=== PATIENT | male | born 1970 | race African-American/Black ===

== ENCOUNTER 2016-09-24 21:12 | Emergency (ER) | payer OTHER ==
[2016-09-24] MEDS ORDERED: IPRATROPIUM-ALBUTEROL 3 ML NEB INHALATION STA (21:29)
--- NOTE | 2016-09-24 21:33 | ED ---
General Adult HPI - General Chief complaint: Chest Pain Stated complaint: Chest Pain/JULIETTE Time Seen by Provider: 09/24/16 21:15 Source: patient, RN notes reviewed Mode of arrival: wheelchair - History of Present Illness Initial comments: This is a 45-year-old male with a past medical history significant for COPD. Patient comes in stating he had difficulty breathing since this morning at 9 AM. Patient states he also is complaining of chest pain anytime he takes a deep breath chart at 9 AM. Patient states that sharp in nature. Patient denies any recent fever chills or cough. Patient states he has no chest pain at rest or with shallow breathing. Patient denies any palpitations. Patient denies abdominal pain patient denies nausea vomiting or diarrhea. Patient denies any headache patient denies any lightheadedness dizziness or near syncopal episode. Patient denies any numbness or weakness. Patient states prior to arrival he did have one beer - Related Data Home Medications Medication Instructions Recorded Confirmed Albuterol Sulfate [Ventolin HFA] 2 puff INHALATION RT-Q6H PRN 08/25/15 09/12/16 oxyCODONE-APAP 5-325MG [Percocet 2 tab PO Q6H PRN 07/21/16 09/12/16 5-325 mg] Gabapentin [Neurontin] 300 mg PO Q6H 08/11/16 09/12/16 ALPRAZolam [Xanax] 2 mg PO BID 08/30/16 09/12/16 Aspirin 81 mg PO DAILY 08/30/16 09/12/16 Colchicine 0.6 mg PO BID 08/30/16 09/12/16 Morphine Sulfate ER [Ms Contin] 60 mg PO BID 08/30/16 09/12/16 Promethazine 6.25MG/5Ml [Phenergan 12.5 mg PO QID PRN 08/30/16 09/12/16 Syrup] Previous Rx's Medication Instructions Recorded Ibuprofen [Motrin] 600 mg PO Q6HR PRN #20 tab 08/30/16 Famotidine [Pepcid] 20 mg PO BID #30 tablet 09/12/16 Allergies Allergy/AdvReac Type Severity Reaction Status Date / Time dicyclomine HCl [From Bentyl] Allergy Severe Anaphylaxis Verified 09/24/16 21:16 Iodinated Contrast Media - Allergy Severe Rash/Hives Verified 09/24/16 21:16 Oral and prednisone Allergy Severe Anaphylaxis Verified 09/24/16 21:16 shellfish derived [Shellfish] Allergy Severe Rash/Hives Verified 09/24/16 21:16 oxycodone Allergy Mild Itching Verified 09/24/16 21:16 Penicillins Allergy Unknown Unknown Verified 09/24/16 21:16 Childhood steroids Allergy Severe Anaphylaxis Uncoded 09/24/16 21:16 Review of Systems ROS Statement: Those systems with pertinent positive or pertinent negative responses have been documented in the HPI. ROS Other: All systems not noted in ROS Statement are negative. 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 Past Anesthesia/Blood Transfusion Reactions: No Reported Reaction Date of Last Stent Placement:: 2002 Past Psychological History: Anxiety, Bipolar, Depression, Schizophrenia Additional Psychological History / Comment(s): PT states he HAS COMPREHENSION PROBLEMS DOES'NT READ WELL STATED CAN'T COMPREHNED IT,ABLE TO WRITE HIS NAME Pt lives alone in an apartment. CURRENTLY SINCE RECENT SX/HOSPITALIZATIONS HAS HAD HOME CARE SERVICES. He has home O2 3L/NC which he wears continuously. Smoking Status: Light tobacco smoker Past Alcohol Use History: Occasional Additional Past Alcohol Use History / Comment(s): Pt states he occasionally smokes. SMOKING CESSATION BOOKLET GIVEN TO PT, OCC ALCOHOL USE Past Drug Use History: None Reported Additional Drug Use History / Comment(s): Last marijuana use 2014 - Past Family History Mother Family Medical History: Asthma Father Family Medical History: Liver Disease Additional Family Medical History / Comment(s): RENAL DISEASE General Exam - General Exam Comments Initial Comments: GENERAL: Patient is well-developed and well-nourished. Patient is nontoxic and well- hydrated and is in no acute distress when I walked into the room he was watching TV and not making any sounds as soon as he saw me he started forcibly ENT: Neck is soft and supple. No significant lymphadenopathy is noted. Oropharynx is clear. Moist mucous membranes. Neck has full range of motion without eliciting any pain. EYES: The sclera were anicteric and conjunctiva were pink and moist. Extraocular movements were intact and pupils were equal round and reactive to light. Eyelids were unremarkable. PULMONARY: It is difficult to hear any breath sounds with his forced wheezing because it is so loud CARDIOVASCULAR: There is a regular rate and rhythm without any murmurs gallops or rubs. ABDOMEN: Soft and nontender with normal bowel sounds. No palpable organomegaly was noted. There is no palpable pulsatile mass. SKIN: Skin is clear with no lesions or rashes and otherwise unremarkable. NEUROLOGIC: Patient is alert and oriented x3. Cranial nerves II through XII are grossly intact. Motor and sensory are also intact. Normal speech, volume and content. Symmetrical smile. MUSCULOSKELETAL: Normal extremities with adequate strength and full range of motion. No lower extremity swelling or edema. No calf tenderness. LYMPHATICS: No significant lymphadenopathy is noted PSYCHIATRIC: Normal psychiatric evaluation. Course Vital Signs 09/24/16 09/24/16 09/24/16 21:13 22:23 22:26 Temperature 96.8 F L Pulse Rate 107 H 107 H 97 Respiratory 18 20 Rate Blood Pressure 136/81 123/80 O2 Sat by Pulse 99 97 Oximetry 09/24/16 22:38 Temperature Pulse Rate 97 Respiratory Rate Blood Pressure O2 Sat by Pulse Oximetry Medical Decision Making - Medical Decision Making EKG shows sinus tachycardia at 105 bpm NH interval 152 QRS is 72 QTC is 320 QTC is 422. Patient's EKG shows no ST segment elevation or depression though there are quite a few precordial leads that are less than ideal because of the noise. Patient's ABG shows a pH of 7.37 pCO2 of 37.9 pO2 of 114 bicarb 21 and an O2 sat of 98.3%. I stood outside the patient's room he was making no wheezing whatsoever I did this on multiple occasions. As soon as I walked into the room he started to audibly wheeze and force himself to wheeze. - Lab Data Result diagrams: 09/24/16 21:50 09/24/16 21:50 Lab Results 09/24/16 09/24/16 09/24/16 Range/Units 21:30 21:50 21:50 WBC 8.5 (3.8-10.6) k/uL RBC 4.95 (4.30-5.90) m/uL Hgb 12.9 L (13.0-17.5) gm/dL Hct 40.6 (39.0-53.0) % MCV 81.9 (80.0-100.0) fL MCH 26.1 (25.0-35.0) pg MCHC 31.9 (31.0-37.0) g/dL RDW 15.3 (11.5-15.5) % Plt Count 226 (150-450) k/uL Neutrophils % 65 % Lymphocytes % 28 % Monocytes % 4 % Eosinophils % 1 % Basophils % 1 % Neutrophils # 5.5 (1.3-7.7) k/uL Lymphocytes # 2.4 (1.0-4.8) k/uL Monocytes # 0.3 (0-1.0) k/uL Eosinophils # 0.1 (0-0.7) k/uL Basophils # 0.1 (0-0.2) k/uL PT (9.0-12.0) sec INR (<1.1) APTT (22.0-30.0) sec Sample Site ABG pH (7.35-7.45) ABG pCO2 (35-45) mmHg ABG pO2 (83-108) mmHg ABG HCO3 (21-25) mmol/L ABG Total CO2 (19-24) mmol/L ABG O2 Saturation (94-97) % ABG Base Excess mmol/L FiO2 % Sodium 141 (137-145) mmol/L Potassium 3.8 (3.5-5.1) mmol/L Chloride 103 (98-107) mmol/L Carbon Dioxide 25 (22-30) mmol/L Anion Gap 13 mmol/L BUN 22 H (9-20) mg/dL Creatinine 1.03 (0.66-1.25) mg/dL Est GFR (MDRD) Af Amer >60 (>60 ml/min/1.73 sqM) Est GFR (MDRD) Non-Af >60 (>60 ml/min/1.73 sqM) Glucose 89 (74-99) mg/dL Calcium 8.8 (8.4-10.2) mg/dL Total Bilirubin 0.3 (0.2-1.3) mg/dL AST 15 L (17-59) U/L ALT 29 (21-72) U/L Alkaline Phosphatase 91 (38-126) U/L Total Creatine Kinase (55-170) U/L CK-MB (CK-2) (0.0-2.4) ng/mL CK-MB (CK-2) Rel Index Troponin I (0.000-0.034) ng/mL NT-Pro-B Natriuret Pep 17 pg/mL Total Protein 6.7 (6.3-8.2) g/dL Albumin 4.1 (3.5-5.0) g/dL Serum Alcohol 82 mg/dL 09/24/16 09/24/16 09/24/16 Range/Units 21:50 21:50 22:19 WBC (3.8-10.6) k/uL RBC (4.30-5.90) m/uL Hgb (13.0-17.5) gm/dL Hct (39.0-53.0) % MCV (80.0-100.0) fL MCH (25.0-35.0) pg MCHC (31.0-37.0) g/dL RDW (11.5-15.5) % Plt Count (150-450) k/uL Neutrophils % % Lymphocytes % % Monocytes % % Eosinophils % % Basophils % % Neutrophils # (1.3-7.7) k/uL Lymphocytes # (1.0-4.8) k/uL Monocytes # (0-1.0) k/uL Eosinophils # (0-0.7) k/uL Basophils # (0-0.2) k/uL PT 10.5 (9.0-12.0) sec INR 1.0 (<1.1) APTT 25.1 (22.0-30.0) sec Sample Site R RAD ABG pH 7.37 (7.35-7.45) ABG pCO2 38 (35-45) mmHg ABG pO2 114 H (83-108) mmHg ABG HCO3 21 (21-25) mmol/L ABG Total CO2 22 (19-24) mmol/L ABG O2 Saturation 98.0 H (94-97) % ABG Base Excess -3.3 mmol/L FiO2 28 % Sodium (137-145) mmol/L Potassium (3.5-5.1) mmol/L Chloride (98-107) mmol/L Carbon Dioxide (22-30) mmol/L Anion Gap mmol/L BUN (9-20) mg/dL Creatinine (0.66-1.25) mg/dL Est GFR (MDRD) Af Amer (>60 ml/min/1.73 sqM) Est GFR (MDRD) Non-Af (>60 ml/min/1.73 sqM) Glucose (74-99) mg/dL Calcium (8.4-10.2) mg/dL Total Bilirubin (0.2-1.3) mg/dL AST (17-59) U/L ALT (21-72) U/L Alkaline Phosphatase (38-126) U/L Total Creatine Kinase 127 (55-170) U/L CK-MB (CK-2) 0.5 (0.0-2.4) ng/mL CK-MB (CK-2) Rel Index 0.4 Troponin I <0.012 (0.000-0.034) ng/mL NT-Pro-B Natriuret Pep pg/mL Total Protein (6.3-8.2) g/dL Albumin (3.5-5.0) g/dL Serum Alcohol mg/dL Disposition Clinical Impression: Alcohol intoxication, History of COPD Disposition: HOME SELF-CARE Condition: Good Instructions: Abuse of Alcohol (ED), COPD (Chronic Obstructive Pulmonary Disease) (ED) Time of Disposition: 23:23
[2016-09-24 22:06] LABS: Basophils # (A) 0.1 k/uL (0-0.2); Basophils % (A) 1 %; CH 27.4; CHCM 33.6; Eosinophils # (A) 0.1 k/uL (0-0.7); Eosinophils % (A) 1 %; HCT 40.6 % (39.0-53.0); HDW 2.34; HGB 12.9 gm/dL (13.0-17.5); Luc # (Auto) 0.14; Luc % (Auto) 2; Lymphocytes # (A) 2.4 k/uL (1.0-4.8); Lymphocytes % (A) 28 %; MCH 26.1 pg (25.0-35.0); MCHC 31.9 g/dL (31.0-37.0); MCV 81.9 fL (80.0-100.0); Mean Platelet Volume 7.7; Monocytes # (A) 0.3 k/uL (0-1.0); Monocytes % (A) 4 %; Neutrophils # (A) 5.5 k/uL (1.3-7.7); Neutrophils % (A) 65 %; RBC 4.95 m/uL (4.30-5.90); RDW 15.3 % (11.5-15.5); WBC 8.5 k/uL (3.8-10.6); WBC (Perox) 8.77
[2016-09-24 22:13] LABS: Partial Thromboplastin Time 25.1 sec (22.0-30.0); Prothrombin Time 10.5 sec (9.0-12.0)
[2016-09-24 22:14] LABS: ALT 29 U/L (21-72); AST 15 U/L (17-59); Alkaline Phosphatase 91 U/L (38-126); Anion Gap 13 mmol/L; Blood Urea Nitrogen 22 mg/dL (9-20); Calcium 8.8 mg/dL (8.4-10.2); Carbon Dioxide 25 mmol/L (22-30); Chloride 103 mmol/L (98-107); Glucose 89 mg/dL (74-99); Non-African American GFR(MDRD) >60 (>60 ml/min/1.73 sqM); Potassium 3.8 mmol/L (3.5-5.1); Sodium 141 mmol/L (137-145); Total Bilirubin 0.3 mg/dL (0.2-1.3); Total Protein 6.7 g/dL (6.3-8.2)
--- NOTE | 2016-09-24 22:17 | XR ---
EXAMINATION TYPE: XR chest 2V DATE OF EXAM: 09/24/2016 10:09 PM COMPARISON: September 12, 2016 6:50 AM hours HISTORY: Shortness of breath history of asthma and cardiac stents. TECHNIQUE: Frontal and lateral views of the chest are obtained. FINDINGS: Right-sided Mediport catheter is noted in place with its tip in the area of atriocaval junction. There is persistent mild pulmonary vascular congestion with improvement since previous study. No foca l pneumonia is noted. There is no pneumothorax. No significant pleural effusions are suggested. The cardiac silhouette size is within normal limits. The osseous structures are intact. IMPRESSION: 1. There is improvement noted in the CHF changes with persistent mild pulmonary vascular congestion. 2. No focal pneumonia.
[2016-09-24 22:21] LABS: Alcohol 82 mg/dL
[2016-09-24 22:29] LABS: Creatine Kinase 127 U/L (55-170)
[2016-09-24 22:37] LABS: ABG Base Excess -3.3 mmol/L; ABG HCO3 21 mmol/L (21-25); ABG PCO2 38 mmHg (35-45); ABG PH 7.37 (7.35-7.45); ABG PO2 114 mmHg (83-108); ABG TCO2 22 mmol/L (19-24)
[2016-09-24 22:39] VITALS: PULSE 97
[2016-09-24 22:42] LABS: Creatine Kinase MB 0.5 ng/mL (0.0-2.4); Troponin I <0.012 ng/mL (0.000-0.034)
[2016-09-24 23:48] VITALS: BP 122/73; RESP 18; TEMP 97.6
== END 2016-09-24 23:47 | disposition home or self-care (01) ==
LOC: EC 21:12
DX: J44.9 Chronic obstructive pulmonary disease, unspecified (principal); F10.129 Alcohol abuse with intoxication, unspecified; R07.9 Chest pain, unspecified; I25.10 Atherosclerotic heart disease of native coronary artery without angina pectoris; F41.9 Anxiety disorder, unspecified; I25.2 Old myocardial infarction; F17.200 Nicotine dependence, unspecified, uncomplicated; Y90.4 Blood alcohol level of 80-99 mg/100 ml; Z88.0 Allergy status to penicillin; Z88.1 Allergy status to other antibiotic agents; Z88.8 Allergy status to other drugs, medicaments and biological substances; Z95.5 Presence of coronary angioplasty implant and graft; Z91.041 Radiographic dye allergy status; Z91.013 Allergy to seafood; Z79.82 Long term (current) use of aspirin; Z86.718 Personal history of other venous thrombosis and embolism; Z79.899 Other long term (current) drug therapy
CPT/HCPCS: 36415; 36600; 71020; 80053; 80320; 82550; 82553; 82805; 83880; 84484; 85025; 85610; 85730; 93005; 94640; 99285

== ENCOUNTER 2016-11-03 13:07 | Inpatient (IN) | payer MEDICAID, OTHER ==
--- NOTE | 2016-11-03 14:21 | ED ---
General Adult HPI - General Chief complaint: Psychiatric Symptoms Stated complaint: Sucidial Time Seen by Provider: 11/03/16 13:25 Source: patient, RN notes reviewed, old records reviewed Mode of arrival: ambulatory Limitations: no limitations - History of Present Illness Initial comments: This is a 45-year-old male here for evaluation of psychiatric disease. Patient coming in feeling suicidal. Patient states he is suicidal, denies drugs or alcohol abuse, patient not taking medications since July - Related Data Home Medications Medication Instructions Recorded Confirmed Albuterol Sulfate [Ventolin HFA] 2 puff INHALATION RT-Q6H PRN 08/25/15 11/03/16 oxyCODONE-APAP 5-325MG [Percocet 2 tab PO Q6H PRN 07/21/16 11/03/16 5-325 mg] ALPRAZolam [Xanax] 2 mg PO BID PRN 08/30/16 11/03/16 Morphine Sulfate ER [Ms Contin] 60 mg PO BID PRN 08/30/16 11/03/16 Promethazine 6.25MG/5Ml [Phenergan 12.5 mg PO QID PRN 08/30/16 11/03/16 Syrup] Allergies Allergy/AdvReac Type Severity Reaction Status Date / Time dicyclomine HCl [From Bentyl] Allergy Severe Anaphylaxis Verified 11/03/16 13:50 Iodinated Contrast Media - Allergy Severe Rash/Hives Verified 11/03/16 13:50 Oral and prednisone Allergy Severe Anaphylaxis Verified 11/03/16 13:50 shellfish derived [Shellfish] Allergy Severe Rash/Hives Verified 11/03/16 13:50 oxycodone Allergy Mild Itching Verified 11/03/16 13:50 Penicillins Allergy Unknown Unknown Verified 11/03/16 13:50 Childhood steroids Allergy Severe Anaphylaxis Uncoded 11/03/16 13:19 Review of Systems ROS Statement: Those systems with pertinent positive or pertinent negative responses have been documented in the HPI. ROS Other: All systems not noted in ROS Statement are negative. 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 Past Anesthesia/Blood Transfusion Reactions: No Reported Reaction Date of Last Stent Placement:: 2002 Past Psychological History: Anxiety, Bipolar, Depression, Schizophrenia Additional Psychological History / Comment(s): PT states he HAS COMPREHENSION PROBLEMS DOES'NT READ WELL STATED CAN'T COMPREHNED IT,ABLE TO WRITE HIS NAME Pt lives alone in an apartment. CURRENTLY SINCE RECENT SX/HOSPITALIZATIONS HAS HAD HOME CARE SERVICES. He has home O2 3L/NC which he wears continuously. Smoking Status: Current every day smoker Past Alcohol Use History: Occasional Additional Past Alcohol Use History / Comment(s): Pt states he occasionally smokes. SMOKING CESSATION BOOKLET GIVEN TO PT, OCC ALCOHOL USE Past Drug Use History: None Reported Additional Drug Use History / Comment(s): Last marijuana use 2014 - Past Family History Mother Family Medical History: Asthma Father Family Medical History: Liver Disease Additional Family Medical History / Comment(s): RENAL DISEASE General Exam Limitations: no limitations General appearance: alert, in no apparent distress Head exam: Present: atraumatic, normocephalic, normal inspection Eye exam: Present: normal appearance, PERRL, EOMI. Absent: scleral icterus, conjunctival injection, periorbital swelling ENT exam: Present: normal exam, mucous membranes moist Neck exam: Present: normal inspection. Absent: tenderness, meningismus, lymphadenopathy Respiratory exam: Present: normal lung sounds bilaterally. Absent: respiratory distress, wheezes, rales, rhonchi, stridor Cardiovascular Exam: Present: regular rate, normal rhythm, normal heart sounds. Absent: systolic murmur, diastolic murmur, rubs, gallop, clicks GI/Abdominal exam: Present: soft, normal bowel sounds. Absent: distended, tenderness, guarding, rebound, rigid Extremities exam: Present: normal inspection, full ROM, normal capillary refill. Absent: tenderness, pedal edema, joint swelling, calf tenderness Back exam: Present: normal inspection Neurological exam: Present: alert, oriented X3, CN II-XII intact Psychiatric exam: Present: normal affect, normal mood Skin exam: Present: warm, dry, intact, normal color. Absent: rash Course Vital Signs 11/03/16 13:15 Temperature 97.0 F L Pulse Rate 95 Respiratory 18 Rate Blood Pressure 128/74 O2 Sat by Pulse 97 Oximetry - Reevaluation(s) Reevaluation #1: 11/03/16 14:20 Patient's medically clear for psychiatric evaluation Medical Decision Making - Medical Decision Making 45 male ER for evaluation of psychiatric these, suicidal thoughts, patient will be admitted for psychiatric evaluation and treatment Disposition Clinical Impression: Suicidal ideation, Depression Disposition: ADMITTED IP TO THIS HOSP Condition: Fair Referrals: Barbie Puentes MD [Primary Care Provider] - 1-2 days
[2016-11-03 16:38] LABS: ALT 38 U/L (21-72); AST 18 U/L (17-59); Alkaline Phosphatase 93 U/L (38-126); Anion Gap 9 mmol/L; Blood Urea Nitrogen 18 mg/dL (9-20); Calcium 9.1 mg/dL (8.4-10.2); Carbon Dioxide 27 mmol/L (22-30); Chloride 105 mmol/L (98-107); Glucose 102 mg/dL (74-99); Non-African American GFR(MDRD) >60 (>60 ml/min/1.73 sqM); Potassium 4.1 mmol/L (3.5-5.1); Sodium 141 mmol/L (137-145); Total Bilirubin 0.6 mg/dL (0.2-1.3); Total Protein 7.1 g/dL (6.3-8.2)
[2016-11-03 16:39] LABS: Basophils # (A) 0.1 k/uL (0-0.2); Basophils % (A) 1 %; CH 27.2; CHCM 33.4; Eosinophils # (A) 0.1 k/uL (0-0.7); Eosinophils % (A) 2 %; HCT 39.6 % (39.0-53.0); HDW 2.38; HGB 13.1 gm/dL (13.0-17.5); Luc # (Auto) 0.19; Luc % (Auto) 3; Lymphocytes # (A) 2.3 k/uL (1.0-4.8); Lymphocytes % (A) 38 %; MCHC 33.1 g/dL (31.0-37.0); MCV 81.6 fL (80.0-100.0); Mean Platelet Volume 7.1; Monocytes # (A) 0.3 k/uL (0-1.0); Monocytes % (A) 6 %; Neutrophils # (A) 3.1 k/uL (1.3-7.7); Neutrophils % (A) 51 %; RBC 4.86 m/uL (4.30-5.90); RDW 15.1 % (11.5-15.5); WBC 6.1 k/uL (3.8-10.6); WBC (Perox) 6.31
[2016-11-03] MEDS ORDERED: MAG HYDROX/AL HYDROX/SIMETH 30 ML CUP PO PRN (17:34)
[2016-11-03] MEDS ORDERED: MAGNESIUM HYDROXIDE 2,400 MG/10 ML CUP PO PRN (17:34)
[2016-11-03] MEDS ORDERED: ZIPRASIDONE 20 MG VIAL IM PRN (17:34)
[2016-11-03] MEDS ORDERED: LORazepam 2 MG/ML SYRINGE IM PRN (17:37)
[2016-11-03] MEDS: NICOTINE 14MG/24HR PATCH TRANSDERM SCH (18:07)
[2016-11-03] MEDS: ALBUTEROL INHALER 60 PUFF/8 GM INHALER INHALATION PRN (19:14)
[2016-11-03] MEDS: LORazepam 1 MG TAB PO PRN (23:56)
[2016-11-03] MEDS: ACETAMINOPHEN TAB 325 MG TAB PO PRN (23:56)
[2016-11-04] MEDS: ACETAMINOPHEN TAB 325 MG TAB PO PRN ×2 (08:07→21:03)
[2016-11-04 10:03] VITALS: BMI 30.4
[2016-11-04] MEDS: NICOTINE 14MG/24HR PATCH TRANSDERM SCH (11:16)
[2016-11-04] MEDS: ARIPiprazole 15 MG TAB PO SCH (11:16)
[2016-11-04] MEDS: oxyCODONE-APAP 5-325MG 1 EACH TAB PO PRN ×2 (11:18→18:16)
[2016-11-04] MEDS: ALBUTEROL INHALER 60 PUFF/8 GM INHALER INHALATION PRN (11:25)
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
--- NOTE | 2016-11-04 12:38 | P.CONS ---
History of Present Illness - Reason for Consult Consult date: 11/04/16 - Chief Complaint Suicidal ideation - History of Present Illness Mr. Lopez is a 45-year-old gentleman who is admitted to the hospital after contemplating suicide of jumping off a bridge. Patient apparently has some history of cancer in his bone underwent surgical interventions at [facility]. Patient was seen in the past by Dr. novak thought there was some element of malingering for pain medications. He states have some visual and auditory hallucinations. Currently denies to have thoughts of hurting himself. Patient immediately asked for pain medications during my examination. However stated that he has not had any medications prescribed for or 4 months. States that he feels that his cancer is back in his left arm. Patient's initial urine drug screen was negative for pain medications. Patient also has a history of COPD and continues to smoke at this time. Patient is having any chest pain, difficulty breathing, nausea, vomiting or diarrhea. States that his main issue is pain in his left arm. Past medical history includes COPD CAD status post PCI History of DVT GERD Chronic insomnia Remote history of some cancer that is not documented on previous notes. 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 Past Anesthesia/Blood Transfusion Reactions: No Reported Reaction Date of Last Stent Placement:: 2002 Past Psychological History: Anxiety, Bipolar, Depression, Schizophrenia Additional Psychological History / Comment(s): PT states he HAS COMPREHENSION PROBLEMS DOES'NT READ WELL STATED CAN'T COMPREHNED IT,ABLE TO WRITE HIS NAME. Smoking Status: Current every day smoker Past Alcohol Use History: Abuse, Daily Additional Past Alcohol Use History / Comment(s): Pt. states that he drinks alcohol to help manage his pain. He drinks until he passes out. Past Drug Use History: Marijuana, Opiates, Prescription Drug Abuse Additional Drug Use History / Comment(s): Last marijuana use 2014 - Past Family History Mother Family Medical History: Asthma Father Family Medical History: Liver Disease Additional Family Medical History / Comment(s): RENAL DISEASE Medications and Allergies Home Medications Medication Instructions Recorded Confirmed Type Albuterol Sulfate [Ventolin HFA] 2 puff INHALATION RT-Q6H PRN 08/25/15 11/03/16 History oxyCODONE-APAP 5-325MG [Percocet 2 tab PO Q6H PRN 07/21/16 11/03/16 History 5-325 mg] ALPRAZolam [Xanax] 2 mg PO BID PRN 08/30/16 11/03/16 History Morphine Sulfate ER [Ms Contin] 60 mg PO BID PRN 08/30/16 11/03/16 History Promethazine 6.25MG/5Ml [Phenergan 12.5 mg PO QID PRN 08/30/16 11/03/16 History Syrup] Allergies Allergy/AdvReac Type Severity Reaction Status Date / Time dicyclomine HCl [From Bentyl] Allergy Severe Anaphylaxis Verified 11/03/16 13:50 Iodinated Contrast Media - Allergy Severe Rash/Hives Verified 11/03/16 13:50 Oral and prednisone Allergy Severe Anaphylaxis Verified 11/03/16 13:50 shellfish derived [Shellfish] Allergy Severe Rash/Hives Verified 11/03/16 13:50 Penicillins Allergy Unknown Unknown Verified 11/03/16 13:50 Childhood steroids Allergy Severe Anaphylaxis Uncoded 11/03/16 13:19 Physical Exam Vitals: Vital Signs Temp Pulse Pulse Resp BP BP Pulse Ox 11/04/16 09:50 98.5 F 78 18 114/66 11/04/16 00:25 97.3 F L 86 18 105/64 11/03/16 18:06 98.5 F 78 18 114/66 11/03/16 17:27 98.2 F 80 18 119/66 96 Intake and Output 11/03/16 11/04/16 11/04/16 22:59 06:59 14:59 Other: Weight 80.297 kg 80.297 kg Patient Weight 11/05/16 06:59 Weight 80.297 kg Gen. appears alert oriented 3 does not appear to be in distress Neck is supple no JVD Head is atraumatic normocephalic pupils equal round reactive light neck on admission Left upper extremity surgical scar noted posteriorly there is some tenderness to palpation of the right upper arm. Distal vendette strength appears to be within normal limits. Chest good air movement no rhonchi or wheezing appreciated. Patient appears to wheeze from the hypopharynx on purpose this is more related to anxiety and this was also documented on previous documentation there was concern for malingering at this time Heart S1-S2 heard regular rate and rhythm no murmurs appreciated Lower extremities no edema noted. Neuro cranial nerves 2 till 12 grossly intact muscle strength is 5 out of 5 in the right upper extremity bilateral lower extremities left upper extremity could not be properly assessed due to the pain however distal strength appears to be appropriate. Results CBC & Chem 7: 11/03/16 16:20 11/03/16 16:20 Assessment and Plan Plan: #1 major depression with suicidal ideation Hallucinations #3 CAD #4 Chronic Pain Ctr. #5 DVT #6 GERD #7 COPD or graft #8 ongoing tobacco dependence. #9 remote history of musculoskeletal cancer. Plan Multiple documentations of concern for pain seeking behavior including malingering in the past. Recommend judicious use of narcotics. In regards to his musculoskeletal cancer would recommend referring the patient to an oncologist for outpatient review of previous care and imaging studies. I see no documentation in her system at this time. Thank you for the consultation no further testing is recommend.
[2016-11-04] MEDS: LORazepam 1 MG TAB PO PRN (18:17)
[2016-11-04] MEDS: QUEtiapine 200 MG TAB PO SCH (21:02)
[2016-11-04] MEDS: SYMBICORT 160-4.5 MCG INHALER INHALATION SCH (21:31)
--- NOTE | 2016-11-05 08:25 | P.PN ---
Progress Note - Text Interval history: The patient is found in the hallway he follows me to an interview room. He endorses ongoing auditory hallucinations that are commanding in nature. He reports his mood is "so-so". He is only partially cooperative with the interview and is not motivated to engage in conversation. He states his appetite is "so-so". It's reported that he slept 6 hours last evening he agrees that there is improvement with the Seroquel. He asked no questions today regarding his medications. He was seen by the brick cleaner for a routine medical consultation. Mental status exam: The patient is an -[place] male appearing his stated age. He seated calmly eye contact is intermittent he has little spontaneous speech. He endorses a mood that is "so-so" affect is bland. He endorses ongoing auditory command hallucinations no visual hallucinations. He states he always has a feeling of being followed watched or in danger. Insight and judgment impaired. There is no verbal or physical aggressiveness today at times he seems mildly agitated. He is oriented to person place month and year. He is reporting no thoughts of harming others. He presented with suicidal ideation. Plan: The patient will continue on the Abilify and Seroquel as written. We will consider titrating the Abilify further. We will continue to monitor him for safety and encourage his participation in the milieu. Vital signs reviewed.
[2016-11-05] MEDS: ARIPiprazole 15 MG TAB PO SCH (08:48)
[2016-11-05] MEDS: NICOTINE 14MG/24HR PATCH TRANSDERM SCH (08:48)
[2016-11-05] MEDS: oxyCODONE-APAP 5-325MG 1 EACH TAB PO PRN (08:49)
[2016-11-05] MEDS: SYMBICORT 160-4.5 MCG INHALER INHALATION SCH ×2 (10:25→20:42)
[2016-11-05] MEDS: IBUPROFEN 800 MG TAB PO PRN (16:44)
[2016-11-05] MEDS: ALBUTEROL INHALER 60 PUFF/8 GM INHALER INHALATION PRN (20:42)
[2016-11-05] MEDS: QUEtiapine 200 MG TAB PO SCH (20:43)
[2016-11-06] MEDS: ARIPiprazole 15 MG TAB PO SCH (09:12)
[2016-11-06] MEDS: NICOTINE 14MG/24HR PATCH TRANSDERM SCH (09:13)
[2016-11-06] MEDS: SYMBICORT 160-4.5 MCG INHALER INHALATION SCH (10:56)
--- NOTE | 2016-11-06 15:01 | P.PN ---
Progress Note - Text Interval history: Patient seen in cross coverage for Dr. Patel today. He reports that he didn't sleep that well last night. He does state that he is eating some. He does not seem to voice any adverse psychotropic medication side effects. He does state that he is feeling better today. Mental status exam: He is found in his room lying in bed. He is alert and cooperative. His answers are somewhat brief. He does describe his mood is better. He does not describe any current auditory hallucinations and does not appear to responding to any internal stimuli. He denies any thoughts of harm to self or others. His affect overall is restricted. He does not show any agitation. Plan: Patient will be maintained on current psychotropic medications. We'll monitor for any psychosis symptoms. We'll continue to cover this patient for Dr. Patel through the weekend.
[2016-11-06] MEDS: IBUPROFEN 800 MG TAB PO PRN (15:21)
[2016-11-06] MEDS: LORazepam 1 MG TAB PO PRN (15:22)
[2016-11-06 18:48] LABS: Basophils % (A) 1 %; CH 28.1; CHCM 34.4; Eosinophils # (A) 0.2 k/uL (0-0.7); Eosinophils % (A) 3 %; HCT 43.5 % (39.0-53.0); HDW 2.49; HGB 14.5 gm/dL (13.0-17.5); Luc # (Auto) 0.08; Luc % (Auto) 1; Lymphocytes # (A) 1.9 k/uL (1.0-4.8); Lymphocytes % (A) 30 %; MCH 27.3 pg (25.0-35.0); MCHC 33.3 g/dL (31.0-37.0); Mean Platelet Volume 8.3; Monocytes # (A) 0.3 k/uL (0-1.0); Monocytes % (A) 5 %; Neutrophils # (A) 3.9 k/uL (1.3-7.7); Neutrophils % (A) 61 %; RBC 5.31 m/uL (4.30-5.90); RDW 14.9 % (11.5-15.5); WBC 6.4 k/uL (3.8-10.6); WBC (Perox) 6.11
[2016-11-06] MEDS: ALBUTEROL INHALER 60 PUFF/8 GM INHALER INHALATION PRN (18:53)
[2016-11-06 18:58] LABS: ALT 32 U/L (21-72); AST 29 U/L (17-59); Alkaline Phosphatase 96 U/L (38-126); Anion Gap 12 mmol/L; Blood Urea Nitrogen 19 mg/dL (9-20); Calcium 9.6 mg/dL (8.4-10.2); Carbon Dioxide 24 mmol/L (22-30); Chloride 105 mmol/L (98-107); Glucose 130 mg/dL (74-99); Non-African American GFR(MDRD) >60 (>60 ml/min/1.73 sqM); Potassium 4.7 mmol/L (3.5-5.1); Sodium 141 mmol/L (137-145); Total Bilirubin 0.6 mg/dL (0.2-1.3); Total Protein 7.4 g/dL (6.3-8.2)
[2016-11-06] MEDS: PANTOPRAZOLE 40 MG TABLET PO SCH (19:04)
[2016-11-06] MEDS: DOCUSATE 100 MG CAP PO SCH (20:46)
[2016-11-06] MEDS: QUEtiapine 200 MG TAB PO SCH (20:46)
[2016-11-06] MEDS: ACETAMINOPHEN TAB 325 MG TAB PO PRN (20:48)
[2016-11-07] MEDS: SYMBICORT 160-4.5 MCG INHALER INHALATION SCH ×2 (03:10→09:58)
[2016-11-07 06:52] VITALS: TEMP 98
[2016-11-07] MEDS: PANTOPRAZOLE 40 MG TABLET PO SCH (07:52)
[2016-11-07] MEDS: DOCUSATE 100 MG CAP PO SCH (07:52)
[2016-11-07] MEDS: NICOTINE 14MG/24HR PATCH TRANSDERM SCH (07:52)
[2016-11-07] MEDS: LORazepam 1 MG TAB PO PRN (07:52)
[2016-11-07] MEDS: ACETAMINOPHEN TAB 325 MG TAB PO PRN (07:53)
[2016-11-07] MEDS: ARIPiprazole 15 MG TAB PO SCH (07:53)
[2016-11-07 09:44] VITALS: BP 116/67
[2016-11-07] MEDS ORDERED: IPRATROPIUM-ALBUTEROL 3 ML NEB INHALATION STA (09:55)
[2016-11-07 10:08] VITALS: PULSE 95; RESP 26
--- NOTE | 2016-11-07 10:30 | P.PN ---
Progress Note - Text Interval history: Patient is seen in cross coverage for Dr. Patel today. Patient relays that he started having difficulty breathing this morning and does describe some chest pain as well. The a team was called prior to me seeing the patient and he is in the process of being transferred to the medical floor. He currently describes his difficulty with breathing and is also describing some pain in the chest area. Mental status exam: He is seen in his room, he is lying in bed. He is in the process of being transferred to the medical floor. He denies any thoughts of harm to self or others. He is currently denying any hallucinations. His affect overall is restricted. He is not showing any agitation. Plan: We'll maintain current psychotropic medications. Patient is being transferred to the medical floor for medical stabilization. He can continue to be followed by psychiatry on the medical floor.
--- NOTE | 2016-11-07 10:44 | XR ---
EXAMINATION TYPE: XR chest 1V portable DATE OF EXAM: 11/07/2016 10:22 AM COMPARISON: Prior chest x-ray 24 September 2016 HISTORY: Chest pain and shortness of breath TECHNIQUE: Single frontal view of the chest is obtained. FINDINGS: There is no focal air space opacity, pleural effusion, or pneumothorax seen. The cardiac silhouette size is stable accounting for rotation and differences in technique. Right jugular Port-A -Cath is present and stable. Arthropathy again noted within the shoulders. Surgical clips in the left axilla. The osseous structures are intact. IMPRESSION: No acute process.
--- NOTE | 2016-11-10 10:26 | P.DS ---
Providers Date of admission: 11/03/16 17:08 Expected date of discharge: 11/07/16 Attending physician: Mathew Patel Consults: 11/03/16 17:34 Consult Physician Routine Consulting Provider: Norberto Durand Consult Reason/Comments: follow up H & P Do you want consulting provider notified?: Yes Primary care physician: Barbie Puentes - Discharge Diagnosis(es) (1) Schizophrenia Status: Acute Priority: High (2) Alcohol use disorder Status: Acute Priority: High Hospital Course: Brief summary of admission note: This patient is a 45-year-old Afro- Indian male who was admitted to the mental health unit through the emergency room with a complaint of suicidal ideation. The patient reported he had thoughts of killing himself by jumping off a bridge. He endorses a depressed mood with recent tearfulness decreased appetite and poor sleep and energy. He described having command auditory hallucinations directing self-harm. He had also been using alcohol he has a history of alcohol use disorder. For full details please refer to my psychiatric evaluation dated 11/04/2016. Summary of hospital course: The patient was admitted to the mental health unit he did sign in voluntarily. We reviewed his symptoms and medication options. We decided to initiate Abilify 15 mg daily and Seroquel 200 mg at bedtime. I performed a psychiatric evaluation the patient was subsequently seen by Dr. Bell in coverage over the weekend. The patient developed some respiratory distress. A medical team assessed the patient and it was determined he needed to be stabilized on select care. The patient was seen by Dr. Bell Tuesday and Tuesday prior to his transfer from this unit. Please refer to those progress notes for further detail. The patient tolerated the Abilify and Seroquel without report of side effect. Mental status exam: Please refer to Dr. Bell's progress note from this past Tuesday regarding the patient's mental status exam. Impressions 1. Schizophrenia, alcohol use disorder, history of opiate use disorder 2. Antisocial personality disorder traits, intellectual disability 3. History of bone malignancy, coronary artery disease with stent placement, COPD, chronic pain 4. Psychosocial dysfunction secondary to psychiatric symptoms including alcohol use and medical comorbidities Plan: The patient was transferred to the medical floor from the mental health unit for further stabilization of his respiratory distress. He was continued on Abilify 15 mg daily Seroquel 200 mg at bedtime. Our psychiatric service will follow the patient on the medical floor. Patient Condition at Discharge: Stable Plan - Discharge Summary Discharge Medication List Albuterol Sulfate [Ventolin HFA] 2 puff INHALATION RT-Q6H PRN 08/25/15 [History] Promethazine 6.25MG/5Ml [Phenergan Syrup] 12.5 mg PO QID PRN 08/30/16 [History] ARIPiprazole [Abilify] 15 mg PO DAILY #30 tab 11/09/16 [Rx] Ibuprofen [Motrin] 600 mg PO TID PRN #20 tab 11/09/16 [Rx] LORazepam [Ativan] 1 mg PO TID PRN #15 tab 11/09/16 [Rx] QUEtiapine [SEROquel] 200 mg PO HS #30 tab 11/09/16 [Rx] oxyCODONE-APAP 5-325MG [Percocet 5-325 mg] 1 tab PO Q6H PRN #12 tab 11/09/16 [Rx ] Follow up Appointment(s)/Referral(s): Barbie Puentes MD [Primary Care Provider] - 1-2 days Discharge Disposition: ADMITTED IP TO THIS HOSP
== END 2016-11-07 10:28 | disposition short-term general hospital (02) | DRG 885 ==
LOC: EC 13:07 → 3MHU 17:08
PROVIDERS: ADMIT Psychiatry & Neurology Psychiatry; ATTEND Psychiatry & Neurology Psychiatry
DX: F20.9 Schizophrenia, unspecified (principal); Z99.81 Dependence on supplemental oxygen; R45.851 Suicidal ideations; F79 Unspecified intellectual disabilities; J44.9 Chronic obstructive pulmonary disease, unspecified; F60.2 Antisocial personality disorder; F17.200 Nicotine dependence, unspecified, uncomplicated; F12.10 Cannabis abuse, uncomplicated; F51.04 Psychophysiologic insomnia; G89.4 Chronic pain syndrome; I25.10 Atherosclerotic heart disease of native coronary artery without angina pectoris; I25.2 Old myocardial infarction; J45.909 Unspecified asthma, uncomplicated; K21.9 Gastro-esophageal reflux disease without esophagitis; Z76.5 Malingerer [conscious simulation]; Z85.830 Personal history of malignant neoplasm of bone; Z86.718 Personal history of other venous thrombosis and embolism; Z87.11 Personal history of peptic ulcer disease; Z95.5 Presence of coronary angioplasty implant and graft; F59 Unspecified behavioral syndromes associated with physiological disturbances and physical factors; R07.9 Chest pain, unspecified; R06.00 Dyspnea, unspecified; Z91.041 Radiographic dye allergy status; Z88.5 Allergy status to narcotic agent; Z88.0 Allergy status to penicillin; Z91.013 Allergy to seafood
CPT/HCPCS: 36415; 71010; 80053; 80306; 82075; 84443; 85025; 93005; 94640; 99285

== ENCOUNTER 2016-11-07 10:44 | Observation (INO) | payer OTHER ==
[2016-11-07 11:11] VITALS: BMI 30.7
[2016-11-07] MEDS ORDERED: ALPRAZolam 0.25 MG TAB PO PRN (11:18)
[2016-11-07] MEDS ORDERED: LEVOFLOXACIN 500MG-D5W PMX 500 MG in DEXTROSE/WATER 1 100ML.BAG IVPB SCH (12:00)
[2016-11-07] MEDS ORDERED: diphenhydrAMINE 25 MG CAP PO PRN (12:03)
[2016-11-07] MEDS ORDERED: IBUPROFEN 600 MG TAB PO PRN (12:08)
[2016-11-07] MEDS ORDERED: LORazepam 1 MG TAB PO PRN (12:11)
[2016-11-07 12:17] LABS: Basophils # (A) 0.1 k/uL (0-0.2); Basophils % (A) 1 %; CH 27.6; CHCM 33.5; Eosinophils # (A) 0.1 k/uL (0-0.7); Eosinophils % (A) 2 %; HCT 43.5 % (39.0-53.0); HDW 2.33; HGB 14.4 gm/dL (13.0-17.5); Luc # (Auto) 0.16; Luc % (Auto) 3; Lymphocytes # (A) 1.6 k/uL (1.0-4.8); Lymphocytes % (A) 32 %; MCH 27.3 pg (25.0-35.0); MCHC 33.1 g/dL (31.0-37.0); MCV 82.6 fL (80.0-100.0); Mean Platelet Volume 7.9; Monocytes # (A) 0.4 k/uL (0-1.0); Monocytes % (A) 7 %; Neutrophils # (A) 2.9 k/uL (1.3-7.7); Neutrophils % (A) 55 %; RBC 5.26 m/uL (4.30-5.90); RDW 14.7 % (11.5-15.5); WBC 5.2 k/uL (3.8-10.6); WBC (Perox) 5.23
[2016-11-07 12:25] LABS: ALT 39 U/L (21-72); AST 20 U/L (17-59); Alkaline Phosphatase 89 U/L (38-126); Anion Gap 9 mmol/L; Blood Urea Nitrogen 21 mg/dL (9-20); Calcium 9.3 mg/dL (8.4-10.2); Carbon Dioxide 28 mmol/L (22-30); Chloride 103 mmol/L (98-107); Glucose 122 mg/dL (74-99); Non-African American GFR(MDRD) >60 (>60 ml/min/1.73 sqM); Potassium 4.8 mmol/L (3.5-5.1); Sodium 140 mmol/L (137-145); Total Bilirubin 0.8 mg/dL (0.2-1.3); Total Protein 6.9 g/dL (6.3-8.2)
[2016-11-07 12:37] LABS: Creatine Kinase 82 U/L (55-170)
[2016-11-07] MEDS: ARIPiprazole 15 MG TAB PO SCH (12:39)
[2016-11-07] MEDS: IPRATROPIUM-ALBUTEROL 3 ML NEB INHALATION SCH ×4 (12:40→20:40)
[2016-11-07] MEDS: HYDROcodone/APAP 5-325MG 1 EACH TAB PO PRN ×3 (12:41→21:56)
[2016-11-07] MEDS: predniSONE 50 MG TAB PO SCH (12:41)
[2016-11-07 12:50] LABS: Creatine Kinase MB <0.2 ng/mL (0.0-2.4); Troponin I <0.012 ng/mL (0.000-0.034)
--- NOTE | 2016-11-07 13:08 | HP ---
DATE OF ADMISSION: Chief complaint is difficulty breathing. HISTORY OF ILLNESS: Mr. Lopez is a 45-year-old male with a known history of asthma/COPD with multiple admissions to the hospital, major depression, currently undergoing treatment at inpatient psychiatric unit at [facility] and history of sarcoma of the left shoulder, status post left scapula resection and coronary artery disease with stent placement, and anxiety and multiple other medical problems, was sent to the selective care unit discharged as the patient was having acute short of breath this morning the patient. The patient had multiple admissions with similar complaints. Patient says that he is allergic to PREDNISONE and was actually taking with PREDNISONE with Benadryl. Patient was tried with PREDNISONE previous admissions without any issues. The patient says that he is allergic to PENICILLIN. He gets reactions including tongue swelling. Otherwise he is also complaining of chest pain and is requesting IV pain medications. Apparently, patient has not been prescribed [place] pain medication recently. Will try the IV pain medication at this time and also patient says that he has recurrence of a left shoulder sarcoma and he has followed with [facility], currently not receiving any active chemotherapy. Patient is also noncompliance with medications at home. Patient had a chest x-ray done this morning showed no acute process. Laboratory data is pending at this time. Patient also did complain of some dark stools yesterday. Hemoglobin has been stabilized, actually went up from 13.2 to 14.5. No complaints of dizziness now. No orthopnea. No PND. No complaints of cough or sputum production. Patient does have cough but no sputum production. Patient is very anxious. REVIEW OF SYSTEMS: CONSTITUTIONAL: No fever. No chills. No weakness, malaise. RESPIRATORY: Patient does have a cough without sputum production and short of breath. CARDIOVASCULAR: No chest pain. No worsening shortness of breath and no leg swelling. ABDOMEN: No nausea, vomiting, or abdominal pain. GENITOURINARY: Negative. ENDOCRINE: Negative. PSYCHIATRY: Negative. SKIN: Negative. All other 14-point review of systems negative except is negative. No recent illnesses or sick contacts. Patient was admitted to the hospital last time in August 2016, and he came back to the ER on 09/24/2016 as well. Past medical history includes asthma/COPD, history of coronary artery disease with stent placement, chest pain, angina, left arm sarcoma, status post surgical resection, stomach ulcer, which is microcytic anemia, chronic pain syndrome, history of DVT several years ago, not on anticoagulation currently, GERD, History of [place], history of IVC filter placement and is noncompliant with medications. PAST SURGICAL HISTORY: Cholecystectomy, cardiac catheterization with stent placement, orthopedic surgery left ( ) removed, right testicle removed and Allison filter placement patient. History of intubation x8, anxiety, depression, bipolar schizophrenia. SOCIAL HISTORY: Currently an everyday smoker, daily. He drinks alcohol to help manage his pain. He drinks until he passes out. Patient does use marijuana, opiates, prescription drug use with the last use of marijuana in August 2015. UDS is negative. Previous admission to psychiatric unit. PAST FAMILY HISTORY: Mother had asthma, father had liver disease and renal disease. Home medication include: 1. Ventolin. 2. Oxycodone. 3. Xanax. 4. Morphine sulfate. 5. Phenergan even though he was not prescribed any narcotic pain medications recently. Allergies include DICYCLOMINE, IODINATED CONTRAST MEDIA, ORAL AND IV PREDNISONE, SHELLFISH, PENICILLINS and STEROIDS. PHYSICAL EXAMINATION: A 45-year-old male lying in the bed. Awake, alert, oriented x3, appears to be in mild distress due to short of breath. VITALS: Blood pressure is 113/70, pulse was 83, respirations 18 to 26, pulse ox is 97% on 3 L nasal cannula. LABORATORY DATA: WBC 5.2, hemoglobin 14.4, platelets 238, sodium 141, potassium 4.4, chloride 105, bicarb is 24. BUN 19, creatinine 1.1. TSA 0.407. UDS negative on 11/03/2016. Chest x-ray showed no acute process. IMPRESSION: 1. Shortness of breath secondary to acute chronic obstructive pulmonary disease/asthma exacerbation, was take a d-dimer with history of deep venous thrombosis due to some nausea, chest pain. 2. Major depression suicidal ideation. Patient currently has been on inpatient psychiatric unit until this morning. 3. History of coronary artery disease, status post coronary artery bypass with stent placement. 4. Chronic pain syndrome. 5. Left arm sarcoma, status post left shoulder resection, currently in remission. Patient advised to follow with [facility] for further management. 6. Gastroesophageal reflux disease. 7. History of deep venous thrombosis on IV fluid placement. 8. Multiple admissions with similar complaints. 9. Noncompliant with medications. 10. Ongoing tobacco abuse. 11. Alcohol abuse. 12. History of myocardial infarction. 13. Anxiety, depression, bipolar and schizophrenia. PLAN: Patient will be continued on breathing treatments and will add Symbicort as well and will start prednisone along with Benadryl and closely monitor the patient for any drug reactions. Patient has been tried with prednisone before without any issues. Will continue with the Ability and Seroquel at this time. Will consult Psychiatry as well. Will continue with the sitter and will continue with the current management and further recommendations based on the clinical course. Will start on GI and DVT prophylaxis, heparin subQ and Protonix.
[2016-11-07] MEDS: HEPARIN SODIUM,PORCINE 5,000 UNIT/ML 1 ML VIAL SQ SCH (15:54)
[2016-11-07] MEDS: PANTOPRAZOLE 40 MG TABLET PO SCH (15:59)
[2016-11-07] MEDS ORDERED: IPRATROPIUM-ALBUTEROL 3 ML NEB INHALATION PRN (20:14)
[2016-11-07] MEDS: SYMBICORT 160-4.5 MCG INHALER INHALATION SCH (20:41)
[2016-11-07] MEDS: QUEtiapine 200 MG TAB PO SCH (21:56)
[2016-11-08] MEDS: HEPARIN SODIUM,PORCINE 5,000 UNIT/ML 1 ML VIAL SQ SCH ×4 (06:23→23:40)
[2016-11-08] MEDS: PANTOPRAZOLE 40 MG TABLET PO SCH (07:11)
[2016-11-08] MEDS: SYMBICORT 160-4.5 MCG INHALER INHALATION SCH ×2 (07:27→19:57)
[2016-11-08] MEDS: IPRATROPIUM-ALBUTEROL 3 ML NEB INHALATION SCH ×4 (07:27→19:30)
[2016-11-08] MEDS: predniSONE 50 MG TAB PO SCH (09:05)
[2016-11-08] MEDS: ARIPiprazole 15 MG TAB PO SCH (09:06)
[2016-11-08] MEDS: HYDROcodone/APAP 5-325MG 1 EACH TAB PO PRN ×3 (09:10→20:53)
--- NOTE | 2016-11-08 11:55 | CDI ---
In responding to this query, please exercise your independent professional judgment. The [facility] Coding Staff and Clinical Documentation Specialists appreciate your assistance in clarifying documentation, maintaining compliance with coding guidelines, accurately documenting patients condition and capturing severity of illness. The fact that a question is asked does not imply that any particular answer is desired or expected. Communication forms are a method of clarifying documentation and are not made part of the Legal Health Record. Thank you in advance for your clarification. Last Revision, November 2015 Jonathan Cuello [address] [facility] [place] [address] Documentation Clarification Form Date: 11/08/2016 11:46:00 AM From: Tristan Palomares, RN, BSN, CDI Admit Date: 11/07/2016 10:44:00 AM Patient Name: Pérez Lopez Visit Number: [id number] Dr. Ronnie Mullins: "Asthma Exacerbation is documented in the H&P. Patient history/risk factors: 45 yo male with a history of COPD, asthma, bipolar , schizophrenia, medical noncompliance and current smoker presents from inpatient psychiatric facility with acute SOB. Clinical Indicators: Vital Signs: 132/77, 83, 18, 97.5, 97% 3L NC CXR: Per H&P: "done this morning- showed no acute process" Other Clinical Indicators: Treatment: Oxygen @2-3L Medication: Duonebs, Symbicort, Prednisone (pt refusing) In your professional opinion, can you please further specify the following, if known? With Severity Mild intermittent Mild persistent Moderate persistent Severe persistent Other, please specify ____ Unable to determine Form or Type Cough variant Childhood Exercise induced bronchospasm Extrinsic allergic Idiosyncratic Intrinsic nonallergic Late-onset Mixed Other, please specify Unable to determine Please document in your progress notes and discharge summary in order to capture severity of illness and risk of mortality. Include clinical findings that support your diagnosis. FYI: Press F11 to launch patient chart. Place X here if this finding has no clinical significance, is not applicable or if you are not able to provide any additional documentation. MTDD
[2016-11-08 18:59] VITALS: RESP 18
[2016-11-08] MEDS: QUEtiapine 200 MG TAB PO SCH (20:50)
[2016-11-09] MEDS: PANTOPRAZOLE 40 MG TABLET PO SCH (06:30)
[2016-11-09] MEDS: SYMBICORT 160-4.5 MCG INHALER INHALATION SCH (08:13)
[2016-11-09] MEDS: IPRATROPIUM-ALBUTEROL 3 ML NEB INHALATION SCH ×3 (08:14→16:05)
[2016-11-09] MEDS: HEPARIN SODIUM,PORCINE 5,000 UNIT/ML 1 ML VIAL SQ SCH ×2 (08:20→18:01)
[2016-11-09] MEDS: HYDROcodone/APAP 5-325MG 1 EACH TAB PO PRN ×3 (08:26→18:04)
[2016-11-09] MEDS: predniSONE 50 MG TAB PO SCH (09:08)
[2016-11-09] MEDS: ARIPiprazole 15 MG TAB PO SCH (09:08)
--- NOTE | 2016-11-09 11:26 | PN ---
DATE OF SERVICE: 11/08/2016 INTERVAL HISTORY: Mr. Lopez is a 45-year-old male with a known history of asthma, COPD, with multiple admission in the past, transferred from psychiatric unit due to worsening short of breath. Apparently, patient is taking prednisone and otherwise patient's ( ) is much improved today. Breathing is improved as well. Continued on breathing treatments and otherwise Psychiatry has been consulted for further evaluation and possible transfer to inpatient psychiatric again. Otherwise, review of systems; CONSTITUTIONAL: No fever. No chills with no weakness. RESPIRATORY: Patient does have cough, nonproductive, and short of breath. CARDIOVASCULAR: No chest pain. Patient does have short of breath, no leg swelling. ABDOMEN: No nausea, vomiting or abdominal pain. GENITOURINARY: Negative. ENDOCRINE: Negative. PSYCHIATRY: Negative. MUSCULOSKELETAL: Evaluation of left shoulder pain. All other 14-point review of systems negative except as above. CURRENT MEDICATIONS: Reviewed. PHYSICAL EXAMINATION: A 45-year-old male, lying in bed comfortably, awake, alert, oriented x3. Appears to be in no apparent distress. VITALS: Blood pressure is 111/60, pulse 75, respirations 18, temperature afebrile, pulse ox 94% on room air. HEENT: Atraumatic, normocephalic. Neck is supple. No JVD. CVS EXAM: S1, S2 heard. No murmurs, no gallop. LUNGS: Bilateral air entry is present. No crackles. Patient does have wheezing in the upper airway. Nonlabored breathing Abdomen is soft, bowel sounds are present. ACADEMIC ASSISTANT: Awake, alert, oriented, x3. No focal deficit. EXTREMITIES: No edema. Pulses palpable bilaterally. No clubbing, no cyanosis. PSYCHIATRIC: Cooperative, anxious. SKIN: No rash or skin lesions actively. MUSCULOSKELETAL: The patient does have left shoulder pain and range of motion is intact, no swelling. LABORATORY DATA: Reviewed. IMPRESSION: 1. Acute chronic obstructive pulmonary disease exacerbation, improving now. 2. Moderate persistent asthma. 3. Slightly elevated d-dimer which is actually lower than last admission. No signs of pulmonary embolism at this time. Patient is saturating well on room air, no tachycardia. No headache or dizziness noted. 4. Major depression and suicidal ideation, Psychiatry has been reconsulted and possible transfer to inpatient psychiatric unit. 5. Coronary artery disease with history of stent placement. 6. Chronic pain syndrome. 7. Left arm/shoulder sarcoma, status post left scapular resection. Currently on this admission, patient is advised to follow with [facility] for further management. 8. Gastroesophageal reflux disease. 9. History of deep venous thrombosis and IVC filter placement. 10. Multiple admissions with similar complaints. 11. Noncompliant with medications. 12. Ongoing tobacco abuse. 13. Alcohol abuse. 14. History of myocardial infarction. 15. Anxiety, depression, bipolar and schizophrenia. DISCUSSION AND PLAN: Patient will be continued on breathing treatments. DuoNeb and patient is refusing prednisone. Will continue the pain management with [place] and Motrin, Will avoid narcotic pain medications and IV pain medications. Psychiatry has been consulted. Otherwise, patient is medically stable to be transferred to inpatient psychiatric unit. Continue with the DVT prophylaxis and GI prophylaxis.
--- NOTE | 2016-11-09 11:59 | P.PN ---
Progress Note - Text Interval history: The patient is found in his room he is lying awake in bed there is a product safety associate at bedside. The patient was transferred from our mental health unit to select care for respiratory distress. The patient states that he is breathing better he feels more stable. On the mental health unit we had initiated Abilify 15 mg daily Seroquel 200 mg at bedtime. He feels both of these medications are helping significantly. He is endorsing no auditory hallucinations. He had previously been experiencing command auditory hallucinations. He is endorsing no paranoid or persecutory thoughts. He states his thinking is clear. He is reporting no suicidal or homicidal ideation intent or plan. Nursing staff on this floor states the patient has been cooperative. I discussed the patient's status with the one-to-one sitter and also with the patient's current nurse. Mental status exam: The patient is an alert Afro-[place]ian male he is lying in bed. Eye contact is good. He recognizes me on approach. He reports mood is "much better". He is reporting no suicidal or homicidal ideation intent or plan. He is reporting no thoughts of harming others. He is endorsing no auditory or visual hallucinations he is endorsing no specific delusions. Insight and judgment improved. Cognitively he is oriented to person place and date. He is much more alert and interactive compared to 2 days ago. He is demonstrating no verbal or physical aggressiveness. He demonstrates range of affect which is appropriate. He demonstrates future oriented thinking. Plan: Schizophrenia: Continue Abilify 15 mg daily, Seroquel 200 mg at bedtime. The patient does not require transfer back to the mental health unit and can be discharged from the hospital once medically cleared. The patient no longer requires a product safety associate. Instructions were left with nursing to have social work will arrange outpatient mental health follow-up with [facility] within 7 days from discharge from the hospital. There is no imminent safety risk the patient is appropriate for transition back to outpatient psychiatric care. He is instructed to abstain from any use of alcohol or illicit drugs including marijuana. He is verbalizing no ownership or immediate access to firearms at his home. He states that he has family members that are able to provide some assistance.
[2016-11-09 16:35] VITALS: BP 110/70; PULSE 78; TEMP 97.8
--- NOTE | 2017-01-03 06:19 | DS ---
DATE OF ADMISSION: 11/07/2016 DATE OF DISCHARGE: 11/09/2016 DISCHARGE DIAGNOSES: 1. Acute chronic obstructive pulmonary disease exacerbation, improved now. 2. Moderate persistent asthma. 3. Slightly elevated D-dimer, which is actually lower than the last admission. No signs of pulmonary embolism at this time. Saturating well on room air. No tachycardia. No headache or dizziness or lightheadedness. 4. Major depression with suicide ideation. Psychiatry has been reconsulted and no inpatient psychiatry unit transfer at this time recommended. 5. History of coronary artery disease with history of stent placement. 6. Chronic pain syndrome. 7. Left arm/shoulder sarcoma, status post left scapular resection currently on remission. Advised to follow with C for further management. 8. Gastroesophageal reflux disease. 9. History of deep venous thrombosis and IVC filter placement. 10. Multiple admissions with similar complaints. 11. Noncompliant with medications. 12. Ongoing tobacco abuse. 13. Alcohol abuse. 14. History of myocardial infarction. 15. Anxiety, depression, bipolar and schizophrenia. HOSPITAL COURSE: Mr. Lopez is a 45-year-old male with a known history of multiple admissions with similar complaints of difficulty breathing. Patient does have history of asthma and COPD and history of smoking in the past. Patient was initially admitted to hospital to the mental health unit and was transferred to medical floor with worsening short of breath. Patient currently being treated for acute COPD exacerbation. The patient is refusing prednisone at this time, which he has tolerated previously. Patient is still complaining that patient is allergic to PREDNISONE. Patient's breathing is much improved now. No active complaints of short of breath. Patient otherwise was seen by Psychiatry and recommended to continue with medical management which was started on the psychiatric unit. Otherwise, no inpatient psychiatric transfer has been recommended at this time. Patient will be discharged to home with his medications re-prescribed at this time. DISCHARGE PHYSICAL EXAMINATION: A 45-year-old male lying in bed. Awake, alert, oriented x3. Appears to be in no apparent distress. VITALS: Blood pressure is 110/70, pulse is 78, respirations 18, temperature afebrile, pulse ox 96% on 3 L of nasal cannula. Discharge physical examination done. LABORATORY DATA: Reviewed. Discharge medications include: 1. Albuterol HFA 2 puffs q.6 hourly p.r.n. for short of breath. 2. Phenergan syrup 12.5 mg p.o. q.i.d. p.r.n. for nausea and vomiting. 3. Xanax 2 mg p.o. b.i.d. 4. Abilify 400 mg IM q.28 days. 5. Famotidine 20 mg p.o. daily. 6. [place] 5 one tablet p.o. b.i.d. p.r.n. for pain. 7. Omeprazole 20 mg p.o. b.i.d. 8. Benadryl 50 mg p.o. at bedtime. The patient will be discharged home in stable condition. Home with self-care. Activity as tolerated. Heart healthy diet. Recommended follow with primary care physician and mental health clinic. Time taken more than 35 minutes including 18 minutes counseling the patient and coordinating care.
== END 2016-11-09 18:15 | disposition home or self-care (01) ==
LOC: INTOOBSV 10:44 → 6SEL 10:44
PROVIDERS: ADMIT Internal Medicine; ATTEND Internal Medicine
DX: J44.1 Chronic obstructive pulmonary disease with (acute) exacerbation (principal); J45.41 Moderate persistent asthma with (acute) exacerbation; F20.9 Schizophrenia, unspecified; F10.10 Alcohol abuse, uncomplicated; F31.9 Bipolar disorder, unspecified; F17.200 Nicotine dependence, unspecified, uncomplicated; F41.9 Anxiety disorder, unspecified; G89.4 Chronic pain syndrome; I25.10 Atherosclerotic heart disease of native coronary artery without angina pectoris; I25.2 Old myocardial infarction; K21.9 Gastro-esophageal reflux disease without esophagitis; R45.851 Suicidal ideations; Z86.718 Personal history of other venous thrombosis and embolism; Z88.0 Allergy status to penicillin; Z91.14 Patient's other noncompliance with medication regimen; Z95.1 Presence of aortocoronary bypass graft; Z95.5 Presence of coronary angioplasty implant and graft; Z88.8 Allergy status to other drugs, medicaments and biological substances; Z91.041 Radiographic dye allergy status; C76.42 Malignant neoplasm of left upper limb
CPT/HCPCS: 94640 ×5; 85379; 83880; 80053; 82550; 82553; 84484; 85025; G0379; G0378 ×4

== ENCOUNTER 2016-12-31 15:04 | Emergency (ER) | payer OTHER ==
[2016-12-31 15:12] VITALS: RESP 18; TEMP 99.4
[2016-12-31] MEDS ORDERED: HYDROmorphone 2 MG/ML 1 ML SYRINGE IM STA ×2 (15:28→16:15)
[2016-12-31] MEDS ORDERED: IPRATROPIUM-ALBUTEROL 3 ML NEB INHALATION STA (15:28)
--- NOTE | 2016-12-31 15:42 | ED ---
General Adult HPI - General Chief complaint: Chest Pain Stated complaint: chest pain Time Seen by Provider: 12/31/16 15:12 Source: patient, EMS, RN notes reviewed, old records reviewed Mode of arrival: EMS Limitations: no limitations - History of Present Illness Initial comments: This is a 46-year-old male ER for reevaluation or shortness of breath and chest pain, chest pain with cough, symptoms similar to prior pleurisy. Patient is longer. Medical history was well-known to this emergency room. Patient denies any diaphoresis no recent fevers does have increased cough and congestion, does suffer from COPD, states taking all medications as prescribed to an urgent travel history, recent hospitalization was about 2 months ago. - Related Data Home Medications Medication Instructions Recorded Confirmed Albuterol Sulfate [Ventolin HFA] 2 puff INHALATION RT-Q6H PRN 08/25/15 12/31/16 Promethazine 6.25MG/5Ml [Phenergan 12.5 mg PO QID PRN 08/30/16 12/31/16 Syrup] ALPRAZolam [Xanax] 2 mg PO BID PRN 12/31/16 12/31/16 ARIPiprazole IM [Abilify Maint[place]] 400 mg IM Q28D 12/31/16 12/31/16 Famotidine [Pepcid] 20 mg PO DAILY 12/31/16 12/31/16 HYDROcodone/APAP 5-325MG [[place] 1 tab PO BID PRN 12/31/16 12/31/16 5-325] Omeprazole [PriLOSEC] 20 mg PO BID 12/31/16 12/31/16 diphenhydrAMINE [Benadryl] 50 mg PO HS 12/31/16 12/31/16 Allergies Allergy/AdvReac Type Severity Reaction Status Date / Time dicyclomine HCl [From Bentyl] Allergy Severe Anaphylaxis Verified 12/31/16 15:41 Iodinated Contrast Media - Allergy Severe Rash/Hives Verified 12/31/16 15:41 Oral and prednisone Allergy Severe Anaphylaxis Verified 12/31/16 15:41 shellfish derived [Shellfish] Allergy Severe Rash/Hives Verified 12/31/16 15:41 Penicillins Allergy Unknown Unknown Verified 12/31/16 15:41 Childhood steroids Allergy Severe Anaphylaxis Uncoded 12/31/16 15:12 Review of Systems ROS Statement: Those systems with pertinent positive or pertinent negative responses have been documented in the HPI. ROS Other: All systems not noted in ROS Statement are negative. Past Medical History Past Medical History: Asthma, Coronary Artery Disease (CAD), Cancer, Chest Pain / Angina, COPD, Deep Vein Thrombosis (DVT), GERD/Reflux, Myocardial Infarction ( [place]), Pneumonia, Respiratory Disorder Additional Past Medical History / Comment(s): Other HX: Chronic bronchial asthma with frequent hospitalizations, bone cancer/osteosarcoma, 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 Past Anesthesia/Blood Transfusion Reactions: No Reported Reaction Date of Last Stent Placement:: 2002 Past Psychological History: Anxiety, Bipolar, Depression, Schizophrenia Additional Psychological History / Comment(s): PT states he HAS COMPREHENSION PROBLEMS DOES'NT READ WELL STATED CAN'T COMPREHNED IT,ABLE TO WRITE HIS NAME. Smoking Status: Current some day smoker Past Alcohol Use History: None Reported Additional Past Alcohol Use History / Comment(s): Pt. states that he drinks alcohol to help manage his pain. He drinks until he passes out. Past Drug Use History: Marijuana, Opiates, Prescription Drug Abuse Additional Drug Use History / Comment(s): Last marijuana use 2014 - Past Family History Mother Family Medical History: Asthma Father Family Medical History: Liver Disease, Renal Disease Additional Family Medical History / Comment(s): RENAL DISEASE General Exam Limitations: no limitations General appearance: alert, in no apparent distress Head exam: Present: atraumatic, normocephalic, normal inspection Eye exam: Present: normal appearance, PERRL, EOMI. Absent: scleral icterus, conjunctival injection, periorbital swelling ENT exam: Present: normal exam, mucous membranes moist Neck exam: Present: normal inspection. Absent: tenderness, meningismus, lymphadenopathy Respiratory exam: Present: normal lung sounds bilaterally. Absent: respiratory distress, wheezes, rales, rhonchi, stridor Cardiovascular Exam: Present: regular rate, normal rhythm, normal heart sounds. Absent: systolic murmur, diastolic murmur, rubs, gallop, clicks GI/Abdominal exam: Present: soft, normal bowel sounds. Absent: distended, tenderness, guarding, rebound, rigid Extremities exam: Present: normal inspection, full ROM, normal capillary refill. Absent: tenderness, pedal edema, joint swelling, calf tenderness Back exam: Present: normal inspection Neurological exam: Present: alert, oriented X3, CN II-XII intact Psychiatric exam: Present: normal affect, normal mood Skin exam: Present: warm, dry, intact, normal color. Absent: rash Course Vital Signs 12/31/16 12/31/16 12/31/16 15:05 15:17 15:44 Temperature 99.4 F Pulse Rate 101 H 98 Respiratory 18 18 Rate Blood Pressure 107/67 O2 Sat by Pulse 98 Oximetry 12/31/16 12/31/16 15:58 16:20 Temperature Pulse Rate 88 92 Respiratory 18 Rate Blood Pressure 119/68 O2 Sat by Pulse 96 Oximetry - Reevaluation(s) Reevaluation #1: 12/31/16 16:26 Patient is a difficult pain patient with difficult pain control, patient given 4 mg of Dilaudid here in the emergency room EKG Findings - EKG Comments: EKG Findings:: EKG shows normal sinus rhythm rate of 97, WA 134, QRS 70, QTC 411 Medical Decision Making - Medical Decision Making 46 now to ER for evaluation of pleuritic chest pain. Patient's x-ray and EKG are normal. Patient's pain is improved prior to discharge and can be discharged home - Radiology Data Radiology results: report reviewed (Chest x-ray is negative for acute disease), image reviewed Disposition Clinical Impression: Chest wall syndrome, Chest pain Disposition: HOME SELF-CARE Condition: Good Referrals: Dave Richards MD [Primary Care Provider] - 1-2 days
--- NOTE | 2016-12-31 16:12 | XR ---
EXAMINATION TYPE: XR chest 2V DATE OF EXAM: 12/31/2016 4:02 PM COMPARISON: 11/07/2016 HISTORY: Chest pain TECHNIQUE: Frontal and lateral views of the chest are obtained. FINDINGS: MediPort catheter is unchanged in position. There is no focal air space opacity. No evidence for pnuemothorax.No pleural effusion. The cardiac silhouette size is within normal limits. The osseous structures are grossly intact. IMPRESSION: 1. No acute cardiopulmonary process.
[2016-12-31] MEDS ORDERED: diphenhydrAMINE 50 MG CAP PO STA (16:15)
[2016-12-31 16:21] VITALS: BP 119/68; PULSE 92
== END 2016-12-31 16:48 | disposition home or self-care (01) ==
LOC: EC 15:04
DX: R07.1 Chest pain on breathing (principal); R07.9 Chest pain, unspecified; R05 Cough; R06.02 Shortness of breath; K21.9 Gastro-esophageal reflux disease without esophagitis; F20.9 Schizophrenia, unspecified; F17.200 Nicotine dependence, unspecified, uncomplicated; F19.19 Other psychoactive substance abuse with unspecified psychoactive substance-induced disorder; Z79.899 Other long term (current) drug therapy; Z88.0 Allergy status to penicillin; Z88.8 Allergy status to other drugs, medicaments and biological substances; Z91.013 Allergy to seafood; Z91.041 Radiographic dye allergy status; Z85.830 Personal history of malignant neoplasm of bone; Z87.19 Personal history of other diseases of the digestive system; Z98.890 Other specified postprocedural states
CPT/HCPCS: 94640; 71020; 99285; 96372 ×2; J1170; 93005

== ENCOUNTER 2017-01-20 12:09 | Observation (INO) | payer OTHER ==
[2017-01-20] MEDS ORDERED: SODIUM CHLORIDE 0.9% 1,000 ML IV STA (12:41)
[2017-01-20] MEDS ORDERED: RX INFO: IV CONTRAST WAS GIVEN 1 EACH MISC MISCELLANE PRN (12:42)
[2017-01-20] MEDS ORDERED: diphenhydrAMINE 50 MG/ML 1 ML VIAL IVP STA (12:44)
[2017-01-20] MEDS ORDERED: FAMOTIDINE 20 MG/2 ML VIAL IV STA (12:44)
[2017-01-20] MEDS ORDERED: IPRATROPIUM-ALBUTEROL 3 ML NEB INHALATION STA (12:48)
--- NOTE | 2017-01-20 12:48 | ED ---
General Adult HPI - General Chief complaint: Chest Pain Stated complaint: Fall-back and neck pain Time Seen by Provider: 01/20/17 12:37 Source: patient, RN notes reviewed Mode of arrival: wheelchair Limitations: no limitations - History of Present Illness Initial comments: Patient is a pleasant 46-year-old male presenting to the emergency Department with complaints of chest pain. Onset of symptoms was around 45 minutes ago. Symptoms improved and worsened. Patient then had a syncopal episode. Patient states he lost consciousness. Patient still has some chest discomfort. Discomfort feels like heaviness in the left chest. There may be some mild dyspnea. No nausea or diaphoresis. Patient has had similar chest discomfort previously associated with heart problems and has had stent placement. Patient does have some neck discomfort posteriorly only with movement. Patient states neck discomfort did not start until after he passed out. Patient questions if he hurt his neck when he passed out. Patient is unclear whether or not he said. Patient denies any headache. No confusion or weakness. - Related Data Home Medications Medication Instructions Recorded Confirmed ALPRAZolam [Xanax] 2 mg PO BID PRN 12/31/16 01/20/17 ARIPiprazole IM [Abilify Maintena] 400 mg IM Q28D 12/31/16 01/20/17 Famotidine [Pepcid] 20 mg PO DAILY 12/31/16 01/20/17 HYDROcodone/APAP 5-325MG [[place] 1 tab PO BID PRN 12/31/16 01/20/17 5-325] Omeprazole [PriLOSEC] 20 mg PO BID 12/31/16 01/20/17 diphenhydrAMINE [Benadryl] 50 mg PO HS 12/31/16 01/20/17 Albuterol Nebulized [Ventolin 2.5 mg INHALATION RT-Q4H PRN 01/20/17 01/20/17 Nebulized] Allergies Allergy/AdvReac Type Severity Reaction Status Date / Time dicyclomine HCl [From Bentyl] Allergy Severe Anaphylaxis Verified 01/20/17 12:58 Iodinated Contrast Media - Allergy Severe Rash/Hives Verified 01/20/17 12:58 Oral and prednisone Allergy Severe Anaphylaxis Verified 01/20/17 12:58 shellfish derived [Shellfish] Allergy Severe Rash/Hives Verified 01/20/17 12:58 Penicillins Allergy Unknown Unknown Verified 01/20/17 12:58 Childhood steroids Allergy Severe Anaphylaxis Uncoded 01/20/17 12:27 Review of Systems ROS Statement: Those systems with pertinent positive or pertinent negative responses have been documented in the HPI. ROS Other: All systems not noted in ROS Statement are negative. Constitutional: Denies: fever Eyes: Denies: eye pain ENT: Denies: ear pain Respiratory: Reports: dyspnea. Denies: cough Cardiovascular: Reports: chest pain Endocrine: Denies: fatigue Gastrointestinal: Denies: abdominal pain Genitourinary: Denies: dysuria Musculoskeletal: Denies: back pain Skin: Denies: rash Neurological: Denies: weakness Past Medical History Past Medical History: Asthma, Coronary Artery Disease (CAD), Cancer, Chest Pain / Angina, COPD, Deep Vein Thrombosis (DVT), GERD/Reflux, Myocardial Infarction ( [place]), Pneumonia, Respiratory Disorder Additional Past Medical History / Comment(s): Other HX: Chronic bronchial asthma with frequent hospitalizations, bone cancer/osteosarcoma, 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 Past Anesthesia/Blood Transfusion Reactions: No Reported Reaction Date of Last Stent Placement:: 2002 Past Psychological History: Anxiety, Bipolar, Depression, Schizophrenia Additional Psychological History / Comment(s): PT states he HAS COMPREHENSION PROBLEMS DOES'NT READ WELL STATED CAN'T COMPREHNED IT,ABLE TO WRITE HIS NAME. Smoking Status: Current some day smoker Past Alcohol Use History: None Reported Additional Past Alcohol Use History / Comment(s): Pt. states that he drinks alcohol to help manage his pain. He drinks until he passes out. Past Drug Use History: Marijuana, Opiates, Prescription Drug Abuse Additional Drug Use History / Comment(s): Last marijuana use 2014 - Past Family History Mother Family Medical History: Asthma Father Family Medical History: Liver Disease, Renal Disease Additional Family Medical History / Comment(s): RENAL DISEASE General Exam Limitations: no limitations General appearance: alert, in no apparent distress Head exam: Present: atraumatic, normocephalic Eye exam: Present: normal appearance, PERRL ENT exam: Present: normal oropharynx Neck exam: Present: tenderness (Upper cervical spine) Respiratory exam: Present: wheezes, other (Right upper chest port) Cardiovascular Exam: Present: regular rate, normal rhythm Expanded Peripheral pulses: 2+: Posterior Tibialis (R), Posterior Tibialis (L) GI/Abdominal exam: Present: soft. Absent: tenderness Extremities exam: Present: normal inspection. Absent: pedal edema, calf tenderness Back exam: Present: normal inspection. Absent: tenderness Neurological exam: Present: alert, CN II-XII intact. Absent: motor sensory deficit Expanded Speech: Present: fluid speech Cranial nerves: EOM's Intact: Normal, Facial Sensation: Normal Sensory exam: Upper Extremity Light Touch: Normal, Lower Extremity Light Touch: Normal Motor strength exam: RUE: 5, LUE: 5, RLE: 5, LLE: 5 Eye Response: (4) open spontaneously Motor Response: (6) obeys commands Verbal Response: (5) oriented Psychiatric exam: Present: normal affect, normal mood Skin exam: Present: normal color Course Vital Signs 01/20/17 01/20/17 01/20/17 12:27 13:28 13:32 Temperature 98.7 F 98.7 F Pulse Rate 109 H 92 92 Respiratory 20 13 Rate Blood Pressure 139/95 122/72 O2 Sat by Pulse 97 98 Oximetry 01/20/17 01/20/17 01/20/17 13:36 14:12 15:21 Temperature 98.9 F 99.0 F Pulse Rate 96 97 95 Respiratory 18 18 Rate Blood Pressure 129/78 120/62 O2 Sat by Pulse 99 99 Oximetry EKG Findings - EKG Comments: EKG Findings:: Normal sinus rhythm and 93. [place] 142. QRS 68. QT 326. QTc 405. Normal axis. Normal QRS. Normal ST-T. Medical Decision Making - Medical Decision Making Patient reevaluated and resting comfortably at bedside. Patient does have some chest discomfort still. Case discussed with Dr. Richards, who will admit his patient. - Lab Data Result diagrams: 01/20/17 14:10 01/20/17 14:10 Lab Results 01/20/17 01/20/17 01/20/17 Range/Units 14:10 14:10 14:10 WBC 12.2 H (3.8-10.6) k/uL RBC 5.14 (4.30-5.90) m/uL Hgb 14.3 (13.0-17.5) gm/dL Hct 42.7 (39.0-53.0) % MCV 83.0 (80.0-100.0) fL MCH 27.9 (25.0-35.0) pg MCHC 33.6 (31.0-37.0) g/dL RDW 14.8 (11.5-15.5) % Plt Count 248 (150-450) k/uL Neutrophils % 76 % Lymphocytes % 17 % Monocytes % 4 % Eosinophils % 1 % Basophils % 0 % Neutrophils # 9.3 H (1.3-7.7) k/uL Lymphocytes # 2.1 (1.0-4.8) k/uL Monocytes # 0.5 (0-1.0) k/uL Eosinophils # 0.1 (0-0.7) k/uL Basophils # 0.1 (0-0.2) k/uL PT (9.0-12.0) sec INR (<1.1) APTT (22.0-30.0) sec Sodium 140 (137-145) mmol/L Potassium 4.4 (3.5-5.1) mmol/L Chloride 103 (98-107) mmol/L Carbon Dioxide 27 (22-30) mmol/L Anion Gap 10 mmol/L BUN 15 (9-20) mg/dL Creatinine 0.91 (0.66-1.25) mg/dL Est GFR (MDRD) Af Amer >60 (>60 ml/min/1.73 sqM) Est GFR (MDRD) Non-Af >60 (>60 ml/min/1.73 sqM) Glucose 109 H (74-99) mg/dL Calcium 9.1 (8.4-10.2) mg/dL Magnesium 2.3 (1.6-2.3) mg/dL Total Bilirubin 1.1 (0.2-1.3) mg/dL AST 25 (17-59) U/L ALT 62 (21-72) U/L Alkaline Phosphatase 109 (38-126) U/L Total Creatine Kinase 276 H (55-170) U/L CK-MB (CK-2) 0.9 (0.0-2.4) ng/mL CK-MB (CK-2) Rel Index 0.3 Troponin I <0.012 (0.000-0.034) ng/mL Total Protein 6.9 (6.3-8.2) g/dL Albumin 3.9 (3.5-5.0) g/dL Serum Alcohol <10 mg/dL 01/20/17 Range/Units 14:10 WBC (3.8-10.6) k/uL RBC (4.30-5.90) m/uL Hgb (13.0-17.5) gm/dL Hct (39.0-53.0) % MCV (80.0-100.0) fL MCH (25.0-35.0) pg MCHC (31.0-37.0) g/dL RDW (11.5-15.5) % Plt Count (150-450) k/uL Neutrophils % % Lymphocytes % % Monocytes % % Eosinophils % % Basophils % % Neutrophils # (1.3-7.7) k/uL Lymphocytes # (1.0-4.8) k/uL Monocytes # (0-1.0) k/uL Eosinophils # (0-0.7) k/uL Basophils # (0-0.2) k/uL PT 10.2 (9.0-12.0) sec INR 1.0 (<1.1) APTT 19.0 L (22.0-30.0) sec Sodium (137-145) mmol/L Potassium (3.5-5.1) mmol/L Chloride (98-107) mmol/L Carbon Dioxide (22-30) mmol/L Anion Gap mmol/L BUN (9-20) mg/dL Creatinine (0.66-1.25) mg/dL Est GFR (MDRD) Af Amer (>60 ml/min/1.73 sqM) Est GFR (MDRD) Non-Af (>60 ml/min/1.73 sqM) Glucose (74-99) mg/dL Calcium (8.4-10.2) mg/dL Magnesium (1.6-2.3) mg/dL Total Bilirubin (0.2-1.3) mg/dL AST (17-59) U/L ALT (21-72) U/L Alkaline Phosphatase (38-126) U/L Total Creatine Kinase (55-170) U/L CK-MB (CK-2) (0.0-2.4) ng/mL CK-MB (CK-2) Rel Index Troponin I (0.000-0.034) ng/mL Total Protein (6.3-8.2) g/dL Albumin (3.5-5.0) g/dL Serum Alcohol mg/dL - Radiology Data Radiology results: report reviewed (Computed tomography scan of the chest, brain , and cervical spine show no acute process.) Disposition Clinical Impression: Chest pain Disposition: ADMITTED IP TO THIS HOSP
[2017-01-20] MEDS ORDERED: ALBUTEROL NEBULIZED 2.5 MG/3 ML INHALATION STA (12:49)
[2017-01-20 14:25] LABS: Basophils # (A) 0.1 k/uL (0-0.2); Basophils % (A) 0 %; CH 28.1; Eosinophils # (A) 0.1 k/uL (0-0.7); Eosinophils % (A) 1 %; HCT 42.7 % (39.0-53.0); HDW 2.18; HGB 14.3 gm/dL (13.0-17.5); Luc # (Auto) 0.15; Luc % (Auto) 1; Lymphocytes # (A) 2.1 k/uL (1.0-4.8); Lymphocytes % (A) 17 %; MCH 27.9 pg (25.0-35.0); MCHC 33.6 g/dL (31.0-37.0); Mean Platelet Volume 6.7; Monocytes # (A) 0.5 k/uL (0-1.0); Monocytes % (A) 4 %; Neutrophils # (A) 9.3 k/uL (1.3-7.7); Neutrophils % (A) 76 %; RBC 5.14 m/uL (4.30-5.90); RDW 14.8 % (11.5-15.5); WBC 12.2 k/uL (3.8-10.6); WBC (Perox) 12.37
[2017-01-20 14:31] LABS: ALT 62 U/L (21-72); AST 25 U/L (17-59); Alcohol <10 mg/dL; Alkaline Phosphatase 109 U/L (38-126); Anion Gap 10 mmol/L; Blood Urea Nitrogen 15 mg/dL (9-20); Calcium 9.1 mg/dL (8.4-10.2); Carbon Dioxide 27 mmol/L (22-30); Chloride 103 mmol/L (98-107); Glucose 109 mg/dL (74-99); Magnesium 2.3 mg/dL (1.6-2.3); Non-African American GFR(MDRD) >60 (>60 ml/min/1.73 sqM); Potassium 4.4 mmol/L (3.5-5.1); Sodium 140 mmol/L (137-145); Total Bilirubin 1.1 mg/dL (0.2-1.3); Total Protein 6.9 g/dL (6.3-8.2)
[2017-01-20 14:35] LABS: Prothrombin Time 10.2 sec (9.0-12.0)
[2017-01-20 14:47] LABS: Creatine Kinase 276 U/L (55-170)
[2017-01-20 15:01] LABS: Creatine Kinase MB 0.9 ng/mL (0.0-2.4); Troponin I <0.012 ng/mL (0.000-0.034)
--- NOTE | 2017-01-20 15:42 | CT ---
EXAMINATION TYPE: CT brain cspine wo con DATE OF EXAM: 01/20/2017 3:36 PM COMPARISON: Previous exam 25 June 2016 HISTORY: Fell back and neck pain CT DLP: 1327.2 mGycm Automated exposure control for dose reduction was used. TECHNIQUE: CT scan of the head and cervical spine are performed without contrast. FINDINGS: There is no acute intracranial hemorrhage, mass effect, or midline shift identified. The ventricles and sulci are within normal limits in size. The globes are intact and the visualized sin uses are clear. Cervical spine is visualized in its entirety from C1 through upper thoracic levels and demonstrates s atisfactory alignment without evidence of acute fracture or dislocation. Prevertebral soft tissue ap pears within normal limits. The C1-C2 articulation is unremarkable. There is a right jugular central venous catheter present. IMPRESSION: 1. There is no acute fracture or dislocation evident in the cervical spine. 2. No acute intracranial hemorrhage, mass effect, or midline shift is seen.
--- NOTE | 2017-01-20 15:46 | CT ---
EXAMINATION TYPE: CT angio chest DATE OF EXAM: 01/20/2017 3:36 PM COMPARISON: NONE HISTORY: Syncopal episode CT DLP: 310.8 mGycm Automated exposure control for dose reduction was used. CONTRAST: CTA scan of the thorax is performed with IV Contrast, patient injected with 100, wasted 51 ml mL of O mnipaque 350, pulmonary embolism protocol. MIP images are created and reviewed. 3D reconstructed im ages are created on an independent workstation and reviewed. FINDINGS: LUNGS: The lungs are grossly clear, there is no concerning parenchymal mass or nodule identified. T here is no pleural effusion or pneumothorax seen. Minimal nodularity at the level of the minor fissur e on the right is stable. The tracheobronchial tree is patent. AORTA: No additional significant abnormality is seen. MEDIASTINUM: There is satisfactory enhancement of the pulmonary artery and its branches, there is no CT evidence for pulmonary embolism. There are no greater than 1 cm hilar or mediastinal lymph nodes. No pericardial effusion is seen. OTHER: Inferior vena cava filter is present. Patient is post cholecystectomy.. Postop change present to the left shoulder. Right-sided chest port is present. Left scapula is not se en. IMPRESSION: NO EVIDENT PULMONARY EMBOLISM. POSTOP CHANGES AND ADDITIONAL FINDINGS ABOVE.
[2017-01-20] MEDS ORDERED: NITROGLYCERIN SL TABS 0.4 MG TAB SUBLINGUAL PRN (16:34)
[2017-01-20] MEDS ORDERED: FAMOTIDINE 20 MG TAB PO SCH (19:00)
[2017-01-20] MEDS ORDERED: ALBUTEROL NEBULIZED 2.5 MG/3 ML INHALATION PRN (19:00)
[2017-01-20] MEDS: HYDROcodone/APAP 5-325MG 1 EACH TAB PO PRN (20:43)
[2017-01-20] MEDS: NITROGLYCERIN OINT 1 INCH/GM PACKET TOPICAL SCH (20:45)
[2017-01-20] MEDS ORDERED: diphenhydrAMINE 50 MG CAP PO SCH (21:00)
[2017-01-20] MEDS ORDERED: PANTOPRAZOLE 40 MG TABLET PO SCH (21:00)
[2017-01-20 21:12] LABS: Creatine Kinase 251 U/L (55-170)
[2017-01-20 21:26] LABS: Creatine Kinase MB 0.7 ng/mL (0.0-2.4); Troponin I <0.012 ng/mL (0.000-0.034)
[2017-01-20] MEDS ORDERED: ALPRAZolam 0.25 MG TAB PO SCH (22:00)
[2017-01-21 03:49] VITALS: RESP 18; TEMP 98.8
[2017-01-21 04:00] LABS: Cholesterol 118 mg/dL (<200); HDL Cholesterol 53 mg/dL (40-60); Triglycerides 131 mg/dL (<150)
[2017-01-21 04:16] LABS: Creatine Kinase 233 U/L (55-170)
[2017-01-21 04:28] LABS: Creatine Kinase MB 0.6 ng/mL (0.0-2.4); Troponin I <0.012 ng/mL (0.000-0.034)
[2017-01-21] MEDS: NITROGLYCERIN OINT 1 INCH/GM PACKET TOPICAL SCH ×2 (04:34→07:56)
[2017-01-21] MEDS: HYDROcodone/APAP 5-325MG 1 EACH TAB PO PRN (04:36)
--- NOTE | 2017-01-21 08:19 | HP ---
DATE OF ADMISSION: CHIEF COMPLAINT: Chest pain. HISTORY OF PRESENT ILLNESS: This is another admission for this 46-year-old male who just got out of the hospital several days ago. He is in and out of the ERs in the hospitals all the time largely looking for analgesics. He came into the hospital this time with chest pain and convinced the emergency room physician that he should be admitted. REVIEW OF SYSTEMS: He has had no diaphoresis, palpitations, syncope, nausea, radiation of the pain, etc. Past medical history, family history and personal and social histories are all otherwise unremarkable and unchanged. He professes to have ( ).
--- NOTE | 2017-01-21 08:37 | P.CRDCN ---
History of Present Illness Consult date: 01/21/17 Chief complaint: Chest pain History of present illness: This is a pleasant 46-year-old -[place] gentleman with a past medical history significant for CAD and according to him prior stent placement was performed at [facility], as well as significant history of smoking, presented to the emergency room complaining of chest discomfort. The patient still have mild ongoing chest discomfort across the chest as a pressure kind of discomfort without any radiation. He was brought to the hospital according to him by his sister after he had a syncopal episode. The EKG showed sinus rhythm without any significant ST or T-wave abnormalities. The cardiac enzymes were checked and came in to be unremarkable. I am going to proceed with a stress test and echocardiogram. The details about the stent is unknown at this point. Past Medical History Past Medical History: Asthma, Coronary Artery Disease (CAD), Cancer, Chest Pain / Angina, COPD, Deep Vein Thrombosis (DVT), GERD/Reflux, Myocardial Infarction ( [place]), Pneumonia, Respiratory Disorder Additional Past Medical History / Comment(s): Other HX: Chronic bronchial asthma with frequent hospitalizations, bone cancer/osteosarcoma, 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 Past Anesthesia/Blood Transfusion Reactions: No Reported Reaction Date of Last Stent Placement:: 2002 Past Psychological History: Anxiety, Bipolar, Depression, Schizophrenia Additional Psychological History / Comment(s): PT states he HAS COMPREHENSION PROBLEMS DOES'NT READ WELL STATED CAN'T COMPREHNED IT,ABLE TO WRITE HIS NAME. Smoking Status: Current every day smoker Past Alcohol Use History: None Reported Additional Past Alcohol Use History / Comment(s): Pt. states that he drinks alcohol to help manage his pain. He drinks until he passes out. Past Drug Use History: Marijuana, Opiates, Prescription Drug Abuse Additional Drug Use History / Comment(s): Last marijuana use 2014 - Past Family History Mother Family Medical History: Asthma Father Family Medical History: Liver Disease, Renal Disease Additional Family Medical History / Comment(s): RENAL DISEASE Medications and Allergies Home Medications Medication Instructions Recorded Confirmed Type ALPRAZolam [Xanax] 2 mg PO BID PRN 12/31/16 01/20/17 History ARIPiprazole IM [Abilify Maintena] 400 mg IM Q28D 12/31/16 01/20/17 History Famotidine [Pepcid] 20 mg PO DAILY 12/31/16 01/20/17 History HYDROcodone/APAP 5-325MG [[place] 1 tab PO BID PRN 12/31/16 01/20/17 History 5-325] Omeprazole [PriLOSEC] 20 mg PO BID 12/31/16 01/20/17 History diphenhydrAMINE [Benadryl] 50 mg PO HS 12/31/16 01/20/17 History Albuterol Nebulized [Ventolin 2.5 mg INHALATION RT-Q4H PRN 01/20/17 01/20/17 History Nebulized] Allergies Allergy/AdvReac Type Severity Reaction Status Date / Time dicyclomine HCl [From Bentyl] Allergy Severe Anaphylaxis Verified 01/20/17 12:58 Iodinated Contrast Media - Allergy Severe Rash/Hives Verified 01/20/17 12:58 Oral and prednisone Allergy Severe Anaphylaxis Verified 01/20/17 12:58 shellfish derived [Shellfish] Allergy Severe Rash/Hives Verified 01/20/17 12:58 Penicillins Allergy Unknown Unknown Verified 01/20/17 12:58 Childhood steroids Allergy Severe Anaphylaxis Uncoded 01/20/17 12:27 Physical Exam Vitals: Vital Signs Temp Pulse Pulse Resp BP BP Pulse Ox 01/21/17 03:47 98.8 F 70 18 114/66 99 01/20/17 23:57 99.1 F 72 19 123/61 01/20/17 20:26 99.2 F 92 19 134/69 99 01/20/17 18:48 108 H 01/20/17 18:25 99.2 F 90 18 135/70 98 01/20/17 16:52 98.4 F 96 18 140/61 99 Intake and Output 01/20/17 01/21/17 01/21/17 22:59 06:59 14:59 Intake Total 240 Balance 240 Intake: Oral 240 Other: Voiding Method Toilet Urinal Weight 82.6 kg - Constitutional General appearance: no acute distress - Respiratory Respiratory: bilateral: CTA - Cardiovascular Rhythm: regular Results 01/20/17 14:10 01/20/17 14:10 Cardiac Enzymes 01/20/17 01/21/17 Range/Units 20:20 03:00 CK-MB (CK-2) 0.7 0.6 (0.0-2.4) ng/mL Troponin I <0.012 <0.012 (0.000-0.034) ng/mL Lipids 01/21/17 Range/Units 03:00 Triglycerides 131 (<150) mg/dL Cholesterol 118 (<200) mg/dL HDL Cholesterol 53 (40-60) mg/dL Current Medications Generic Name Dose Route Start Last Admin Trade Name Freq PRN Reason Stop Dose Admin Hydrocodone Bitart/Acetaminophen 1 each 01/20/17 19:00 01/21/17 04:36 [place] 5-325 PO 1 each Q8HR PRN Administration Pain Albuterol Sulfate 2.5 mg 01/20/17 19:00 Ventolin Nebulized INHALATION RT-Q4H PRN Shortness Of Breath Alprazolam 0.25 mg 01/20/17 22:00 01/20/17 20:43 Xanax PO 0.25 mg TID PAULINO Administration Aspirin 325 mg 01/21/17 09:00 Aspirin PO DAILY PAULINO Diphenhydramine HCl 50 mg 01/20/17 21:00 01/20/17 20:43 Benadryl PO 50 mg HS PAULINO Administration Famotidine 20 mg 01/20/17 19:00 01/20/17 20:21 Pepcid PO Not Given DAILY PAULINO Miscellaneous Information 1 each 01/20/17 12:42 01/20/17 14:37 Rx Info: Iv Contrast Was Given MISCELLANE 01/22/17 12:43 1 each DAILY PRN Administration Per Protocol Nitroglycerin 1 inch 01/20/17 18:00 01/21/17 07:56 Nitro-Bid Oint TOPICAL Not Given Q6HR PAULINO Nitroglycerin 0.4 mg 01/20/17 16:34 Nitrostat SUBLINGUAL Q5M PRN Chest Pain Pantoprazole Sodium 40 mg 01/20/17 21:00 01/20/17 20:43 Protonix PO 40 mg AC-BID PAULINO Administration Intake and Output 01/20/17 01/21/17 01/21/17 22:59 06:59 14:59 Intake Total 240 Balance 240 Intake: Oral 240 Other: Voiding Method Toilet Urinal Weight 82.6 kg Assessment and Plan Plan: Assessment #1 mild ongoing chest discomfort #2 known CAD with prior stenting Plan #1 proceed with a stress test #2 obtain an echocardiogram was Doppler #3 follow-up with the patient
[2017-01-21 08:43] VITALS: BP 115/67; PULSE 71
[2017-01-21] MEDS ORDERED: ASPIRIN 325 MG TAB PO SCH (09:00)
--- NOTE | 2017-01-21 09:16 | P.HPIM ---
History of Present Illness H&P Date: 01/21/17 Patient is a pleasant 46-year-old male presenting to the emergency Department with complaints of chest pain. Onset of symptoms was around 45 minutes ago. Symptoms improved and worsened. Patient then had a syncopal episode. Patient states he lost consciousness. Patient still has some chest discomfort. Discomfort feels like heaviness in the left chest. There may be some mild dyspnea. No nausea or diaphoresis. Patient has had similar chest discomfort previously associated with heart problems and has had stent placement. Patient does have some neck discomfort posteriorly only with movement. Patient states neck discomfort did not start until after he passed out. Patient questions if he hurt his neck when he passed out. Patient is unclear whether or not he said. Patient denies any headache. No confusion or weakness. Cardiac enzymes 3 sets were negative. The 12-lead EKG showed no acute changes. Patient stated his chest discomfort did not radiate. Patient gives a past medical history of having coronary artery disease. According to him he did have a stent placed in 2002 and [facility]. He states he has not been back to a heart doctor since the event. 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 Past Anesthesia/Blood Transfusion Reactions: No Reported Reaction Date of Last Stent Placement:: 2002 Past Psychological History: Anxiety, Bipolar, Depression, Schizophrenia Additional Psychological History / Comment(s): PT states he HAS COMPREHENSION PROBLEMS DOES'NT READ WELL STATED CAN'T COMPREHNED IT,ABLE TO WRITE HIS NAME. Smoking Status: Current every day smoker Past Alcohol Use History: None Reported Additional Past Alcohol Use History / Comment(s): Pt. states that he drinks alcohol to help manage his pain. He drinks until he passes out. Past Drug Use History: Marijuana, Opiates, Prescription Drug Abuse Additional Drug Use History / Comment(s): Last marijuana use 2014 - Past Family History Mother Family Medical History: Asthma Father Family Medical History: Liver Disease, Renal Disease Additional Family Medical History / Comment(s): RENAL DISEASE Medications and Allergies Home Medications Medication Instructions Recorded Confirmed Type ALPRAZolam [Xanax] 2 mg PO BID PRN 12/31/16 01/20/17 History ARIPiprazole IM [Abilify Maintena] 400 mg IM Q28D 12/31/16 01/20/17 History Famotidine [Pepcid] 20 mg PO DAILY 12/31/16 01/20/17 History HYDROcodone/APAP 5-325MG [[place] 1 tab PO BID PRN 12/31/16 01/20/17 History 5-325] Omeprazole [PriLOSEC] 20 mg PO BID 12/31/16 01/20/17 History diphenhydrAMINE [Benadryl] 50 mg PO HS 12/31/16 01/20/17 History Albuterol Nebulized [Ventolin 2.5 mg INHALATION RT-Q4H PRN 01/20/17 01/20/17 History Nebulized] Allergies Allergy/AdvReac Type Severity Reaction Status Date / Time dicyclomine HCl [From Bentyl] Allergy Severe Anaphylaxis Verified 01/20/17 12:58 Iodinated Contrast Media - Allergy Severe Rash/Hives Verified 01/20/17 12:58 Oral and prednisone Allergy Severe Anaphylaxis Verified 01/20/17 12:58 shellfish derived [Shellfish] Allergy Severe Rash/Hives Verified 01/20/17 12:58 Penicillins Allergy Unknown Unknown Verified 01/20/17 12:58 Childhood steroids Allergy Severe Anaphylaxis Uncoded 01/20/17 12:27 Physical Exam Vitals: Vital Signs Temp Pulse Pulse Resp BP BP Pulse Ox 01/21/17 08:00 98.8 F 71 18 115/67 98 01/21/17 03:47 98.8 F 70 18 114/66 99 01/20/17 23:57 99.1 F 72 19 123/61 01/20/17 20:26 99.2 F 92 19 134/69 99 01/20/17 18:48 108 H 01/20/17 18:25 99.2 F 90 18 135/70 98 01/20/17 16:52 98.4 F 96 18 140/61 99 Intake and Output 01/20/17 01/21/17 01/21/17 22:59 06:59 14:59 Intake Total 240 Balance 240 Intake: Oral 240 Other: Voiding Method Toilet Urinal Urinal Weight 82.6 kg GENERAL APPEARANCE: The patient is alert, oriented, in no acute distress. VITAL SIGNS: Reviewed HEENT: Head is normocephalic and atraumatic. Pupils are equal and reactive. The nares are patent. Oropharynx is clear without lesions. NECK: Supple without lymphadenopathy. Traches midline. HEART: S1, S2. Regular rate and rhythm. Denying chest pain LUNGS: No crackles or wheezes are heard. Clear no shortness of breath no cough ABDOMEN: Soft, nontender, nondistended with good bowel sounds. No peritoneal signs. No palpable organomegaly or masses. EXTREMITIES: Normal skin color and turgor. No cyanosis, rash, ulceration, clubbing or edema. Radial pedal pulses are 2/4 bilaterally. NEUROLOGICAL: No focal deficits. Strength and sensation are grossly intact. Results CBC & Chem 7: 01/20/17 14:10 01/20/17 14:10 Labs: Abnormal Lab Results - Last 24 Hours (Table) 01/20/17 01/21/17 Range/Units 20:20 03:00 Total Creatine Kinase 251 H 233 H (55-170) U/L Thrombosis Risk Factor Assmnt - Choose All That Apply Any of the Below Risk Factors Present?: Yes Each Factor Represents 1 point: Age 41-60 years Other Risk Factors: No Thrombosis Risk Factor Assessment Total Risk Factor Score: 1 Thrombosis Risk Factor Assessment Level: Low Risk Assessment and Plan Plan: Impression Present on admission chest pain atypical negative cardiac enzymes Present on admission cervical neck pain with a CAT scan of the cervical spine showing no acute fracture or dislocation noted in the cervical spine Asthma mild no acute exacerbation Anxiety disorder nonspecified Chronic pain narcotic dependent History prior to admission of a fall with a CAT scan of the brain no evidence of acute intracranial hemorrhage Per patient report a history of coronary artery disease with prior coronary stenting [facility] in 2002 History of prescription drug opiate abuse A mood disorder bipolar depression Current every day smoker 1 pack daily greater than a 40 year history Obesity BMI 31 Plan Resume home meds as appropriate Prepped for discharge home Follow up outpatient setting Patient's been advised to stop smoking cigarettes The above dictated assessment and findings were discussed with dr sanchez . Impression and the plan of care have been dictated as directed. Cami Noble nurse practitioner acting as a scribe for dr mejia
--- NOTE | 2017-01-21 09:20 | P.DS ---
Providers Date of admission: 01/20/17 16:34 Expected date of discharge: 01/21/17 Attending physician: Dave Richards Consults: 01/21/17 07:44 Consult Physician Urgent Consulting Provider: Rick Arrieta Consult Reason/Comments: chest pain Do you want consulting provider notified?: Yes Primary care physician: Dave Richards [facility] Course: Patient is a pleasant 46-year-old male presenting to the emergency Department with complaints of chest pain. Onset of symptoms was around 45 minutes ago. Symptoms improved and worsened. Patient then had a syncopal episode. Patient states he lost consciousness. Patient still has some chest discomfort. Discomfort feels like heaviness in the left chest. There may be some mild dyspnea. No nausea or diaphoresis. Patient has had similar chest discomfort previously associated with heart problems and has had stent placement. Patient does have some neck discomfort posteriorly only with movement. Patient states neck discomfort did not start until after he passed out. Patient questions if he hurt his neck when he passed out. Patient is unclear whether or not he said. Patient denies any headache. No confusion or weakness. Cardiac enzymes 3 sets were negative. The 12-lead EKG showed no acute changes. Patient stated his chest discomfort did not radiate. Patient gives a past medical history of having coronary artery disease. According to him he did have a stent placed in 2002 [facility]. He states he has not been back to a heart doctor since the event. Impression discharge diagnosis Present on admission chest pain atypical negative cardiac enzymes Present on admission cervical neck pain with a CAT scan of the cervical spine showing no acute fracture or dislocation noted in the cervical spine Asthma mild no acute exacerbation Anxiety disorder nonspecified Chronic pain narcotic dependent History prior to admission of a fall with a CAT scan of the brain no evidence of acute intracranial hemorrhage Per patient report a history of coronary artery disease with prior coronary stenting [facility] in 2002 History of prescription drug opiate abuse A mood disorder bipolar depression Current every day smoker 1 pack daily greater than a 40 year history Obesity BMI 31 The above dictated assessment and findings were discussed with dr richards . Impression and the plan of care have been dictated as directed. Cami Noble nurse practitioner acting as a scribe for dr mejia Plan - Discharge Summary Discharge Medication List ALPRAZolam [Xanax] 2 mg PO BID PRN 12/31/16 [History] ARIPiprazole IM [Abilify Maintena] 400 mg IM Q28D 12/31/16 [History] Famotidine [Pepcid] 20 mg PO DAILY 12/31/16 [History] HYDROcodone/APAP 5-325MG [[place] 5-325] 1 tab PO BID PRN 12/31/16 [History] Omeprazole [PriLOSEC] 20 mg PO BID 12/31/16 [History] diphenhydrAMINE [Benadryl] 50 mg PO HS 12/31/16 [History] Albuterol Nebulized [Ventolin Nebulized] 2.5 mg INHALATION RT-Q4H PRN 01/20/17 [ History] Follow up Appointment(s)/Referral(s): Dave Richards MD [Primary Care Provider] - 1-2 days Discharge Disposition: HOME SELF-CARE
--- NOTE | 2017-01-21 14:30 | PN ---
CHIEF COMPLAINT: Chest pain, asthma and syncope. HISTORY OF PRESENT ILLNESS: This gentleman is doing well and he has no new problems. He probably will be able go home today. PHYSICAL EXAM: Chest is clear. Cardiac exam is normal. ABDOMEN: Soft, nontender. IMPRESSION: 1. Chest pain, noncardiac. 2. Reactive airway disease. 3. History of cancer of the left scapula. PLAN: Home today and this will be arranged by the nurse practitioner.
== END 2017-01-21 09:33 | disposition home or self-care (01) ==
LOC: EC 12:09 → 3OBS 16:34
PROVIDERS: ADMIT Family Medicine; ATTEND Family Medicine
DX: R07.89 Other chest pain (principal); R55 Syncope and collapse; M54.2 Cervicalgia; J45.909 Unspecified asthma, uncomplicated; F41.9 Anxiety disorder, unspecified; G89.4 Chronic pain syndrome; F11.20 Opioid dependence, uncomplicated; I25.10 Atherosclerotic heart disease of native coronary artery without angina pectoris; F17.210 Nicotine dependence, cigarettes, uncomplicated; Z95.5 Presence of coronary angioplasty implant and graft; F31.9 Bipolar disorder, unspecified; F20.9 Schizophrenia, unspecified; Z79.899 Other long term (current) drug therapy; E66.9 Obesity, unspecified; K21.9 Gastro-esophageal reflux disease without esophagitis; J44.9 Chronic obstructive pulmonary disease, unspecified; Z68.31 Body mass index [BMI] 31.0-31.9, adult; Z88.8 Allergy status to other drugs, medicaments and biological substances; Z91.041 Radiographic dye allergy status; Z88.0 Allergy status to penicillin; Z91.013 Allergy to seafood; Z86.718 Personal history of other venous thrombosis and embolism; I25.2 Old myocardial infarction; Z85.830 Personal history of malignant neoplasm of bone; Z87.11 Personal history of peptic ulcer disease; Z87.01 Personal history of pneumonia (recurrent)
CPT/HCPCS: 96361 ×3; 96374; 96375; 99285; 36415; 94640; 93005; 80061; 80053; 82550 ×2; 82553 ×2; 83735; 84484 ×2; 85025; 85610; 85730; 80320; 72125; 70450; 71275; G0378 ×2; J1200; Q9967

== ENCOUNTER 2017-01-25 16:40 | Inpatient (IN) | payer MEDICAID, OTHER ==
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
[2017-01-25 20:36] VITALS: BMI 30.9
[2017-01-25] MEDS ORDERED: MAGNESIUM HYDROXIDE 2,400 MG/10 ML CUP PO PRN (20:36)
[2017-01-25] MEDS ORDERED: MAG HYDROX/AL HYDROX/SIMETH 30 ML CUP PO PRN (20:36)
[2017-01-25] MEDS ORDERED: ZIPRASIDONE 20 MG VIAL IM PRN (20:36)
[2017-01-25] MEDS ORDERED: LORazepam 1 MG TAB PO PRN (20:36)
[2017-01-25] MEDS ORDERED: ALBUTEROL NEBULIZED 2.5 MG/3 ML INHALATION PRN (20:39)
[2017-01-25] MEDS: ALBUTEROL INHALER 60 PUFF/8 GM INHALER INHALATION PRN (21:31)
[2017-01-25] MEDS: PANTOPRAZOLE 40 MG TABLET PO SCH (21:35)
[2017-01-25] MEDS: diphenhydrAMINE 50 MG CAP PO SCH (21:35)
[2017-01-26] MEDS: PANTOPRAZOLE 40 MG TABLET PO SCH ×2 (08:59→20:45)
[2017-01-26] MEDS: NICOTINE 7MG/24HR PATCH TRANSDERM SCH (08:59)
[2017-01-26] MEDS: ALBUTEROL INHALER 60 PUFF/8 GM INHALER INHALATION PRN ×4 (09:07→20:55)
[2017-01-26 09:58] LABS: ALT 31 U/L (21-72); AST 23 U/L (17-59); Alkaline Phosphatase 92 U/L (38-126); Anion Gap 11 mmol/L; Blood Urea Nitrogen 13 mg/dL (9-20); Calcium 9.6 mg/dL (8.4-10.2); Carbon Dioxide 23 mmol/L (22-30); Chloride 108 mmol/L (98-107); Glucose 142 mg/dL (74-99); Non-African American GFR(MDRD) >60 (>60 ml/min/1.73 sqM); Potassium 4.6 mmol/L (3.5-5.1); Sodium 142 mmol/L (137-145); Total Bilirubin 1.1 mg/dL (0.2-1.3); Total Protein 7.2 g/dL (6.3-8.2)
[2017-01-26 10:11] LABS: Basophils % (A) 0 %; CH 28.7; CHCM 34.2; Eosinophils # (A) 0.1 k/uL (0-0.7); Eosinophils % (A) 1 %; HCT 43.8 % (39.0-53.0); HDW 2.24; HGB 14.7 gm/dL (13.0-17.5); Luc # (Auto) 0.12; Luc % (Auto) 2; Lymphocytes # (A) 1.7 k/uL (1.0-4.8); Lymphocytes % (A) 24 %; MCH 28.4 pg (25.0-35.0); MCHC 33.6 g/dL (31.0-37.0); MCV 84.4 fL (80.0-100.0); Mean Platelet Volume 7.9; Monocytes # (A) 0.3 k/uL (0-1.0); Monocytes % (A) 4 %; Neutrophils # (A) 4.9 k/uL (1.3-7.7); Neutrophils % (A) 69 %; RBC 5.19 m/uL (4.30-5.90); RDW 14.5 % (11.5-15.5); WBC 7.1 k/uL (3.8-10.6); WBC (Perox) 6.89
--- NOTE | 2017-01-26 10:45 | P.HP ---
Psychiatric H&P - . H&P Date: 01/26/17 History & Physical: IDENTIFYING DATA: Mr. Lopez is a 46-year-old -[place] male who has a history of a schizophrenia and alcohol use disorder. HISTORY OF PRESENT ILLNESS: He presented to unit voluntarily with complaints of command auditory hallucinations instructing him to kill himself. He talked about the "voices" instructing him to jump off a bridge. He alleged that the "voices" and the suicidal thoughts were present for several days prior to admission but worsened the day of admission. He spoke with "someone" from [facility] who advised him to go to the hospital. In addition to the auditory hallucinations he admitted to thought insertion and thought broadcasting. He denied feeling paranoid and suspicious and did not express paranoid delusional thoughts or beliefs. He feels depressed and admitted to depressive symptoms including poor sleep, lost of interest in usual activities, feelings of worthlessness, lack of energy and fatigue, poor concentration, decreased appetite, periods of restlessness and thoughts of suicide. He alleged that he always feels depressed but the depression has inexplicably worsened over the last few days. He denied recent stress or trauma other than mentioning that his left last year. He also moved from his apartment 2 months ago and is currently "staying with a friend". He denied that he has experienced conflict with his friend or is dissatisfied with his current living situation. He complained of feeling tense and anxious but denied that the anxiety is excessive and present throughout the day. He denied symptoms suggestive of panic attack. He denied obsessions or compulsions. He drinks alcohol every day. On the day of admission he had a "glass" of liquor in addition to a "few beers". He was vague about the amount of alcohol that he consumes every day. He admitted to drinking a sixpack of beer once over the 7 days prior to admission. He denied the use of drugs with the exception of "occasional" marijuana. His BAT on presentation to the ER was 0.082 and his UDS was negative for drugs of abuse. PAST PSYCHIATRIC HISTORY: This is his second admission to our unit; the last was in October 2016. His discharge diagnoses include schizophrenia, alcohol use disorder, history of opiate use disorder, intellectual disability and antisocial personality traits. His discharge medications included Abilify 15 mg daily and Seroquel 20 mg at bedtime. We referred him to community mental health for continued mental health treatment. He complained that his current psychiatric medications are effective. PAST MEDICAL HISTORY: He is a history of COPD, coronary artery disease, cancer, angina, DVT, GERD, myocardial infarction and pneumonia. ALLERGIES: Dicyclomine, iodinated contrast media, prednisone, penicillins SUBSTANCE USE HISTORY: As mentioned above he has a history of an alcohol use disorder. He denied that he has been in a substance abuse rehabilitation program. He has not attended AA or NA. FAMILY PSYCHIATRIC/SUBSTANCE USE HISTORY: He is unaware of family history of mental illness. LEGAL HISTORY: He denied current legal problems but according to the record he has been arrested several times and was incarcerated for 6 years related to heroin possession charges and assault of a police crime scene technician. SOCIAL HISTORY: He was born in [facility]. He told me that he was raised in intact family but on the prior admission he told the admitting psychiatrist that he was a "crack baby" and raised by his aunt. He is an only child. He was in special education due to intellectual disability. He left school in 11th grade. He is never worked. He receives his ability benefits. Has no history of service. MENTAL STATUS EXAM: He presented as a short casually groomed 46-year-old -[place] male who was pleasant on approach. He made eye contact and appeared to attend to interview. He had no distinguishing features or prominent physical abnormalities. He had a flat facial expression. He was alert and oriented to person, place and time. He showed psychomotor retardation but no abnormal involuntary opiates. Her speech was not spontaneous and had decreased rate, rhythm and volume. His affect was flat and unreactive. He describes suicidal ideation and command auditory hallucinations regarding suicide. He expressed feelings of hopelessness, helplessness and worthlessness. He ruminated on the suicidal thoughts and hallucinations. He did not express ideas of reference. He was guarded, paranoid and suspicious but did not express paranoid ideation or delusional thoughts or beliefs. His thinking was concrete but his associations were coherent. He did not express clang associations, perseverations, neologisms or blocking. He described auditory hallucinations, thought insertion and thought broadcasting. Global impression of intellect is below average. He is aware of his illness and need for treatment. STRENGTHS: Stable housing, stable income, engagement with mental health services. WEAKNESSES: Alcohol use, questionable compliance with mental health treatment. IMPRESSION: This 46-year-old -[place] male who has a history of an intellectual disability, alcohol use and schizophrenia. He presented to unit with complaints of increased depression, suicidal ideation and command auditory hallucinations regarding suicide. He is guarded and suspicious. He provided little information beyond that of his presenting complaint. He should be treated as inpatient basis with a combination of psychopharmacology and multimodal therapy.. PRINCIPLE DIAGNOSIS: Unspecified depressive disorder, alcohol use disorder, schizophrenia, and intellectual disability RECOMMENDATION: Continue inpatient psychiatric hospitalization. Suicide precautions with 15 minute checks. Obtain information regarding recent treatment for [facility]. Consult medicine for initial physical exam and medical history. 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 After review of information from [facility] and appropriate antidepressant and antipsychotic medication. Continue lorazepam 1 mg by mouth 3 times a day when necessary for agitation or anxiety and Geodon 20 mg IM 3 times a day when necessary for agitation or Psychosis. Continue Ventolin inhaler 2.5 mg every 4 hours when necessary for shortness of breath and Benadryl 50 mg at bedtime for sleep. Encourage participation in therapeutic groups and activities. Evaluate clinical status response to treatment on a daily basis. Allergies Allergy/AdvReac Type Severity Reaction Status Date / Time dicyclomine HCl [From Bentyl] Allergy Severe Anaphylaxis Verified 01/25/17 21:46 Iodinated Contrast Media - Allergy Severe Rash/Hives Verified 01/25/17 21:46 Oral and prednisone Allergy Severe Anaphylaxis Verified 01/25/17 21:46 shellfish derived [Shellfish] Allergy Severe Rash/Hives Verified 01/25/17 21:46 Penicillins Allergy Unknown Unknown Verified 01/25/17 21:46 Childhood steroids Allergy Severe Anaphylaxis Uncoded 01/25/17 21:46 Vital Signs Temp 97.6 F 01/26/17 06:55 Pulse 104 H 01/26/17 06:55 Resp 16 01/26/17 06:55 BP 115/79 01/26/17 06:55 Pulse Ox 95 01/25/17 19:36 Intake & Output 01/25/17 01/26/17 01/26/17 18:59 06:59 18:59 Weight 81.647 kg Laboratory Last Values WBC 7.1 k/uL (3.8-10.6) 01/26/17 09:01 RBC 5.19 m/uL (4.30-5.90) 01/26/17 09: Hgb 14.7 gm/dL (13.0-17.5) 01/26/17 09: Hct 43.8 % (39.0-53.0) 01/26/17 09: MCV 84.4 fL (80.0-100.0) 01/26/17 09: MCH 28.4 pg (25.0-35.0) 01/26/17: MCHC 33.6 g/dL (31.0-37.0) 01/26/17 09: RDW 14.5 % (11.5-15.5) 01/26/17: Plt Count 264 k/uL (150-450) 01/26/17 09: Neutrophils % 69 % 01/26/17 09: Lymphocytes % 24 % 01/26/17 09: Monocytes % 4 % 01/26/17: Eosinophils % 1 % 01/26/17: Basophils % 0 % 01/26/17 09: Neutrophils # 4.9 k/uL (1.3-7.7) 01/26/17 09: Lymphocytes # 1.7 k/uL (1.0-4.8) 01/26/17 09: Monocytes # 0.3 k/uL (0-1.0) 01/26/17 09: Eosinophils # 0.1 k/uL (0-0.7) 01/26/17 09: Basophils # 0.0 k/uL (0-0.2) 01/26/17 09: Sodium 142 mmol/L (137-145) 01/26/17 09: Potassium 4.6 mmol/L (3.5-5.1) 01/26/17 09: Chloride 108 mmol/L (98-107) H 01/26/17 09: Carbon Dioxide 23 mmol/L (22-30) 01/26/17 09: Anion Gap 11 mmol/L 01/26/17: BUN 13 mg/dL (9-20) 01/26/17 09: Creatinine 1.07 mg/dL (0.66-1.25) 01/26/17 09: Est GFR (MDRD) Af Amer >60 (>60 ml/min/1.73 sqM) 01/26/17 09:01 Est GFR (MDRD) Non-Af >60 (>60 ml/min/1.73 sqM) 01/26/17 09:01 Glucose 142 mg/dL (74-99) H 01/26/17 09:01 Calcium 9.6 mg/dL (8.4-10.2) 01/26/17 09:01 Total Bilirubin 1.1 mg/dL (0.2-1.3) 01/26/17 09:01 AST 23 U/L (17-59) 01/26/17 09:01 ALT 31 U/L (21-72) 01/26/17 09:01 Alkaline Phosphatase 92 U/L (38-126) 01/26/17 09:01 Total Protein 7.2 g/dL (6.3-8.2) 01/26/17 09:01 Albumin 4.1 g/dL (3.5-5.0) 01/26/17 09:01 Urine Opiates Screen Not Detected (NotDetected) 01/25/17 17:11 Ur Oxycodone Screen Not Detected (NotDetected) 01/25/17 17:11 Urine Methadone Screen Not Detected (NotDetected) 01/25/17 17:11 Ur Propoxyphene Screen Not Detected (NotDetected) 01/25/17 17:11 Ur Barbiturates Screen Not Detected (NotDetected) 01/25/17 17:11 U Tricyclic Antidepress Not Detected (NotDetected) 01/25/17 17:11 Ur Phencyclidine Scrn Not Detected (NotDetected) 01/25/17 17:11 Ur Amphetamines Screen Not Detected (NotDetected) 01/25/17 17:11 U Methamphetamines Scrn Not Detected (NotDetected) 01/25/17 17:11 U Benzodiazepines Scrn Not Detected (NotDetected) 01/25/17 17:11 Urine Cocaine Screen Not Detected (NotDetected) 01/25/17 17:11 U Marijuana (THC) Screen Not Detected (NotDetected) 01/25/17 17:11 01/26/17 10:16
[2017-01-26] MEDS: diphenhydrAMINE 50 MG CAP PO SCH (20:45)
[2017-01-26] MEDS: ACETAMINOPHEN TAB 325 MG TAB PO PRN (21:59)
[2017-01-27] MEDS: NICOTINE 7MG/24HR PATCH TRANSDERM SCH (08:37)
[2017-01-27] MEDS: PANTOPRAZOLE 40 MG TABLET PO SCH ×2 (08:38→20:25)
[2017-01-27] MEDS: ACETAMINOPHEN TAB 325 MG TAB PO PRN ×2 (08:38→15:32)
[2017-01-27] MEDS: ALBUTEROL INHALER 60 PUFF/8 GM INHALER INHALATION PRN ×3 (09:09→20:36)
[2017-01-27] MEDS ORDERED: NAPROXEN 250 MG TAB PO STA (09:20)
[2017-01-27] MEDS ORDERED: HALOPERIDOL LACTATE 5 MG/ML 1 ML VIAL IM PRN (09:20)
[2017-01-27] MEDS: HALOPERIDOL 2 MG TAB PO SCH ×2 (09:49→20:25)
[2017-01-27] MEDS: FLUoxetine HCL 20 MG CAP PO SCH (09:49)
--- NOTE | 2017-01-27 12:39 | P.PN ---
Progress Note - Text CLINICAL PROBLEMS: He is a 46-year-old -Chinese male who presented to the unit voluntarily with complaints of command auditory hallucinations, suicidal ideation and depression. He was intoxicated with a BAT 0.082. He has a history of an alcohol use disorder but minimizes his the frequency and severity of his alcohol use. 24 HOUR EVENTS: He posed no management problem and displayed no episodes of behavioral dyscontrol or self-harm. He attended but did not participate in therapeutic groups and activities. He had no signs or symptoms of alcohol withdrawal. I reviewed the December 2016 clinical note from [facility]. He told the clinician that he stopped a prescription for Abilify after discharge from the psychiatric unit in October 2016. His clinician noted that he has history of noncompliance and recommended treatment with Abilify maintaining a 400 mg IM every 4 weeks. His first injection was on 12/22/16 and the second was on 2016. He complained of moderate pain in his left toe that began this morning. He complained of insomnia and requested a prescription for Seroquel. He also alleged that the Abilify was ineffective and would not consent to continue the medication. We discussed alternative antipsychotics and he agreed to haloperidol. We also discussed treatment with antidepressant and agreed to a trial of fluoxetine. EXAMINATION: He presented as a casually groomed 46-year-old -Chinese male who was pleasant on approach. He made eye contact and appeared to attend to the interview. He had no distinguishing features or prominent physical abnormalities. He showed psychomotor retardation. He walks slowly with a gait protecting his left foot. Her speech was spontaneous but had a decrease rhythm and volume. His affect was blunted but stable and appropriate. He complained of intermittent thoughts of suicide but denied intent or plan. He described depressive cognitions such as hopelessness and helplessness. He did not demonstrate obsessions, ruminations, phobias, ideas reference or paranoid thinking. His thinking was concrete but his associations were coherent. He described "intermittent" auditory hallucinations. He denied command auditory hallucinations. He did not appear to be responding to internal stimuli. PERTINENT DATA: His left great toe was tender to palpation. He slept 7 hours a night. ASSESSMENT: He complains of continued auditory hallucinations and thoughts of suicide. He has prominent negative symptoms and he cognitive impairments may be due to his intellectual disability or his schizophrenia. Left toe pain with a reported history of gout. PLAN: Continue inpatient hospitalization. Begin haloperidol 2 mg by mouth twice a day with a plan to transition to Haldol Decanoate. Begin Prozac 20 mg daily for the treatment of depression. Seroquel 100 mg at bedtime when necessary for sleep. Naprosyn 750 mg once and 2050 mg by mouth 3 times a day per pain. Social work to coordinate disposition with community mental health. Encourage participation in therapeutic groups and activities. Evaluate clinical status response to treatment on a daily basis.
--- NOTE | 2017-01-27 15:49 | CONS ---
DATE OF CONSULTATION: CHIEF COMPLAINT: Major depression. HISTORY OF PRESENT ILLNESS: This is another admission for this 46-year-old -[place] male. He has problems with reactive airway disease, COPD, chronic pain issues. He has had malignancy of the left scapula, which was thought to be resolved surgically. He treats for this in [place]. He is in and out of hospital for respiratory issues and usually requesting large quantity is of analgesics. He has had multiple in and an outpatient providers. REVIEW OF SYSTEMS: He has had no headaches, neurologic problems, change in vision or hearing, cough, hemoptysis, purulent sputum production, heart disease, angina, heart failure, abdominal pain, nausea, vomiting, hematemesis, melena, hematochezia, colitis, diverticulosis, diverticulitis, hemorrhoids, jaundice, hepatitis, cirrhosis, hematuria, frequency, urgency, arthralgias, polys, diabetes, etc. Past medical history, family history and personal and social histories can be found in his prior admitting and discharge summaries. He is ALLERGIC TO PENICILLIN AND CANNOT TAKE STEROIDS. He is on gabapentin 300 mg 3 times a day, Xanax 2 mg twice a day p.r.n., updrafts with Atrovent and albuterol q.i.d. and p.r.n., Ventolin HFA MDI, Hawkins 10/325 once a day p.r.n., Abilify 400 mg IM every month, Pepcid 20 mg once a day, omeprazole 20 mg twice a day and doxycycline 100 mg twice a day. Hospitalizations reveal he has had a cholecystectomy and procedure of the left shoulder x3. He continues to smoke. PHYSICAL EXAMINATION: VITAL SIGNS: Blood pressure 126/70, pulse of 88, respirations 38 and he is afebrile. GENERAL: Appeared to be slightly overweight and in some mild respiratory distress. Skin color is normal. Skin is warm and dry. Lymph nodes are not enlarged. Head, ears, eyes, nose, mouth, and throat were grossly normal. Neck veins not distended. Thyroid is not enlarged. Chest demonstrates decreased breath sounds with wheezing, rhonchi and rales bilaterally. There is slightly prolonged expiratory phase. There is support in the right anterior chest. Cardiac exam demonstrates sinus rhythm with no murmurs or extra sounds. Abdomen is soft, nontender. Extremities are normal except for a surgical findings of the left shoulder. IMPRESSION: 1. Major depression. 2. Reactive airway disease. 3. Chronic obstructive pulmonary disease. 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 5. Narcotic abuse. RECOMMENDATION: None.
[2017-01-27] MEDS: QUEtiapine 100 MG TAB PO PRN (20:26)
[2017-01-28] MEDS: HALOPERIDOL 2 MG TAB PO SCH ×2 (09:00→20:58)
[2017-01-28] MEDS: NICOTINE 7MG/24HR PATCH TRANSDERM SCH (09:00)
[2017-01-28] MEDS: FLUoxetine HCL 20 MG CAP PO SCH (09:00)
[2017-01-28] MEDS: PANTOPRAZOLE 40 MG TABLET PO SCH ×2 (09:00→20:58)
[2017-01-28] MEDS: ALBUTEROL INHALER 60 PUFF/8 GM INHALER INHALATION PRN ×4 (09:21→21:33)
--- NOTE | 2017-01-28 13:18 | P.PN ---
Progress Note - Text SUBJECTIVE: I reviewed the medical record, interviewed Mr. Lopez and discuss his treatment and treatment plan during team meeting. He complained of continued pain in his left toe but denied the pain was as severe as yesterday. He denied other problems or concerns. He denied side effects to the initial dose of Haldol and Prozac. He slept well after taking the 100 mg dose of Seroquel. He consented to administration of Haldol decanoate prior to discharge OBJECTIVE: He presented as a casually groomed short 46-year-old dark skinned -Scottish male. He was pleasant on approach and appeared to attend to the interview. He made eye contact. He had no distinguishing features or prominent physical abnormalities. He had a blunted facial expression. He has slight psychomotor retardation and a slight hand tremor but no other abnormal involuntary movements. His speech was not spontaneous and had decreased rate, rhythm and volume. He had no articulation difficulties. His affect was blunted but stable and appropriate. He denied current suicidal ideation or wishes. He denied homicidal ideation. He denied feeling hopeless or helpless. He did not express ideas reference or paranoid ideation. His thinking was concrete but his associations were coherent and logical. He described "occasional" auditory hallucinations but did not appear to be responding to internal stimuli. ASSESSMENT: He appears less distressed than on admission. Overall he appears moderately mental health and moderately improved from admission. PLAN: Continue inpatient psychiatric hospitalization. Increase haloperidol 5 mg daily. Continue Seroquel 100 mg at bedtime. Continues Prozac 20 mg daily. Discontinue Geodon 20 mg IM twice a day when necessary for agitation or psychosis. Continue Haldol 5 mg IM every 6 hours when necessary for agitation acute psychosis and/or lorazepam 1 mg by mouth 3 times a day when necessary for agitation or anxiety. Encourage participation in therapeutic groups and activities. Evaluate clinical status response to treatment daily basis.
[2017-01-28] MEDS: NAPROXEN 250 MG TAB PO PRN ×2 (13:22→21:43)
[2017-01-28] MEDS: QUEtiapine 100 MG TAB PO PRN (21:00)
--- NOTE | 2017-01-29 08:49 | P.PN ---
Progress Note - Text Interval history: The patient is found in the dining room he follows me to an interview room. He reports that his mood is improving. He initially presented with suicidal ideation and he states he was experiencing hallucinations. He states that suicidal thoughts are almost gone and he is expressing no hallucinations. Appetite stable he reports he sleeping at night he feels a little tired this morning. He is currently receiving Prozac Haldol and Seroquel scheduled. It appears the plan is for him to leave with a Haldol decanoate injection. He has no questions or concerns regarding his medication. Mental status exam: The patient is a shorter statured -[place] male. He has a disheveled appearance hygiene is adequate. He is dressed in his own clothing or in jeans and a T-shirt. He seated calmly in his chair. Speech is fluent nonpressured. He has no spontaneous speech but does provide brief answers to questions. Affect is mostly constricted with brief smiling wants. He is reporting no acute suicidal or homicidal ideation intent or plan he is reporting no current auditory or visual hallucinations or any specific delusions. He reports feeling safe. There is no overt evidence of psychosis currently. He is demonstrating no hypomanic or manic symptoms. Insight and judgment appear to be improving. He demonstrates no verbal or physical aggressiveness. No tremor was noted today. Plan: The patient will continue on his current psychotropic medications he indicates that he is stabilizing. Vital signs reviewed they're within normal limits. We will continue to monitor him for safety and encourage his participation in the milieu. He anticipates being discharged Tuesday.
[2017-01-29] MEDS: HALOPERIDOL 5 MG TAB PO SCH (08:56)
[2017-01-29] MEDS: FLUoxetine HCL 20 MG CAP PO SCH (08:56)
[2017-01-29] MEDS: NICOTINE 7MG/24HR PATCH TRANSDERM SCH (08:56)
[2017-01-29] MEDS: PANTOPRAZOLE 40 MG TABLET PO SCH ×2 (08:56→20:48)
[2017-01-29] MEDS: ALBUTEROL INHALER 60 PUFF/8 GM INHALER INHALATION PRN (16:56)
[2017-01-29 17:08] LABS: Appearance,Urine Clear (Clear); Bilirubin,Urine Negative (Negative); Glucose,Urine (UA) Negative (Negative); Ketones,Urine Negative (Negative); Leukocyte Esterase,Urine Negative (Negative); Nitrite,Urine Negative (Negative); PH, Urine 6.5 (5.0-8.0); Protein,Urine Negative (Negative); UA Billing (MACRO vs. MICRO) CHEM; Urobilinogen,Urine <2.0 mg/dL (<2.0)
[2017-01-29] MEDS: NAPROXEN 250 MG TAB PO PRN (17:50)
[2017-01-29] MEDS ORDERED: ALBUTEROL NEBULIZED 2.5 MG/3 ML INHALATION ONE (20:35)
[2017-01-29] MEDS: QUEtiapine 100 MG TAB PO PRN (20:48)
[2017-01-30 06:56] VITALS: TEMP 98.3
[2017-01-30] MEDS: ALBUTEROL INHALER 60 PUFF/8 GM INHALER INHALATION PRN ×2 (08:59→12:42)
[2017-01-30] MEDS: FLUoxetine HCL 20 MG CAP PO SCH (09:18)
[2017-01-30] MEDS: PANTOPRAZOLE 40 MG TABLET PO SCH (09:19)
[2017-01-30] MEDS: HALOPERIDOL 5 MG TAB PO SCH (09:19)
[2017-01-30] MEDS: NICOTINE 7MG/24HR PATCH TRANSDERM SCH (09:19)
--- NOTE | 2017-01-30 09:55 | P.PN ---
Progress Note - Text Interval history: The patient is found in his room he is lying awake in bed. He has been compliant with his medication. He continues to feel that the Haldol is causing some sedation that persists into the day. He has not attended any groups this morning but he did attend breakfast. No reports of agitated behavior. Mental status exam: The patient is an -[place] male he is lying in bed he is awake eye contact is appropriate. Speech is fluent minimally spontaneous but does provide answers to questions asked. He reports his mood is okay but he feels tired. He is reporting no auditory or visual hallucinations he is reporting no specific delusions. He does not appear hypomanic or manic. He is alert he does not appear sedated. Insight and judgment limited. He is oriented to person place and date. He demonstrates no verbal or physical aggressiveness. He is lying in bed calmly with no repetitive movements or any other involuntary movements observed. Plan: The patient will continue on his current medications consider changing timing of Haldol dose or reducing. Vital signs reviewed they have been consistently low he reports no dizziness area he reports no difficulty with ambulation. We will continue to monitor him for safety, he is encouraged to participate in groups.
[2017-01-30 14:05] VITALS: RESP 16
[2017-01-30 15:09] VITALS: BP 123/66
[2017-01-30 15:23] VITALS: PULSE 96
== END 2017-01-30 15:54 | disposition short-term general hospital (02) | DRG 885 ==
LOC: EC 16:40 → 3MHU 19:32
PROVIDERS: ADMIT Psychiatry & Neurology Psychiatry; ATTEND Psychiatry & Neurology Psychiatry
DX: F20.9 Schizophrenia, unspecified (principal); F79 Unspecified intellectual disabilities; R45.851 Suicidal ideations; F32.9 Major depressive disorder, single episode, unspecified; F11.10 Opioid abuse, uncomplicated; F12.90 Cannabis use, unspecified, uncomplicated; F17.200 Nicotine dependence, unspecified, uncomplicated; F60.2 Antisocial personality disorder; G47.00 Insomnia, unspecified; G89.4 Chronic pain syndrome; I25.10 Atherosclerotic heart disease of native coronary artery without angina pectoris; I25.2 Old myocardial infarction; J44.9 Chronic obstructive pulmonary disease, unspecified; J45.909 Unspecified asthma, uncomplicated; K21.9 Gastro-esophageal reflux disease without esophagitis; M10.9 Gout, unspecified; Z79.899 Other long term (current) drug therapy; Z85.830 Personal history of malignant neoplasm of bone; Z86.718 Personal history of other venous thrombosis and embolism; Z87.11 Personal history of peptic ulcer disease; Z88.0 Allergy status to penicillin
CPT/HCPCS: 80053; 80306; 81003; 82075; 84443; 85025; 93005; 94640; 99285

== ENCOUNTER 2017-01-30 15:47 | Observation (INO) | payer OTHER ==
[2017-01-30] MEDS ORDERED: methylPREDNISolone SOD SUCCI 125 MG/2 ML VIAL IV STA (16:02)
[2017-01-30] MEDS ORDERED: IPRATROPIUM-ALBUTEROL 3 ML NEB INHALATION STA ×2 (16:02→16:56)
--- NOTE | 2017-01-30 16:06 | ED ---
SOB HPI - General Chief Complaint: Shortness of Breath Stated Complaint: JULIETTE Time Seen by Provider: 01/30/17 15:52 Source: patient, RN notes reviewed, old records reviewed Mode of arrival: wheelchair Limitations: no limitations - History of Present Illness Initial Comments: This is a 46-year-old male history of multiple medical problems including COPD who is still a smoker who was being treated inpatient on the [facility] who started developing shortness of breath about 2 hours ago. He is very dyspneic he did have a breathing treatment on the unit and did not seem to help. He denies any chest pain fevers chills or sweats. MD Complaint: shortness of breath - Related Data Home Medications Medication Instructions Recorded Confirmed ALPRAZolam [Xanax] 2 mg PO BID PRN 12/31/16 01/30/17 ARIPiprazole IM [Abilify Maintena] 400 mg IM Q28D 12/31/16 01/30/17 Famotidine [Pepcid] 20 mg PO DAILY 12/31/16 01/30/17 HYDROcodone/APAP 5-325MG [Cory 1 tab PO BID PRN 12/31/16 01/30/17 5-325] Omeprazole [PriLOSEC] 20 mg PO BID 12/31/16 01/30/17 diphenhydrAMINE [Benadryl] 50 mg PO HS 12/31/16 01/30/17 Albuterol Nebulized [Ventolin 2.5 mg INHALATION RT-Q4H PRN 01/20/17 01/30/17 Nebulized] Allergies Allergy/AdvReac Type Severity Reaction Status Date / Time dicyclomine HCl [From Bentyl] Allergy Severe Anaphylaxis Verified 01/30/17 16:43 Iodinated Contrast Media - Allergy Severe Rash/Hives Verified 01/30/17 16:43 Oral and prednisone Allergy Severe Anaphylaxis Verified 01/30/17 16:43 shellfish derived [Shellfish] Allergy Severe Rash/Hives Verified 01/30/17 16:43 Penicillins Allergy Unknown Unknown Verified 01/30/17 16:43 Childhood steroids Allergy Severe Anaphylaxis Uncoded 01/25/17 21:46 Review of Systems ROS Statement: Those systems with pertinent positive or pertinent negative responses have been documented in the HPI. ROS Other: All systems not noted in ROS Statement are negative. 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 Past Anesthesia/Blood Transfusion Reactions: No Reported Reaction Date of Last Stent Placement:: 2002 Past Psychological History: Anxiety, Bipolar, Depression, Schizophrenia Additional Psychological History / Comment(s): PT states he HAS COMPREHENSION PROBLEMS DOES'NT READ WELL STATED CAN'T COMPREHNED IT,ABLE TO WRITE HIS NAME. Smoking Status: Current every day smoker Past Alcohol Use History: None Reported Additional Past Alcohol Use History / Comment(s): Pt. states that he drinks alcohol to help manage his pain. He drinks until he passes out. Past Drug Use History: Marijuana, Opiates, Prescription Drug Abuse Additional Drug Use History / Comment(s): Last marijuana use 2014 - Past Family History Mother Family Medical History: Asthma Father Family Medical History: Liver Disease, Renal Disease Additional Family Medical History / Comment(s): RENAL DISEASE General Exam - General Exam Comments Initial Comments: Is a well-developed well-nourished awake alert anxious appearing male he has dyspneic and actively wheezing and demonstrating difficulty with breathing. Limitations: no limitations General appearance: alert, anxious, in distress Head exam: Present: atraumatic, normocephalic, normal inspection Eye exam: Present: normal appearance, PERRL, EOMI. Absent: scleral icterus, conjunctival injection, periorbital swelling ENT exam: Present: normal exam, mucous membranes moist Neck exam: Present: normal inspection. Absent: tenderness, meningismus, lymphadenopathy Respiratory exam: Present: wheezes, decreased breath sounds. Absent: respiratory distress, rales, rhonchi, stridor Cardiovascular Exam: Present: normal rhythm, tachycardia, normal heart sounds. Absent: systolic murmur, diastolic murmur, rubs, gallop, clicks GI/Abdominal exam: Present: soft, normal bowel sounds. Absent: distended, tenderness, guarding, rebound, rigid Extremities exam: Present: normal inspection, full ROM, normal capillary refill. Absent: tenderness, pedal edema, joint swelling, calf tenderness Back exam: Present: normal inspection Neurological exam: Present: alert, oriented X3, CN II-XII intact Psychiatric exam: Present: normal affect, normal mood Skin exam: Present: warm, dry, intact, normal color. Absent: rash Course Vital Signs 01/30/17 01/30/17 01/30/17 15:52 16:21 16:33 Temperature 99.0 F Pulse Rate 108 H 100 108 H Respiratory 32 H Rate Blood Pressure 136/79 O2 Sat by Pulse 100 Oximetry 01/30/17 01/30/17 01/30/17 16:41 16:45 17:45 Temperature Pulse Rate 89 88 Respiratory 20 20 26 H Rate Blood Pressure 136/79 122/57 O2 Sat by Pulse 99 96 Oximetry 01/30/17 01/30/17 01/30/17 18:06 18:15 18:17 Temperature Pulse Rate 84 91 94 Respiratory 22 Rate Blood Pressure 125/57 O2 Sat by Pulse 97 Oximetry 01/30/17 18:43 Temperature Pulse Rate 91 Respiratory 24 Rate Blood Pressure 114/75 O2 Sat by Pulse 97 Oximetry - Reevaluation(s) Reevaluation #1: 01/30/17 16:57 Reevaluation the patient reveals minimal improvement he still has diffuse wheezing and tachypnea though his saturation is about 100%. Continue treatment as ordered Reevaluation #2: 01/30/17 18:29 The patient is still very dyspnic and wheezinf Medical Decision Making - Medical Decision Making The patient remains dyspnic the patient will be admitted - Lab Data Result diagrams: 01/30/17 16:30 01/30/17 16:30 Lab Results 01/30/17 01/30/17 01/30/17 Range/Units 16:30 16:30 16:30 WBC 6.2 (3.8-10.6) k/uL RBC 4.96 (4.30-5.90) m/uL Hgb 14.0 (13.0-17.5) gm/dL Hct 40.3 (39.0-53.0) % MCV 81.3 (80.0-100.0) fL MCH 28.1 (25.0-35.0) pg MCHC 34.6 (31.0-37.0) g/dL RDW 14.1 (11.5-15.5) % Plt Count 277 (150-450) k/uL Neutrophils % 56 % Lymphocytes % 34 % Monocytes % 5 % Eosinophils % 1 % Basophils % 1 % Neutrophils # 3.5 (1.3-7.7) k/uL Lymphocytes # 2.1 (1.0-4.8) k/uL Monocytes # 0.3 (0-1.0) k/uL Eosinophils # 0.1 (0-0.7) k/uL Basophils # 0.1 (0-0.2) k/uL PT (9.0-12.0) sec INR (<1.1) APTT (22.0-30.0) sec D-Dimer (<0.60) mg/L FEU Sodium 139 (137-145) mmol/L Potassium 4.2 (3.5-5.1) mmol/L Chloride 103 (98-107) mmol/L Carbon Dioxide 23 (22-30) mmol/L Anion Gap 13 mmol/L BUN 20 (9-20) mg/dL Creatinine 1.50 H (0.66-1.25) mg/dL Est GFR (MDRD) Af Amer >60 (>60 ml/min/1.73 sqM) Est GFR (MDRD) Non-Af 50 (>60 ml/min/1.73 sqM) Glucose 95 (74-99) mg/dL Calcium 9.7 (8.4-10.2) mg/dL Magnesium 2.2 (1.6-2.3) mg/dL Total Bilirubin 0.6 (0.2-1.3) mg/dL AST 23 (17-59) U/L ALT 34 (21-72) U/L Alkaline Phosphatase 95 (38-126) U/L Total Creatine Kinase 70 (55-170) U/L CK-MB (CK-2) 0.4 (0.0-2.4) ng/mL CK-MB (CK-2) Rel Index 0.6 Troponin I <0.012 (0.000-0.034) ng/mL NT-Pro-B Natriuret Pep pg/mL Total Protein 6.8 (6.3-8.2) g/dL Albumin 4.0 (3.5-5.0) g/dL 01/30/17 01/30/17 Range/Units 16:30 16:30 WBC (3.8-10.6) k/uL RBC (4.30-5.90) m/uL Hgb (13.0-17.5) gm/dL Hct (39.0-53.0) % MCV (80.0-100.0) fL MCH (25.0-35.0) pg MCHC (31.0-37.0) g/dL RDW (11.5-15.5) % Plt Count (150-450) k/uL Neutrophils % % Lymphocytes % % Monocytes % % Eosinophils % % Basophils % % Neutrophils # (1.3-7.7) k/uL Lymphocytes # (1.0-4.8) k/uL Monocytes # (0-1.0) k/uL Eosinophils # (0-0.7) k/uL Basophils # (0-0.2) k/uL PT 10.7 (9.0-12.0) sec INR 1.1 (<1.1) APTT 22.1 (22.0-30.0) sec D-Dimer 0.55 (<0.60) mg/L FEU Sodium (137-145) mmol/L Potassium (3.5-5.1) mmol/L Chloride (98-107) mmol/L Carbon Dioxide (22-30) mmol/L Anion Gap mmol/L BUN (9-20) mg/dL Creatinine (0.66-1.25) mg/dL Est GFR (MDRD) Af Amer (>60 ml/min/1.73 sqM) Est GFR (MDRD) Non-Af (>60 ml/min/1.73 sqM) Glucose (74-99) mg/dL Calcium (8.4-10.2) mg/dL Magnesium (1.6-2.3) mg/dL Total Bilirubin (0.2-1.3) mg/dL AST (17-59) U/L ALT (21-72) U/L Alkaline Phosphatase (38-126) U/L Total Creatine Kinase (55-170) U/L CK-MB (CK-2) (0.0-2.4) ng/mL CK-MB (CK-2) Rel Index Troponin I (0.000-0.034) ng/mL NT-Pro-B Natriuret Pep <11 pg/mL Total Protein (6.3-8.2) g/dL Albumin (3.5-5.0) g/dL - EKG Data -: EKG Interpreted by [facility] EKG shows normal: sinus rhythm, axis, intervals, QRS complexes, ST-T waves (EKG shows normal sinus rhythm of 93 appear of 01 42 QRS duration 64 daily since QTC of 316/392 this is a normal-appearing EKG there is some artifact present.) Rate: normal - Radiology Data Radiology results: report reviewed (No acute changes), image reviewed Critical Care Time Critical Care Time: Yes Critical Care Time: 31 minutes of critical care time includes initial history physical lab and x- rays reevaluation the patient response to therapy. Review of old charting discussed with the family physician admission orders and documentation the above. Disposition Clinical Impression: Acute exacerbation of chronic obstructive airways disease, Acute respiratory distress Disposition: [facility] Condition: Stable
[2017-01-30] MEDS ORDERED: diphenhydrAMINE 50 MG/ML 1 ML VIAL IVP STA (16:14)
[2017-01-30 16:40] LABS: Basophils # (A) 0.1 k/uL (0-0.2); Basophils % (A) 1 %; CH 28.6; CHCM 35.2; Eosinophils # (A) 0.1 k/uL (0-0.7); Eosinophils % (A) 1 %; HCT 40.3 % (39.0-53.0); HDW 2.33; Luc # (Auto) 0.18; Luc % (Auto) 3; Lymphocytes # (A) 2.1 k/uL (1.0-4.8); Lymphocytes % (A) 34 %; MCH 28.1 pg (25.0-35.0); MCHC 34.6 g/dL (31.0-37.0); MCV 81.3 fL (80.0-100.0); Mean Platelet Volume 6.8; Monocytes # (A) 0.3 k/uL (0-1.0); Monocytes % (A) 5 %; Neutrophils # (A) 3.5 k/uL (1.3-7.7); Neutrophils % (A) 56 %; RBC 4.96 m/uL (4.30-5.90); RDW 14.1 % (11.5-15.5); WBC 6.2 k/uL (3.8-10.6); WBC (Perox) 5.58
[2017-01-30 16:49] LABS: ALT 34 U/L (21-72); AST 23 U/L (17-59); Alkaline Phosphatase 95 U/L (38-126); Anion Gap 13 mmol/L; Blood Urea Nitrogen 20 mg/dL (9-20); Calcium 9.7 mg/dL (8.4-10.2); Carbon Dioxide 23 mmol/L (22-30); Chloride 103 mmol/L (98-107); Glucose 95 mg/dL (74-99); Magnesium 2.2 mg/dL (1.6-2.3); Non-African American GFR(MDRD) 50 (>60 ml/min/1.73 sqM); Potassium 4.2 mmol/L (3.5-5.1); Sodium 139 mmol/L (137-145); Total Bilirubin 0.6 mg/dL (0.2-1.3); Total Protein 6.8 g/dL (6.3-8.2)
[2017-01-30 16:52] LABS: INR 1.1 (<1.1)
[2017-01-30 16:53] LABS: Partial Thromboplastin Time 22.1 sec (22.0-30.0); Prothrombin Time 10.7 sec (9.0-12.0)
[2017-01-30] MEDS ORDERED: MAGNESIUM SULFATE-D5W PMX 1 GM in DEXTROSE/WATER 1 100ML.BAG IVPB ONE (16:56)
[2017-01-30 16:58] LABS: Creatine Kinase 70 U/L (55-170)
[2017-01-30 17:12] LABS: Creatine Kinase MB 0.4 ng/mL (0.0-2.4); Troponin I <0.012 ng/mL (0.000-0.034)
--- NOTE | 2017-01-30 17:30 | XR ---
EXAMINATION TYPE: XR chest 2V DATE OF EXAM: 01/30/2017 5:20 PM COMPARISON: 12/31/2016 HISTORY: Difficulty breathing TECHNIQUE: Frontal and lateral views of the chest are obtained. FINDINGS: There is no heart failure nor pneumonic infiltrate. There is right central venous catheter with tip in the right atrium. There are chest leads. Costophrenic angles are clear. IMPRESSION: No active cardiopulmonary disease. No change.
[2017-01-30] MEDS ORDERED: ALPRAZolam 0.5 MG TAB PO PRN (18:51)
[2017-01-30] MEDS: SODIUM CHLORIDE 0.9% 1,000 ML IV SCH (19:02)
[2017-01-30] MEDS: IPRATROPIUM-ALBUTEROL 3 ML NEB INHALATION SCH ×2 (20:34→23:04)
[2017-01-30] MEDS ORDERED: IPRATROPIUM-ALBUTEROL 3 ML NEB INHALATION PRN (20:34)
[2017-01-30 20:42] VITALS: BMI 30.9
[2017-01-30] MEDS: diphenhydrAMINE 50 MG CAP PO SCH (23:23)
[2017-01-30] MEDS: HYDROcodone/APAP 5-325MG 1 EACH TAB PO PRN (23:23)
[2017-01-30] MEDS: PANTOPRAZOLE 40 MG TABLET PO SCH (23:24)
[2017-01-31] MEDS ORDERED: methylPREDNISolone SOD SUCCI 125 MG/2 ML VIAL IV SCH
[2017-01-31] MEDS ORDERED: clonazePAM 0.5 MG TAB PO PRN (00:46)
[2017-01-31] MEDS: IPRATROPIUM-ALBUTEROL 3 ML NEB INHALATION SCH ×6 (03:10→23:49)
[2017-01-31] MEDS: PANTOPRAZOLE 40 MG TABLET PO SCH ×2 (08:41→18:59)
[2017-01-31] MEDS: FAMOTIDINE 20 MG TAB PO SCH (08:41)
[2017-01-31] MEDS ORDERED: QUEtiapine 100 MG TAB PO PRN (09:25)
[2017-01-31] MEDS: FLUoxetine HCL 20 MG CAP PO SCH (10:25)
--- NOTE | 2017-01-31 12:46 | P.PN ---
Subjective A 46 year old male being seen on the medicine floor for shortness of breath. Patient was being treated in the inpatient [facility] when on the patient developed shortness of breath. Patient became very dyspneic. Had a breathing treatment on the mental health unit it did not help. Patient denying chest pain there was no fever chills. Patient became overly anxious. Patient was discharged from the mental health unit and admitted to the emergency room to be seen for the above-mentioned symptoms in the emergency room the patient was admitted after being evaluated to the services of the attending Nursing reports that they did call A team while on the medical unit for increase audible wheezing with shortness of breath. Patient was stabilized. Patients being seen this morning is noted to be forced audibly wheezing. Patient is not coughing up any secretions. The patient reports that his chest feels sore from coughing all night. Patient states he's ALLERGIC to steroids. Reviewing the vitals in the emergency room patient's temp is 99 heart rate was in the 100 respiratory rate up to 30. Patient was given a respiratory treatment and admitted to the F floor patients being seen this morning is anxious stating that he needs steroids but is ALLERGIC to them. On physical exam patient has forced auditory wheezing noted the patient is less anxious. Patient states he's been told he has COPD and uses [id number] 2 L of oxygen at home Objective - Vital Signs Vital signs: Vital Signs Temp 98.5 F 01/30/17 19:44 Pulse 96 01/31/17 07:32 Resp 20 01/30/17 22:16 BP 130/71 01/30/17 19:44 Pulse Ox 98 01/30/17 19:44 Intake & Output 01/30/17 01/31/17 01/31/17 18:59 06:59 18:59 Intake Total 1200 Output Total 900 250 Balance 300 -250 Weight 81.647 kg Intake: Intake, IV Titration 1200 Amount Sodium Chloride 0.9% 1, 1200 000 ml @ 100 mls/hr IV . Q10H PAULINO Rx#:[id number] Output: Urine 900 250 Other: # Voids 1 - Exam Physical exam 46-year-old male sitting up in bed talkative slightly anxious Lungs adequate air movement bilaterally with forced wheezing noted no cough noted Heart S1-S2 audible regular Abdomen soft nontender no reports of nausea vomiting Extremities no edema noted - Labs CBC & Chem 7: 0514/17 16:30 01/30/17 16:30 Assessment and Plan Plan: Impression Schizophrenia disorder Depressive disorder nonspecified Chronic Alcohol use disorder History of opiate use disorder This admission voluntary admission to the mental health unit for auditory hallucinations instructions to hurt himself Present on admission Shortness of breath suspect due to mild acute COPD exacerbation Chronic ongoing tobacco abuse Chronic hypoxic respiratory failure with supplemental home O2 2 L known history of medical noncompliance A prior history of a DVT with IVC filter in place History of mild to moderate persistent asthma Patient reports an ALLERGY IV steroids and prednisone although he is currently tolerating them Plan Await pulmonology's eval Continue the current aerosol bronchodilators Resume home meds as appropriate Resume psych meds as appropriate DVT and GI prophylaxis If no further recommendations by pulmonology patient will be discharged and transferred back to the mental health unit Bronchodilators in the form of DuoNeb Continue Solu-Medrol 60 IV Q 6 The above dictated assessment and findings were discussed with dr laura Smith and the plan of care have been dictated as directed. Cami Noble nurse practitioner acting as a scribe for dr sanchez
--- NOTE | 2017-01-31 13:29 | XR ---
EXAMINATION TYPE: XR chest 2V DATE OF EXAM: 01/31/2017 1:10 PM COMPARISON: 01/30/2017 TECHNIQUE: PA and lateral views submitted. HISTORY: COPD FINDINGS: Cardiomegaly with the postsurgical change overlying the left axilla and Mediport catheter noted. Left scapula is not seen. Linear changes at the lung bases are more typical atelectasis. No pneumothorax. Surgical clips in the abdomen. Arthropathy of the AC joints. IMPRESSION: 1. Cardiomegaly with left basilar atelectasis favored over pneumonia. 2. Absence of the left scapula likely postsurgical.
[2017-01-31 13:49] LABS: Basophils % (A) 0 %; CH 28.1; CHCM 33.1; Eosinophils # (A) 0.1 k/uL (0-0.7); Eosinophils % (A) 1 %; HCT 37.1 % (39.0-53.0); HDW 2.16; HGB 12.1 gm/dL (13.0-17.5); Luc # (Auto) 0.19; Luc % (Auto) 2; Lymphocytes # (A) 1.5 k/uL (1.0-4.8); Lymphocytes % (A) 14 %; MCH 27.7 pg (25.0-35.0); MCHC 32.5 g/dL (31.0-37.0); MCV 85.3 fL (80.0-100.0); Monocytes # (A) 0.5 k/uL (0-1.0); Monocytes % (A) 4 %; Neutrophils # (A) 8.5 k/uL (1.3-7.7); Neutrophils % (A) 80 %; RBC 4.35 m/uL (4.30-5.90); RDW 14.1 % (11.5-15.5); WBC 10.7 k/uL (3.8-10.6); WBC (Perox) 10.82
--- NOTE | 2017-01-31 13:54 | P.CN ---
Psychiatric Consult - . Consult date: 01/31/17 Consult:: IDENTIFYING DATA: Mr. Lopez is a 46-year-old -[place] male with a history of schizophrenia, intellectual disability and alcohol use disorder. HISTORY OF PRESENT ILLNESS: He presented to the psychiatric unit on 01/26/2017 with complaints of command auditory hallucinations instructing him to kill himself. He talked about "voices" that instructed him to jump off a bridge. The "voices" and suicidal thoughts are present for several days prior to the admission but worsened on the day of admission. He described depression and admitted to several depressive symptoms. The depression and suspected complete worsened over a few days prior to the psychiatric admission. His PT on presentation to the ER was 0.082 and his UDS was negative for drugs of abuse. We suspect that the decompensation was related to noncompliance with prescribed psychotropic medications and relapse to alcohol. He refused to resume [facility] We discussed alternatives and he agreed to haloperidol with a plan to transition to Haldol Decanoate. We begin Haldol 2 mg twice a day and at the time of his transfer to medicine he was taking 5 mg daily. Haldol was discontinued on transfer to medical service and the outpatient order for Ranj[facility] Paz was continued. Xanax 0.2 mg twice a day when necessary and clonazepam 0.5 mg 3 times a day when necessary were resumed. He is doing well on the morning of 01/30/2017. In the late afternoon he complained of difficulty breathing and chest pain. Client left upper chest pain with radiation along his left arm. He breathing. Treatment was ineffective and the Ate was called to the floor. He was transferred to the ICU. He alleged he is continuing to have difficulty breathing with some shortness of breath. He denied chest pain. He denied feeling depressed or having thoughts of or suicide. He denied auditory hallucinations and command auditory hallucinations. MENTAL STATUS EXAM: He presented as a middle-aged -[place] male who is laying comfortably in bed. He made eye contact and attended to interview. He had no distinguishing features or prominent physical abnormalities. He had a blunted facial expression. He was alert and oriented to person, place and time. He showed no abnormal involuntary movements. His speech was spontaneous with decreased rate, rhythm and volume. His affect was blunted but stable and appropriate. He denied suicidal ideation or wishes. He denied homicidal ideation. He denied feeling hopeless, helpless or worthless. He did not express ideas reference, paranoid ideation or delusional thinking. His thinking was concrete but his associations were coherent and logical. He denied hallucinations and did not appear to be responding to internal stimuli. IMPRESSIONS: Schizophrenia, chronic paranoid type, intellectual disability, unspecified depressive disorder COPD PLAN: Continue Prozac 20 mg daily and Seroquel 100 mg at bedtime when necessary for sleep. Discontinue Abilify maintaining a 400 mg every 28 days. Restart Haldol 5 mg daily and administer haloperidol decanoate 50 mg IM prior to discharge. Discontinue Xanax and clonazepam (there is no need to prescribe to benzodiazepines); on the psychiatric unit we prescribed lorazepam 1 mg by mouth 3 times a day when necessary for anxiety. Discharge home when medically stable with follow-up at [facility]. 01/31/17 13:34
[2017-01-31] MEDS: HYDROcodone/APAP 5-325MG 1 EACH TAB PO PRN (14:01)
[2017-01-31 14:05] LABS: ALT 24 U/L (21-72); AST 15 U/L (17-59); Alkaline Phosphatase 78 U/L (38-126); Anion Gap 10 mmol/L; Blood Urea Nitrogen 14 mg/dL (9-20); Carbon Dioxide 24 mmol/L (22-30); Chloride 106 mmol/L (98-107); Glucose 116 mg/dL (74-99); Non-African American GFR(MDRD) >60 (>60 ml/min/1.73 sqM); Potassium 4.1 mmol/L (3.5-5.1); Sodium 140 mmol/L (137-145); Total Bilirubin 0.5 mg/dL (0.2-1.3); Total Protein 6.4 g/dL (6.3-8.2)
[2017-01-31] MEDS: LORazepam 1 MG TAB PO PRN ×2 (15:34→22:27)
[2017-01-31] MEDS: diphenhydrAMINE 50 MG CAP PO SCH (22:27)
--- NOTE | 2017-01-31 22:41 | PN ---
DATE OF SERVICE: 01/30/2017 CHIEF COMPLAINT: Shortness of breath. HISTORY OF PRESENT ILLNESS: This gentleman is transferred from the psych service where he was treated for "respiratory failure". This is a behavior that he goes through intentionally from time to time. He professes to have difficulty breathing due to his asthma/chronic obstructive pulmonary disease. However, when he is auscultated, he only wheezes on expiration. He was moved off the psych floor to medical floor. REVIEW OF SYSTEMS: He denies any other neurologic problems, cough, hemoptysis, chest pain, abdominal pain, vomiting, diarrhea, urinary complaints, etc. Past medical history, family history, personal and social history otherwise noncontributory. PHYSICAL EXAMINATION: VITAL SIGNS: Blood pressure is 140/90 with a pulse of 82, respirations 35 and he is afebrile. GENERAL: Appeared to be short of breath and wheezing. SKIN: Dry. Lymph nodes are not enlarged. Head, ears, eyes, nose, mouth, and throat were normal. NECK: Neck veins not distended. Thyroid is not enlarged. Chest demonstrated wheezing on forced expiration but none on inspiration. There are no rhonchi. CARDIAC: Normal sinus rhythm with no murmurs or extra sounds. ABDOMEN: Soft, nontender. EXTREMITIES: Normal. Eschar in the left shoulder from his prior history of sarcoma. Neurologically, she is intact. IMPRESSION: 1. Shortness of breath. 2. Asthma. 3. Status post ( ) of the left shoulder. 4. Narcotic dependency. PLAN: Intravenous fluids, updrafts. HE CANNOT TAKE STEROIDS WHICH HE IS ALLERGIC.
[2017-02-01 01:35] VITALS: RESP 17
[2017-02-01] MEDS: SODIUM CHLORIDE 0.9% 1,000 ML IV SCH (01:43)
[2017-02-01] MEDS ORDERED: IPRATROPIUM-ALBUTEROL 3 ML NEB ONE (04:00)
[2017-02-01] MEDS: IPRATROPIUM-ALBUTEROL 3 ML NEB INHALATION SCH ×3 (06:17→12:17)
[2017-02-01 07:41] VITALS: BP 104/63; TEMP 98.6
--- NOTE | 2017-02-01 08:22 | PN ---
DATE OF SERVICE: 01/31/2017 CHIEF COMPLAINT: Shortness of breath. HISTORY OF PRESENT ILLNESS: The gentleman continues to complain of shortness of breath, although his vital signs are normal and pulse ox is excellent. He also continues to complain of some right-sided chest and abdominal pain and is asking for more analgesics. PHYSICAL EXAM: Vital signs are normal. Chest demonstrates forced wheezing on expiration. There is no wheezing on inspiration. There are no rales or rhonchi. Abdomen is soft and nontender without any visceromegaly or masses. IMPRESSION: 1. Chronic obstructive pulmonary disease. 2. Right-sided abdominal pain, but no obvious source. PLAN: The patient can probably be discharged any time. He continues to present behaviors that are inappropriate and professes to have respiratory problems which are voluntary.
[2017-02-01] MEDS: FAMOTIDINE 20 MG TAB PO SCH (08:29)
[2017-02-01] MEDS: PANTOPRAZOLE 40 MG TABLET PO SCH (08:32)
[2017-02-01] MEDS: FLUoxetine HCL 20 MG CAP PO SCH (08:32)
[2017-02-01] MEDS: HALOPERIDOL 5 MG TAB PO SCH ×3 (08:33→12:31)
[2017-02-01] MEDS: HALOPERIDOL DECANOATE 50 MG/ML 1 ML VIAL IM SCH ×2 (09:44→10:06)
[2017-02-01 10:55] VITALS: PULSE 82
--- NOTE | 2017-02-01 11:27 | P.DS ---
Providers Date of admission: 01/30/17 18:48 Expected date of discharge: 02/01/17 Attending physician: Dave Richards Consults: 01/31/17 11:42 Consult Physician Urgent Consulting Provider: Kevin Brady Reason/Comments: Note for discharge Do you want consulting provider notified?: Already Contacted Primary care physician: Dave Richards [facility] Course: A 46 year old male being seen on the medicine floor for shortness of breath. Patient was being treated in the inpatient psychiatric [place] when on the patient developed shortness of breath. Patient became very dyspneic. Had a breathing treatment on the mental health unit it did not help. Patient denying chest pain there was no fever chills. Patient became overly anxious. Patient was discharged from the mental health unit and admitted to the emergency room to be seen for the above-mentioned symptoms patient was treated for shortness of breath suspect due to a panic anxiety attack. Respiratory treatments bronchodilators were initiated and the symptoms significantly improved Patient initially presented to the psychiatric unit on January 26 with complaints of command auditory hallucinations instructing him to kill himself. He talked about voices that instructed him to jump off a bridge. Reviewing psychiatrics note indicate that the patient reported the voices and the suicide thoughts were present for several days prior to omission became worse on the day of admission. Patient described depression. And was admitted with severe depressive symptoms. Patient's urine drug screen was negative for drugs of abuse. Patient was seen by the mental health service. Patient was stabilized. The mental health service recommended continuing Prozac 20 mg daily, Seroquel 100 mg at bedtime when necessary for sleep. Stop Abilify restart Haldol 5 mg daily and give Haloperid decanoate 50 IM prior to discharge. Stop the Xanax and clonazepam there is no need to prescribe benzodiazepines. Patient was stable from mental health to be discharged and to follow-up in the community mental health as directed Impression discharge diagnosis Schizophrenia, chronic paranoid type, intellectual disability , unspecified depressive disorder Chronic Alcohol use disorder History of opiate use disorder This admission voluntary admission to the mental health unit for auditory hallucinations instructions to hurt himself on January 26 Present on admission Shortness of breath suspect due to mild acute COPD exacerbation Chronic ongoing tobacco abuse Chronic hypoxic respiratory failure with supplemental home O2 2 L known history of medical noncompliance A prior history of a DVT with IVC filter in place History of mild to moderate persistent asthma Patient reports an ALLERGY IV steroids and prednisone although he is currently tolerating them Chronic respiratory failure hypoxic 2 L [id number] at home The above dictated assessment and findings were discussed with dr laura Smith and the plan of care have been dictated as directed. Cami Noble nurse practitioner acting as a scribe for dr richards Patient Condition at Discharge: Stable Plan - Discharge Summary Discharge Medication List ALPRAZolam [Xanax] 2 mg PO BID PRN 12/31/16 [History] ARIPiprazole IM [Abilify Maintena] 400 mg IM Q28D 12/31/16 [History] Famotidine [Pepcid] 20 mg PO DAILY 12/31/16 [History] HYDROcodone/APAP 5-325MG [[place] 5-325] 1 tab PO BID PRN 12/31/16 [History] Omeprazole [PriLOSEC] 20 mg PO BID 12/31/16 [History] diphenhydrAMINE [Benadryl] 50 mg PO HS 12/31/16 [History] Albuterol Nebulized [Ventolin Nebulized] 2.5 mg INHALATION RT-Q4H PRN 01/20/17 [ History] Follow up Appointment(s)/Referral(s): [facility]Outside] - As Needed (02.02.17 at 4:00pm with Shu Sena 02.16.17 at 10:40am with Dr. Campa. ) Dave Richards MD [Primary Care Provider] - 1-2 days (pt states he wishes to make follow up appt. after discharge) Discharge Disposition: HOME SELF-CARE
[2017-02-01] MEDS ORDERED: HALOPERIDOL DECANOATE 100 MG/ML 1 ML VIAL IM SCH (12:30)
--- NOTE | 2017-02-02 05:20 | PN ---
CHIEF COMPLAINT: Difficulty breathing and reactive airway disease. HISTORY OF PRESENT ILLNESS: This gentleman is doing well. When he is asleep there is no wheezing. As soon as he wakes up, he forces expiratory wheezing. While he was asleep his chest is completely clear. Cardiac exam is normal. The abdomen is soft, nontender. IMPRESSION: 1. Reactive airway disease. 2. Chronic obstructive pulmonary disease. 3. Personality disorder. 4. Substance abuse. 5. History of sarcoma of the left shoulder. PLAN: Probably home today and this will be arranged by the nurse practitioner.
--- NOTE | 2017-02-02 05:41 | PN ---
DATE OF SERVICE: 01/31/2017 Patient doing very well and chest is quite clear and he will probably go home today and this will be arranged by nurse practitioner.
[2017-02-13] MEDS ORDERED: ARIPiprazole 400 MG VIAL IM SCH (09:00)
== END 2017-02-01 12:29 | disposition home or self-care (01) ==
LOC: EC 15:47 → 3SUR 18:48
PROVIDERS: ADMIT Family Medicine; ATTEND Family Medicine
DX: R06.02 Shortness of breath (principal); J44.1 Chronic obstructive pulmonary disease with (acute) exacerbation; F17.200 Nicotine dependence, unspecified, uncomplicated; Z79.899 Other long term (current) drug therapy; Z88.8 Allergy status to other drugs, medicaments and biological substances; Z91.041 Radiographic dye allergy status; Z91.013 Allergy to seafood; I25.10 Atherosclerotic heart disease of native coronary artery without angina pectoris; Z86.718 Personal history of other venous thrombosis and embolism; I25.2 Old myocardial infarction; K21.9 Gastro-esophageal reflux disease without esophagitis; Z95.5 Presence of coronary angioplasty implant and graft; F41.9 Anxiety disorder, unspecified; F31.9 Bipolar disorder, unspecified; Z99.81 Dependence on supplemental oxygen; J45.40 Moderate persistent asthma, uncomplicated; Z91.19 Patient's noncompliance with other medical treatment and regimen; J96.11 Chronic respiratory failure with hypoxia; F11.20 Opioid dependence, uncomplicated; R10.9 Unspecified abdominal pain; F20.0 Paranoid schizophrenia; F79 Unspecified intellectual disabilities; F60.9 Personality disorder, unspecified; F19.10 Other psychoactive substance abuse, uncomplicated; Z85.831 Personal history of malignant neoplasm of soft tissue; G89.4 Chronic pain syndrome
CPT/HCPCS: 96365; 96375 ×2; 99291; 36415; 94640 ×5; 94760; 93005; 85379 ×2; 83880; 80053 ×2; 82550; 82553; 83735; 84484; 85025 ×2; 85610; 85730; 71020 ×2; G0378 ×3; J1631; J1200; J2930; J3475

== ENCOUNTER 2017-02-08 19:19 | Emergency (ER) | payer OTHER ==
[2017-02-08 19:26] VITALS: RESP 18
--- NOTE | 2017-02-08 19:46 | ED ---
General Adult HPI - General Chief complaint: Abdominal Pain Stated complaint: constipation Time Seen by Provider: 02/08/17 19:33 Source: patient, RN notes reviewed, old records reviewed Mode of arrival: ambulatory Limitations: no limitations - History of Present Illness Initial comments: Chief complaint and history of present illness this is a 46-year-old male well- known emergency room for chronic pain issues. He reports bowel movement for 6 days and knows some blood on the toilet paper when he wipes. - Related Data Home Medications Medication Instructions Recorded Confirmed ALPRAZolam [Xanax] 2 mg PO BID PRN 12/31/16 02/08/17 ARIPiprazole IM [Abilify Maintena] 400 mg IM Q28D 12/31/16 02/08/17 Famotidine [Pepcid] 20 mg PO DAILY 12/31/16 02/08/17 Omeprazole [PriLOSEC] 20 mg PO BID 12/31/16 02/08/17 diphenhydrAMINE [Benadryl] 50 mg PO HS 12/31/16 02/08/17 Albuterol Inhaler [Ventolin Hfa 2 puff INHALATION RT-Q6H PRN 02/08/17 02/08/17 Inhaler] HYDROcodone/APAP 10-325MG [[place] 1 tab PO DAILY PRN 02/08/17 02/08/17 10-325] Ipratropium-Albuterol Nebulize 3 ml INHALATION RT-QID PRN 02/08/17 02/08/17 [Duoneb 0.5 mg-3 mg/3 ml Soln] Allergies Allergy/AdvReac Type Severity Reaction Status Date / Time dicyclomine HCl [From Bentyl] Allergy Severe Anaphylaxis Verified 02/08/17 19:26 Iodinated Contrast Media - Allergy Severe Rash/Hives Verified 02/08/17 19:26 Oral and prednisone Allergy Severe Anaphylaxis Verified 02/08/17 19:26 shellfish derived [Shellfish] Allergy Severe Rash/Hives Verified 02/08/17 19:26 Penicillins Allergy Unknown Unknown Verified 02/08/17 19:26 Childhood steroids Allergy Severe Anaphylaxis Uncoded 02/08/17 19:26 Review of Systems ROS Statement: Those systems with pertinent positive or pertinent negative responses have been documented in the HPI. review of systems no headache or visual acuity changes at this time no chest pain or shortness of breath. He reports he has on-again off-again cramping but no abdominal pain. No bowel movement for 6 days. States he had some blood when he wiped. Not complaining of any extremity pain. All systems were otherwise reviewed.Past medical problems significant for COPD, coronary disease with DC 12 years ago. GERD, DVT, COPD, pneumonia, respiratory disorder. Schizophrenia. The patient's surgeries include 1 heart stent, cholecystectomy, left scapular removed. Family history mother father and grandfather grandmother all had cancers of unknown type to him. He does smoke he does drink. Encouraged to stop both ROS Other: All systems not noted in ROS Statement are negative. 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 Past Anesthesia/Blood Transfusion Reactions: No Reported Reaction Date of Last Stent Placement:: 2002 Past Psychological History: Anxiety, Bipolar, Depression, Schizophrenia Additional Psychological History / Comment(s): PT states he HAS COMPREHENSION PROBLEMS DOES'NT READ WELL STATED CAN'T COMPREHNED IT,ABLE TO WRITE HIS NAME. Smoking Status: Current every day smoker Past Alcohol Use History: None Reported Additional Past Alcohol Use History / Comment(s): Pt. states that he drinks alcohol to help manage his pain. He drinks until he passes out. Past Drug Use History: Marijuana, Opiates, Prescription Drug Abuse Additional Drug Use History / Comment(s): Last marijuana use 2014 - Past Family History Mother Family Medical History: Asthma Father Family Medical History: Liver Disease, Renal Disease Additional Family Medical History / Comment(s): RENAL DISEASE General Exam - General Exam Comments Initial Comments: General: The patient is awake and alert, in no distress, and does not appear acutely ill. complains of abdominal discomfort and 6 days of no bowel movement. Vital signs show temperature 98.3 pulse 70 respiratory rate 18 pulse ox 98% room air blood pressure 117/56 Eye: Pupils are equal, round and reactive to light, extra-ocular movements are intact ; there is normal conjunctiva bilaterally. No signs of icterus. Ears, nose, mouth and throat: There are moist mucous membranes and no oral lesions. Neck: The neck is supple, there is no tenderness Cardiovascular: There is a regular rate and rhythm. No murmur, rub or gallop is appreciated. Respiratory: Lungs are clear to auscultation, respirations are non-labored, breath sounds are equal. No wheezes, stridor, rales, or rhonchi. Gastrointestinal: Soft, non-distended, non-tender abdomen without masses or organomegaly noted. There is no rebound or guarding present. No CVA tenderness. Bowel sounds are unremarkable.rectal exam no evidence of blood. Rectal examination no hemorrhoids or blood noted on examining fingers. Back: chronic back pain and nothing acute this time. Musculoskeletal: Normal ROM, no tenderness, There is no pedal edema. There is no calf tenderness or swelling. Sensation intact. Pulses equal bilaterally 2+. Neurological: no neuro deficits no balance problems. Skin: Skin is warm and dry and no rashes or lesions are noted. Psychiatric: no complaints of depression or suicide. History of schizophrenia. Limitations: no limitations Course Vital Signs 02/08/17 19:25 Temperature 98.3 F Pulse Rate 78 Respiratory 18 Rate Blood Pressure 117/56 O2 Sat by Pulse 98 Oximetry Medical Decision Making - Medical Decision Making patient was given a bottle of mag citrate to use at home one half bottle in the morning tomorrow if not effective the second half the bottle afternoon tomorrow. Advised to increase his fluid intake and follow-up with family physician. Disposition Clinical Impression: Constipation Disposition: HOME SELF-CARE Condition: Fair Instructions: Constipation (ED), High Fiber Diet (ED), Fleet Enema (ED) Additional Instructions: Use one half of the bottle of magnesium citrate in the morning if not effective take the other half at noon. Follow-up with her family physician Referrals: Dave Richards MD [Primary Care Provider] - 1-2 days Time of Disposition: 20:41
--- NOTE | 2017-02-08 19:57 | XR ---
EXAMINATION TYPE: XR abdomen 2V DATE OF EXAM: 02/08/2017 7:50 PM COMPARISON: 06/02/2016 HISTORY: Abdominal pain TECHNIQUE: 3 views FINDINGS: There is no sign of intestinal obstruction or pneumoperitoneum. Fecal pattern is normal. Th ere are clips from cholecystectomy. Lung bases are clear. There is no sign of a mass. IMPRESSION: Nonacute abdomen. No change.
[2017-02-08] MEDS ORDERED: MAGNESIUM CITRATE 296 ML BOTTLE PO ONE (20:40)
[2017-02-08 20:52] VITALS: BP 136/63; PULSE 72; TEMP 97.9
== END 2017-02-08 20:52 | disposition home or self-care (01) ==
LOC: EC 19:19
DX: K59.00 Constipation, unspecified (principal); R10.9 Unspecified abdominal pain; G89.29 Other chronic pain; M54.9 Dorsalgia, unspecified; K21.9 Gastro-esophageal reflux disease without esophagitis; F20.9 Schizophrenia, unspecified; F32.9 Major depressive disorder, single episode, unspecified; F41.9 Anxiety disorder, unspecified; F17.200 Nicotine dependence, unspecified, uncomplicated; Z79.899 Other long term (current) drug therapy; Z88.0 Allergy status to penicillin; Z91.041 Radiographic dye allergy status; Z91.013 Allergy to seafood; Z88.8 Allergy status to other drugs, medicaments and biological substances; Z87.19 Personal history of other diseases of the digestive system; Z90.49 Acquired absence of other specified parts of digestive tract
CPT/HCPCS: 74020; 99284

== ENCOUNTER 2017-02-10 17:23 | Emergency (ER) | payer OTHER ==
[2017-02-10 17:27] VITALS: RESP 20
[2017-02-10] MEDS ORDERED: SODIUM CHLORIDE 0.9% 1,000 ML IV STA (18:04)
[2017-02-10] MEDS ORDERED: methylPREDNISolone SOD SUCCI 125 MG/2 ML VIAL IV STA (18:04)
[2017-02-10] MEDS ORDERED: IPRATROPIUM-ALBUTEROL 3 ML NEB INHALATION STA (18:04)
[2017-02-10 18:48] LABS: Basophils % (A) 0 %; CH 28.2; CHCM 34.2; Eosinophils # (A) 0.1 k/uL (0-0.7); Eosinophils % (A) 1 %; HCT 39.9 % (39.0-53.0); HDW 2.44; HGB 13.7 gm/dL (13.0-17.5); Luc # (Auto) 0.19; Luc % (Auto) 2; Lymphocytes # (A) 2.3 k/uL (1.0-4.8); Lymphocytes % (A) 27 %; MCH 28.4 pg (25.0-35.0); MCHC 34.3 g/dL (31.0-37.0); MCV 82.8 fL (80.0-100.0); Mean Platelet Volume 6.7; Monocytes # (A) 0.4 k/uL (0-1.0); Monocytes % (A) 5 %; Neutrophils # (A) 5.5 k/uL (1.3-7.7); Neutrophils % (A) 65 %; RBC 4.82 m/uL (4.30-5.90); WBC 8.5 k/uL (3.8-10.6); WBC (Perox) 9.11
--- NOTE | 2017-02-10 18:53 | XR ---
EXAMINATION TYPE: XR chest 2V DATE OF EXAM: 02/10/2017 6:41 PM COMPARISON: 01/31/2017 HISTORY: Chest pain TECHNIQUE: Frontal and lateral views of the chest are obtained. FINDINGS: Heart and mediastinum are normal. Lungs are clear. Diaphragm is normal. There is no pleura l effusion. There are chest leads. There is right central venous catheter with the tip in the right a trium. IMPRESSION: No active cardiopulmonary disease. No change.
[2017-02-10 18:57] LABS: ALT 31 U/L (21-72); AST 16 U/L (17-59); Alkaline Phosphatase 111 U/L (38-126); Anion Gap 11 mmol/L; Blood Urea Nitrogen 15 mg/dL (9-20); Calcium 9.4 mg/dL (8.4-10.2); Carbon Dioxide 23 mmol/L (22-30); Chloride 107 mmol/L (98-107); Glucose 79 mg/dL (74-99); Magnesium 2.2 mg/dL (1.6-2.3); Non-African American GFR(MDRD) >60 (>60 ml/min/1.73 sqM); Partial Thromboplastin Time 23.3 sec (22.0-30.0); Potassium 4.1 mmol/L (3.5-5.1); Prothrombin Time 10.3 sec (9.0-12.0); Sodium 141 mmol/L (137-145); Total Bilirubin 0.4 mg/dL (0.2-1.3); Total Protein 6.7 g/dL (6.3-8.2)
[2017-02-10 19:13] LABS: Creatine Kinase 118 U/L (55-170)
--- NOTE | 2017-02-10 19:19 | ED ---
Chest Pain HPI - General Source: patient, RN notes reviewed Mode of arrival: wheelchair Limitations: no limitations - History of Present Illness MD Complaint: chest pain, other <Joe Manning - Last Filed: 02/10/17 19:26> <Canelo Hassan - Last Filed: 02/10/17 19:45> - General Chief Complaint: Chest Pain Stated Complaint: chest pain Time Seen by Provider: 02/10/17 17:35 - History of Present Illness Initial Comments: This is a 46-year-old male with a history of heart disease and COPD who still smokes cigarettes who presents with complaints of chest pain feels similar to her before he has steady also complains of shortness of breath. He has been wheezing he denies any fevers chills nausea vomiting or other symptoms. (Joe Manning) - Related Data Home Medications Medication Instructions Recorded Confirmed ALPRAZolam [Xanax] 2 mg PO BID PRN 12/31/16 02/10/17 ARIPiprazole IM [Abilify Maintena] 400 mg IM Q28D 12/31/16 02/10/17 Famotidine [Pepcid] 20 mg PO DAILY 12/31/16 02/10/17 Omeprazole [PriLOSEC] 20 mg PO BID 12/31/16 02/10/17 diphenhydrAMINE [Benadryl] 50 mg PO HS 12/31/16 02/10/17 Albuterol Inhaler [Ventolin Hfa 2 puff INHALATION RT-Q6H PRN 02/08/17 02/10/17 Inhaler] HYDROcodone/APAP 10-325MG [[place] 1 tab PO DAILY PRN 02/08/17 02/10/17 10-325] Ipratropium-Albuterol Nebulize 3 ml INHALATION RT-QID PRN 02/08/17 02/10/17 [Duoneb 0.5 mg-3 mg/3 ml Soln] Allergies Allergy/AdvReac Type Severity Reaction Status Date / Time dicyclomine HCl [From Bentyl] Allergy Severe Anaphylaxis Verified 02/10/17 17:53 Iodinated Contrast Media - Allergy Severe Rash/Hives Verified 02/10/17 17:53 Oral and prednisone Allergy Severe Anaphylaxis Verified 02/10/17 17:53 shellfish derived [Shellfish] Allergy Severe Rash/Hives Verified 02/10/17 17:53 Penicillins Allergy Unknown Unknown Verified 02/10/17 17:53 Childhood steroids Allergy Severe Anaphylaxis Uncoded 02/10/17 17:26 Review of Systems ROS Other: All systems not noted in ROS Statement are negative. <Joe Manning - Last Filed: 02/10/17 19:26> ROS Other: All systems not noted in ROS Statement are negative. <Canelo Hassan - Last Filed: 02/10/17 19:45> ROS Statement: Those systems with pertinent positive or pertinent negative responses have been documented in the HPI. EKG Findings - EKG Results: EKG: interpreted by CUBA PADILLA, sinus rhythm, normal axis, normal QRS, normal ST/ T, no acute changes (Normal sinus rhythm a rate 91 appear of 01 40 QRS duration 70 daily QT/QTC of 344/423 this is a normal-appearing EKG.) <NigelJoe - Last Filed: 02/10/17 19:26> Past Medical History Past Medical History: Asthma, Coronary Artery Disease (CAD), Cancer, Chest Pain / Angina, COPD, Deep Vein Thrombosis (DVT), GERD/Reflux, Myocardial Infarction ( [place]), Pneumonia, Respiratory Disorder Additional Past Medical History / Comment(s): Other HX: Chronic bronchial asthma with frequent hospitalizations, bone cancer/osteosarcoma, 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 Past Anesthesia/Blood Transfusion Reactions: No Reported Reaction Date of Last Stent Placement:: 2002 Past Psychological History: Anxiety, Bipolar, Depression, Schizophrenia Additional Psychological History / Comment(s): PT states he HAS COMPREHENSION PROBLEMS DOES'NT READ WELL STATED CAN'T COMPREHNED IT,ABLE TO WRITE HIS NAME. Smoking Status: Current every day smoker Past Alcohol Use History: None Reported Additional Past Alcohol Use History / Comment(s): Pt. states that he drinks alcohol to help manage his pain. He drinks until he passes out. Past Drug Use History: Marijuana, Opiates, Prescription Drug Abuse Additional Drug Use History / Comment(s): Last marijuana use 2014 - Past Family History Mother Family Medical History: Asthma Father Family Medical History: Liver Disease, Renal Disease Additional Family Medical History / Comment(s): RENAL DISEASE <Joe Manning - Last Filed: 02/10/17 19:26> General Exam Limitations: no limitations General appearance: alert, in no apparent distress Head exam: Present: atraumatic, normocephalic, normal inspection Eye exam: Present: normal appearance, PERRL, EOMI. Absent: scleral icterus, conjunctival injection, periorbital swelling ENT exam: Present: normal exam, mucous membranes moist Neck exam: Present: normal inspection. Absent: tenderness, meningismus, lymphadenopathy Respiratory exam: Present: wheezes, decreased breath sounds. Absent: respiratory distress, rales, rhonchi, stridor Cardiovascular Exam: Present: regular rate, normal rhythm, normal heart sounds. Absent: systolic murmur, diastolic murmur, rubs, gallop, clicks GI/Abdominal exam: Present: soft, normal bowel sounds. Absent: distended, tenderness, guarding, rebound, rigid Extremities exam: Present: normal inspection, full ROM, normal capillary refill. Absent: tenderness, pedal edema, joint swelling, calf tenderness Back exam: Present: normal inspection Neurological exam: Present: alert, oriented X3, CN II-XII intact Psychiatric exam: Present: normal affect, normal mood Skin exam: Present: warm, dry, intact, normal color. Absent: rash <NigelJoe - Last Filed: 02/10/17 19:26> <Canelo Hassan - Last Filed: 02/10/17 19:45> - General Exam Comments Initial Comments: This is a well-developed well-nourished awake alert oriented x 3 male (NigelJoe) Course <Joe Manning - Last Filed: 02/10/17 19:26> <Canelo Hassan - Last Filed: 02/10/17 19:45> Vital Signs 02/10/17 02/10/17 02/10/17 17:24 18:11 18:22 Temperature 98.4 F Pulse Rate 98 87 89 Respiratory 20 Rate Blood Pressure 123/94 O2 Sat by Pulse 99 Oximetry - Reevaluation(s) Reevaluation #1: 02/10/17 19:26 The patient I did discuss smoking cessation for 3.1 minutes total. Patient was advised he should quit it as a risk factor first strokes heart attacks bad lung disease. Patient will be endorsed to Dr. Hassan who will make the final disposition (Joe Manning) Chest Pain MDM <Joe Manning - Last Filed: 02/10/17 19:26> <Canelo Hassan - Last Filed: 02/10/17 19:45> - MDM I did review the x-ray report no acute findings (Joe Manning) Disposition <Joe Manning - Last Filed: 02/10/17 19:26> <Canelo Hassan - Last Filed: 02/10/17 19:45> Clinical Impression: COPD (chronic obstructive pulmonary disease) Disposition: HOME SELF-CARE Condition: Good Instructions: COPD (Chronic Obstructive Pulmonary Disease) (ED) Referrals: Dave Richards MD [Primary Care Provider] - 1-2 days
[2017-02-10 19:26] LABS: Creatine Kinase MB 0.4 ng/mL (0.0-2.4); Troponin I <0.012 ng/mL (0.000-0.034)
[2017-02-10] MEDS ORDERED: diphenhydrAMINE 50 MG/ML 1 ML VIAL IVP STA (19:51)
[2017-02-10 20:05] VITALS: BP 116/78; PULSE 85; TEMP 98.6
== END 2017-02-10 20:10 | disposition home or self-care (01) ==
LOC: EC 17:23
DX: J44.9 Chronic obstructive pulmonary disease, unspecified (principal); R07.9 Chest pain, unspecified; K21.9 Gastro-esophageal reflux disease without esophagitis; F20.9 Schizophrenia, unspecified; F17.210 Nicotine dependence, cigarettes, uncomplicated; Z79.899 Other long term (current) drug therapy; Z88.0 Allergy status to penicillin; Z88.8 Allergy status to other drugs, medicaments and biological substances; Z91.013 Allergy to seafood; Z91.041 Radiographic dye allergy status; Z85.830 Personal history of malignant neoplasm of bone; Z98.890 Other specified postprocedural states; Z95.818 Presence of other cardiac implants and grafts
CPT/HCPCS: 36415; 94640; 93005; 85379; 83880; 80053; 82550; 82553; 83735; 84484; 85025; 85610; 85730; 71020; 99285; 96374; 96375; 96361; J1200; J2930

== ENCOUNTER 2017-02-15 18:19 | Emergency (ER) | payer OTHER ==
[2017-02-15 18:55] VITALS: TEMP 98.8
[2017-02-15] MEDS ORDERED: SODIUM CHLORIDE 0.9% 500 ML IV STA (19:29)
[2017-02-15] MEDS ORDERED: NITROGLYCERIN SL TABS 0.4 MG TAB SUBLINGUAL STA (19:29)
--- NOTE | 2017-02-15 19:58 | XR ---
EXAMINATION TYPE: XR chest 2V DATE OF EXAM: 02/15/2017 COMPARISON: 02/10/2017 INDICATION: Chest pain TECHNIQUE: Frontal and lateral views of the chest are obtained. FINDINGS: The heart size is normal. The pulmonary vasculature is normal. The lungs are clear. Port is present on the right with the tip in the right atrium. Surgical clips i n the left axillary region. IMPRESSION: 1. No acute pulmonary process.
--- NOTE | 2017-02-15 20:00 | ED ---
Chest Pain HPI - General Chief Complaint: Chest Pain Stated Complaint: Chest pain/dizzy Time Seen by Provider: 02/15/17 19:17 Source: patient, RN notes reviewed Mode of arrival: ambulatory Limitations: no limitations - History of Present Illness Initial Comments: 46-year-old male presents to the emergency department with a chief complaint of chest pain. Patient states he's had chest pain and shortness of breath for the past few days. Patient states she's had it on and off for a while as well. Patient states he has a history of an NC with a stent placed. Patient states he is concerned because the pain just seems to be worse he thought that he should be seen. Patient denies any nausea vomiting or diaphoresis. Patient denies any radiation down the arm or into the jaw. Patient states he is concerned due to his continued discomfort so he thought that he should be evaluated. Patient denies any recent fever, chills, shortness of breath, back pain, abdominal pain, nausea vomiting, numbness or tingling, dysuria or hematuria, constipation or diarrhea, headaches or visual changes, or any other current symptoms. - Related Data Home Medications Medication Instructions Recorded Confirmed Albuterol Inhaler [Ventolin Hfa 2 puff INHALATION RT-Q6H PRN 02/08/17 02/15/17 Inhaler] Ipratropium-Albuterol Nebulize 3 ml INHALATION RT-QID PRN 02/08/17 02/15/17 [Duoneb 0.5 mg-3 mg/3 ml Soln] Fluticasone Nasal [place] [Flonase 2 spr EA NOSTRIL DAILY PRN 02/15/17 02/15/17 Nasal [place]] Allergies Allergy/AdvReac Type Severity Reaction Status Date / Time dicyclomine HCl [From Bentyl] Allergy Severe Anaphylaxis Verified 02/15/17 19:19 Iodinated Contrast Media - Allergy Severe Rash/Hives Verified 02/15/17 19:19 Oral and prednisone Allergy Severe Anaphylaxis Verified 02/15/17 19:19 shellfish derived [Shellfish] Allergy Severe Rash/Hives Verified 02/15/17 19:19 Penicillins Allergy Unknown Unknown Verified 02/15/17 19:19 Childhood steroids Allergy Severe Anaphylaxis Uncoded 02/15/17 18:54 Review of Systems ROS Statement: Those systems with pertinent positive or pertinent negative responses have been documented in the HPI. ROS Other: All systems not noted in ROS Statement are negative. 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 Past Anesthesia/Blood Transfusion Reactions: No Reported Reaction Date of Last Stent Placement:: 2002 Past Psychological History: Anxiety, Bipolar, Depression, Schizophrenia Additional Psychological History / Comment(s): PT states he HAS COMPREHENSION PROBLEMS DOES'NT READ WELL STATED CAN'T COMPREHNED IT,ABLE TO WRITE HIS NAME. Smoking Status: Current every day smoker Past Alcohol Use History: Occasional Additional Past Alcohol Use History / Comment(s): Pt. states that he drinks alcohol to help manage his pain. He drinks until he passes out. Past Drug Use History: Marijuana, Opiates, Prescription Drug Abuse Additional Drug Use History / Comment(s): Last marijuana use 2014 - Past Family History Mother Family Medical History: Asthma Father Family Medical History: Liver Disease, Renal Disease Additional Family Medical History / Comment(s): RENAL DISEASE General Exam - General Exam Comments Initial Comments: General: The patient is awake and alert, in no distress, and does not appear acutely ill. Eye: Pupils are equal, round and reactive to light, extra-ocular movements are intact; there is normal conjunctiva bilaterally. No signs of icterus. Ears, nose, mouth and throat: There are moist mucous membranes and no oral lesions. Neck: The neck is supple, there is no tenderness. Cardiovascular: There is a regular rate and rhythm. No murmur, rub or gallop is appreciated. Respiratory: Lungs are clear to auscultation, respirations are non-labored, breath sounds are equal. No wheezes, stridor, rales, or rhonchi. Gastrointestinal: Soft, non-distended, non-tender abdomen without masses or organomegaly noted. There is no rebound or guarding present. No CVA tenderness. Bowel sounds are unremarkable. Back: There is no tenderness to palpation in the midline. There is no obvious deformity. No rashes noted. Musculoskeletal: Normal ROM, no tenderness, There is no pedal edema. There is no calf tenderness or swelling. Sensation intact. Pulses equal bilaterally 2+. Neurological: CN II-XII intact, There are no obvious motor or sensory deficits. Coordination appears grossly intact. Speech is normal. Skin: Skin is warm and dry and no rashes or lesions are noted. Psychiatric: Cooperative, appropriate mood & affect, normal judgment. Limitations: no limitations Course Vital Signs 02/15/17 02/15/17 02/15/17 18:53 19:54 20:00 Temperature 98.8 F Pulse Rate 104 H 88 88 Respiratory 20 18 16 Rate Blood Pressure 130/66 123/64 123/64 O2 Sat by Pulse 99 100 96 Oximetry 02/15/17 21:00 Temperature Pulse Rate 81 Respiratory 18 Rate Blood Pressure 117/61 O2 Sat by Pulse 99 Oximetry Chest Pain MDM - MDM 46-year-old male presents emergency Department chief complaint of chest pain. At this time patient's initial blood work was negative. Patient has been here multiple times for chest pain. We did order a second troponin to further evaluate the cause of the patient's pain however the patient decided that he had to leave. He states that he has to go home to be with his cousin. He states that he is feeling better and he would like to me and we discussed he'll have to leave AGAINST MEDICAL ADVICE since his evaluation is not complete. We discussed the risks of this and this could lead to . The patient stated he understood but he will be leaving. Disposition Clinical Impression: Chest pain Disposition: Left Against Medical Advice Referrals: Dave Richards MD [Primary Care Provider] - 1-2 days
[2017-02-15 20:38] LABS: Basophils # (A) 0.1 k/uL (0-0.2); Basophils % (A) 1 %; CH 28.2; CHCM 33.7; Eosinophils # (A) 0.1 k/uL (0-0.7); Eosinophils % (A) 1 %; HCT 43.5 % (39.0-53.0); HDW 2.34; HGB 14.7 gm/dL (13.0-17.5); Luc # (Auto) 0.12; Luc % (Auto) 1; Lymphocytes # (A) 2.4 k/uL (1.0-4.8); Lymphocytes % (A) 28 %; MCH 28.5 pg (25.0-35.0); MCHC 33.9 g/dL (31.0-37.0); MCV 84.1 fL (80.0-100.0); Mean Platelet Volume 6.8; Monocytes # (A) 0.3 k/uL (0-1.0); Monocytes % (A) 4 %; Neutrophils # (A) 5.5 k/uL (1.3-7.7); Neutrophils % (A) 65 %; RBC 5.18 m/uL (4.30-5.90); RDW 13.7 % (11.5-15.5); WBC 8.5 k/uL (3.8-10.6); WBC (Perox) 8.07
[2017-02-15 20:51] LABS: Partial Thromboplastin Time 22.9 sec (22.0-30.0); Prothrombin Time 10.3 sec (9.0-12.0)
[2017-02-15 20:58] LABS: Creatine Kinase 67 U/L (55-170)
[2017-02-15 21:11] LABS: Creatine Kinase MB 0.4 ng/mL (0.0-2.4); Troponin I <0.012 ng/mL (0.000-0.034)
[2017-02-15 21:37] VITALS: RESP 18
[2017-02-15 22:22] LABS: ALT 27 U/L (21-72); AST 16 U/L (17-59); Alkaline Phosphatase 104 U/L (38-126); Anion Gap 9 mmol/L; Blood Urea Nitrogen 21 mg/dL (9-20); Calcium 9.5 mg/dL (8.4-10.2); Carbon Dioxide 26 mmol/L (22-30); Chloride 104 mmol/L (98-107); Glucose 82 mg/dL (74-99); Non-African American GFR(MDRD) >60 (>60 ml/min/1.73 sqM); Potassium 4.3 mmol/L (3.5-5.1); Sodium 139 mmol/L (137-145); Total Bilirubin 0.4 mg/dL (0.2-1.3); Total Protein 6.7 g/dL (6.3-8.2)
[2017-02-15 23:01] VITALS: BP 133/71; PULSE 78
== END 2017-02-15 23:01 | disposition left against medical advice (07) ==
LOC: EC 18:19
DX: R07.9 Chest pain, unspecified (principal); R06.02 Shortness of breath; F17.200 Nicotine dependence, unspecified, uncomplicated; Z91.041 Radiographic dye allergy status; Z88.0 Allergy status to penicillin; Z91.013 Allergy to seafood; Z88.8 Allergy status to other drugs, medicaments and biological substances
CPT/HCPCS: 36415; 71020; 80053; 82550; 82553; 83735; 84484; 85025; 85379; 85610; 85730; 93005; 96360; 96361; 99285

== ENCOUNTER 2017-02-21 14:09 | Observation (INO) | payer OTHER ==
[2017-02-21] MEDS ORDERED: ASPIRIN 81 MG CHEW PO STA (14:45)
[2017-02-21] MEDS ORDERED: NITROGLYCERIN OINT 1 INCH/GM PACKET TOPICAL STA (14:45)
--- NOTE | 2017-02-21 14:47 | ED ---
General Adult HPI - General Chief complaint: Shortness of Breath Stated complaint: SOB Time Seen by Provider: 02/21/17 14:35 Source: patient, RN notes reviewed Mode of arrival: wheelchair Limitations: no limitations - History of Present Illness Initial comments: This is a 46-year-old male who presents emergency Department with a past medical history significant for coronary artery disease. Patient states last night he started having chest pain is been intermittent ever since. Patient states he short of breath. Patient denies any diaphoresis. Patient denies any nausea. Patient denies abdominal pain. Patient denies any vomiting or diarrhea recently. Patient denies any recent fever chills or cough. Patient states the pain is a squeezing sensation in her comes and goes and lasts anywhere from 15-30 minutes. Patient denies headache patient denies numbness weakness. Patient denies lightheadedness dizziness or near-syncopal episode. Patient also complains of right knee pain he states that today he felt a pop in his knee and now he can't bend it. - Related Data Home Medications Medication Instructions Recorded Confirmed Albuterol Inhaler [Ventolin Hfa 2 puff INHALATION RT-Q6H PRN 02/08/17 02/21/17 Inhaler] Ipratropium-Albuterol Nebulize 3 ml INHALATION RT-QID PRN 02/08/17 02/21/17 [Duoneb 0.5 mg-3 mg/3 ml Soln] Fluticasone Nasal [place] [Flonase 2 spr EA NOSTRIL DAILY PRN 02/15/17 02/21/17 Nasal [place]] Allergies Allergy/AdvReac Type Severity Reaction Status Date / Time dicyclomine HCl [From Bentyl] Allergy Severe Anaphylaxis Verified 02/21/17 15:01 Iodinated Contrast Media - Allergy Severe Rash/Hives Verified 02/21/17 15:01 Oral and prednisone Allergy Severe Anaphylaxis Verified 02/21/17 15:01 shellfish derived [Shellfish] Allergy Severe Rash/Hives Verified 02/21/17 15:01 Penicillins Allergy Unknown Unknown Verified 02/21/17 15:01 Childhood steroids Allergy Severe Anaphylaxis Uncoded 02/21/17 14:36 Review of Systems ROS Statement: Those systems with pertinent positive or pertinent negative responses have been documented in the HPI. ROS Other: All systems not noted in ROS Statement are negative. 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 Past Anesthesia/Blood Transfusion Reactions: No Reported Reaction Date of Last Stent Placement:: 2002 Past Psychological History: Anxiety, Bipolar, Depression, Schizophrenia Additional Psychological History / Comment(s): PT states he HAS COMPREHENSION PROBLEMS DOES'NT READ WELL STATED CAN'T COMPREHNED IT,ABLE TO WRITE HIS NAME. Smoking Status: Current every day smoker Past Alcohol Use History: Occasional Additional Past Alcohol Use History / Comment(s): Pt. states that he drinks alcohol to help manage his pain. He drinks until he passes out. Past Drug Use History: Marijuana, Opiates, Prescription Drug Abuse Additional Drug Use History / Comment(s): Last marijuana use 2014 - Past Family History Mother Family Medical History: Asthma Father Family Medical History: Liver Disease, Renal Disease Additional Family Medical History / Comment(s): RENAL DISEASE General Exam - General Exam Comments Initial Comments: GENERAL: Patient is well-developed and well-nourished. Patient is nontoxic and well- hydrated and is in no acute distress. ENT: Neck is soft and supple. No significant lymphadenopathy is noted. Oropharynx is clear. Moist mucous membranes. Neck has full range of motion without eliciting any pain. EYES: The sclera were anicteric and conjunctiva were pink and moist. Extraocular movements were intact and pupils were equal round and reactive to light. Eyelids were unremarkable. PULMONARY: Unlabored respirations. Good breath sounds bilaterally. No audible rales rhonchi or wheezing was noted. CARDIOVASCULAR: There is a regular rate and rhythm without any murmurs gallops or rubs. ABDOMEN: Soft and nontender with normal bowel sounds. No palpable organomegaly was noted. There is no palpable pulsatile mass. SKIN: Skin is clear with no lesions or rashes and otherwise unremarkable. NEUROLOGIC: Patient is alert and oriented x3. Cranial nerves II through XII are grossly intact. Motor and sensory are also intact. Normal speech, volume and content. Symmetrical smile. MUSCULOSKELETAL: Patient has no swelling or effusion noted on the knee there is no redness to the knee but he refuses to bend the knee at all. LYMPHATICS: No significant lymphadenopathy is noted PSYCHIATRIC: Normal psychiatric evaluation. Normal interpersonal interactions appears functionally intact in deals appropriately with others. No signs of depression. No signs of anxiety. Limitations: no limitations Course Vital Signs 02/21/17 02/21/17 02/21/17 14:34 15:16 15:37 Temperature 98.3 F 98.0 F Pulse Rate 108 H 102 H 98 Respiratory 24 16 16 Rate Blood Pressure 107/58 116/75 114/61 O2 Sat by Pulse 97 99 100 Oximetry 02/21/17 16:35 Temperature 99.3 F Pulse Rate 97 Respiratory 16 Rate Blood Pressure 115/66 O2 Sat by Pulse 99 Oximetry Medical Decision Making - Medical Decision Making EKG shows sinus tachycardia 106 bpm OR interval 138 QRS is 82 QT interval 320 QTC is 425. Patient's EKG shows no ST segment elevation or depression or T- wave abdomen is noted. Chest x-ray shows no acute abnormality. Right knee shows no acute abnormality. - Lab Data Result diagrams: 02/21/17 15:14 02/21/17 15:14 Lab Results 02/21/17 02/21/17 02/21/17 Range/Units 15:14 15:14 15:14 WBC 8.7 (3.8-10.6) k/uL RBC 5.03 (4.30-5.90) m/uL Hgb 14.2 (13.0-17.5) gm/dL Hct 42.4 (39.0-53.0) % MCV 84.3 (80.0-100.0) fL MCH 28.3 (25.0-35.0) pg MCHC 33.6 (31.0-37.0) g/dL RDW 13.8 (11.5-15.5) % Plt Count 256 (150-450) k/uL Neutrophils % 76 % Lymphocytes % 17 % Monocytes % 5 % Eosinophils % 1 % Basophils % 1 % Neutrophils # 6.6 (1.3-7.7) k/uL Lymphocytes # 1.5 (1.0-4.8) k/uL Monocytes # 0.4 (0-1.0) k/uL Eosinophils # 0.0 (0-0.7) k/uL Basophils # 0.1 (0-0.2) k/uL PT (9.0-12.0) sec INR (<1.1) APTT (22.0-30.0) sec Sodium 141 (137-145) mmol/L Potassium 4.1 (3.5-5.1) mmol/L Chloride 104 (98-107) mmol/L Carbon Dioxide 25 (22-30) mmol/L Anion Gap 12 mmol/L BUN 15 (9-20) mg/dL Creatinine 1.00 (0.66-1.25) mg/dL Est GFR (MDRD) Af Amer >60 (>60 ml/min/1.73 sqM) Est GFR (MDRD) Non-Af >60 (>60 ml/min/1.73 sqM) Glucose 174 H (74-99) mg/dL Calcium 9.4 (8.4-10.2) mg/dL Magnesium 2.0 (1.6-2.3) mg/dL Total Bilirubin 1.3 (0.2-1.3) mg/dL AST 16 L (17-59) U/L ALT 26 (21-72) U/L Alkaline Phosphatase 103 (38-126) U/L Total Creatine Kinase 71 (55-170) U/L Total Protein 6.5 (6.3-8.2) g/dL Albumin 3.9 (3.5-5.0) g/dL 02/21/17 Range/Units 15:14 WBC (3.8-10.6) k/uL RBC (4.30-5.90) m/uL Hgb (13.0-17.5) gm/dL Hct (39.0-53.0) % MCV (80.0-100.0) fL MCH (25.0-35.0) pg MCHC (31.0-37.0) g/dL RDW (11.5-15.5) % Plt Count (150-450) k/uL Neutrophils % % Lymphocytes % % Monocytes % % Eosinophils % % Basophils % % Neutrophils # (1.3-7.7) k/uL Lymphocytes # (1.0-4.8) k/uL Monocytes # (0-1.0) k/uL Eosinophils # (0-0.7) k/uL Basophils # (0-0.2) k/uL PT 10.7 (9.0-12.0) sec INR 1.1 (<1.1) APTT 22.7 (22.0-30.0) sec Sodium (137-145) mmol/L Potassium (3.5-5.1) mmol/L Chloride (98-107) mmol/L Carbon Dioxide (22-30) mmol/L Anion Gap mmol/L BUN (9-20) mg/dL Creatinine (0.66-1.25) mg/dL Est GFR (MDRD) Af Amer (>60 ml/min/1.73 sqM) Est GFR (MDRD) Non-Af (>60 ml/min/1.73 sqM) Glucose (74-99) mg/dL Calcium (8.4-10.2) mg/dL Magnesium (1.6-2.3) mg/dL Total Bilirubin (0.2-1.3) mg/dL AST (17-59) U/L ALT (21-72) U/L Alkaline Phosphatase (38-126) U/L Total Creatine Kinase (55-170) U/L Total Protein (6.3-8.2) g/dL Albumin (3.5-5.0) g/dL Disposition Clinical Impression: Chest pain Disposition: ADMITTED IP TO THIS HOSP Referrals: Dave Richards MD [Primary Care Provider] - 1-2 days Time of Disposition: 16:55
[2017-02-21 15:19] VITALS: RESP 16
--- NOTE | 2017-02-21 15:38 | XR ---
EXAMINATION TYPE: XR knee 4V RT DATE OF EXAM: 02/21/2017 CLINICAL HISTORY: Fall injury with right knee pain TECHNIQUE: Three views of the right knee are obtained. A fourth sunrise view was performed. COMPARISON: Right knee x-ray September 18, 2015. FINDINGS: There is no acute fracture/dislocation evident in right knee. The tri-compartment joint s paces appear within normal limits. Patellar articulation is within normal limits on sunrise view. Th e overlying soft tissue appears unremarkable. IMPRESSION: There is no acute fracture or dislocation in the right knee.
--- NOTE | 2017-02-21 15:49 | XR ---
EXAMINATION TYPE: XR chest 2V DATE OF EXAM: 02/21/2017 COMPARISON: Chest x-ray February 15, 2017. HISTORY: Dizziness and chest pain. TECHNIQUE: Frontal and lateral views of the chest are obtained. FINDINGS: There is stable right internal jugular Mediport catheter. There is no focal air space opac ity, pleural effusion, or pneumothorax seen. The cardiac silhouette size is mildly enlarged. The o sseous structures are intact. Surgical clips left axillary region are redemonstrated. Cholecystectomy clips are redemonstrated on lateral view. IMPRESSION: Mild cardiomegaly without acute pulmonary process.
[2017-02-21 15:56] LABS: Basophils # (A) 0.1 k/uL (0-0.2); Basophils % (A) 1 %; CHCM 33.4; Eosinophils % (A) 1 %; HCT 42.4 % (39.0-53.0); HDW 2.29; HGB 14.2 gm/dL (13.0-17.5); Luc % (Auto) 1; Lymphocytes # (A) 1.5 k/uL (1.0-4.8); Lymphocytes % (A) 17 %; MCH 28.3 pg (25.0-35.0); MCHC 33.6 g/dL (31.0-37.0); MCV 84.3 fL (80.0-100.0); Mean Platelet Volume 7.2; Monocytes # (A) 0.4 k/uL (0-1.0); Monocytes % (A) 5 %; Neutrophils # (A) 6.6 k/uL (1.3-7.7); Neutrophils % (A) 76 %; RBC 5.03 m/uL (4.30-5.90); RDW 13.8 % (11.5-15.5); WBC 8.7 k/uL (3.8-10.6); WBC (Perox) 8.74
[2017-02-21 16:08] LABS: ALT 26 U/L (21-72); AST 16 U/L (17-59); Alkaline Phosphatase 103 U/L (38-126); Anion Gap 12 mmol/L; Blood Urea Nitrogen 15 mg/dL (9-20); Calcium 9.4 mg/dL (8.4-10.2); Carbon Dioxide 25 mmol/L (22-30); Chloride 104 mmol/L (98-107); Glucose 174 mg/dL (74-99); INR 1.1 (<1.1); Non-African American GFR(MDRD) >60 (>60 ml/min/1.73 sqM); Partial Thromboplastin Time 22.7 sec (22.0-30.0); Potassium 4.1 mmol/L (3.5-5.1); Prothrombin Time 10.7 sec (9.0-12.0); Sodium 141 mmol/L (137-145); Total Bilirubin 1.3 mg/dL (0.2-1.3); Total Protein 6.5 g/dL (6.3-8.2)
[2017-02-21 16:41] LABS: Creatine Kinase 71 U/L (55-170)
[2017-02-21 16:55] LABS: Creatine Kinase MB 0.4 ng/mL (0.0-2.4); Troponin I <0.012 ng/mL (0.000-0.034)
[2017-02-21] MEDS ORDERED: NITROGLYCERIN SL TABS 0.4 MG TAB SUBLINGUAL PRN (16:56)
[2017-02-21 18:31] VITALS: BMI 30.9
[2017-02-21] MEDS ORDERED: ALBUTEROL INHALER 60 PUFF/8 GM INHALER INHALATION PRN (19:58)
[2017-02-21] MEDS ORDERED: FLUTICASONE 50MCG/SPRAY NASAL 16GM EA NOSTRIL PRN (19:58)
[2017-02-21] MEDS ORDERED: IPRATROPIUM-ALBUTEROL 3 ML NEB INHALATION PRN (19:58)
[2017-02-21] MEDS: KETOROLAC 30 MG/ML 1 ML VIAL IVP PRN (20:18)
[2017-02-21 22:28] LABS: Creatine Kinase 56 U/L (55-170)
[2017-02-21 22:41] LABS: Creatine Kinase MB 0.3 ng/mL (0.0-2.4); Troponin I <0.012 ng/mL (0.000-0.034)
[2017-02-22] MEDS: NITROGLYCERIN OINT 1 INCH/GM PACKET TOPICAL SCH ×2 (01:21→06:35)
[2017-02-22] MEDS: KETOROLAC 30 MG/ML 1 ML VIAL IVP PRN (02:06)
[2017-02-22 05:32] LABS: Creatine Kinase 49 U/L (55-170)
[2017-02-22 05:36] LABS: Cholesterol 122 mg/dL (<200); HDL Cholesterol 45 mg/dL (40-60); Triglycerides 69 mg/dL (<150)
[2017-02-22 05:44] LABS: Creatine Kinase MB 0.3 ng/mL (0.0-2.4); Troponin I <0.012 ng/mL (0.000-0.034)
[2017-02-22 07:08] VITALS: BP 95/49; PULSE 75; TEMP 97.5
--- NOTE | 2017-02-22 08:52 | CONS ---
DATE OF CONSULTATION: CHIEF COMPLAINT: Chest pain. Pérez is a 46-year-old gentleman with history of coronary artery disease, status post prior angioplasty, gastroesophageal reflux disease, history of COPD and DVT who presented to the hospital complaining of chest pain. He describes as a sharp precordial pain intermittent and associated with exertion and no diaphoresis. Since admission, three sets of cardiac enzymes have been negative. EKG does not reveal ischemic changes. He had a negative stress test a year ago. He follows with a maintenance inspector in our office but does not remember the name. Given the atypical nature of his symptoms, he in fact was admitted to hospital just a month ago with very similar symptoms. I am going to schedule him for a stress test. If this is negative, he will be discharged home and follow up with us. Past medical history is significant for coronary artery disease, status post angioplasty, and COPD . Medications at home include Ventolin, Flonase and Duoneb. ALLERGY TO IODINE, PREDNISONE, SHELLFISH, PENICILLIN AND STEROIDS. FAMILY HISTORY: Negative for premature coronary artery disease. SOCIAL HISTORY: Negative for smoking, ETOH abuse, or drug abuse. REVIEW OF SYSTEMS: HEENT: Unremarkable. CARDIAC: As described above. RESPIRATORY: Negative. GI: Negative. GENITOURINARY: Negative. Allergy/immunology: Negative. SKIN: Negative. MUSCULOSKELETAL: Negative. Dermatology: Negative. CONSTITUTIONAL: Negative. Oncological: Negative. The rest of the system review is not relevant. On exam, comfortable at rest. Vital signs are stable. There is no jugular venous distention. Chest exam reveals good air entry bilaterally. Heart exam reveals first and second heart sounds. No gallop. No murmur, no rub. ABDOMEN: Soft, nontender. Exam of extremities did not reveal any edema. Peripheral pulses are felt. CATERING AND EVENTS MANAGER exam did not reveal focal neurological deficits. EKG is within normal limits. Troponins are negative. ASSESSMENT: 1. Precordial chest pain, atypical, probably noncardiac in origin. 2. Coronary artery disease, status post angioplasty. PLAN: Patient will undergo a stress test today. If this is negative, will be discharged home. If this is abnormal, he will undergo cardiac catheterization.
[2017-02-22] MEDS ORDERED: ASPIRIN 325 MG TAB PO SCH (09:00)
--- NOTE | 2017-02-22 10:15 | P.HPIM ---
History of Present Illness H&P Date: 02/22/17 Chief Complaint: Shortness of breath chest tightness 46-year-old Afro-Gren[place] male presented on the day of admission to the emergency room with a chief complaint of developing chest pressure intermittent with shortness of breath. Patient denied any diaphoresis. Denied any nausea vomiting or abdominal pain patient denies any recent cough fever or chills. Patient stated he did not feel dizzy or lightheaded did not have a near- syncopal episode. Additionally patient reportedly was experiencing right knee pain. Subsequently the patient was admitted to the services of the attending. Patient has a history of an anxiety bipolar depressive schizophrenic disorder patient was recently discharged on February 01 at that time was treated for COPD. Additionally on January 31 the patient was seen by the mental health service. He was admitted on January 26 to the psychiatric unit after patient reportedly was experiencing auditory hallucinations. While the patient was on the mental health unit January 30 the patient developed shortness of breath and chest discomfort radiating down the left arm. Patient was transferred out of the mental health unit with a cardiology consultation requested at that time patient was seen by Dr. GARCIA no further cardiac workup was done. Patient did have a dobutamine stress echo done a year ago and it was read as negative findings did not review any ischemic changes. The EKG this admission did not reveal any ischemic changes. Cardiac enzymes 3 sets this admission were negative. 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 Past Anesthesia/Blood Transfusion Reactions: No Reported Reaction Date of Last Stent Placement:: 2002 Past Psychological History: Anxiety, Bipolar, Depression, Schizophrenia Additional Psychological History / Comment(s): PT states he HAS COMPREHENSION PROBLEMS DOES'NT READ WELL STATED CAN'T COMPREHNED IT,ABLE TO WRITE HIS NAME. Smoking Status: Current every day smoker Past Alcohol Use History: Occasional Additional Past Alcohol Use History / Comment(s): Pt. states that he drinks alcohol to help manage his pain. He drinks until he passes out. Past Drug Use History: Marijuana, Opiates, Prescription Drug Abuse Additional Drug Use History / Comment(s): Last marijuana use 2014 - Past Family History Mother Family Medical History: Asthma Father Family Medical History: Liver Disease, Renal Disease Additional Family Medical History / Comment(s): RENAL DISEASE Medications and Allergies Home Medications Medication Instructions Recorded Confirmed Type Albuterol Inhaler [Ventolin Hfa 2 puff INHALATION RT-Q6H PRN 02/08/17 02/21/17 History Inhaler] Ipratropium-Albuterol Nebulize 3 ml INHALATION RT-QID PRN 02/08/17 02/21/17 History [Duoneb 0.5 mg-3 mg/3 ml Soln] Fluticasone Nasal [place] [Flonase 2 spr EA NOSTRIL DAILY PRN 02/15/17 02/21/17 History Nasal [place]] Allergies Allergy/AdvReac Type Severity Reaction Status Date / Time dicyclomine HCl [From Bentyl] Allergy Severe Anaphylaxis Verified 02/21/17 15:01 Iodinated Contrast Media - Allergy Severe Rash/Hives Verified 02/21/17 15:01 Oral and prednisone Allergy Severe Anaphylaxis Verified 02/21/17 15:01 shellfish derived [Shellfish] Allergy Severe Rash/Hives Verified 02/21/17 15:01 Penicillins Allergy Unknown Unknown Verified 02/21/17 15:01 Childhood steroids Allergy Severe Anaphylaxis Uncoded 02/21/17 14:36 Physical Exam Vitals: Vital Signs Temp Pulse Pulse Resp BP BP Pulse Ox 02/22/17 08:00 97.5 F L 75 16 95/49 96 02/22/17 04:00 16 02/22/17 03:46 98.1 F 80 16 121/57 96 02/21/17 23:54 16 02/21/17 23:40 98.7 F 93 16 129/54 96 02/21/17 20:00 16 02/21/17 19:44 98.2 F 98 16 119/62 97 02/21/17 18:13 98.1 F 100 16 111/69 96 02/21/17 18:11 99.1 F 91 16 105/57 98 02/21/17 17:29 99.1 F 91 16 105/57 99 02/21/17 16:35 99.3 F 97 16 115/66 99 02/21/17 15:37 98.0 F 98 16 114/61 100 02/21/17 15:16 102 H 16 116/75 99 02/21/17 14:34 98.3 F 108 H 24 107/58 97 Intake and Output 02/21/17 02/22/17 02/22/17 22:59 06:59 14:59 Intake Total 118 Balance 118 Intake: Oral 118 Other: Voiding Method Toilet Toilet Toilet # Voids 1 Weight 81.647 kg Physical exam 46-year-old Afro-[place] male sitting up on the edge of the bed talkative does not appear in any acute distress. Currently denying chest pain when questioning. Oriented 3 Lungs essentially clear adequate air movement on room air Heart S1-S2 audible and regular no murmur noted Abdomen soft nontender reports no nausea vomiting not distended bowel tones present Extremities no edema noted Results CBC & Chem 7: 02/21/17 15:14 02/21/17 15:14 Labs: Abnormal Lab Results - Last 24 Hours (Table) 02/21/17 02/22/17 Range/Units 15:14 04:20 Glucose 174 H (74-99) mg/dL AST 16 L (17-59) U/L Total Creatine Kinase 49 L (55-170) U/L Thrombosis Risk Factor Assmnt - Choose All That Apply Any of the Below Risk Factors Present?: Yes Each Factor Represents 1 point: Age 41-60 years, Obesity (BMI >25) Other Risk Factors: No Other congenital or acquired thrombophilia - If yes, enter type in comment: No Thrombosis Risk Factor Assessment Total Risk Factor Score: 2 Thrombosis Risk Factor Assessment Level: Low Risk Assessment and Plan Plan: Impression Present on admission chest pain atypical features no evidence of acute coronary syndrome cardiac enzymes 3 sets negative A prior history of coronary artery disease status post angioplasty A mood disorder schizoaffective bipolar Severe persistent asthma no evidence of an acute exacerbation History of a DVT with an IVC filter placement Current every day smoker Chronic pain syndrome with narcotic dependency Plan Dr. Sanchez did discuss with cardiology the plan of care will proceed with a discharge today no further stress testing indicated patient will follow-up in the outpatient setting with Dr. Sanchez Resume diet Resume home meds as appropriate Outpatient cardiology testing can be arranged with a follow-up visit with cardiology service The above dictated assessment and findings were discussed with dr sanchez Impression and the plan of care have been dictated as directed. Cami Noble nurse practitioner acting as a scribe for dr sanchez
--- NOTE | 2017-02-22 10:21 | P.DS ---
Providers Date of admission: 02/21/17 16:56 Expected date of discharge: 02/22/17 Attending physician: Dave Richards Consults: 02/21/17 16:56 Consult Physician Urgent Consulting Provider: [facility] Consult Reason/Comments: Chest pain Do you want consulting provider notified?: Yes Primary care physician: Dave Richards [facility] Course: 46-year-old Afro-[place] male presented on the day of admission to the emergency room with a chief complaint of developing chest pressure intermittent with shortness of breath. Patient denied any diaphoresis. Denied any nausea vomiting or abdominal pain patient denies any recent cough fever or chills. Patient stated he did not feel dizzy or lightheaded did not have a near- syncopal episode. Additionally patient reportedly was experiencing right knee pain. Subsequently the patient was admitted to the services of the attending. Patient has a history of an anxiety bipolar depressive schizophrenic disorder patient was recently discharged on February 01 at that time was treated for COPD. Additionally on January 31 the patient was seen by the mental health service. He was admitted on January 26 to the psychiatric unit after patient reportedly was experiencing auditory hallucinations. While the patient was on the mental health unit January 30 the patient developed shortness of breath and chest discomfort radiating down the left arm. Patient was transferred out of the mental health unit with a cardiology consultation requested at that time patient was seen by Dr. GARCIA no further cardiac workup was done. Patient did have a dobutamine stress echo done a year ago and it was read as negative findings did not review any ischemic changes. The EKG this admission did not reveal any ischemic changes. Cardiac enzymes 3 sets this admission were negative. Patient was discharged on the December subsequently the patient was admitted to the services of the attending Impression Present on admission chest pain atypical features no evidence of acute coronary syndrome cardiac enzymes 3 sets negative A prior history of coronary artery disease status post angioplasty A mood disorder schizoaffective bipolar Severe persistent asthma no evidence of an acute exacerbation History of a DVT with an IVC filter placement Current every day smoker greater than a 20 year history Chronic pain syndrome History of an anxiety depressive disorder nonspecified The above dictated assessment and findings were discussed with dr laura Smith and the plan of care have been dictated as directed. Cami Noble nurse practitioner acting as a scribe for dr richards Plan - Discharge Summary New Discharge Prescriptions: Continue Albuterol Inhaler [Ventolin Hfa Inhaler] 2 puff INHALATION RT-Q6H PRN PRN Reason: Shortness Of Breath Ipratropium-Albuterol Nebulize [Duoneb 0.5 mg-3 mg/3 ml Soln] 3 ml INHALATION RT-QID PRN PRN Reason: Shortness Of Breath Fluticasone Nasal [place] [Flonase Nasal [place]] 2 spr EA NOSTRIL DAILY PRN PRN Reason: Nasal Congestion Discharge Medication List Albuterol Inhaler [Ventolin Hfa Inhaler] 2 puff INHALATION RT-Q6H PRN 02/08/17 [ History] Ipratropium-Albuterol Nebulize [Duoneb 0.5 mg-3 mg/3 ml Soln] 3 ml INHALATION RT -QID PRN 02/08/17 [History] Fluticasone Nasal [place] [Flonase Nasal [place]] 2 spr EA NOSTRIL DAILY PRN [History] Follow up Appointment(s)/Referral(s): Dave Richards MD [Primary Care Provider] - 1-2 days Ezekiel Bermeo MD [STAFF PHYSICIAN] - 1 Week Discharge Disposition: HOME SELF-CARE
--- NOTE | 2017-02-23 07:22 | HP ---
DATE OF ADMISSION: CHIEF COMPLAINT: Chest pain. HISTORY OF PRESENT ILLNESS: This is another admission for this 46-year-old male who frequents the emergency rooms on both sides of [facility] and is being admitted at least once a month. He has a history of sarcoma of the left shoulder and continually comes in with chest pain. He was just in a month ago in this hospital and had a normal EKG and enzymes. He does not follow up as an outpatient. He came to the emergency room this time with chest pain, no diaphoresis or shortness of breath and was admitted. Enzymes and EKG were normal. REVIEW OF SYSTEMS: He has no other complaints. He has had no diaphoresis, shortness of breath, nausea, vomiting, palpitations, orthopnea, PND, murmurs, etc. Past medical history, family history and personal and social histories are all otherwise unremarkable and unchanged. PHYSICAL EXAM: Blood pressure is 134/87 with a pulse of 68, respirations 19. He is afebrile. GENERAL: He appeared to be in no acute distress. Skin color is normal. Skin is warm and dry. Lymph nodes not enlarged. Head, ears, eyes, nose, mouth, and throat were normal. Neck veins not distended. Thyroid is not enlarged. Chest is clear. He had expiratory wheezing, but he generates this voluntarily. CARDIAC EXAM: Normal sinus rhythm with no murmurs or extra sounds. ABDOMEN: Soft, nontender. Extremities are unremarkable except for his left shoulder where he has had surgery. NEUROLOGICAL: He is intact. IMPRESSION: 1. Atypical chest pain. 2. History of sarcoma left shoulder. 3. Analgesic ( ). 4. Malingerer. PLAN: 1. Bed rest. 2. IV fluids. 3. Serial EKGs and enzymes.
--- NOTE | 2017-02-23 07:24 | PN ---
CHIEF COMPLAINT: Chest pain. HISTORY OF PRESENT ILLNESS: The gentleman is doing well even though he continues to complain of chest pain, his studies are normal. It is felt that he can be discharged and followed up and worked up as an outpatient and this will be arranged by the nurse practitioner.
== END 2017-02-22 10:37 | disposition home or self-care (01) ==
LOC: EC 14:09 → 3OBS 16:56
PROVIDERS: ADMIT Family Medicine; ATTEND Family Medicine
DX: R07.89 Other chest pain (principal); R07.2 Precordial pain; R06.02 Shortness of breath; M25.561 Pain in right knee; I25.10 Atherosclerotic heart disease of native coronary artery without angina pectoris; F20.9 Schizophrenia, unspecified; F31.9 Bipolar disorder, unspecified; F41.9 Anxiety disorder, unspecified; J45.50 Severe persistent asthma, uncomplicated; J44.9 Chronic obstructive pulmonary disease, unspecified; Z86.718 Personal history of other venous thrombosis and embolism; G89.4 Chronic pain syndrome; Z76.5 Malingerer [conscious simulation]; F17.200 Nicotine dependence, unspecified, uncomplicated; F11.20 Opioid dependence, uncomplicated; Z91.041 Radiographic dye allergy status; Z88.8 Allergy status to other drugs, medicaments and biological substances; Z88.0 Allergy status to penicillin; Z91.013 Allergy to seafood; I25.2 Old myocardial infarction; Z87.01 Personal history of pneumonia (recurrent); Z85.830 Personal history of malignant neoplasm of bone; Z95.5 Presence of coronary angioplasty implant and graft
CPT/HCPCS: 99285; 96374; 96376; 36415; 93005; 80061; 80053; 82550 ×2; 82553 ×2; 83735; 84484 ×2; 85025; 85610; 85730; 71020; 73564; G0378 ×2; J1885 ×2

== ENCOUNTER 2017-02-28 13:03 | Emergency (ER) | payer OTHER ==
[2017-02-28 13:40] VITALS: TEMP 97
[2017-02-28] MEDS ORDERED: predniSONE 20 MG TAB PO STA (14:13)
[2017-02-28] MEDS ORDERED: IPRATROPIUM 0.5 MG/2.5 ML NEBU INHALATION STA (14:13)
[2017-02-28] MEDS ORDERED: HYDROmorphone 2 MG/ML 1 ML SYRINGE IM STA (14:13)
[2017-02-28] MEDS ORDERED: ALBUTEROL NEBULIZED 2.5 MG/3 ML INHALATION STA (14:13)
[2017-02-28] MEDS ORDERED: LORazepam 1 MG TAB PO STA (14:13)
[2017-02-28] MEDS ORDERED: diphenhydrAMINE 50 MG CAP PO STA (14:29)
[2017-02-28] MEDS ORDERED: diphenhydrAMINE 25 MG CAP PO STA (14:30)
--- NOTE | 2017-02-28 14:47 | ED ---
General Adult HPI - General Chief complaint: Shortness of Breath Stated complaint: JULIETTE Time Seen by Provider: 02/28/17 14:02 Source: patient, RN notes reviewed, old records reviewed Mode of arrival: wheelchair Limitations: no limitations - History of Present Illness Initial comments: This is a 46-year-old male here for us today for evaluation of cough and congestion. Patient has history of severe COPD. No fevers. Does have increased cough and congestion, states this no chest pain no recent travel history no sick contacts, multiple recent hospital admissions - Related Data Home Medications Medication Instructions Recorded Confirmed Albuterol Inhaler [Ventolin Hfa 2 puff INHALATION RT-Q6H PRN 02/08/17 02/28/17 Inhaler] Ipratropium-Albuterol Nebulize 3 ml INHALATION RT-QID PRN 02/08/17 02/28/17 [Duoneb 0.5 mg-3 mg/3 ml Soln] Fluticasone Nasal [place] [Flonase 2 spr EA NOSTRIL DAILY PRN 02/15/17 02/28/17 Nasal [place]] Allergies Allergy/AdvReac Type Severity Reaction Status Date / Time dicyclomine HCl [From Bentyl] Allergy Severe Anaphylaxis Verified 02/28/17 14:26 Iodinated Contrast Media - Allergy Severe Rash/Hives Verified 02/28/17 14:26 Oral and prednisone Allergy Severe Anaphylaxis Verified 02/28/17 14:26 shellfish derived [Shellfish] Allergy Severe Rash/Hives Verified 02/28/17 14:26 Penicillins Allergy Unknown Unknown Verified 02/28/17 14:26 Childhood steroids Allergy Severe Anaphylaxis Uncoded 02/28/17 13:41 Review of Systems ROS Statement: Those systems with pertinent positive or pertinent negative responses have been documented in the HPI. ROS Other: All systems not noted in ROS Statement are negative. 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 Past Anesthesia/Blood Transfusion Reactions: No Reported Reaction Date of Last Stent Placement:: 2002 Past Psychological History: Anxiety, Bipolar, Depression, Schizophrenia Additional Psychological History / Comment(s): PT states he HAS COMPREHENSION PROBLEMS DOES'NT READ WELL STATED CAN'T COMPREHNED IT,ABLE TO WRITE HIS NAME. Smoking Status: Current every day smoker Past Alcohol Use History: Occasional Additional Past Alcohol Use History / Comment(s): Pt. states that he drinks alcohol to help manage his pain. He drinks until he passes out. Past Drug Use History: Marijuana, Opiates, Prescription Drug Abuse Additional Drug Use History / Comment(s): Last marijuana use 2014 - Past Family History Mother Family Medical History: Asthma Father Family Medical History: Liver Disease, Renal Disease Additional Family Medical History / Comment(s): RENAL DISEASE General Exam Limitations: no limitations General appearance: alert, in no apparent distress, anxious Head exam: Present: atraumatic, normocephalic, normal inspection Eye exam: Present: normal appearance, PERRL, EOMI. Absent: scleral icterus, conjunctival injection, periorbital swelling ENT exam: Present: normal exam, mucous membranes moist Neck exam: Present: normal inspection. Absent: tenderness, meningismus, lymphadenopathy Respiratory exam: Present: normal lung sounds bilaterally. Absent: respiratory distress, wheezes, rales, rhonchi, stridor Cardiovascular Exam: Present: regular rate, normal rhythm, normal heart sounds. Absent: systolic murmur, diastolic murmur, rubs, gallop, clicks GI/Abdominal exam: Present: soft, normal bowel sounds. Absent: distended, tenderness, guarding, rebound, rigid Extremities exam: Present: normal inspection, full ROM, normal capillary refill. Absent: tenderness, pedal edema, joint swelling, calf tenderness Back exam: Present: normal inspection Neurological exam: Present: alert, oriented X3, CN II-XII intact Psychiatric exam: Present: normal affect, normal mood Skin exam: Present: warm, dry, intact, normal color. Absent: rash Course Vital Signs 02/28/17 02/28/17 13:36 14:30 Temperature 97.0 F L Pulse Rate 88 88 Respiratory 24 Rate Blood Pressure 109/52 O2 Sat by Pulse 100 Oximetry - Reevaluation(s) Reevaluation #1: 02/28/17 14:40 Patient's symptoms are much improved prolonged breathing treatment and medication therapy Medical Decision Making - Medical Decision Making 46 middle ear with history of severe COPD coming in with COPD likely to weather changes increased cough or congestion. Increased sputum production, patient is not on home O2, oxaloacetic 100% with no distress. Patient feeling better here in the emergency room he can be discharged home with steroids and continue breathing treatments - Radiology Data Radiology results: report reviewed (Chest x-ray negative for acute disease), image reviewed Disposition Clinical Impression: COPD (chronic obstructive pulmonary disease), Asthma exacerbation Disposition: HOME SELF-CARE Condition: Good Instructions: Acute Bronchitis (ED), Chronic Bronchitis (ED) Referrals: Dave Richards MD [Primary Care Provider] - 1-2 days
--- NOTE | 2017-02-28 15:08 | XR ---
EXAMINATION TYPE: XR chest 1V portable DATE OF EXAM: 02/28/2017 COMPARISON: 02/21/2017 HISTORY: Shortness of breath TECHNIQUE: Single frontal view of the chest is obtained. FINDINGS: There is no focal air space opacity, pleural effusion, or pneumothorax seen. The cardiac silhouette size is within normal limits. The osseous structures are intact. Mediport catheter seen. Surgical clips overlying the axilla on the left. Arthropathy of the shoulders. Left scapula predomin antly absent likely postsurgical. IMPRESSION: No acute process. Correlate with CT scan as clinically warranted.
[2017-02-28 15:21] VITALS: BP 132/65; RESP 16
[2017-02-28 15:56] VITALS: PULSE 92
== END 2017-02-28 16:12 | disposition home or self-care (01) ==
LOC: EC 13:03
DX: J44.9 Chronic obstructive pulmonary disease, unspecified (principal); J45.901 Unspecified asthma with (acute) exacerbation; F17.200 Nicotine dependence, unspecified, uncomplicated; Z91.041 Radiographic dye allergy status; Z88.0 Allergy status to penicillin; Z91.013 Allergy to seafood; Z88.8 Allergy status to other drugs, medicaments and biological substances; Z85.830 Personal history of malignant neoplasm of bone
CPT/HCPCS: 94645; 71010; 99285; 96372; J1170; J7512

== ENCOUNTER 2017-03-03 13:50 | Emergency (ER) | payer OTHER ==
[2017-03-03] MEDS ORDERED: ASPIRIN 81 MG CHEW PO STA (14:46)
[2017-03-03] MEDS ORDERED: SODIUM CHLORIDE 0.9% 1,000 ML IV STA (14:46)
--- NOTE | 2017-03-03 15:04 | ED ---
General Adult HPI - General Chief complaint: Chest Pain Stated complaint: Chest Pain Time Seen by Provider: 03/03/17 14:45 Source: patient, RN notes reviewed, old records reviewed Mode of arrival: wheelchair Limitations: no limitations - History of Present Illness Initial comments: 46-year-old male who is had multiple visits to the emergency department for similar complaints, presenting today with chief complaint of chest pain. He does admit that he does stupid insurance at home she is had little relief. He does feel that he's having some tightness in his chest consistent with his asthma. He does admit to chest pain as well. States he has been here to the hospital multiple times in the keep telling him that nothing is wrong. He denies any other complaints or symptoms. Denies any new symptoms today. Patient denies any recent fever, chills, back pain, abdominal pain, nausea or vomiting, numbness or tingling, dysuria or hematuria, constipation or diarrhea, headaches or visual changes, or any other complaints. - Related Data Home Medications Medication Instructions Recorded Confirmed Ipratropium-Albuterol Nebulize 3 ml INHALATION RT-QID PRN 02/08/17 03/19/17 [Duoneb 0.5 mg-3 mg/3 ml Soln] Fluticasone Nasal [place] [Flonase 2 spr EA NOSTRIL DAILY PRN 02/15/17 03/19/17 Nasal [place]] Albuterol Sulfate [Proair Hfa] 1 - 2 puff INHALATION RT-Q4H PRN 03/07/17 Allergies Allergy/AdvReac Type Severity Reaction Status Date / Time dicyclomine HCl [From Bentyl] Allergy Severe Anaphylaxis Verified 03/19/17 11:20 Iodinated Contrast Media - Allergy Severe Rash/Hives Verified 03/19/17 11:20 Oral and prednisone Allergy Severe Anaphylaxis Verified 03/19/17 11:20 shellfish derived [Shellfish] Allergy Severe Rash/Hives Verified 03/19/17 11:20 Penicillins Allergy Unknown Unknown Verified 03/19/17 11:20 Childhood steroids Allergy Severe Anaphylaxis Uncoded 03/19/17 04:24 Review of Systems ROS Statement: Those systems with pertinent positive or pertinent negative responses have been documented in the HPI. ROS Other: All systems not noted in ROS Statement are negative. 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 Past Anesthesia/Blood Transfusion Reactions: No Reported Reaction Date of Last Stent Placement:: 2002 Past Psychological History: Anxiety, Bipolar, Depression, Schizophrenia Smoking Status: Current every day smoker Past Alcohol Use History: Occasional Past Drug Use History: Marijuana, Opiates, Prescription Drug Abuse - Past Family History Mother Family Medical History: Asthma Father Family Medical History: Liver Disease, Renal Disease Additional Family Medical History / Comment(s): RENAL DISEASE General Exam - General Exam Comments Initial Comments: General: The patient is awake and alert, in no distress, and does not appear acutely ill. Eye: Pupils are equal, round and reactive to light, extra-ocular movements are intact. No nystagmus. There is normal conjunctiva bilaterally. No signs of icterus. Ears, nose, mouth and throat: There are moist mucous membranes and no oral lesions. Neck: The neck is supple, there is no tenderness or JVD. Cardiovascular: There is a regular rate and rhythm. No murmur, rub or gallop is appreciated. Respiratory: Lungs are clear to auscultation, respirations are non-labored, breath sounds are equal. No wheezes, stridor, rales, or rhonchi. Gastrointestinal: Soft, non-distended, non-tender abdomen without masses or organomegaly noted. There is no rebound or guarding present. No CVA tenderness. Bowel sounds are unremarkable. Musculoskeletal: Normal ROM, no tenderness. Strength 5/5. Sensation intact. Pulses equal bilaterally 2+. Neurological: A&O x 3. CN II-XII intact, There are no obvious motor or sensory deficits. Coordination appears grossly intact. Speech is normal. Skin: Skin is warm and dry and no rashes or lesions are noted. Psychiatric: Cooperative, appropriate mood & affect, normal judgment. Limitations: no limitations Course Vital Signs 03/03/17 03/03/17 03/03/17 14:16 15:26 15:37 Temperature 98.6 F Pulse Rate 98 80 89 Respiratory 18 Rate Blood Pressure 116/59 O2 Sat by Pulse 95 Oximetry 03/03/17 03/03/17 03/03/17 16:25 16:28 16:49 Temperature 98.1 F 97.5 F L Pulse Rate 87 87 89 Respiratory 20 17 17 Rate Blood Pressure 130/65 116/82 O2 Sat by Pulse 100 98 93 L Oximetry EKG Findings - EKG Comments: EKG Findings:: EKG performed at 14 00: A 12-lead EKG was performed and interpreted by me as showing the following: Rate is 97, and rhythm is normal sinus. There are normal QRS complexes and normal R-wave progression. ST segments have no elevation or depression, and OK segments appear normal. Medical Decision Making - Medical Decision Making 46-year-old male coming in today with chief complaint of increased asthma exacerbation. He does admit that he's had. She was at home. Patient's had multiple visits to the emergency room for the same complaint. He denies any difficult symptoms today. Patient's labs been reviewed are unremarkable. Patient currently resting comfortably in the stretcher. He shows no signs of distress. Lung sounds are clear. Chest x-rays negative. Results were discussed with the patient. Patient's advised to follow-up with his family doctor tomorrow. Advised return if symptoms increase or worsen. - Lab Data Result diagrams: 03/03/17 15:00 03/03/17 15:00 Lab Results 03/03/17 03/03/17 03/03/17 Range/Units 15:00 15:00 15:00 WBC 7.5 (3.8-10.6) k/uL RBC 4.90 (4.30-5.90) m/uL Hgb 13.8 (13.0-17.5) gm/dL Hct 41.1 (39.0-53.0) % MCV 83.9 (80.0-100.0) fL MCH 28.2 (25.0-35.0) pg MCHC 33.6 (31.0-37.0) g/dL RDW 14.2 (11.5-15.5) % Plt Count 296 (150-450) k/uL Neutrophils % 65 % Lymphocytes % 27 % Monocytes % 5 % Eosinophils % 2 % Basophils % 1 % Neutrophils # 4.9 (1.3-7.7) k/uL Lymphocytes # 2.0 (1.0-4.8) k/uL Monocytes # 0.4 (0-1.0) k/uL Eosinophils # 0.1 (0-0.7) k/uL Basophils # 0.0 (0-0.2) k/uL PT (9.0-12.0) sec INR (<1.1) APTT (22.0-30.0) sec Sodium 138 (137-145) mmol/L Potassium 4.4 (3.5-5.1) mmol/L Chloride 106 (98-107) mmol/L Carbon Dioxide 24 (22-30) mmol/L Anion Gap 8 mmol/L BUN 19 (9-20) mg/dL Creatinine 1.00 (0.66-1.25) mg/dL Est GFR (MDRD) Af Amer >60 (>60 ml/min/1.73 sqM) Est GFR (MDRD) Non-Af >60 (>60 ml/min/1.73 sqM) Glucose 100 H (74-99) mg/dL Calcium 9.3 (8.4-10.2) mg/dL Magnesium 2.2 (1.6-2.3) mg/dL Total Bilirubin 0.8 (0.2-1.3) mg/dL AST 18 (17-59) U/L ALT 21 (21-72) U/L Alkaline Phosphatase 92 (38-126) U/L Total Creatine Kinase 85 (55-170) U/L CK-MB (CK-2) 0.4 (0.0-2.4) ng/mL CK-MB (CK-2) Rel Index 0.5 Troponin I <0.012 (0.000-0.034) ng/mL Total Protein 6.8 (6.3-8.2) g/dL Albumin 4.0 (3.5-5.0) g/dL 03/03/17 Range/Units 15:00 WBC (3.8-10.6) k/uL RBC (4.30-5.90) m/uL Hgb (13.0-17.5) gm/dL Hct (39.0-53.0) % MCV (80.0-100.0) fL MCH (25.0-35.0) pg MCHC (31.0-37.0) g/dL RDW (11.5-15.5) % Plt Count (150-450) k/uL Neutrophils % % Lymphocytes % % Monocytes % % Eosinophils % % Basophils % % Neutrophils # (1.3-7.7) k/uL Lymphocytes # (1.0-4.8) k/uL Monocytes # (0-1.0) k/uL Eosinophils # (0-0.7) k/uL Basophils # (0-0.2) k/uL PT 10.5 (9.0-12.0) sec INR 1.0 (<1.1) APTT 22.9 (22.0-30.0) sec Sodium (137-145) mmol/L Potassium (3.5-5.1) mmol/L Chloride (98-107) mmol/L Carbon Dioxide (22-30) mmol/L Anion Gap mmol/L BUN (9-20) mg/dL Creatinine (0.66-1.25) mg/dL Est GFR (MDRD) Af Amer (>60 ml/min/1.73 sqM) Est GFR (MDRD) Non-Af (>60 ml/min/1.73 sqM) Glucose (74-99) mg/dL Calcium (8.4-10.2) mg/dL Magnesium (1.6-2.3) mg/dL Total Bilirubin (0.2-1.3) mg/dL AST (17-59) U/L ALT (21-72) U/L Alkaline Phosphatase (38-126) U/L Total Creatine Kinase (55-170) U/L CK-MB (CK-2) (0.0-2.4) ng/mL CK-MB (CK-2) Rel Index Troponin I (0.000-0.034) ng/mL Total Protein (6.3-8.2) g/dL Albumin (3.5-5.0) g/dL Disposition Clinical Impression: Asthma attack Disposition: HOME SELF-CARE Condition: Good Instructions: Asthma (ED) Additional Instructions: Please use medication as discussed. Please follow-up with family doctor in the next 2 days of symptoms have not improved. Please return to emergency room if the symptoms increase or worsen or for any other concerns. Referrals: Dave Richards MD [Primary Care Provider] - 1-2 days Time of Disposition: 16:35
[2017-03-03] MEDS ORDERED: IPRATROPIUM-ALBUTEROL 3 ML NEB INHALATION STA (15:10)
[2017-03-03 15:19] LABS: Basophils % (A) 1 %; CH 28.1; CHCM 33.7; Eosinophils # (A) 0.1 k/uL (0-0.7); Eosinophils % (A) 2 %; HCT 41.1 % (39.0-53.0); HGB 13.8 gm/dL (13.0-17.5); Luc # (Auto) 0.09; Luc % (Auto) 1; Lymphocytes % (A) 27 %; MCH 28.2 pg (25.0-35.0); MCHC 33.6 g/dL (31.0-37.0); MCV 83.9 fL (80.0-100.0); Mean Platelet Volume 6.6; Monocytes # (A) 0.4 k/uL (0-1.0); Monocytes % (A) 5 %; Neutrophils # (A) 4.9 k/uL (1.3-7.7); Neutrophils % (A) 65 %; RDW 14.2 % (11.5-15.5); WBC 7.5 k/uL (3.8-10.6); WBC (Perox) 7.71
[2017-03-03 15:28] LABS: ALT 21 U/L (21-72); AST 18 U/L (17-59); Alkaline Phosphatase 92 U/L (38-126); Anion Gap 8 mmol/L; Blood Urea Nitrogen 19 mg/dL (9-20); Calcium 9.3 mg/dL (8.4-10.2); Carbon Dioxide 24 mmol/L (22-30); Chloride 106 mmol/L (98-107); Glucose 100 mg/dL (74-99); Magnesium 2.2 mg/dL (1.6-2.3); Non-African American GFR(MDRD) >60 (>60 ml/min/1.73 sqM); Potassium 4.4 mmol/L (3.5-5.1); Sodium 138 mmol/L (137-145); Total Bilirubin 0.8 mg/dL (0.2-1.3); Total Protein 6.8 g/dL (6.3-8.2)
[2017-03-03 15:29] LABS: Partial Thromboplastin Time 22.9 sec (22.0-30.0); Prothrombin Time 10.5 sec (9.0-12.0)
[2017-03-03 15:45] LABS: Creatine Kinase 85 U/L (55-170)
--- NOTE | 2017-03-03 15:56 | XR ---
EXAMINATION TYPE: XR chest 2V DATE OF EXAM: 03/03/2017 COMPARISON: Chest x-ray from 3 days ago. HISTORY: Chest pain per order. TECHNIQUE: Frontal and lateral views of the chest are obtained. FINDINGS: There is stable right internal jugular Mediport catheter with tips in right atrium There is no focal air space opacity, pleural effusion, or pneumothorax seen. The cardiac silhouette size is enlarged. The osseous structures are intact. Surgical clips left axillary region are seen. Left sca pula is surgically absent. There may be old fracture left proximal humerus. Cholecystectomy clips are noted. IMPRESSION: Cardiomegaly without acute pulmonary process.
[2017-03-03 15:58] LABS: Creatine Kinase MB 0.4 ng/mL (0.0-2.4); Troponin I <0.012 ng/mL (0.000-0.034)
[2017-03-03 16:29] VITALS: RESP 17
[2017-03-03] MEDS ORDERED: LORazepam 2 MG/ML SYRINGE IV STA (16:32)
[2017-03-03 17:07] VITALS: BP 116/82; PULSE 89; TEMP 97.5
--- NOTE | 2017-03-08 00:53 | CDI ---
Dear Mario Alberto BEYER PA-C, PAC: In this document "Impression" part missed. Please do addendum of Impression. Thank You, Jose Cruz Shah, [employer]vac Mechanical Engineer. If you have any questions, please contact Director [facility] at [phone]. [facility]
== END 2017-03-03 16:49 | disposition home or self-care (01) ==
LOC: EC 13:50
DX: J45.909 Unspecified asthma, uncomplicated (principal); F17.200 Nicotine dependence, unspecified, uncomplicated; Z88.0 Allergy status to penicillin; Z88.8 Allergy status to other drugs, medicaments and biological substances; Z91.030 Bee allergy status; Z91.040 Latex allergy status; Z82.5 Family history of asthma and other chronic lower respiratory diseases
CPT/HCPCS: 99285; 96374; 96361 ×2; 36415; 94640; 93005; 80053; 82550; 82553; 83735; 84484; 85025; 85610; 85730; 71020; J2060

== ENCOUNTER 2017-03-07 14:40 | Observation (INO) | payer OTHER ==
[2017-03-07] MEDS ORDERED: NITROGLYCERIN OINT 1 INCH/GM PACKET TOPICAL STA (15:30)
--- NOTE | 2017-03-07 15:33 | ED ---
General Adult HPI - General Chief complaint: Chest Pain Stated complaint: Chest Pain Time Seen by Provider: 03/07/17 14:50 Source: patient, RN notes reviewed Mode of arrival: wheelchair Limitations: no limitations - History of Present Illness Initial comments: This is a 46-year-old male who presents emergency Department with a past medical history significant for coronary stent back in 03. Patient also states he continues to smoke. Patient states his last evening he has been having intermittent chest pain and some tingling in his left arm. Patient states the pain comes and goes and lasts for approximately 3 minutes. Patient states the pain is a pressure sensation. Patient denies any shortness of breath or difficulty breathing. Patient denies any episodes of diaphoresis. Patient denies any nausea. Patient denies abdominal pain patient denies any vomiting or diarrhea recently. Patient denies any recent fevers chills or cough. Patient denies any lightheadedness dizziness or near syncopal episode. Patient denies any headache patient denies numbness weakness. Patient states he took 4 baby aspirin prior to coming. - Related Data Home Medications Medication Instructions Recorded Confirmed Ipratropium-Albuterol Nebulize 3 ml INHALATION RT-QID PRN 02/08/17 03/07/17 [Duoneb 0.5 mg-3 mg/3 ml Soln] Fluticasone Nasal [place] [Flonase 2 spr EA NOSTRIL DAILY PRN 02/15/17 03/07/17 Nasal [place]] Albuterol Sulfate [Proair Hfa] 1 - 2 puff INHALATION RT-Q4H PRN 03/07/17 Allergies Allergy/AdvReac Type Severity Reaction Status Date / Time dicyclomine HCl [From Bentyl] Allergy Severe Anaphylaxis Verified 03/07/17 15:29 Iodinated Contrast Media - Allergy Severe Rash/Hives Verified 03/07/17 15:29 Oral and prednisone Allergy Severe Anaphylaxis Verified 03/07/17 15:29 shellfish derived [Shellfish] Allergy Severe Rash/Hives Verified 03/07/17 15:29 Penicillins Allergy Unknown Unknown Verified 03/07/17 15:29 Childhood steroids Allergy Severe Anaphylaxis Uncoded 02/28/17 13:41 Review of Systems ROS Statement: Those systems with pertinent positive or pertinent negative responses have been documented in the HPI. ROS Other: All systems not noted in ROS Statement are negative. 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 Past Anesthesia/Blood Transfusion Reactions: No Reported Reaction Date of Last Stent Placement:: 2002 Past Psychological History: Anxiety, Bipolar, Depression, Schizophrenia Smoking Status: Current every day smoker Past Alcohol Use History: Occasional Past Drug Use History: Marijuana, Opiates, Prescription Drug Abuse - Past Family History Mother Family Medical History: Asthma Father Family Medical History: Liver Disease, Renal Disease Additional Family Medical History / Comment(s): RENAL DISEASE General Exam - General Exam Comments Initial Comments: GENERAL: Patient is well-developed and well-nourished. Patient is nontoxic and well- hydrated and is in no acute distress. ENT: Neck is soft and supple. No significant lymphadenopathy is noted. Oropharynx is clear. Moist mucous membranes. Neck has full range of motion without eliciting any pain. EYES: The sclera were anicteric and conjunctiva were pink and moist. Extraocular movements were intact and pupils were equal round and reactive to light. Eyelids were unremarkable. PULMONARY: Unlabored respirations. Good breath sounds bilaterally. No audible rales rhonchi or wheezing was noted. CARDIOVASCULAR: There is a regular rate and rhythm without any murmurs gallops or rubs. ABDOMEN: Soft and nontender with normal bowel sounds. No palpable organomegaly was noted. There is no palpable pulsatile mass. SKIN: Skin is clear with no lesions or rashes and otherwise unremarkable. NEUROLOGIC: Patient is alert and oriented x3. Cranial nerves II through XII are grossly intact. Motor and sensory are also intact. Normal speech, volume and content. Symmetrical smile. MUSCULOSKELETAL: Normal extremities with adequate strength and full range of motion. No lower extremity swelling or edema. No calf tenderness. LYMPHATICS: No significant lymphadenopathy is noted PSYCHIATRIC: Normal psychiatric evaluation. Normal interpersonal interactions appears functionally intact in deals appropriately with others. No signs of depression. No signs of anxiety. Limitations: no limitations Course Vital Signs 03/07/17 14:50 Temperature 98.1 F Pulse Rate 85 Respiratory 16 Rate Blood Pressure 119/58 O2 Sat by Pulse 98 Oximetry Medical Decision Making - Medical Decision Making EKG shows normal sinus rhythm at 79 bpm NV interval is 142 QRS is 82 QT interval 362 QTC is 4:15. Patient's EKG shows no ST segment elevation or depression or T-wave abdomen is noted. Chest x-ray is normal. I went back to reevaluate the patient patient states that the chest pain continues intermittently. I spoke with Dr. Barone and admitted the patient 23 observation and repeated cardiac enzymes. - Lab Data Result diagrams: 03/07/17 15:59 03/07/17 15:59 Lab Results 03/07/17 03/07/17 03/07/17 Range/Units 15:59 15:59 15:59 WBC 6.0 (3.8-10.6) k/uL RBC 4.76 (4.30-5.90) m/uL Hgb 13.2 (13.0-17.5) gm/dL Hct 40.3 (39.0-53.0) % MCV 84.7 (80.0-100.0) fL MCH 27.8 (25.0-35.0) pg MCHC 32.8 (31.0-37.0) g/dL RDW 13.9 (11.5-15.5) % Plt Count 290 (150-450) k/uL Neutrophils % 60 % Lymphocytes % 30 % Monocytes % 5 % Eosinophils % 2 % Basophils % 1 % Neutrophils # 3.6 (1.3-7.7) k/uL Lymphocytes # 1.8 (1.0-4.8) k/uL Monocytes # 0.3 (0-1.0) k/uL Eosinophils # 0.1 (0-0.7) k/uL Basophils # 0.0 (0-0.2) k/uL PT (9.0-12.0) sec INR (<1.1) APTT (22.0-30.0) sec Sodium 138 (137-145) mmol/L Potassium 4.3 (3.5-5.1) mmol/L Chloride 106 (98-107) mmol/L Carbon Dioxide 21 L (22-30) mmol/L Anion Gap 11 mmol/L BUN 13 (9-20) mg/dL Creatinine 0.96 (0.66-1.25) mg/dL Est GFR (MDRD) Af Amer >60 (>60 ml/min/1.73 sqM) Est GFR (MDRD) Non-Af >60 (>60 ml/min/1.73 sqM) Glucose 81 (74-99) mg/dL Calcium 9.3 (8.4-10.2) mg/dL Magnesium 2.1 (1.6-2.3) mg/dL Total Bilirubin 1.1 (0.2-1.3) mg/dL AST 18 (17-59) U/L ALT 24 (21-72) U/L Alkaline Phosphatase 98 (38-126) U/L Total Creatine Kinase 93 (55-170) U/L CK-MB (CK-2) 0.6 (0.0-2.4) ng/mL CK-MB (CK-2) Rel Index 0.6 Troponin I <0.012 (0.000-0.034) ng/mL Total Protein 6.7 (6.3-8.2) g/dL Albumin 4.0 (3.5-5.0) g/dL 03/07/17 Range/Units 15:59 WBC (3.8-10.6) k/uL RBC (4.30-5.90) m/uL Hgb (13.0-17.5) gm/dL Hct (39.0-53.0) % MCV (80.0-100.0) fL MCH (25.0-35.0) pg MCHC (31.0-37.0) g/dL RDW (11.5-15.5) % Plt Count (150-450) k/uL Neutrophils % % Lymphocytes % % Monocytes % % Eosinophils % % Basophils % % Neutrophils # (1.3-7.7) k/uL Lymphocytes # (1.0-4.8) k/uL Monocytes # (0-1.0) k/uL Eosinophils # (0-0.7) k/uL Basophils # (0-0.2) k/uL PT 10.7 (9.0-12.0) sec INR 1.1 (<1.1) APTT 22.0 (22.0-30.0) sec Sodium (137-145) mmol/L Potassium (3.5-5.1) mmol/L Chloride (98-107) mmol/L Carbon Dioxide (22-30) mmol/L Anion Gap mmol/L BUN (9-20) mg/dL Creatinine (0.66-1.25) mg/dL Est GFR (MDRD) Af Amer (>60 ml/min/1.73 sqM) Est GFR (MDRD) Non-Af (>60 ml/min/1.73 sqM) Glucose (74-99) mg/dL Calcium (8.4-10.2) mg/dL Magnesium (1.6-2.3) mg/dL Total Bilirubin (0.2-1.3) mg/dL AST (17-59) U/L ALT (21-72) U/L Alkaline Phosphatase (38-126) U/L Total Creatine Kinase (55-170) U/L CK-MB (CK-2) (0.0-2.4) ng/mL CK-MB (CK-2) Rel Index Troponin I (0.000-0.034) ng/mL Total Protein (6.3-8.2) g/dL Albumin (3.5-5.0) g/dL Disposition Clinical Impression: Chest pain Disposition: ADMITTED IP TO THIS HOSP Referrals: Dave Richards MD [Primary Care Provider] - 1-2 days Time of Disposition: 17:31
[2017-03-07 16:30] LABS: Basophils % (A) 1 %; CH 27.9; Eosinophils # (A) 0.1 k/uL (0-0.7); Eosinophils % (A) 2 %; HCT 40.3 % (39.0-53.0); HDW 2.37; HGB 13.2 gm/dL (13.0-17.5); Luc # (Auto) 0.15; Luc % (Auto) 3; Lymphocytes # (A) 1.8 k/uL (1.0-4.8); Lymphocytes % (A) 30 %; MCH 27.8 pg (25.0-35.0); MCHC 32.8 g/dL (31.0-37.0); MCV 84.7 fL (80.0-100.0); Mean Platelet Volume 6.6; Monocytes # (A) 0.3 k/uL (0-1.0); Monocytes % (A) 5 %; Neutrophils # (A) 3.6 k/uL (1.3-7.7); Neutrophils % (A) 60 %; RBC 4.76 m/uL (4.30-5.90); RDW 13.9 % (11.5-15.5); WBC (Perox) 6.04
--- NOTE | 2017-03-07 16:40 | XR ---
EXAMINATION TYPE: XR chest 2V DATE OF EXAM: 03/07/2017 COMPARISON: 03/03/2017 HISTORY: Chest pain TECHNIQUE: Frontal and lateral views of the chest are obtained. FINDINGS: There is a right central venous catheter with tip in the right atrium. Lungs are clear of consolidation. There is slight coarsening of interstitial markings in the left lower lobe. There is n o pleural effusion. There is no heart failure. Heart size is normal. BonThere there are apparent sign ificant destructive changes involving the left scapula. Is some metal artifact over the right lateral ribs. There are surgical clips over the left shoulder. IMPRESSION: Minimal interstitial density in the left lower lobe is improved compared to last exam. N o heart failure.
[2017-03-07 16:43] LABS: ALT 24 U/L (21-72); AST 18 U/L (17-59); Alkaline Phosphatase 98 U/L (38-126); Anion Gap 11 mmol/L; Blood Urea Nitrogen 13 mg/dL (9-20); Calcium 9.3 mg/dL (8.4-10.2); Carbon Dioxide 21 mmol/L (22-30); Chloride 106 mmol/L (98-107); Glucose 81 mg/dL (74-99); INR 1.1 (<1.1); Magnesium 2.1 mg/dL (1.6-2.3); Non-African American GFR(MDRD) >60 (>60 ml/min/1.73 sqM); Potassium 4.3 mmol/L (3.5-5.1); Prothrombin Time 10.7 sec (9.0-12.0); Sodium 138 mmol/L (137-145); Total Bilirubin 1.1 mg/dL (0.2-1.3); Total Protein 6.7 g/dL (6.3-8.2)
[2017-03-07 16:48] LABS: Creatine Kinase 93 U/L (55-170)
[2017-03-07 17:01] LABS: Creatine Kinase MB 0.6 ng/mL (0.0-2.4); Troponin I <0.012 ng/mL (0.000-0.034)
[2017-03-07] MEDS ORDERED: NITROGLYCERIN SL TABS 0.4 MG TAB SUBLINGUAL PRN (17:32)
[2017-03-07] MEDS: NITROGLYCERIN OINT 1 INCH/GM PACKET TOPICAL SCH (18:43)
[2017-03-07 22:00] LABS: Creatine Kinase 81 U/L (55-170)
[2017-03-07 22:11] LABS: Creatine Kinase MB 0.5 ng/mL (0.0-2.4); Troponin I <0.012 ng/mL (0.000-0.034)
[2017-03-07] MEDS: HYDROmorphone 1 MG/ML 1 ML SYRINGE IVP PRN (22:11)
[2017-03-08] MEDS: NITROGLYCERIN OINT 1 INCH/GM PACKET TOPICAL SCH ×3 (00:43→11:04)
[2017-03-08] MEDS: HYDROmorphone 1 MG/ML 1 ML SYRINGE IVP PRN ×2 (02:20→06:22)
[2017-03-08 04:41] LABS: Creatine Kinase MB 0.4 ng/mL (0.0-2.4)
[2017-03-08 05:18] LABS: Cholesterol 111 mg/dL (<200); HDL Cholesterol 53 mg/dL (40-60); Triglycerides 76 mg/dL (<150)
--- NOTE | 2017-03-08 08:20 | P.CRDCN ---
History of Present Illness Consult date: 03/08/17 Requesting physician: Dave Richards Consult reason: chest pain Chief complaint: Chest pain History of present illness: This is a 46-year-old -Citizen Of [place] gentleman with known history of coronary artery disease with prior stent placement in 2002, exact details not available, he also has history of sarcoma [facility], patient continues to smoke approximately a half pack of cigarettes per day, history of COPD, history of prior DVT, most recent Denisse scan in the office was performed in May 2015 which was reported to be normal. Patient does have ALLERGY to iodine and shellfish. Patient also had a dobutamine echocardiographic study performed in April 2016 here in the hospital which was normal. He presents to the hospital on this occasion with symptoms of chest heaviness, he states it feels like someone is sitting on his chest, symptoms come and go. He states they last 5 or 10 minutes and then returned. He states he also gets symptoms if he has a harsh cough. Patient's initial EKG on presentation here shows a normal sinus rhythm with no acute changes. Blood pressure on arrival 120/50 with a heart rate in the 80s. 98% on room air. CBC normal. D-dimer 0.30. Potassium 4.3, BUN 13, creatinine 0.9. Troponins have been negative 3. Cholesterol 111, triglycerides 76, LDL 43, HDL 53. Patient is currently on aspirin, and Nitropaste. At the time of my examination this morning, he continues to complain of intermittent chest heaviness. 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 Past Anesthesia/Blood Transfusion Reactions: No Reported Reaction Date of Last Stent Placement:: 2002 Smoking Status: Current every day smoker - Past Family History Mother Family Medical History: Asthma Father Family Medical History: Liver Disease, Renal Disease Additional Family Medical History / Comment(s): RENAL DISEASE Medications and Allergies Home Medications Medication Instructions Recorded Confirmed Type Ipratropium-Albuterol Nebulize 3 ml INHALATION RT-QID PRN 02/08/17 03/07/17 History [Duoneb 0.5 mg-3 mg/3 ml Soln] Fluticasone Nasal [place] [Flonase 2 spr EA NOSTRIL DAILY PRN 02/15/17 03/07/17 History Nasal [place]] Albuterol Sulfate [Proair Hfa] 1 - 2 puff INHALATION RT-Q4H PRN 03/07/17 History Allergies Allergy/AdvReac Type Severity Reaction Status Date / Time dicyclomine HCl [From Bentyl] Allergy Severe Anaphylaxis Verified 03/07/17 15:29 Iodinated Contrast Media - Allergy Severe Rash/Hives Verified 03/07/17 15:29 Oral and prednisone Allergy Severe Anaphylaxis Verified 03/07/17 15:29 shellfish derived [Shellfish] Allergy Severe Rash/Hives Verified 03/07/17 15:29 Penicillins Allergy Unknown Unknown Verified 03/07/17 15:29 Childhood steroids Allergy Severe Anaphylaxis Uncoded 02/28/17 13:41 Physical Exam Vitals: Vital Signs Temp Pulse Pulse Resp BP BP Pulse Ox 03/08/17 04:00 97.8 F 86 16 102/64 95 03/07/17 23:35 80 03/07/17 23:34 80 16 112/64 94 L 03/07/17 20:00 97.7 F 77 18 110/52 93 L 03/07/17 18:40 98.0 F 89 18 121/64 92 L 03/07/17 18:15 98.0 F 95 16 144/72 95 03/07/17 17:00 95 18 148/72 96 03/07/17 14:50 98.1 F 85 16 119/58 98 Intake and Output 03/07/17 03/08/17 03/08/17 22:59 06:59 14:59 Intake Total 0 Balance 0 Intake: IV 0 NS 0 Other: Voiding Method Toilet Toilet # Voids 0 Weight 79.2 kg PHYSICAL EXAMINATION: HEENT: Head is atraumatic, normocephalic. Pupils equal, round. Neck is supple. There is no elevated jugular venous pressure. HEART EXAMINATION: Heart S1, S2 normal. No murmur or gallop heard. CHEST EXAMINATION: Lungs are clear to auscultation and precussion. No chest wall tenderness is noted on palpation or with deep breathing. MediPort in place ABDOMEN: Soft, nontender. Bowel sounds are heard. No organomegaly noted. EXTREMITIES: 2+ peripheral pulses with no evidence of peripheral edema and no calf tenderness noted. NEUROLOGIC patient is awake, alert and oriented -3. . Results 03/07/17 15:59 03/07/17 15:59 Cardiac Enzymes 03/07/17 03/07/17 03/07/17 Range/Units 15:59 15:59 21:22 AST 18 (17-59) U/L CK-MB (CK-2) 0.6 0.5 (0.0-2.4) ng/mL Troponin I <0.012 <0.012 (0.000-0.034) ng/mL 03/08/17 03/08/17 Range/Units 03:20 04:35 AST (17-59) U/L CK-MB (CK-2) 0.4 (0.0-2.4) ng/mL Troponin I Cancelled <0.012 (0.000-0.034) ng/mL Coagulation 03/07/17 Range/Units 15:59 PT 10.7 (9.0-12.0) sec APTT 22.0 (22.0-30.0) sec Lipids 03/08/17 Range/Units 04:35 Triglycerides 76 (<150) mg/dL Cholesterol 111 (<200) mg/dL HDL Cholesterol 53 (40-60) mg/dL CBC 03/07/17 Range/Units 15:59 WBC 6.0 (3.8-10.6) k/uL RBC 4.76 (4.30-5.90) m/uL Hgb 13.2 (13.0-17.5) gm/dL Hct 40.3 (39.0-53.0) % Plt Count 290 (150-450) k/uL Comprehensive Metabolic Panel 03/07/17 Range/Units 15:59 Sodium 138 (137-145) mmol/L Potassium 4.3 (3.5-5.1) mmol/L Chloride 106 (98-107) mmol/L Carbon Dioxide 21 L (22-30) mmol/L BUN 13 (9-20) mg/dL Creatinine 0.96 (0.66-1.25) mg/dL Glucose 81 (74-99) mg/dL Calcium 9.3 (8.4-10.2) mg/dL AST 18 (17-59) U/L ALT 24 (21-72) U/L Alkaline Phosphatase 98 (38-126) U/L Total Protein 6.7 (6.3-8.2) g/dL Albumin 4.0 (3.5-5.0) g/dL Current Medications Generic Name Dose Route Start Last Admin Trade Name Freq PRN Reason Stop Dose Admin Aspirin 325 mg 03/08/17 09:00 03/08/17 08:01 Aspirin PO 325 mg DAILY [facility] Administration Hydromorphone HCl 0.5 mg 03/07/17 21:29 03/08/17 06:22 Dilaudid IVP 0.5 mg Q4HR PRN Administration Pain Nitroglycerin 1 inch 03/07/17 18:00 03/08/17 06:10 Nitro-Bid Oint TOPICAL Not Given Q6HR [facility] Nitroglycerin 0.4 mg 03/07/17 17:32 03/07/17 21:12 Nitrostat SUBLINGUAL 0.4 mg Q5M PRN Administration Chest Pain Intake and Output 03/07/17 03/08/17 03/08/17 22:59 06:59 14:59 Intake Total 0 Balance 0 Intake: IV 0 NS 0 Other: Voiding Method Toilet Toilet # Voids 0 Weight 79.2 kg 03/07/17 15:59 03/07/17 15:59 EKG Interpretations (text) EKG shows normal sinus rhythm with no acute changes. Assessment and Plan Plan: Assessment and plan #1 chest pain, somewhat atypical in nature. Patient does state that the pain reminds him of what he had prior to his stent placement in 2002. Troponins are negative 3 EKG shows normal sinus rhythm with no acute changes. #2 coronary artery disease with prior stent placement, exact details unavailable. #3 nicotine dependence #4 COPD #5 prior DVT #6 history of sarcoma with prior chemotherapy Plan Will obtain an echocardiogram with Doppler study. We will also attempt to obtain records of patient's prior stent placement which apparently was performed at [facility]. Further recommendations to follow. DNP note has been reviewed, I agree with a documented findings and plan of care. Patient was seen and examined.
[2017-03-08] MEDS ORDERED: ASPIRIN 325 MG TAB PO SCH (09:00)
[2017-03-08] MEDS ORDERED: traMADol 50 MG TAB PO PRN (09:06)
--- NOTE | 2017-03-08 10:27 | ECHOF ---
Referral Reason:chest pain MEASUREMENTS -------- HEIGHT: 162.6 cm WEIGHT: 78.9 kg BP: 102/64 RVIDd: 2.9 cm (< 3.3) IVSd: 1.1 cm (0.6 - 1.1) LVIDd: 3.9 cm (3.9 - 5.3) LVPWd: 1.1 cm (0.6 - 1.1) IVSs: 1.3 cm LVIDs: 2.6 cm LVPWs: 1.5 cm LA Diam: 2.7 cm (2.7 - 3.8) LAESV Index (A-L): 14.17 ml/m Ao Diam: 2.9 cm (2.0 - 3.7) AV Cusp: 2.1 cm (1.5 - 2.6) MV EXCURSION: 13.536 mm (> 18.000) MV EF SLOPE: 69 mm/s (70 - 150) EPSS: 0.4 cm MV E Jarvis: 0.89 m/s MV DecT: 242 ms MV A Jarvis: 0.63 m/s MV E/A Ratio: 1.41 RAP: 5.00 mmHg RVSP: 19.61 mmHg FINDINGS -------- Sinus rhythm. This was a technically good study. The left ventricular size is normal. Left ventricular wall thickness is normal. Overall left ventricular systolic function is normal with, an EF between 60 - 65 %. The right ventricle is normal in size and function. Normal LA size by volume 22+/-6 ml/m2. The right atrium is normal in size. The aortic valve is trileaflet and appears structurally normal. The mitral valve is normal. Mild tricuspid regurgitation present. Right ventricular systolic pressure is normal at < 35 mmHg. Trace/mild (physiologic) pulmonic regurgitation. The aortic root, ascending aorta and aortic arch are normal. Normal inferior vena cava with normal inspiratory collapse consistent with estimated right atrial pressure of 5 mmHg. The pericardium is normal. CONCLUSIONS -------- 1. Sinus rhythm. 2. The mitral valve is normal. 3. Mild tricuspid regurgitation present. 4. Right ventricular systolic pressure is normal at < 35 mmHg. 5. Trace/mild (physiologic) pulmonic regurgitation. 6. The aortic root, ascending aorta and aortic arch are normal. 7. Normal inferior vena cava with normal inspiratory collapse consistent with estimated right atrial pressure of 5 mmHg. 8. The pericardium is normal. 9. This was a technically good study. 10. The left ventricular size is normal. 11. Left ventricular wall thickness is normal. 12. Overall left ventricular systolic function is normal with, an EF between 60 - 65 %. 13. The right ventricle is normal in size and function. 14. Normal LA size by volume 22+/-6 ml/m2. 15. The right atrium is normal in size. 16. The aortic valve is trileaflet and appears structurally normal. ASSEMBLY MACHINE TOOL SETTER: Yuly Burch RDCS
--- NOTE | 2017-03-08 14:08 | P.HPIM ---
History of Present Illness H&P Date: 03/08/17 Chief Complaint: Chest pain 46-year-old Afro-[place] male who presented on the day of admission to the emergency room to be evaluated for chief complaint of developing chest discomfort patient reports having intermittent episodes of chest discomfort with a tingly sensation in his left arm. Patient states it comes and goes. Patient is vague about the description of the chest discomfort with the episodes patient denies any nausea vomiting diaphoresis or shortness of breath when questioning. Patient denied any fever when asked or chills. Denied dizziness lightheadedness. Patient stated he did take baby aspirin before coming into the emergency room. Patient does give a history of having coronary artery disease and that he had a stent placed in the past details unknown . Patient does state he continues to smoke cigarettes the computerized record indicates the patient has been in the emergency room the month February 20 times month of January 6 times. Reviewing the medical records from the emergency room indicate visits were seen for episodes of shortness of breath or chest pain atypical patient was seen by the psychiatrist on January 31 and admitted to the mental health unit at that time the computerized record indicated the patient was to follow up with [facility] mental health. Patient was to continue the Prozac, Seroquel, stop the Abilify restart Haldol and monitor when questioning the patient if he's been following up with community mental health patient's vague states he see somebody who sets out his meds noted when the patient was admitted to the emergency room he did not indicate that he was on any psychiatric meds reviewing the psychiatrist note on January 31 patient has a diagnosis of schizophrenia, chronic paranoid type, unspecified depressive disorder. Patient is a history of having coronary artery disease as mentioned he states he 's had a stent placed at [facility] in [place]. The details of the stent is unknown Not certain of the timing or the placement of the stent. Patient continues to report that he continues to smoke cigarettes. It's noted that the patient was seen in the observation unit on January 20 for chest pain at that time was seen by cardiology service that admission in January there was no cardiac workup done patient was discharged Echocardiogram obtained showed overall left ventricular systolic function normal with an EF between 60 and 65%. 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 Past Anesthesia/Blood Transfusion Reactions: No Reported Reaction Date of Last Stent Placement:: 2002 Smoking Status: Current every day smoker - Past Family History Mother Family Medical History: Asthma Father Family Medical History: Liver Disease, Renal Disease Additional Family Medical History / Comment(s): RENAL DISEASE Medications and Allergies Home Medications Medication Instructions Recorded Confirmed Type Ipratropium-Albuterol Nebulize 3 ml INHALATION RT-QID PRN 02/08/17 03/07/17 History [Duoneb 0.5 mg-3 mg/3 ml Soln] Fluticasone Nasal [place] [Flonase 2 spr EA NOSTRIL DAILY PRN 02/15/17 03/07/17 History Nasal [place]] Albuterol Sulfate [Proair Hfa] 1 - 2 puff INHALATION RT-Q4H PRN 03/07/17 History Allergies Allergy/AdvReac Type Severity Reaction Status Date / Time dicyclomine HCl [From Bentyl] Allergy Severe Anaphylaxis Verified 03/07/17 15:29 Iodinated Contrast Media - Allergy Severe Rash/Hives Verified 03/07/17 15:29 Oral and prednisone Allergy Severe Anaphylaxis Verified 03/07/17 15:29 shellfish derived [Shellfish] Allergy Severe Rash/Hives Verified 03/07/17 15:29 Penicillins Allergy Unknown Unknown Verified 03/07/17 15:29 Childhood steroids Allergy Severe Anaphylaxis Uncoded 02/28/17 13:41 Physical Exam Vitals: Vital Signs Temp Pulse Pulse Resp BP BP Pulse Ox 03/08/17 09:29 95 03/08/17 04:00 97.8 F 86 16 102/64 95 03/07/17 23:35 80 03/07/17 23:34 80 16 112/64 94 L 03/07/17 20:00 97.7 F 77 18 110/52 93 L 03/07/17 18:40 98.0 F 89 18 121/64 92 L 03/07/17 18:15 98.0 F 95 16 144/72 95 03/07/17 17:00 95 18 148/72 96 03/07/17 14:50 98.1 F 85 16 119/58 98 Intake and Output 03/07/17 03/08/17 03/08/17 22:59 06:59 14:59 Intake Total 0 Balance 0 Intake: IV 0 NS 0 Other: Voiding Method Toilet Toilet Toilet # Voids 0 0 # Bowel Movements 0 Weight 79.2 kg GENERAL APPEARANCE: 46-year-old male Afro-[place] patient is alert, oriented, in no acute distress. VITAL SIGNS: Reviewed HEENT: Head is normocephalic and atraumatic. Pupils are equal and reactive. The nares are patent. Oropharynx is clear without lesions. NECK: Supple without lymphadenopathy. Traches midline. HEART: S1, S2. Regular rate and rhythm. Currently denying chest pain when questioning LUNGS: No crackles or wheezes are heard. Adequate air movement bilaterally no shortness of breath no cough ABDOMEN: Soft, nontender, nondistended with good bowel sounds. No peritoneal signs. No palpable organomegaly or masses. EXTREMITIES: Normal skin color and turgor. No cyanosis, rash, ulceration, clubbing or edema. Radial pedal pulses are 2/4 bilaterally. NEUROLOGICAL: No focal deficits. Strength and sensation are grossly intact. Results CBC & Chem 7: 03/07/17 15:59 03/07/17 15:59 Labs: Abnormal Lab Results - Last 24 Hours (Table) 03/07/17 Range/Units 15:59 Carbon Dioxide 21 L (22-30) mmol/L Assessment and Plan Plan: Impression History of schizophrenia mood disorder with chronic paranoia no evidence of an exacerbation Current every day smoker COPD stable no evidence of an exacerbation Chronic bronchial asthma History of coronary artery disease with prior coronary stenting History of a prior DVT with an IVC filter in place present on admission chest pain negative cardiac enzymes 3 sets Echocardiogram March 08 LV function preserved EF 60-65% Severe persistent asthma with no evidence of an acute exacerbation Anxiety depressive disorder nonspecified Plan Clinical socially responsible investment adviser to see the patient to investigate the home situation with the patient is following up with community mental health in being compliant with taking medication due to the episodes of frequent ER visits Resume home meds as appropriate Await cardiology input Possible discharge if okay with cardiology service The above dictated assessment and findings were discussed with dr Maurice Smith and the plan of care have been dictated as directed. Cami Noble nurse practitioner acting as a scribe for dr sanchez
[2017-03-08 14:50] VITALS: BP 103/57; PULSE 71; RESP 18; TEMP 96.6
--- NOTE | 2017-03-08 15:58 | P.DS ---
Providers Date of admission: 03/07/17 17:32 Expected date of discharge: 03/08/17 Attending physician: Dave Richards Consults: 03/07/17 21:30 Consult Physician Routine Consulting Provider: Isac Birch Consult Reason/Comments: chest pain Do you want consulting provider notified?: Yes Primary care physician: Dave Richards [facility] Course: 46-year-old Afro-[place] male who presented on the day of admission to the emergency room to be evaluated for chief complaint of developing chest discomfort patient reports having intermittent episodes of chest discomfort with a tingly sensation in his left arm. Patient states it comes and goes. Patient is vague about the description of the chest discomfort with the episodes patient denies any nausea vomiting diaphoresis or shortness of breath when questioning. Patient denied any fever when asked or chills. Denied dizziness lightheadedness. Patient stated he did take baby aspirin before coming into the emergency room. Patient does give a history of having coronary artery disease and that he had a stent placed in the past details unknown . Patient does state he continues to smoke cigarettes the computerized record indicates the patient has been in the emergency room the month February 20 times month of January 22 times. Reviewing the medical records from the emergency room indicate visits were seen for episodes of shortness of breath or chest pain atypical patient was seen by the psychiatrist on January 31 and admitted to the mental health unit at that time the computerized record indicated the patient was to follow up with [facility]. Patient was to continue the Prozac, Seroquel, stop the Abilify restart Haldol and monitor when questioning the patient if he's been following up with community mental health patient's vague states he see somebody who sets out his meds noted when the patient was admitted to the emergency room he did not indicate that he was on any psychiatric meds reviewing the psychiatrist note on January 31 patient has a diagnosis of schizophrenia, chronic paranoid type, unspecified depressive disorder. Patient is a history of having coronary artery disease as mentioned he states he 's had a stent placed at [facility] in [place]. The details of the stent is unknown Not certain of the timing or the placement of the stent. Patient continues to report that he continues to smoke cigarettes. It's noted that the patient was seen in the observation unit on January 20 for chest pain at that time was seen by cardiology service that admission in January there was no cardiac workup done patient was discharged Echocardiogram obtained showed overall left ventricular systolic function normal with an EF between 60 and 65%. Impression History of schizophrenia mood disorder with chronic paranoia no evidence of an exacerbation Current every day smoker COPD stable no evidence of an exacerbation Chronic bronchial asthma History of coronary artery disease with prior coronary stenting History of a prior DVT with an IVC filter in place present on admission chest pain negative cardiac enzymes 3 sets Echocardiogram March 08 LV function preserved EF 60-65% Severe persistent asthma with no evidence of an acute exacerbation Anxiety depressive disorder nonspecified Frequent admissions to the emergency room for atypical chest pain and shortness of breath The above dictated assessment and findings were discussed with dr Maurice Smith and the plan of care have been dictated as directed. Cami Noble nurse practitioner acting as a scribe for dr richards Plan - Discharge Summary New Discharge Prescriptions: Continue Ipratropium-Albuterol Nebulize [Duoneb 0.5 mg-3 mg/3 ml Soln] 3 ml INHALATION RT-QID PRN PRN Reason: Shortness Of Breath Fluticasone Nasal [place] [Flonase Nasal [place]] 2 spr EA NOSTRIL DAILY PRN PRN Reason: Nasal Congestion Albuterol Sulfate [Proair Hfa] 1 - 2 puff INHALATION RT-Q4H PRN PRN Reason: Shortness Of Breath Discharge Medication List Ipratropium-Albuterol Nebulize [Duoneb 0.5 mg-3 mg/3 ml Soln] 3 ml INHALATION RT -QID PRN 02/08/17 [History] Fluticasone Nasal [place] [Flonase Nasal [place]] 2 spr EA NOSTRIL DAILY PRN [History] Albuterol Sulfate [Proair Hfa] 1 - 2 puff INHALATION RT-Q4H PRN 03/07/17 [ History] Follow up Appointment(s)/Referral(s): Dave Richards MD [Primary Care Provider] - 1-2 days Discharge Disposition: HOME SELF-CARE
--- NOTE | 2017-03-09 15:45 | HP ---
DATE OF ADMISSION: This patient was admitted in my absence. He came in with chest pain through the emergency room. He has been in and out of the hospital recently and has not been identified as having any evidence of heart disease. He was seen by my designate and underwent history the physical. He was admitted to rule out [place].
--- NOTE | 2017-03-09 15:51 | PN ---
DATE OF SERVICE: 03/08/2017 CHIEF COMPLAINT: Chest pain. HISTORY OF PRESENT ILLNESS: This gentleman is doing well and his cardiac enzymes are normal. He will be able to go home today. PHYSICAL EXAMINATION: CHEST: Clear. CARDIAC: Normal. ABDOMEN: Soft, nontender. IMPRESSION: 1. Atypical chest pain. 2. History of substance abuse. 3. History of sarcoma of the left shoulder. PLAN: He will go home today, and this will be arranged by the nurse practitioner.
== END 2017-03-08 17:03 | disposition home or self-care (01) ==
LOC: EC 14:40 → 6SEL 17:32
PROVIDERS: ADMIT Family Medicine; ATTEND Family Medicine
DX: R07.89 Other chest pain (principal); R20.2 Paresthesia of skin; J44.9 Chronic obstructive pulmonary disease, unspecified; J45.50 Severe persistent asthma, uncomplicated; K21.9 Gastro-esophageal reflux disease without esophagitis; I25.2 Old myocardial infarction; I25.10 Atherosclerotic heart disease of native coronary artery without angina pectoris; Z95.5 Presence of coronary angioplasty implant and graft; Z88.8 Allergy status to other drugs, medicaments and biological substances; Z91.041 Radiographic dye allergy status; Z88.0 Allergy status to penicillin; Z91.013 Allergy to seafood; Z86.718 Personal history of other venous thrombosis and embolism; Z85.830 Personal history of malignant neoplasm of bone; F41.9 Anxiety disorder, unspecified; F31.9 Bipolar disorder, unspecified; Z79.82 Long term (current) use of aspirin; Z92.21 Personal history of antineoplastic chemotherapy; F17.210 Nicotine dependence, cigarettes, uncomplicated; F20.0 Paranoid schizophrenia; F39 Unspecified mood [affective] disorder
CPT/HCPCS: 99285; 96376; 96374; 96375; 36415; 93005; 93306; 85379; 80061; 80053; 82550 ×2; 82553 ×2; 83735; 84484 ×2; 85025; 85610; 85730; 71020; G0378 ×2; J1642; J1170 ×2

== ENCOUNTER 2017-03-19 04:12 | Inpatient (IN) | payer OTHER ==
[2017-03-19] MEDS ORDERED: ALBUTEROL NEBULIZED 2.5 MG/3 ML INHALATION STA (04:45)
[2017-03-19] MEDS ORDERED: IPRATROPIUM 0.5 MG/2.5 ML NEBU INHALATION STA ×2 (04:45→06:26)
[2017-03-19] MEDS ORDERED: ACETAMINOPHEN TAB 500 MG TAB PO STA (04:46)
[2017-03-19] MEDS ORDERED: IBUPROFEN 800 MG TAB PO STA (04:46)
[2017-03-19] MEDS ORDERED: HYDROmorphone 2 MG/ML 1 ML SYRINGE IVP STA (04:46)
[2017-03-19] MEDS ORDERED: methylPREDNISolone SOD SUCCI 125 MG/2 ML VIAL IV STA (04:46)
[2017-03-19] MEDS ORDERED: diphenhydrAMINE 50 MG/ML 1 ML VIAL IVP STA (04:46)
--- NOTE | 2017-03-19 04:55 | ED ---
General Adult HPI - General Chief complaint: Shortness of Breath Stated complaint: SOB Time Seen by Provider: 03/19/17 04:18 Source: patient, RN notes reviewed, old records reviewed Mode of arrival: wheelchair Limitations: no limitations - History of Present Illness Initial comments: This is a 46-year-old male here for evaluation. Patient admitted for evaluation of difficulty breathing and cough. Patient has history of COPD, does continue to smoke. Patient states his asthma, 3 breathing treatments prior to arrival with no significant improvement. Patient also admits to feeling warm with chills. No sick contacts. Hospitalization within the last month. The chest pain - Related Data Home Medications Medication Instructions Recorded Confirmed Ipratropium-Albuterol Nebulize 3 ml INHALATION RT-QID PRN 02/08/17 03/19/17 [Duoneb 0.5 mg-3 mg/3 ml Soln] Fluticasone Nasal [place] [Flonase 2 spr EA NOSTRIL DAILY PRN 02/15/17 03/19/17 Nasal [place]] Albuterol Sulfate [Proair Hfa] 1 - 2 puff INHALATION RT-Q4H PRN 03/07/17 Allergies Allergy/AdvReac Type Severity Reaction Status Date / Time dicyclomine HCl [From Bentyl] Allergy Severe Anaphylaxis Verified 03/19/17 04:24 Iodinated Contrast Media - Allergy Severe Rash/Hives Verified 03/19/17 04:24 Oral and prednisone Allergy Severe Anaphylaxis Verified 03/19/17 04:24 shellfish derived [Shellfish] Allergy Severe Rash/Hives Verified 03/19/17 04:24 Penicillins Allergy Unknown Unknown Verified 03/19/17 04:24 Childhood steroids Allergy Severe Anaphylaxis Uncoded 03/19/17 04:24 Review of Systems ROS Statement: Those systems with pertinent positive or pertinent negative responses have been documented in the HPI. ROS Other: All systems not noted in ROS Statement are negative. 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 Past Anesthesia/Blood Transfusion Reactions: No Reported Reaction Date of Last Stent Placement:: 2002 Past Psychological History: Anxiety, Bipolar, Depression, Schizophrenia Smoking Status: Current every day smoker Past Alcohol Use History: None Reported Past Drug Use History: None Reported - Past Family History Mother Family Medical History: Asthma Father Family Medical History: Liver Disease, Renal Disease Additional Family Medical History / Comment(s): RENAL DISEASE General Exam Limitations: no limitations General appearance: alert, in no apparent distress Head exam: Present: atraumatic, normocephalic, normal inspection Eye exam: Present: normal appearance, PERRL, EOMI. Absent: scleral icterus, conjunctival injection, periorbital swelling ENT exam: Present: normal exam, mucous membranes moist Neck exam: Present: normal inspection. Absent: tenderness, meningismus, lymphadenopathy Respiratory exam: Present: normal lung sounds bilaterally, wheezes, accessory muscle use, decreased breath sounds, prolonged expiratory. Absent: respiratory distress, rales, rhonchi, stridor Cardiovascular Exam: Present: normal rhythm, tachycardia, normal heart sounds. Absent: systolic murmur, diastolic murmur, rubs, gallop, clicks GI/Abdominal exam: Present: soft, normal bowel sounds. Absent: distended, tenderness, guarding, rebound, rigid Extremities exam: Present: normal inspection, full ROM, normal capillary refill. Absent: tenderness, pedal edema, joint swelling, calf tenderness Back exam: Present: normal inspection Neurological exam: Present: alert, oriented X3, CN II-XII intact Psychiatric exam: Present: normal affect, normal mood Skin exam: Present: warm, dry, intact, normal color. Absent: rash Course Vital Signs 03/19/17 03/19/17 03/19/17 04:15 04:50 05:15 Temperature 100.4 F H Pulse Rate 111 H 100 100 Respiratory 24 Rate Blood Pressure 125/67 O2 Sat by Pulse 95 Oximetry - Reevaluation(s) Reevaluation #1: 03/19/17 04:54 no significant improvement at this point 03/19/17 06:25 Patient again without improvement after prolonged breathing treatment Medical Decision Making - Medical Decision Making 46 male to the ER for evaluation shows a breathalyzer bronchitis. At this point patient has good improvement with. Patient has no significant improvement after medications in the emergency room. Patient will be given IV hydration, admitted for consultation regarding possible outpatient and continued oxygen therapy. - Radiology Data Radiology results: report reviewed (Chest x-ray is negative for acute disease), image reviewed Disposition Clinical Impression: COPD (chronic obstructive pulmonary disease), Acute exacerbation of COPD with asthma, Hypoxia, Fever Disposition: ADMITTED IP TO THIS HOSP Instructions: Asthma (ED), Acute Bronchitis (ED) Referrals: Dave Richards MD [Primary Care Provider] - 1-2 days
[2017-03-19] MEDS ORDERED: predniSONE 20 MG TAB PO STA ×2 (05:03→05:09)
[2017-03-19] MEDS ORDERED: HYDROmorphone 2 MG/ML 1 ML SYRINGE IM STA (05:03)
[2017-03-19] MEDS ORDERED: diphenhydrAMINE 50 MG CAP PO STA (05:03)
--- NOTE | 2017-03-19 06:00 | XR ---
EXAM: XR Chest, 1 View CLINICAL HISTORY: Reason: Pain TECHNIQUE: Frontal view of the chest. COMPARISON: 03/07/17 FINDINGS: Lungs: Unremarkable. No consolidation. Pleural space: Unremarkable. No pneumothorax. Heart: Unremarkable. No cardiomegaly. Mediastinum: Right IJ Port-A-Cath again noted. Bones/soft tissues: Unremarkable. Left axillary clips again noted IMPRESSION: No acute pulmonary disease Redemonstrated right IJ Port-A-Cath.
[2017-03-19] MEDS ORDERED: LEVALBUTEROL NEB (CONC) 1.25 MG/0.5 ML AMP INHALATION STA (06:26)
[2017-03-19] MEDS: IPRATROPIUM-ALBUTEROL 3 ML NEB INHALATION SCH ×4 (07:55→20:00)
[2017-03-19 09:01] LABS: Basophils % (A) 1 %; CHCM 32.9; Eosinophils % (A) 0 %; HDW 2.34; HGB 13.7 gm/dL (13.0-17.5); Luc # (Auto) 0.07; Luc % (Auto) 1; Lymphocytes # (A) 0.5 k/uL (1.0-4.8); Lymphocytes % (A) 7 %; MCH 28.2 pg (25.0-35.0); MCHC 34.2 g/dL (31.0-37.0); MCV 82.5 fL (80.0-100.0); Mean Platelet Volume 6.8; Monocytes # (A) 0.1 k/uL (0-1.0); Monocytes % (A) 2 %; Neutrophils # (A) 6.8 k/uL (1.3-7.7); Neutrophils % (A) 90 %; RBC 4.84 m/uL (4.30-5.90); RDW 13.3 % (11.5-15.5); WBC 7.6 k/uL (3.8-10.6); WBC (Perox) 7.87
[2017-03-19 09:07] LABS: Partial Thromboplastin Time 22.7 sec (22.0-30.0); Prothrombin Time 10.3 sec (9.0-12.0)
[2017-03-19 09:19] LABS: ALT 21 U/L (21-72); AST 34 U/L (17-59); Alkaline Phosphatase 115 U/L (38-126); Anion Gap 13 mmol/L; Blood Urea Nitrogen 17 mg/dL (9-20); Calcium 9.6 mg/dL (8.4-10.2); Carbon Dioxide 24 mmol/L (22-30); Chloride 105 mmol/L (98-107); Glucose 103 mg/dL (74-99); Magnesium 2.1 mg/dL (1.6-2.3); Non-African American GFR(MDRD) 59 (>60 ml/min/1.73 sqM); Phosphorous 4.6 mg/dL (2.5-4.5); Potassium 4.1 mmol/L (3.5-5.1); Sodium 142 mmol/L (137-145); Total Bilirubin 0.9 mg/dL (0.2-1.3); Total Protein 7.4 g/dL (6.3-8.2)
[2017-03-19 09:29] LABS: Creatine Kinase 144 U/L (55-170)
[2017-03-19 09:41] LABS: Creatine Kinase MB 0.5 ng/mL (0.0-2.4); Troponin I <0.012 ng/mL (0.000-0.034)
[2017-03-19 10:17] VITALS: BMI 28.9
[2017-03-19] MEDS: ENOXAPARIN 40 MG/0.4 ML SYRINGE SQ SCH (10:33)
[2017-03-19] MEDS: SODIUM CHLORIDE 0.9% 1,000 ML IV SCH ×3 (10:33→20:34)
[2017-03-19] MEDS ORDERED: methylPREDNISolone SOD SUCCI 125 MG/2 ML VIAL IV SCH (12:00)
[2017-03-19] MEDS: ACETAMINOPHEN TAB 500 MG TAB PO PRN ×2 (12:02→20:28)
[2017-03-19] MEDS: methylPREDNISolone SOD SUCCI 40 MG/ML 1 ML VIAL IV SCH ×2 (17:01→23:48)
[2017-03-19] MEDS: diphenhydrAMINE 50 MG CAP PO SCH ×3 (17:02→22:01)
--- NOTE | 2017-03-19 17:47 | P.CON ---
Consult Note - . Assessment/Plan:: Severe asthma with exacerbation Pt with increased dyspnea and wheezing for 3 days with fever O/E VSS chest diminished bs with poor air entry and wheeze cvsrrr wnl no edema Labs a and meds reviewd systemic steroids, gi and cdvy prophylaxis and bronchodilators with aerosoloised steroids
[2017-03-19] MEDS: BUDESONIDE 0.5 MG/2 ML NEBU INHALATION SCH (20:00)
[2017-03-19] MEDS: MONTELUKAST 10 MG TAB PO SCH (20:33)
[2017-03-19] MEDS: FAMOTIDINE 20 MG TAB PO SCH (20:33)
[2017-03-20] MEDS: SODIUM CHLORIDE 0.9% 1,000 ML IV SCH ×3 (04:44→22:21)
[2017-03-20] MEDS: IPRATROPIUM-ALBUTEROL 3 ML NEB INHALATION SCH ×4 (08:05→19:33)
[2017-03-20] MEDS: BUDESONIDE 0.5 MG/2 ML NEBU INHALATION SCH ×2 (08:06→19:33)
[2017-03-20] MEDS: methylPREDNISolone SOD SUCCI 40 MG/ML 1 ML VIAL IV SCH ×3 (09:18→23:50)
[2017-03-20] MEDS: ENOXAPARIN 40 MG/0.4 ML SYRINGE SQ SCH (09:18)
[2017-03-20] MEDS: diphenhydrAMINE 50 MG CAP PO SCH ×4 (09:18→22:20)
[2017-03-20] MEDS: FAMOTIDINE 20 MG TAB PO SCH ×2 (09:19→22:21)
[2017-03-20] MEDS: ACETAMINOPHEN TAB 500 MG TAB PO PRN ×2 (09:24→17:00)
--- NOTE | 2017-03-20 18:53 | P.PN ---
Subjective Principal diagnosis: asthma with exacerbation less dyspnea and wheezing Objective - Vital Signs Vital signs: Vital Signs Temp 98.4 F 03/20/17 14:53 Pulse 86 03/20/17 15:14 Resp 19 03/20/17 15:48 BP 122/51 03/20/17 14:53 Pulse Ox 92 L 03/20/17 14:53 Intake & Output 03/19/17 03/20/17 03/20/17 18:59 06:59 18:59 Intake Total 1000 Output Total 1300 Balance -300 Weight 76.5 kg Intake: Oral 1000 Output: Urine 1300 Other: Voiding Method Toilet Toilet # Voids 1 0 2 # Bowel Movements 0 - Constitutional General appearance: Present: average body habitus - EENT Eyes: Present: PERRLA ENT: Present: hearing grossly normal - Respiratory Respiratory: bilateral: diminished, wheezing, prolonged expiration - Cardiovascular Rhythm: regular Heart sounds: normal: S1, S2 - Gastrointestinal General gastrointestinal: Present: soft - Integumentary Integumentary: Present: normal - Labs CBC & Chem 7: 03/19/17 08:34 03/19/17 08:34 Assessment and Plan (1) Acute exacerbation of COPD with asthma Status: Acute (2) Hypoxia Status: Acute Plan: continue iv steroids and increase ctivity.continue current meds which were reviewed
[2017-03-20] MEDS: MONTELUKAST 10 MG TAB PO SCH (22:21)
[2017-03-21] MEDS: ACETAMINOPHEN TAB 500 MG TAB PO PRN ×3 (01:10→16:57)
[2017-03-21] MEDS: BUDESONIDE 0.5 MG/2 ML NEBU INHALATION SCH ×2 (08:06→19:48)
[2017-03-21] MEDS: IPRATROPIUM-ALBUTEROL 3 ML NEB INHALATION SCH ×4 (08:06→19:48)
[2017-03-21] MEDS: diphenhydrAMINE 50 MG CAP PO SCH ×4 (08:26→21:30)
[2017-03-21] MEDS: FAMOTIDINE 20 MG TAB PO SCH ×2 (08:26→20:46)
[2017-03-21] MEDS: methylPREDNISolone SOD SUCCI 40 MG/ML 1 ML VIAL IV SCH ×3 (08:26→23:48)
[2017-03-21] MEDS: ENOXAPARIN 40 MG/0.4 ML SYRINGE SQ SCH ×2 (08:26→11:11)
--- NOTE | 2017-03-21 12:01 | P.PN ---
Subjective Principal diagnosis: asthma with exacerbation less dyspnea and wheezing Objective - Vital Signs Vital signs: Vital Signs Temp 98.1 F 03/21/17 07:00 Pulse 92 03/21/17 11:42 Resp 16 03/21/17 08:25 BP 121/64 03/21/17 07:00 Pulse Ox 100 03/21/17 07:00 Intake & Output 03/20/17 03/21/17 03/21/17 18:59 06:59 18:59 Intake Total 1150 Output Total 1200 510 Balance -50 -510 Intake: Oral 1150 Output: Urine 1200 510 Other: Voiding Method Toilet Toilet # Voids 2 1 - Respiratory Respiratory: bilateral: diminished, wheezing, prolonged expiration - Cardiovascular Rhythm: regular Heart sounds: normal: S1, S2 - Labs CBC & Chem 7: 03/19/17 08:34 03/19/17 08:34 Assessment and Plan (1) Acute exacerbation of COPD with asthma Status: Acute (2) Hypoxia Status: Acute Plan: continue iv steroids and increase activity.continue current meds which were reviewed Avoid opiates as he may have respiratory depression
[2017-03-21] MEDS: SODIUM CHLORIDE 0.9% 1,000 ML IV SCH ×2 (13:38→20:45)
[2017-03-21] MEDS: MONTELUKAST 10 MG TAB PO SCH (20:46)
[2017-03-22] MEDS: SODIUM CHLORIDE 0.9% 1,000 ML IV SCH (06:08)
[2017-03-22] MEDS: IPRATROPIUM-ALBUTEROL 3 ML NEB INHALATION SCH (07:38)
[2017-03-22] MEDS: BUDESONIDE 0.5 MG/2 ML NEBU INHALATION SCH (07:38)
[2017-03-22] MEDS: ENOXAPARIN 40 MG/0.4 ML SYRINGE SQ SCH (07:43)
[2017-03-22] MEDS: FAMOTIDINE 20 MG TAB PO SCH (07:43)
[2017-03-22 08:03] VITALS: BP 126/73; PULSE 58; RESP 16; TEMP 97.9
[2017-03-22] MEDS: methylPREDNISolone SOD SUCCI 40 MG/ML 1 ML VIAL IV SCH (09:58)
[2017-03-22] MEDS: diphenhydrAMINE 50 MG CAP PO SCH (10:41)
[2017-03-22] MEDS ORDERED: predniSONE 20 MG TAB PO SCH (11:00)
--- NOTE | 2017-03-22 12:28 | P.DS ---
Providers Date of admission: 03/19/17 06:26 Attending physician: Dave Richards Consults: 03/19/17 06:26 Consult Physician Routine Consulting Provider: Sachin Charles Consult Reason/Comments: copd Do you want consulting provider notified?: Yes Primary care physician: Dave Richards - Discharge Diagnosis(es) (1) Acute exacerbation of COPD with asthma pt treated with steroids and bronchodilators and improved and on day of discharge was almost at baseline dyspnea o/evss afebrile cvs wnl chest prolonged expiration but no wheeze abd soft no edema labs reviewed imp asthma with exacerbation discharge home Status: Acute (2) Hypoxia Status: Acute Patient Condition at Discharge: Good Plan - Discharge Summary New Discharge Prescriptions: No Action Ipratropium-Albuterol Nebulize [Duoneb 0.5 mg-3 mg/3 ml Soln] 3 ml INHALATION RT-QID PRN PRN Reason: Shortness Of Breath Fluticasone Nasal [place] [Flonase Nasal [place]] 2 spr EA NOSTRIL DAILY PRN PRN Reason: Nasal Congestion Albuterol Sulfate [Proair Hfa] 1 - 2 puff INHALATION RT-Q4H PRN PRN Reason: Shortness Of Breath Discharge Medication List Ipratropium-Albuterol Nebulize [Duoneb 0.5 mg-3 mg/3 ml Soln] 3 ml INHALATION RT -QID PRN 02/08/17 [History] Fluticasone Nasal [place] [Flonase Nasal [place]] 2 spr EA NOSTRIL DAILY PRN [History] Albuterol Sulfate [Proair Hfa] 1 - 2 puff INHALATION RT-Q4H PRN 03/07/17 [ History] Follow up Appointment(s)/Referral(s): Dave Richards MD [Primary Care Provider] - 1-2 days (office closed. please call to schedule an appointment in 2-3 days) [facility], [NON-STAFF] - Sachin Charles MD [STAFF PHYSICIAN] - 1 Week (office closed. please call to schedule an appointment) Patient Instructions/Handouts: Asthma (ED), How to Stop Smoking (DC), Acute Bronchitis (ED) Discharge Disposition: HOME WITH HOME HEALTH SERVICES
== END 2017-03-22 10:59 | disposition home health service (06) | DRG 191 ==
LOC: EC 04:12 → 4MS4W 06:26
PROVIDERS: ADMIT Family Medicine; ATTEND Family Medicine
DX: J44.1 Chronic obstructive pulmonary disease with (acute) exacerbation (principal); J45.901 Unspecified asthma with (acute) exacerbation; Z79.899 Other long term (current) drug therapy
CPT/HCPCS: 71010; 80053; 82550; 82553; 83735; 84100; 84484; 85025; 85610; 85730; 93005; 94640; 94644; 96372; 99285

== ENCOUNTER 2017-03-25 14:56 | Observation (INO) | payer OTHER ==
[2017-03-25] MEDS ORDERED: ACETAMINOPHEN TAB 500 MG TAB PO STA (15:51)
[2017-03-25] MEDS ORDERED: IPRATROPIUM-ALBUTEROL 3 ML NEB INHALATION STA ×2 (15:51→17:38)
[2017-03-25] MEDS ORDERED: SODIUM CHLORIDE 0.9% 1,000 ML IV STA (15:52)
--- NOTE | 2017-03-25 15:54 | ED ---
General Adult HPI <Kelton Almeida - Last Filed: 03/25/17 18:45> - General Source: patient, RN notes reviewed Mode of arrival: ambulatory Limitations: no limitations <Mario Alberto Turner - Last Filed: 03/25/17 19:07> - General Chief complaint: Shortness of Breath Stated complaint: Diff breathing Time Seen by Provider: 03/25/17 15:43 - History of Present Illness Initial comments: Patient 46-year-old male significant past medical history for COPD, who presents emergency room today with a chief complaint of increased cough congestion over the last 3 days. He is met that he was recently admitted and released from the hospital approximately a week ago. Patient states is not on any antibiotics. Not any steroids at home. Patient does admit to increased cough congestion the last 3 days. Denies any sputum production at this time. Does admit to increased wheezing states been using breathing treatments at home with little relief. Denies any other complaints or symptoms at this time. Patient denies any recent fever, chills, chest pain, back pain, abdominal pain, nausea or vomiting, numbness or tingling, dysuria or hematuria, constipation or diarrhea, headaches or visual changes, or any other complaints. (Mario Alberto Turner ) - Related Data Home Medications Medication Instructions Recorded Confirmed Ipratropium-Albuterol Nebulize 3 ml INHALATION RT-QID PRN 02/08/17 03/25/17 [Duoneb 0.5 mg-3 mg/3 ml Soln] Fluticasone Nasal [place] [Flonase 2 spr EA NOSTRIL DAILY PRN 02/15/17 03/25/17 Nasal [place]] Albuterol Sulfate [Proair Hfa] 1 - 2 puff INHALATION RT-Q4H PRN 03/07/17 Allergies Allergy/AdvReac Type Severity Reaction Status Date / Time dicyclomine HCl [From Bentyl] Allergy Severe Anaphylaxis Verified 03/25/17 16:21 Iodinated Contrast Media - Allergy Severe Rash/Hives Verified 03/25/17 16:21 Oral and prednisone Allergy Severe Anaphylaxis Verified 03/25/17 16:21 shellfish derived [Shellfish] Allergy Severe Rash/Hives Verified 03/25/17 16:21 Penicillins Allergy Unknown Unknown Verified 03/25/17 16:21 Childhood steroids Allergy Severe Anaphylaxis Uncoded 03/19/17 04:24 Review of Systems ROS Other: All systems not noted in ROS Statement are negative. <Kelton Almeida - Last Filed: 03/25/17 18:45> ROS Other: All systems not noted in ROS Statement are negative. <Mario Alberto Turner - Last Filed: 03/25/17 19:07> ROS Statement: Those systems with pertinent positive or pertinent negative responses have been documented in the HPI. 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 Past Anesthesia/Blood Transfusion Reactions: No Reported Reaction Date of Last Stent Placement:: 2002 Past Psychological History: Anxiety, Bipolar, Depression, Schizophrenia Past Alcohol Use History: Daily Past Drug Use History: None Reported - Past Family History Mother Family Medical History: Asthma Father Family Medical History: Liver Disease, Renal Disease Additional Family Medical History / Comment(s): RENAL DISEASE <Mario Alberto Turner - Last Filed: 03/25/17 19:07> General Exam <Kelton Almeida - Last Filed: 03/25/17 18:45> Limitations: no limitations <Mario Alberto Turner - Last Filed: 03/25/17 19:07> - General Exam Comments Initial Comments: General: The patient is awake and alert, in no distress, and does not appear acutely ill. Eye: Pupils are equal, round and reactive to light, extra-ocular movements are intact. No nystagmus. There is normal conjunctiva bilaterally. No signs of icterus. Ears, nose, mouth and throat: There are moist mucous membranes and no oral lesions. Neck: The neck is supple, there is no tenderness or JVD. Cardiovascular: There is a regular rate and rhythm. No murmur, rub or gallop is appreciated. Respiratory: Lungs are clear to auscultation, respirations are non-labored, breath sounds are equal. No wheezes, stridor, rales, or rhonchi. Gastrointestinal: Soft, non-distended, non-tender abdomen without masses or organomegaly noted. There is no rebound or guarding present. No CVA tenderness. Bowel sounds are unremarkable. Musculoskeletal: Normal ROM, no tenderness. Strength 5/5. Sensation intact. Pulses equal bilaterally 2+. Neurological: A&O x 3. CN II-XII intact, There are no obvious motor or sensory deficits. Coordination appears grossly intact. Speech is normal. Skin: Skin is warm and dry and no rashes or lesions are noted. Psychiatric: Cooperative, appropriate mood & affect, normal judgment. (Mario Alberto Turner) EKG Findings - EKG Comments: EKG Findings:: EKG performed at 1617: Shows sinus tachycardia 104 bpm GA interval 124. QRS 72. QT/QTC 330/433. No ST acute changes. <Mario Alberto Turner - Last Filed: 03/25/17 19:07> Medical Decision Making - Lab Data Result diagrams: 03/25/17 17:08 03/25/17 17:08 <Kelton Almeida - Last Filed: 03/25/17 18:45> - Lab Data Result diagrams: 03/25/17 17:08 03/25/17 17:08 <Mario Alberto Turner - Last Filed: 03/25/17 19:07> - Medical Decision Making Patient reevaluated by myself, Dr. Almeida. Patient resting in bed with continued wheezing and mild respiratory distress. Patient will be tried on BiPAP for a short period. Patient updated on results and plan. Case was discussed in detail with Dr. Richards, who will admit his patient with consult for Dr. Candelaria. (Kelton Almeida) - Lab Data Lab Results 03/25/17 03/25/17 03/25/17 Range/Units 17:08 17:08 17:08 WBC 9.2 (3.8-10.6) k/uL RBC 5.20 (4.30-5.90) m/uL Hgb 14.5 (13.0-17.5) gm/dL Hct 41.6 (39.0-53.0) % MCV 79.9 L (80.0-100.0) fL MCH 27.9 (25.0-35.0) pg MCHC 35.0 (31.0-37.0) g/dL RDW 13.3 (11.5-15.5) % Plt Count 280 (150-450) k/uL Neutrophils % 59 % Lymphocytes % 33 % Monocytes % 4 % Eosinophils % 2 % Basophils % 0 % Neutrophils # 5.4 (1.3-7.7) k/uL Lymphocytes # 3.0 (1.0-4.8) k/uL Monocytes # 0.4 (0-1.0) k/uL Eosinophils # 0.2 (0-0.7) k/uL Basophils # 0.0 (0-0.2) k/uL PT (9.0-12.0) sec INR (<1.1) APTT (22.0-30.0) sec Sodium 139 (137-145) mmol/L Potassium 4.6 (3.5-5.1) mmol/L Chloride 107 (98-107) mmol/L Carbon Dioxide 21 L (22-30) mmol/L Anion Gap 11 mmol/L BUN 23 H (9-20) mg/dL Creatinine 1.10 (0.66-1.25) mg/dL Est GFR (MDRD) Af Amer >60 (>60 ml/min/1.73 sqM) Est GFR (MDRD) Non-Af >60 (>60 ml/min/1.73 sqM) Glucose 86 (74-99) mg/dL Calcium 9.4 (8.4-10.2) mg/dL Total Bilirubin 0.7 (0.2-1.3) mg/dL AST 28 (17-59) U/L ALT 95 H (21-72) U/L Alkaline Phosphatase 93 (38-126) U/L Total Creatine Kinase 67 (55-170) U/L CK-MB (CK-2) 0.3 (0.0-2.4) ng/mL CK-MB (CK-2) Rel Index 0.4 Troponin I <0.012 (0.000-0.034) ng/mL Total Protein 6.5 (6.3-8.2) g/dL Albumin 4.0 (3.5-5.0) g/dL 03/25/17 Range/Units 17:08 WBC (3.8-10.6) k/uL RBC (4.30-5.90) m/uL Hgb (13.0-17.5) gm/dL Hct (39.0-53.0) % MCV (80.0-100.0) fL MCH (25.0-35.0) pg MCHC (31.0-37.0) g/dL RDW (11.5-15.5) % Plt Count (150-450) k/uL Neutrophils % % Lymphocytes % % Monocytes % % Eosinophils % % Basophils % % Neutrophils # (1.3-7.7) k/uL Lymphocytes # (1.0-4.8) k/uL Monocytes # (0-1.0) k/uL Eosinophils # (0-0.7) k/uL Basophils # (0-0.2) k/uL PT 10.6 (9.0-12.0) sec INR 1.0 (<1.1) APTT 22.0 (22.0-30.0) sec Sodium (137-145) mmol/L Potassium (3.5-5.1) mmol/L Chloride (98-107) mmol/L Carbon Dioxide (22-30) mmol/L Anion Gap mmol/L BUN (9-20) mg/dL Creatinine (0.66-1.25) mg/dL Est GFR (MDRD) Af Amer (>60 ml/min/1.73 sqM) Est GFR (MDRD) Non-Af (>60 ml/min/1.73 sqM) Glucose (74-99) mg/dL Calcium (8.4-10.2) mg/dL Total Bilirubin (0.2-1.3) mg/dL AST (17-59) U/L ALT (21-72) U/L Alkaline Phosphatase (38-126) U/L Total Creatine Kinase (55-170) U/L CK-MB (CK-2) (0.0-2.4) ng/mL CK-MB (CK-2) Rel Index Troponin I (0.000-0.034) ng/mL Total Protein (6.3-8.2) g/dL Albumin (3.5-5.0) g/dL Disposition <Kelton Almeida - Last Filed: 03/25/17 18:45> Time of Disposition: 19:07 <Mario Alberto uTrner - Last Filed: 03/25/17 19:07> Clinical Impression: COPD exacerbation Disposition: ADMITTED IP TO THIS HOSP Condition: Stable Referrals: Dave Richards MD [Primary Care Provider] - 1-2 days
[2017-03-25 17:34] LABS: Basophils % (A) 0 %; CH 27.1; Eosinophils # (A) 0.2 k/uL (0-0.7); Eosinophils % (A) 2 %; HCT 41.6 % (39.0-53.0); HGB 14.5 gm/dL (13.0-17.5); Luc # (Auto) 0.16; Luc % (Auto) 2; Lymphocytes % (A) 33 %; MCH 27.9 pg (25.0-35.0); MCV 79.9 fL (80.0-100.0); Mean Platelet Volume 7.2; Monocytes # (A) 0.4 k/uL (0-1.0); Monocytes % (A) 4 %; Neutrophils # (A) 5.4 k/uL (1.3-7.7); Neutrophils % (A) 59 %; RDW 13.3 % (11.5-15.5); WBC 9.2 k/uL (3.8-10.6); WBC (Perox) 9.05
--- NOTE | 2017-03-25 17:36 | XR ---
EXAMINATION TYPE: XR chest 2V DATE OF EXAM: 03/25/2017 COMPARISON: 03/19/2017 HISTORY: Short of breath TECHNIQUE: Frontal and lateral views of the chest are obtained. FINDINGS: There is right jugular catheter with the tip in the right atrium. Lungs are clear. There i s no heart failure. There is no pleural effusion. Bony thorax is intact. IMPRESSION: No active cardiopulmonary disease. No change.
[2017-03-25 17:40] LABS: Creatine Kinase 67 U/L (55-170)
[2017-03-25 17:41] LABS: Prothrombin Time 10.6 sec (9.0-12.0)
[2017-03-25 17:44] LABS: ALT 95 U/L (21-72); AST 28 U/L (17-59); Alkaline Phosphatase 93 U/L (38-126); Anion Gap 11 mmol/L; Blood Urea Nitrogen 23 mg/dL (9-20); Calcium 9.4 mg/dL (8.4-10.2); Carbon Dioxide 21 mmol/L (22-30); Chloride 107 mmol/L (98-107); Glucose 86 mg/dL (74-99); Non-African American GFR(MDRD) >60 (>60 ml/min/1.73 sqM); Potassium 4.6 mmol/L (3.5-5.1); Sodium 139 mmol/L (137-145); Total Bilirubin 0.7 mg/dL (0.2-1.3); Total Protein 6.5 g/dL (6.3-8.2)
[2017-03-25 17:54] LABS: Creatine Kinase MB 0.3 ng/mL (0.0-2.4); Troponin I <0.012 ng/mL (0.000-0.034)
[2017-03-25] MEDS ORDERED: LORazepam 2 MG/ML SYRINGE IV STA (18:24)
[2017-03-25] MEDS ORDERED: LORazepam 1 MG TAB PO PRN (19:07)
[2017-03-25] MEDS ORDERED: NALOXONE 0.4 MG/ML 1 ML VIAL IV PRN (19:07)
[2017-03-25] MEDS ORDERED: ONDANSETRON 4 MG/2 ML VIAL IVP PRN (19:07)
[2017-03-25] MEDS ORDERED: ACETAMINOPHEN TAB 325 MG TAB PO PRN (19:07)
[2017-03-25] MEDS ORDERED: IPRATROPIUM-ALBUTEROL 3 ML NEB INHALATION PRN (19:09)
[2017-03-25] MEDS ORDERED: methylPREDNISolone SOD SUCCI 125 MG/2 ML VIAL IV STA (19:09)
[2017-03-25] MEDS ORDERED: diphenhydrAMINE 50 MG/ML 1 ML VIAL IVP STA (19:11)
[2017-03-25 20:50] LABS: Glucose,Whole Blood 102 mg/dL (75-99)
[2017-03-25] MEDS: INSULIN LISPRO (humaLOG) 300 UNIT/3 ML VIAL SQ SCH (21:54)
[2017-03-25 23:11] VITALS: BMI 30.6
[2017-03-26] MEDS: methylPREDNISolone SOD SUCCI 40 MG/ML 1 ML VIAL IV SCH ×3 (00:05→16:05)
[2017-03-26] MEDS: diphenhydrAMINE 50 MG/ML 1 ML VIAL IVP PRN ×3 (00:05→16:05)
[2017-03-26] MEDS: traMADol 50 MG TAB PO PRN (00:05)
[2017-03-26] MEDS: DEXTROSE 5%-0.2% NACL 1,000 ML IV SCH ×5 (00:16→19:51)
[2017-03-26 07:27] LABS: Glucose,Whole Blood 145 mg/dL (75-99)
[2017-03-26 08:01] LABS: Basophils % (A) 0 %; CHCM 32.8; Eosinophils # (A) 0.1 k/uL (0-0.7); Eosinophils % (A) 1 %; HCT 41.4 % (39.0-53.0); Luc # (Auto) 0.03; Luc % (Auto) 0; Lymphocytes % (A) 11 %; MCH 27.8 pg (25.0-35.0); MCHC 33.8 g/dL (31.0-37.0); MCV 82.3 fL (80.0-100.0); Mean Platelet Volume 6.8; Monocytes # (A) 0.1 k/uL (0-1.0); Monocytes % (A) 1 %; Neutrophils # (A) 7.4 k/uL (1.3-7.7); Neutrophils % (A) 87 %; RBC 5.03 m/uL (4.30-5.90); RDW 13.2 % (11.5-15.5); WBC 8.5 k/uL (3.8-10.6)
[2017-03-26 08:07] LABS: ALT 72 U/L (21-72); AST 19 U/L (17-59); Alkaline Phosphatase 84 U/L (38-126); Anion Gap 10 mmol/L; Blood Urea Nitrogen 17 mg/dL (9-20); Calcium 9.1 mg/dL (8.4-10.2); Carbon Dioxide 21 mmol/L (22-30); Chloride 106 mmol/L (98-107); Glucose 139 mg/dL (74-99); Non-African American GFR(MDRD) >60 (>60 ml/min/1.73 sqM); Sodium 137 mmol/L (137-145); Total Bilirubin 0.9 mg/dL (0.2-1.3); Total Protein 6.4 g/dL (6.3-8.2)
[2017-03-26] MEDS: INSULIN LISPRO (humaLOG) 300 UNIT/3 ML VIAL SQ SCH ×4 (08:09→22:19)
[2017-03-26] MEDS: IPRATROPIUM-ALBUTEROL 3 ML NEB INHALATION SCH ×4 (08:12→20:10)
[2017-03-26 11:29] LABS: Glucose,Whole Blood 108 mg/dL (75-99)
[2017-03-26 17:44] LABS: Glucose,Whole Blood 139 mg/dL (75-99)
[2017-03-26] MEDS: BUDESONIDE 0.5 MG/2 ML NEBU INHALATION SCH (20:10)
[2017-03-26] MEDS: HEPARIN SODIUM,PORCINE 5,000 UNIT/ML 1 ML VIAL SQ SCH (20:51)
[2017-03-26] MEDS: FAMOTIDINE 20 MG TAB PO SCH (20:52)
[2017-03-26 21:48] LABS: Glucose,Whole Blood 156 mg/dL (75-99)
[2017-03-27] MEDS: diphenhydrAMINE 50 MG/ML 1 ML VIAL IVP PRN ×4 (00:07→22:53)
[2017-03-27] MEDS: methylPREDNISolone SOD SUCCI 40 MG/ML 1 ML VIAL IV SCH ×4 (00:13→22:53)
[2017-03-27] MEDS: traMADol 50 MG TAB PO PRN (06:12)
[2017-03-27] MEDS: INSULIN LISPRO (humaLOG) 300 UNIT/3 ML VIAL SQ SCH ×4 (07:52→21:10)
[2017-03-27] MEDS: HEPARIN SODIUM,PORCINE 5,000 UNIT/ML 1 ML VIAL SQ SCH ×3 (07:53→21:09)
[2017-03-27] MEDS: FAMOTIDINE 20 MG TAB PO SCH ×2 (07:53→21:35)
[2017-03-27 07:54] LABS: Glucose,Whole Blood 209 mg/dL (75-99)
[2017-03-27] MEDS: DEXTROSE 5%-0.2% NACL 1,000 ML IV SCH ×3 (07:54→21:09)
[2017-03-27] MEDS: IPRATROPIUM-ALBUTEROL 3 ML NEB INHALATION SCH ×4 (08:41→19:55)
[2017-03-27] MEDS: BUDESONIDE 0.5 MG/2 ML NEBU INHALATION SCH ×2 (08:41→19:55)
[2017-03-27 11:56] LABS: Glucose,Whole Blood 76 mg/dL (75-99)
--- NOTE | 2017-03-27 14:56 | CONS ---
Pérez Lopez is a 46-year-old male with a known history of severe asthma who presented to the ED at [facility] with increasing shortness of breath. He had recently been admitted to the hospital with severe asthma with acute exacerbation. He states that he lives in an apartment which is moldy. His friend , whose apartment this is, also smokes. As he went home he started to get worse. He denied any fever, chills. or rigors. PAST MEDICAL HISTORY: Positive for asthma, coronary artery disease, COPD, DVT, gastroesophageal reflux disease, left arm sarcoma, osteosarcoma, peptic ulcer disease, chronic pain syndrome, cardiac cath with stent placement, right testicle previously removed, cholecystectomy. FAMILY HISTORY: Positive for asthma in his mother. Liver disease and renal disease in his father. Medications prior to admission included ipratropium, fluticasone, albuterol. He was supposed to be on prednisone taper, which had been written for him. It is not clear whether he actually took this as an outpatient. He was also to be on inhaled steroids, which is not clear whether he took these or not. He has had anaphylaxis apparently to IV steroids, thus gets Benadryl with it as well. He is ALLERGIC to PENICILLIN, SHELLFISH, IODINATED CONTRAST, AND DICYCLOMINE. He has not had an allergic reaction to prednisone when it was taken the last time. On physical examination his blood pressure was 105/62, respiratory rate 16, pulse rate of 69, temperature 97.7, O2 sat on 2-L via nasal cannula is 94%. HEENT is unremarkable. Chest reveals prolonged expiration with expiratory wheeze. Cardiovascular system reveals an S1, S2. Abdomen is soft. There is no edema. There is a port in place. Labs reveal a white count of 9.2. Eosinophil count of 0.2. Sodium 139, potassium 4.6, chloride 107, bicarb 21, BUN 23, creatinine of 1.1. Chest x-ray shows no active disease. There is a right jugular catheter in place. IMPRESSION: 1. Severe asthma with acute exacerbation. 2. Chronic obstructive pulmonary disease. 3. Chronic pain. 4. Coronary artery disease. 5. Suspected allergy to steroids is unclear. At this point in time, from a pulmonary standpoint keep him on IV steroids, bronchodilators, aerosolized steroids. Continue Benadryl. Keep him on GI and DVT prophylaxis. Depending on how he does we shall make further changes to his care. I would like to thank you for allowing me to participate in his care. DANY
[2017-03-27 17:06] LABS: Glucose,Whole Blood 102 mg/dL (75-99)
[2017-03-27 21:08] LABS: Glucose,Whole Blood 199 mg/dL (75-99)
[2017-03-28 06:48] LABS: Glucose,Whole Blood 129 mg/dL (75-99)
[2017-03-28] MEDS: BUDESONIDE 0.5 MG/2 ML NEBU INHALATION SCH (07:22)
[2017-03-28] MEDS: IPRATROPIUM-ALBUTEROL 3 ML NEB INHALATION SCH ×2 (07:22→11:03)
[2017-03-28 07:30] VITALS: BP 101/64; RESP 20; TEMP 96.5
[2017-03-28] MEDS: diphenhydrAMINE 50 MG/ML 1 ML VIAL IVP PRN (08:12)
[2017-03-28] MEDS: FAMOTIDINE 20 MG TAB PO SCH (08:13)
[2017-03-28] MEDS: methylPREDNISolone SOD SUCCI 40 MG/ML 1 ML VIAL IV SCH (08:13)
[2017-03-28] MEDS: HEPARIN SODIUM,PORCINE 5,000 UNIT/ML 1 ML VIAL SQ SCH (08:13)
[2017-03-28] MEDS: DEXTROSE 5%-0.2% NACL 1,000 ML IV SCH ×2 (08:13→08:14)
[2017-03-28] MEDS: INSULIN LISPRO (humaLOG) 300 UNIT/3 ML VIAL SQ SCH (08:13)
[2017-03-28] MEDS: traMADol 50 MG TAB PO PRN (08:18)
--- NOTE | 2017-03-28 09:58 | CDI ---
In responding to this query, please exercise your independent professional judgment. The [facility] Coding Staff and Clinical Documentation Specialists appreciate your assistance in clarifying documentation, maintaining compliance with coding guidelines, accurately documenting patients condition and capturing severity of illness. The fact that a question is asked does not imply that any particular answer is desired or expected. Communication forms are a method of clarifying documentation and are not made part of the Legal Health Record. Thank you in advance for your clarification. Last Revision, November 2015 Jonathan Cuello [address] [facility] [place] [address] Documentation Clarification Form Date: 03/28/2017 9:45:00 AM From: Shannan Alvarez CCS, CCDS Admit Date: 03/25/2017 6:46:00 PM Patient Name: Pérez Lopez Visit Number: [id number] Discharge Date: Dr. Ady Candelaria: Asthma is documented in the Pulmonary Consultation as severe asthma with acute exacerbation. Patient history/risk factors: Asthma & COPD requiring multiple hospital admissions, CAD w/stent, MD and DVT. Exposure to mold & passive cigarette smoke , family history of asthma. Clinical Indicators: Recent hospitalization for acute exacerbation of asthma, presented with increased cough & congestion. Radiology: CXR: negative Vital Signs: T 100.1, P 101, R 24-30, PO 95 ra Treatment: Albuterol Neb txs, IV fluid bolus, IV Ativan, IV Narcan, IV Zofran, IV Solumedrol, IV Benadryl. Consult: pulmonary In your professional opinion, can you please further specify the following, if known? With Acute Exacerbation Status asthmaticus Acute lower respiratory infection COPD (specify with or without exacerbation) Chronic obstructive bronchitis Other, please specify Unable to determine Severity Mild intermittent Mild persistent Moderate persistent Severe persistent Other, please specify ____ Unable to determine Form or Type Cough variant Childhood Exercise induced bronchospasm Extrinsic allergic Idiosyncratic Intrinsic nonallergic Late-onset Mixed Other, please specify Unable to determine Please document in your progress notes and discharge summary in order to capture severity of illness and risk of mortality. Include clinical findings that support your diagnosis. FYI: Press F11 to launch patient chart. Place X here if this finding has no clinical significance, is not applicable or if you are not able to provide any additional documentation. Thank You. DANY
--- NOTE | 2017-03-28 10:29 | P.DS ---
Providers Date of admission: 03/25/17 18:46 Expected date of discharge: 03/28/17 Attending physician: Dave Richards Consults: 03/25/17 18:46 Consult Physician Urgent Consulting Provider: Ady Candelaria Consult Reason/Comments: dyspnea Do you want consulting provider notified?: Yes Primary care physician: Dave Richards [facility] Course: 46-year-old male admitted to the emergency room with a chief complaint of shortness of breath cough feeling congested. Patient has had frequent admissions to the emergency room for similar symptoms. Was just released from the hospital approximately a week ago. Patient is not on any home steroids. Patient admits having increased cough. Patient was seen in the emergency room and admitted to the services of the attending with the pulmonary consultation obtained. In the emergency room the white count was 9.2 did have a temp of 100.1 on admission to the emergency room has since remained afebrile . Current temp 97.5. Patient stated that he thought he use oxygen at home at night. Home O2 eval on room air with activity sats documented 96%. The white count on admission was 9.2. Patient was seen by pulmonary service. Patient was started on IV Solu-Medrol. Was a noted improvement in patient's symptoms patient does give a history of nicotine dependency active. Patient's been advised to stop smoking cigarettes. Patient was felt to be medically stable and appropriate proceed with a discharge to home powder worker tnt did provide the patient with a list of available shelters in the community in which the patient could contact for living arrangements patient states currently is living with an apartment where there is mold and he is exposed to secondhand smoke as well as he himself smoking It's noted the patient has been noncompliant with following up in post hospital office visits does not keep appointments. Impression discharge diagnosis Chronic bronchial asthma with frequent hospitalizations Active nicotine dependency current every day smoker Bipolar schizoaffective disorder History of severe asthma Present on admission shortness of breath suspect due to acute severe asthma with an exacerbation Echocardiogram left ventricular systolic function normal EF between 60 and 65% done on February 2017 COPD without exacerbation Chronic pain syndrome Multiple drug ALLERGIES The above impression and plan of care have been discussed and directed by signing physician. Cami Noble nurse practitioner acting as scribe for signing physician. Patient Condition at Discharge: Stable Plan - Discharge Summary New Discharge Prescriptions: New methylPREDNISolone Dose Pack [Medrol Dose Pack] 4 mg PO DIRECTED #21 package Continue Ipratropium-Albuterol Nebulize [Duoneb 0.5 mg-3 mg/3 ml Soln] 3 ml INHALATION RT-QID PRN PRN Reason: Shortness Of Breath Fluticasone Nasal [place] [Flonase Nasal [place]] 2 spr EA NOSTRIL DAILY PRN PRN Reason: Nasal Congestion Albuterol Sulfate [Proair Hfa] 1 - 2 puff INHALATION RT-Q4H PRN PRN Reason: Shortness Of Breath Discharge Medication List Ipratropium-Albuterol Nebulize [Duoneb 0.5 mg-3 mg/3 ml Soln] 3 ml INHALATION RT -QID PRN 02/08/17 [History] Fluticasone Nasal [place] [Flonase Nasal [place]] 2 spr EA NOSTRIL DAILY PRN [History] Albuterol Sulfate [Proair Hfa] 1 - 2 puff INHALATION RT-Q4H PRN 03/07/17 [ History] methylPREDNISolone Dose Pack [Medrol Dose Pack] 4 mg PO DIRECTED #21 package 03/28/17 [Rx] Follow up Appointment(s)/Referral(s): Dave Richards MD [Primary Care Provider] - 1-2 days Ady Candelaria MD [STAFF PHYSICIAN] - 03/30/17 Activity/Diet/Wound Care/Special Instructions: Patient has been provided with smoking cessation information been advised to stop smoking cigarettes Discharge Disposition: HOME SELF-CARE
[2017-03-28 11:56] VITALS: PULSE 82
--- NOTE | 2017-03-28 14:20 | HP ---
CHIEF COMPLAINT: Difficulty breathing. HISTORY OF PRESENT ILLNESS: This is another admission for this 46-year-old -Lux[place] male. He came into the emergency room in respiratory distress and he did have a temperature of 100. X-ray demonstrated no definite pneumonia. On review of systems he has had no other complaints or problems. He has had no vomiting, diarrhea, etc. He always complains of pain in his left shoulder where he had sarcoma before. The remainder of his history is unchanged. He continues to smoke. PHYSICAL EXAMINATION: Blood pressure is 136/86, pulse of 104, respirations of 38 and temperature of 100. In general, he appeared to be short of breath. He had audible wheezing. Head, ears, eyes, mouth, and throat were normal. The chest demonstrated wheezing on inspiration and expiration with rales and rhonchi throughout. The cardiac exam demonstrated tachycardia and abdomen is soft and nontender. Extremities are normal except for the postoperative changes in the left shoulder. Neurologically he is intact. IMPRESSION: 1. Probable bronchopneumonia. 2. Reactive airway disease. 3. Chronic obstructive pulmonary disease. 4. History of sarcoma left shoulder. PLAN: IV fluids, antibiotics and updrafts with steroids. MTDD
--- NOTE | 2017-03-28 14:23 | PN ---
DATE OF SERVICE: 03/26/2017 CHIEF COMPLAINT: Pneumonitis and reactive airway disease. HISTORY OF PRESENT ILLNESS: This gentleman is not doing much better. Temperature is down, but his chest is still very tight and congested. PHYSICAL EXAM: He has inspiratory and expiratory wheezing with rales throughout. Cardiac exam is normal. Abdomen is soft, nontender. IMPRESSION: 1. Bronchopneumonia. 2. Reactive airway disease. 3. Chronic obstructive pulmonary disease. PLAN: Continue on current program. MTDD
--- NOTE | 2017-03-28 18:33 | PN ---
DATE OF SERVICE: 03/27/2017 This patient is continuing to have shortness of breath. On physical examination , vitals are stable. He is afebrile. His chest reveals prolonged expiration with expiratory wheeze. There is better air entry compared to the previous day. Cardiovascular system reveals S1, S2. Abdomen is soft. There is no pedal edema. IMPRESSION AT THIS TIME: Asthma with acute exacerbation. Continue bronchodilators, steroids, aerosolized steroids. Increase his activity level. He may required a prolonged course of prednisone as an outpatient. Depending on how he does, we shall make further changes to his care. DANY
--- NOTE | 2017-03-29 09:59 | PN ---
DATE OF SERVICE: 03/27/2017 CHIEF COMPLAINT: Exacerbation of COPD and pneumonitis. HISTORY OF PRESENT ILLNESS: This gentleman is doing better. Vital signs are normal. His chest is more clear. He is feeling better. PHYSICAL EXAM: He still has decreased breath sounds with rales throughout. Cardiac exam is normal and he still has expiratory wheezing. IMPRESSION: 1. Exacerbation of chronic obstructive pulmonary disease. 2. Bronchitis. 3. Pneumonitis. PLAN: Continue on current program. MTDD
--- NOTE | 2017-03-29 10:20 | PN ---
DATE OF SERVICE: 03/28/2017 CHIEF COMPLAINT: Pneumonitis, bronchitis, and exacerbation of COPD with reactive airway disease. HISTORY OF PRESENT ILLNESS: This gentleman is doing much better. His breathing is improved and his temperature has been down. He is less short of breath. PHYSICAL EXAM: Very few scattered rales and rhonchi with some wheezing. Cardiac exam is normal. Abdomen is soft and nontender. IMPRESSION: 1. Bronchitis. 2. Pneumonitis. 3. Reactive airway disease. 4. Exacerbation of chronic obstructive pulmonary disease. PLAN: Home today and this will be arranged by the nurse practitioner. DANY
== END 2017-03-28 11:57 | disposition home or self-care (01) ==
LOC: EC 14:56 → 4MS4W 18:46 → INTOOBSV 18:46 → 4MS4W 19:32
PROVIDERS: ADMIT Family Medicine; ATTEND Family Medicine
DX: J44.0 Chronic obstructive pulmonary disease with (acute) lower respiratory infection (principal); J45.51 Severe persistent asthma with (acute) exacerbation; J18.0 Bronchopneumonia, unspecified organism; F25.0 Schizoaffective disorder, bipolar type; K21.9 Gastro-esophageal reflux disease without esophagitis; F17.210 Nicotine dependence, cigarettes, uncomplicated; G89.4 Chronic pain syndrome; I25.10 Atherosclerotic heart disease of native coronary artery without angina pectoris; Z82.5 Family history of asthma and other chronic lower respiratory diseases; Z85.830 Personal history of malignant neoplasm of bone; Z87.11 Personal history of peptic ulcer disease; Z91.19 Patient's noncompliance with other medical treatment and regimen
CPT/HCPCS: 96361; 96374; 96375; 99285; 36415; 94660; 94640 ×7; 94760; 93005; 80053 ×2; 82550; 82553; 84484; 85025 ×2; 85610; 85730; 71020; G0378 ×4; J2060; J1200 ×4; J2920 ×3; J2930

== ENCOUNTER 2017-04-10 13:51 | Emergency (ER) | payer OTHER ==
[2017-04-10 15:37] LABS: Basophils % (A) 0 %; CH 27.8; CHCM 34.2; Eosinophils # (A) 0.1 k/uL (0-0.7); Eosinophils % (A) 1 %; HCT 41.6 % (39.0-53.0); HDW 2.21; HGB 13.9 gm/dL (13.0-17.5); Luc # (Auto) 0.08; Luc % (Auto) 1; Lymphocytes # (A) 1.7 k/uL (1.0-4.8); Lymphocytes % (A) 24 %; MCH 27.4 pg (25.0-35.0); MCHC 33.5 g/dL (31.0-37.0); MCV 81.7 fL (80.0-100.0); Mean Platelet Volume 7.7; Monocytes # (A) 0.4 k/uL (0-1.0); Monocytes % (A) 5 %; Neutrophils % (A) 69 %; RBC 5.09 m/uL (4.30-5.90); RDW 15.3 % (11.5-15.5); WBC 7.3 k/uL (3.8-10.6)
[2017-04-10] MEDS ORDERED: KETOROLAC 30 MG/ML 1 ML VIAL IVP STA (15:50)
--- NOTE | 2017-04-10 15:50 | ED ---
Psych HPI - General Chief Complaint: Psychiatric Symptoms Stated Complaint: Chest Pains, Suicidal Thoughts Time Seen by Provider: 04/10/17 14:31 Source: patient, RN notes reviewed Mode of arrival: wheelchair Limitations: no limitations - History of Present Illness Initial Comments: This a 46 show female presents emergency Department with chief complaint of depression, suicidal thoughts, chest pain. Patient states he started having chest pain yesterday that waxes and wanes. Patient states central is nonradiating denies any shortness breath no fever or chills but states he has had cough and congestion over the last few days. Patient states pain is worse with movement and when he presses on his chest. Patient denies nausea vomiting diarrhea constipation. Patient's had cardiac issues in the past but has had multiple recent admissions for similar symptoms. - Related Data Home Medications Medication Instructions Recorded Confirmed Ipratropium-Albuterol Nebulize 3 ml INHALATION RT-QID PRN 02/08/17 04/10/17 [Duoneb 0.5 mg-3 mg/3 ml Soln] Fluticasone Nasal [place] [Flonase 2 spr EA NOSTRIL DAILY PRN 02/15/17 04/10/17 Nasal [place]] Albuterol Sulfate [Proair Hfa] 1 - 2 puff INHALATION RT-Q4H PRN 03/07/17 Allergies Allergy/AdvReac Type Severity Reaction Status Date / Time dicyclomine HCl [From Bentyl] Allergy Severe Anaphylaxis Verified 04/10/17 14:42 Iodinated Contrast- Oral and Allergy Severe Rash/Hives Verified 04/10/17 14:42 IV Dye prednisone Allergy Severe Anaphylaxis Verified 04/10/17 14:42 shellfish derived [Shellfish] Allergy Severe Rash/Hives Verified 04/10/17 14:42 Penicillins Allergy Unknown Unknown Verified 04/10/17 14:42 Childhood steroids Allergy Severe Anaphylaxis Uncoded 04/10/17 14:21 Review of Systems ROS Statement: Those systems with pertinent positive or pertinent negative responses have been documented in the HPI. ROS Other: All systems not noted in ROS Statement are negative. 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 Past Anesthesia/Blood Transfusion Reactions: No Reported Reaction Date of Last Stent Placement:: 2002 Past Psychological History: Anxiety, Bipolar, Depression, Schizophrenia Smoking Status: Current every day smoker Past Alcohol Use History: Occasional Past Drug Use History: None Reported - Past Family History Mother Family Medical History: Asthma Father Family Medical History: Liver Disease, Renal Disease Additional Family Medical History / Comment(s): RENAL DISEASE General Exam Limitations: no limitations General appearance: alert, in no apparent distress Head exam: Present: atraumatic, normocephalic, normal inspection Eye exam: Present: normal appearance, PERRL, EOMI. Absent: scleral icterus, conjunctival injection, periorbital swelling ENT exam: Present: normal exam, normal oropharynx, mucous membranes moist, TM's normal bilaterally, normal external ear exam Neck exam: Present: normal inspection, full ROM. Absent: tenderness, meningismus, lymphadenopathy Respiratory exam: Present: normal lung sounds bilaterally, chest wall tenderness. Absent: respiratory distress, wheezes, rales, rhonchi, stridor Cardiovascular Exam: Present: regular rate, normal rhythm, normal heart sounds. Absent: systolic murmur, diastolic murmur, rubs, gallop, clicks GI/Abdominal exam: Present: soft, normal bowel sounds. Absent: distended, tenderness, guarding, rebound, rigid Psychiatric exam: Present: depressed Skin exam: Present: warm, dry, intact, normal color. Absent: rash Course Vital Signs 04/10/17 04/10/17 14:18 16:59 Temperature 99.4 F 98.2 F Pulse Rate 101 H 72 Respiratory 18 Rate Blood Pressure 117/59 118/65 O2 Sat by Pulse 97 96 Oximetry Medical Decision Making - Medical Decision Making 46-year-old male presented emergency department for atypical chest pain and depression. Patient's laboratory does not reveal any acute abnormality. Old records were extensively reviewed patient had marked told cardiac evaluations. Patient is having reproducible chest pain. Patient will be discharged at this time as he has been evaluated by EPS they did not recommend inpatient treatment. - Lab Data Result diagrams: 04/10/17 15:25 04/10/17 15:25 Lab Results 04/10/17 04/10/17 04/10/17 Range/Units 15:25 15:25 15:25 WBC 7.3 (3.8-10.6) k/uL RBC 5.09 (4.30-5.90) m/uL Hgb 13.9 (13.0-17.5) gm/dL Hct 41.6 (39.0-53.0) % MCV 81.7 (80.0-100.0) fL MCH 27.4 (25.0-35.0) pg MCHC 33.5 (31.0-37.0) g/dL RDW 15.3 (11.5-15.5) % Plt Count 186 (150-450) k/uL Neutrophils % 69 % Lymphocytes % 24 % Monocytes % 5 % Eosinophils % 1 % Basophils % 0 % Neutrophils # 5.0 (1.3-7.7) k/uL Lymphocytes # 1.7 (1.0-4.8) k/uL Monocytes # 0.4 (0-1.0) k/uL Eosinophils # 0.1 (0-0.7) k/uL Basophils # 0.0 (0-0.2) k/uL Sodium 140 (137-145) mmol/L Potassium 4.5 (3.5-5.1) mmol/L Chloride 108 H (98-107) mmol/L Carbon Dioxide 24 (22-30) mmol/L Anion Gap 8 mmol/L BUN 21 H (9-20) mg/dL Creatinine 1.11 (0.66-1.25) mg/dL Est GFR (MDRD) Af Amer >60 (>60 ml/min/1.73 sqM) Est GFR (MDRD) Non-Af >60 (>60 ml/min/1.73 sqM) Glucose 66 L (74-99) mg/dL Calcium 8.8 (8.4-10.2) mg/dL Total Bilirubin 1.0 (0.2-1.3) mg/dL AST 26 (17-59) U/L ALT 76 H (21-72) U/L Alkaline Phosphatase 74 (38-126) U/L Troponin I <0.012 (0.000-0.034) ng/mL Total Protein 5.8 L (6.3-8.2) g/dL Albumin 3.4 L (3.5-5.0) g/dL Urine Color Urine Appearance (Clear) Urine pH (5.0-8.0) Ur Specific [place] (1.001-1.035) Urine Protein (Negative) Urine Glucose (UA) (Negative) Urine Ketones (Negative) Urine Blood (Negative) Urine Nitrite (Negative) Urine Bilirubin (Negative) Urine Urobilinogen (<2.0) mg/dL Ur Leukocyte Esterase (Negative) Urine Opiates Screen (NotDetected) Ur Oxycodone Screen (NotDetected) Urine Methadone Screen (NotDetected) Ur Propoxyphene Screen (NotDetected) Ur Barbiturates Screen (NotDetected) U Tricyclic Antidepress (NotDetected) Ur Phencyclidine Scrn (NotDetected) Ur Amphetamines Screen (NotDetected) U Methamphetamines Scrn (NotDetected) U Benzodiazepines Scrn (NotDetected) Urine Cocaine Screen (NotDetected) U Marijuana (THC) Screen (NotDetected) 04/10/17 Range/Units 16:24 WBC (3.8-10.6) k/uL RBC (4.30-5.90) m/uL Hgb (13.0-17.5) gm/dL Hct (39.0-53.0) % MCV (80.0-100.0) fL MCH (25.0-35.0) pg MCHC (31.0-37.0) g/dL RDW (11.5-15.5) % Plt Count (150-450) k/uL Neutrophils % % Lymphocytes % % Monocytes % % Eosinophils % % Basophils % % Neutrophils # (1.3-7.7) k/uL Lymphocytes # (1.0-4.8) k/uL Monocytes # (0-1.0) k/uL Eosinophils # (0-0.7) k/uL Basophils # (0-0.2) k/uL Sodium (137-145) mmol/L Potassium (3.5-5.1) mmol/L Chloride (98-107) mmol/L Carbon Dioxide (22-30) mmol/L Anion Gap mmol/L BUN (9-20) mg/dL Creatinine (0.66-1.25) mg/dL Est GFR (MDRD) Af Amer (>60 ml/min/1.73 sqM) Est GFR (MDRD) Non-Af (>60 ml/min/1.73 sqM) Glucose (74-99) mg/dL Calcium (8.4-10.2) mg/dL Total Bilirubin (0.2-1.3) mg/dL AST (17-59) U/L ALT (21-72) U/L Alkaline Phosphatase (38-126) U/L Troponin I (0.000-0.034) ng/mL Total Protein (6.3-8.2) g/dL Albumin (3.5-5.0) g/dL Urine Color Yellow Urine Appearance Clear (Clear) Urine pH 6.5 (5.0-8.0) Ur Specific [place] 1.013 (1.001-1.035) Urine Protein Negative (Negative) Urine Glucose (UA) Negative (Negative) Urine Ketones Negative (Negative) Urine Blood Negative (Negative) Urine Nitrite Negative (Negative) Urine Bilirubin Negative (Negative) Urine Urobilinogen <2.0 (<2.0) mg/dL Ur Leukocyte Esterase Negative (Negative) Urine Opiates Screen Detected H (NotDetected) Ur Oxycodone Screen Not Detected (NotDetected) Urine Methadone Screen Not Detected (NotDetected) Ur Propoxyphene Screen Not Detected (NotDetected) Ur Barbiturates Screen Not Detected (NotDetected) U Tricyclic Antidepress Not Detected (NotDetected) Ur Phencyclidine Scrn Not Detected (NotDetected) Ur Amphetamines Screen Not Detected (NotDetected) U Methamphetamines Scrn Not Detected (NotDetected) U Benzodiazepines Scrn Not Detected (NotDetected) Urine Cocaine Screen Not Detected (NotDetected) U Marijuana (THC) Screen Not Detected (NotDetected) 04/10/17 15:58 EKG performed at 14:06 normal sinus rhythm with a rate of 97 RI 120 QRS duration 76 QT/QTC 3:30/419 Disposition Clinical Impression: Atypical chest pain, Depression Disposition: HOME SELF-CARE Condition: Stable Instructions: Depression (ED) Additional Instructions: Please return to the Emergency Department if symptoms worsen or any other concerns. Referrals: Dave Richards MD [Primary Care Provider] - 1-2 days Time of Disposition: 19:35
[2017-04-10 16:13] LABS: ALT 76 U/L (21-72); AST 26 U/L (17-59); Alkaline Phosphatase 74 U/L (38-126); Anion Gap 8 mmol/L; Blood Urea Nitrogen 21 mg/dL (9-20); Calcium 8.8 mg/dL (8.4-10.2); Carbon Dioxide 24 mmol/L (22-30); Chloride 108 mmol/L (98-107); Glucose 66 mg/dL (74-99); Non-African American GFR(MDRD) >60 (>60 ml/min/1.73 sqM); Potassium 4.5 mmol/L (3.5-5.1); Sodium 140 mmol/L (137-145); Total Protein 5.8 g/dL (6.3-8.2)
--- NOTE | 2017-04-10 16:19 | XR ---
EXAMINATION TYPE: XR chest 2V DATE OF EXAM: 04/10/2017 COMPARISON: 03/25/2017 HISTORY: Chest pain TECHNIQUE: Frontal and lateral views of the chest are obtained. FINDINGS: Heart and mediastinum are normal. Lungs are clear. There is right central venous catheter with the tip in the top of right atrium. There is no pleural effusion. Bony thorax is intact. IMPRESSION: No active cardiopulmonary disease. No change.
[2017-04-10 16:44] LABS: Appearance,Urine Clear (Clear); Bilirubin,Urine Negative (Negative); Glucose,Urine (UA) Negative (Negative); Ketones,Urine Negative (Negative); Leukocyte Esterase,Urine Negative (Negative); Nitrite,Urine Negative (Negative); PH, Urine 6.5 (5.0-8.0); Protein,Urine Negative (Negative); Specific Gravity,Urine 1.013 (1.001-1.035); UA Billing (MACRO vs. MICRO) CHEM; Urobilinogen,Urine <2.0 mg/dL (<2.0)
[2017-04-10 19:44] VITALS: BP 110/62; PULSE 75; RESP 20; TEMP 98.1
== END 2017-04-10 19:53 | disposition home or self-care (01) ==
LOC: EC 13:51
DX: R07.89 Other chest pain (principal); R05 Cough; R09.89 Other specified symptoms and signs involving the circulatory and respiratory systems; I25.10 Atherosclerotic heart disease of native coronary artery without angina pectoris; I25.2 Old myocardial infarction; J45.909 Unspecified asthma, uncomplicated; J44.9 Chronic obstructive pulmonary disease, unspecified; F20.9 Schizophrenia, unspecified; F31.9 Bipolar disorder, unspecified; F41.9 Anxiety disorder, unspecified; F17.200 Nicotine dependence, unspecified, uncomplicated; Z88.0 Allergy status to penicillin; Z91.013 Allergy to seafood; Z91.041 Radiographic dye allergy status; Z88.8 Allergy status to other drugs, medicaments and biological substances; Z85.830 Personal history of malignant neoplasm of bone; Z87.01 Personal history of pneumonia (recurrent); Z82.5 Family history of asthma and other chronic lower respiratory diseases; Z95.5 Presence of coronary angioplasty implant and graft
CPT/HCPCS: 82075; 36415; 93005; 80053; 84484; 85025; 81003; 80306; 71020; 99285; 96374; J1885

== ENCOUNTER 2017-04-12 18:11 | Emergency (ER) | payer OTHER ==
--- NOTE | 2017-04-12 18:35 | ED ---
General Adult HPI - General Chief complaint: Psychiatric Symptoms Stated complaint: suicidal Time Seen by Provider: 04/12/17 18:16 Source: patient, RN notes reviewed, old records reviewed Mode of arrival: ambulatory Limitations: no limitations - History of Present Illness Initial comments: Patient 46-year-old male who presents emergency room today with a chief complaint of suicidal ideation. He does admit to plan to jump in the river. He states that he's been suicidal over the last 4 days. States he does follow up with [facility] has not been there in over a month. Does take medications unsure of the names states he has been taking them. He denies any other complaints or symptoms at this time. Patient denies any recent fever, chills, shortness of breath, chest pain, back pain, abdominal pain, nausea or vomiting, numbness or tingling, dysuria or hematuria, constipation or diarrhea, headaches or visual changes, or any other complaints. - Related Data Home Medications Medication Instructions Recorded Confirmed Ipratropium-Albuterol Nebulize 3 ml INHALATION RT-QID PRN 02/08/17 04/12/17 [Duoneb 0.5 mg-3 mg/3 ml Soln] Fluticasone Nasal [place] [Flonase 2 spr EA NOSTRIL DAILY PRN 02/15/17 04/12/17 Nasal [place]] Albuterol Sulfate [Proair Hfa] 1 - 2 puff INHALATION RT-Q4H PRN 03/07/17 Allergies Allergy/AdvReac Type Severity Reaction Status Date / Time dicyclomine HCl [From Bentyl] Allergy Severe Anaphylaxis Verified 04/12/17 18:46 Iodinated Contrast- Oral and Allergy Severe Rash/Hives Verified 04/12/17 18:46 IV Dye prednisone Allergy Severe Anaphylaxis Verified 04/12/17 18:46 shellfish derived [Shellfish] Allergy Severe Rash/Hives Verified 04/12/17 18:46 Penicillins Allergy Unknown Unknown Verified 04/12/17 18:46 Childhood steroids Allergy Severe Anaphylaxis Uncoded 04/12/17 18:15 Review of Systems ROS Statement: Those systems with pertinent positive or pertinent negative responses have been documented in the HPI. ROS Other: All systems not noted in ROS Statement are negative. 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 Past Anesthesia/Blood Transfusion Reactions: No Reported Reaction Date of Last Stent Placement:: 2002 Past Psychological History: Anxiety, Bipolar, Depression, Schizophrenia Smoking Status: Current every day smoker Past Alcohol Use History: Occasional Past Drug Use History: None Reported - Past Family History Mother Family Medical History: Asthma Father Family Medical History: Liver Disease, Renal Disease Additional Family Medical History / Comment(s): RENAL DISEASE General Exam - General Exam Comments Initial Comments: General: The patient is awake and alert, in no distress, and does not appear acutely ill. Eye: Pupils are equal, round and reactive to light, extra-ocular movements are intact. No nystagmus. There is normal conjunctiva bilaterally. No signs of icterus. Ears, nose, mouth and throat: There are moist mucous membranes and no oral lesions. Neck: The neck is supple, there is no tenderness or JVD. Cardiovascular: There is a regular rate and rhythm. No murmur, rub or gallop is appreciated. Respiratory: Lungs are clear to auscultation, respirations are non-labored, breath sounds are equal. No wheezes, stridor, rales, or rhonchi. Musculoskeletal: Normal ROM, no tenderness. Strength 5/5. Sensation intact. Pulses equal bilaterally 2+. Neurological: A&O x 3. CN II-XII intact, There are no obvious motor or sensory deficits. Coordination appears grossly intact. Speech is normal. Skin: Skin is warm and dry and no rashes or lesions are noted. Psychiatric: Cooperative, appropriate mood & affect, normal judgment. Limitations: no limitations Course Vital Signs 04/12/17 18:12 Temperature 98.3 F Pulse Rate 91 Respiratory 18 Rate Blood Pressure 118/75 O2 Sat by Pulse 96 Oximetry Medical Decision Making - Medical Decision Making Patient has been examined here in the emergency room by mental health. They recommended the patient may be discharged home. He did have an appointment this morning that he did not make it to. He stated it was too early in the morning. He does have another appointment this coming up in the next week. At this time patient states he is not suicidal. He does admit that he is depressed. The [facility] will be following up with him in the next few days. Patient advised return for any other concerns. - Lab Data Lab Results 04/12/17 Range/Units 18:37 Urine Opiates Screen Not Detected (NotDetected) Ur Oxycodone Screen Not Detected (NotDetected) Urine Methadone Screen Not Detected (NotDetected) Ur Propoxyphene Screen Not Detected (NotDetected) Ur Barbiturates Screen Not Detected (NotDetected) U Tricyclic Antidepress Not Detected (NotDetected) Ur Phencyclidine Scrn Not Detected (NotDetected) Ur Amphetamines Screen Not Detected (NotDetected) U Methamphetamines Scrn Not Detected (NotDetected) U Benzodiazepines Scrn Not Detected (NotDetected) Urine Cocaine Screen Not Detected (NotDetected) U Marijuana (THC) Screen Not Detected (NotDetected) Disposition Clinical Impression: Depression Disposition: HOME SELF-CARE Condition: Good Instructions: Depression (ED) Additional Instructions: Please follow [facility] as discussed here in emergency room. Please return to emergency room for any other concerns. Referrals: Dave Richards MD [Primary Care Provider] - 1-2 days Time of Disposition: 21:25
[2017-04-12 21:46] VITALS: BP 135/74; PULSE 73; RESP 17; TEMP 98
== END 2017-04-12 21:45 | disposition home or self-care (01) ==
LOC: EC 18:11
DX: F32.9 Major depressive disorder, single episode, unspecified (principal); F17.200 Nicotine dependence, unspecified, uncomplicated; Z88.0 Allergy status to penicillin; Z88.8 Allergy status to other drugs, medicaments and biological substances; Z91.013 Allergy to seafood; Z91.041 Radiographic dye allergy status
CPT/HCPCS: 80306; 82075; 99285

== ENCOUNTER 2017-04-13 15:00 | Emergency (ER) | payer OTHER ==
[2017-04-13] MEDS ORDERED: ASPIRIN 81 MG CHEW PO STA (16:33)
--- NOTE | 2017-04-13 17:15 | XR ---
EXAMINATION TYPE: XR chest 2V DATE OF EXAM: 04/13/2017 CLINICAL HISTORY: Cough TECHNIQUE: Frontal and lateral views of the chest are obtained. COMPARISON: 04/10/2017 FINDINGS: MediPort catheter is unchanged in position. There is no focal air space opacity, pleural e ffusion, or pneumothorax seen. The cardiac silhouette size is within normal limits. The osseous st ructures are intact. IMPRESSION: No acute cardiopulmonary process.
[2017-04-13] MEDS ORDERED: IPRATROPIUM-ALBUTEROL 3 ML NEB INHALATION STA (17:32)
[2017-04-13] MEDS ORDERED: LORazepam 2 MG/ML SYRINGE IV STA (17:32)
[2017-04-13 18:20] LABS: Basophils % (A) 0 %; CH 27.3; Eosinophils # (A) 0.1 k/uL (0-0.7); Eosinophils % (A) 1 %; HCT 43.8 % (39.0-53.0); HDW 2.18; HGB 14.5 gm/dL (13.0-17.5); Luc # (Auto) 0.13; Luc % (Auto) 1; Lymphocytes # (A) 2.3 k/uL (1.0-4.8); Lymphocytes % (A) 25 %; MCH 27.5 pg (25.0-35.0); MCHC 33.1 g/dL (31.0-37.0); MCV 83.1 fL (80.0-100.0); Mean Platelet Volume 7.3; Monocytes # (A) 0.4 k/uL (0-1.0); Monocytes % (A) 4 %; Neutrophils # (A) 6.3 k/uL (1.3-7.7); Neutrophils % (A) 69 %; RBC 5.27 m/uL (4.30-5.90); WBC 9.3 k/uL (3.8-10.6); WBC (Perox) 8.97
--- NOTE | 2017-04-13 18:21 | ED ---
Chest Pain HPI - General Chief Complaint: Chest Pain Stated Complaint: dizziness/chest pain Time Seen by Provider: 04/13/17 16:33 Source: patient, RN notes reviewed Mode of arrival: wheelchair Limitations: no limitations - History of Present Illness Initial Comments: 46-year-old male presents emergency Department chief complaint chest pain, cough congestion. Patient states this has been going on for last 2 days. Patient has been evaluated in the emergency room for this. Patient states that he feels is an exacerbation of his COPD. Patient denies any known fever at home but states that he's had some chills. Patient is febrile here in emergency department. States his cough is productive. Patient denies any headache, nausea vomiting. Patient states he had one episode of dizziness which is resolved. Patient states he did 2 breathing treatments prior to arrival. - Related Data Home Medications Medication Instructions Recorded Confirmed Ipratropium-Albuterol Nebulize 3 ml INHALATION RT-QID PRN 02/08/17 04/13/17 [Duoneb 0.5 mg-3 mg/3 ml Soln] Fluticasone Nasal [place] [Flonase 2 spr EA NOSTRIL DAILY PRN 02/15/17 04/13/17 Nasal [place]] Albuterol Sulfate [Proair Hfa] 1 - 2 puff INHALATION RT-Q4H PRN 03/07/17 Previous Rx's Medication Instructions Recorded Azithromycin [Zithromax Z-pack] 0 mg PO DIRECTED #1 pack 04/13/17 Allergies Allergy/AdvReac Type Severity Reaction Status Date / Time dicyclomine HCl [From Bentyl] Allergy Severe Anaphylaxis Verified 04/13/17 17:05 Iodinated Contrast- Oral and Allergy Severe Rash/Hives Verified 04/13/17 17:05 IV Dye prednisone Allergy Severe Anaphylaxis Verified 04/13/17 17:05 shellfish derived [Shellfish] Allergy Severe Rash/Hives Verified 04/13/17 17:05 Penicillins Allergy Unknown Unknown Verified 04/13/17 17:05 Childhood steroids Allergy Severe Anaphylaxis Uncoded 04/13/17 15:29 Review of Systems ROS Statement: Those systems with pertinent positive or pertinent negative responses have been documented in the HPI. ROS Other: All systems not noted in ROS Statement are negative. 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 Past Anesthesia/Blood Transfusion Reactions: No Reported Reaction Date of Last Stent Placement:: 2002 Past Psychological History: Anxiety, Bipolar, Depression, Schizophrenia Smoking Status: Current every day smoker Past Alcohol Use History: Occasional Past Drug Use History: None Reported - Past Family History Mother Family Medical History: Asthma Father Family Medical History: Liver Disease, Renal Disease Additional Family Medical History / Comment(s): RENAL DISEASE General Exam Limitations: no limitations General appearance: alert, in no apparent distress, anxious Head exam: Present: atraumatic, normocephalic, normal inspection Neck exam: Present: normal inspection. Absent: tenderness, meningismus, lymphadenopathy Respiratory exam: Present: wheezes (Minimal). Absent: normal lung sounds bilaterally, respiratory distress, rales, rhonchi, stridor Cardiovascular Exam: Present: regular rate, normal rhythm, normal heart sounds. Absent: systolic murmur, diastolic murmur, rubs, gallop, clicks GI/Abdominal exam: Present: soft, normal bowel sounds. Absent: distended, tenderness, guarding, rebound, rigid Back exam: Absent: CVA tenderness (R), CVA tenderness (L) Skin exam: Present: warm, dry, intact, normal color. Absent: rash Course Vital Signs 04/13/17 04/13/17 04/13/17 15:27 17:45 17:58 Temperature 100.3 F H Pulse Rate 96 96 98 Respiratory 24 24 Rate Blood Pressure 131/65 O2 Sat by Pulse 98 Oximetry 04/13/17 18:48 Temperature Pulse Rate Respiratory Rate Blood Pressure 114/69 O2 Sat by Pulse Oximetry Chest Pain MDM - MDM 46-year-old male present emergency department for cough congestion chest wall pain. Patient is better after DuoNeb treatment. Patient will be treated for acute bronchitis as he has low-grade temp here. There is normocytic pneumonia patient is in no respiratory distress. Return parameters were discussed. Disposition Clinical Impression: Acute costochondritis, Acute bronchitis Disposition: HOME SELF-CARE Condition: Stable Instructions: Acute Bronchitis (ED) Additional Instructions: Please return to the Emergency Department if symptoms worsen or any other concerns. Prescriptions: Azithromycin [Zithromax Z-pack] 0 mg PO DIRECTED #1 pack Referrals: Dave Richards MD [Primary Care Provider] - 1-2 days Time of Disposition: 19:04
[2017-04-13 18:24] LABS: INR 1.1 (<1.2); Prothrombin Time 10.6 sec (9.0-12.0)
[2017-04-13 18:30] LABS: ALT 60 U/L (21-72); AST 21 U/L (17-59); Alkaline Phosphatase 107 U/L (38-126); Anion Gap 12 mmol/L; Blood Urea Nitrogen 14 mg/dL (9-20); Calcium 9.2 mg/dL (8.4-10.2); Carbon Dioxide 20 mmol/L (22-30); Chloride 106 mmol/L (98-107); Glucose 84 mg/dL (74-99); Magnesium 2.2 mg/dL (1.6-2.3); Non-African American GFR(MDRD) >60 (>60 ml/min/1.73 sqM); Potassium 4.6 mmol/L (3.5-5.1); Sodium 138 mmol/L (137-145); Total Bilirubin 1.6 mg/dL (0.2-1.3); Total Protein 6.5 g/dL (6.3-8.2)
[2017-04-13 18:36] LABS: Creatine Kinase 63 U/L (55-170)
[2017-04-13 18:44] LABS: Partial Thromboplastin Time 21.3 sec (22.0-30.0)
[2017-04-13 18:49] LABS: Creatine Kinase MB 0.3 ng/mL (0.0-2.4); Troponin I <0.012 ng/mL (0.000-0.034)
[2017-04-13 19:17] VITALS: BP 113/68; PULSE 90; RESP 18; TEMP 98.7
== END 2017-04-13 19:16 | disposition home or self-care (01) ==
LOC: EC 15:00
DX: M94.0 Chondrocostal junction syndrome [Tietze] (principal); J20.9 Acute bronchitis, unspecified; F17.200 Nicotine dependence, unspecified, uncomplicated; Z88.0 Allergy status to penicillin; Z88.8 Allergy status to other drugs, medicaments and biological substances; Z91.041 Radiographic dye allergy status; Z91.013 Allergy to seafood; Z95.5 Presence of coronary angioplasty implant and graft
CPT/HCPCS: 99285; 96374; 36415; 94640; 93005; 80053; 82550; 82553; 83735; 84484; 85025; 85610; 85730; 71020; J2060

== ENCOUNTER 2017-04-14 00:34 | Inpatient (IN) | payer OTHER ==
[2017-04-14] MEDS ORDERED: ACETAMINOPHEN TAB 500 MG TAB PO STA (00:50)
[2017-04-14] MEDS ORDERED: IPRATROPIUM-ALBUTEROL 3 ML NEB INHALATION STA ×2 (00:51→03:07)
--- NOTE | 2017-04-14 00:53 | ED ---
General Adult HPI - General Chief complaint: Shortness of Breath Stated complaint: JULIETTE Time Seen by Provider: 04/14/17 00:41 Source: patient, RN notes reviewed Mode of arrival: ambulatory Limitations: no limitations - History of Present Illness Initial comments: Patient is a pleasant 46-year-old male presenting to the emergency department with cough and difficulty in breathing. Symptoms started several days ago. Patient states he was arty in the emergency department once earlier however symptoms continue to worsen. Patient has some chest discomfort however states this is a chronic association with his dyspnea. Patient has had similar symptoms previously associated with asthma/COPD. Patient states he did feel like he had a fever. - Related Data Home Medications Medication Instructions Recorded Confirmed Ipratropium-Albuterol Nebulize 3 ml INHALATION RT-QID PRN 02/08/17 04/14/17 [Duoneb 0.5 mg-3 mg/3 ml Soln] Fluticasone Nasal [place] [Flonase 2 spr EA NOSTRIL DAILY PRN 02/15/17 04/14/17 Nasal [place]] Albuterol Sulfate [Proair Hfa] 1 - 2 puff INHALATION RT-Q4H PRN 03/07/17 Previous Rx's Medication Instructions Recorded Azithromycin [Zithromax Z-pack] 0 mg PO DIRECTED #1 pack 04/13/17 Allergies Allergy/AdvReac Type Severity Reaction Status Date / Time dicyclomine HCl [From Bentyl] Allergy Severe Anaphylaxis Verified 04/14/17 00:38 Iodinated Contrast- Oral and Allergy Severe Rash/Hives Verified 04/14/17 00:38 IV Dye prednisone Allergy Severe Anaphylaxis Verified 04/14/17 00:38 shellfish derived [Shellfish] Allergy Severe Rash/Hives Verified 04/14/17 00:38 Penicillins Allergy Unknown Unknown Verified 04/14/17 00:38 Childhood steroids Allergy Severe Anaphylaxis Uncoded 04/14/17 00:38 Review of Systems ROS Statement: Those systems with pertinent positive or pertinent negative responses have been documented in the HPI. ROS Other: All systems not noted in ROS Statement are negative. Constitutional: Reports: fever, chills Eyes: Denies: eye pain ENT: Denies: ear pain Respiratory: Reports: cough, dyspnea Cardiovascular: Reports: chest pain Endocrine: Reports: fatigue Gastrointestinal: Denies: abdominal pain Genitourinary: Denies: dysuria Musculoskeletal: Denies: back pain Skin: Denies: rash Neurological: Denies: headache Past Medical History Past Medical History: Asthma, Coronary Artery Disease (CAD), Cancer, Chest Pain / Angina, COPD, Deep Vein Thrombosis (DVT), GERD/Reflux, Myocardial Infarction ( [place]), Pneumonia, Respiratory Disorder Additional Past Medical History / Comment(s): Other HX: Chronic bronchial asthma with frequent hospitalizations, bone cancer/osteosarcoma, 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 Past Anesthesia/Blood Transfusion Reactions: No Reported Reaction Date of Last Stent Placement:: 2002 Past Psychological History: Anxiety, Bipolar, Depression, Schizophrenia Smoking Status: Current every day smoker Past Alcohol Use History: Occasional Past Drug Use History: None Reported - Past Family History Mother Family Medical History: Asthma Father Family Medical History: Liver Disease, Renal Disease Additional Family Medical History / Comment(s): RENAL DISEASE General Exam Limitations: no limitations General appearance: alert, in no apparent distress Head exam: Present: atraumatic Eye exam: Present: normal appearance, PERRL ENT exam: Present: normal oropharynx Neck exam: Present: normal inspection Respiratory exam: Present: wheezes Cardiovascular Exam: Present: tachycardia GI/Abdominal exam: Present: soft. Absent: tenderness Extremities exam: Present: normal inspection. Absent: pedal edema, calf tenderness Neurological exam: Present: alert Psychiatric exam: Present: normal affect, normal mood Skin exam: Present: normal color Course Vital Signs 04/14/17 04/14/17 04/14/17 00:36 00:56 01:11 Temperature 99.7 F H 98.6 F Pulse Rate 112 H 104 H 101 H Respiratory 28 H 22 Rate Blood Pressure 129/65 144/63 O2 Sat by Pulse 98 98 Oximetry 04/14/17 04/14/17 01:19 03:18 Temperature Pulse Rate 105 H 98 Respiratory Rate Blood Pressure O2 Sat by Pulse Oximetry - Reevaluation(s) Reevaluation #1: 04/14/17 03:26 Patient does meet criteria for severe sepsis diagnosis at 3:26 AM. Patient has evidence of infiltrate on chest x-ray and does meet SIRS criteria. Lactic acid is greater than 2. Fluid bolus has been ordered. Cultures ordered. IV antibiotics will be added. EKG Findings - EKG Comments: EKG Findings:: Sinus tachycardia 109. CA 124. QRS 72. QT 322. QTC 433. Normal axis. Normal QRS. Normal ST-T. Medical Decision Making - Medical Decision Making Patient reevaluated and is improved following advise her treatment. Patient updated on results and plan. Case was discussed in detail with Dr. Richards, who will admit his patient. - Lab Data Result diagrams: 04/14/17 02:09 04/14/17 02:09 Lab Results 04/14/17 04/14/17 04/14/17 Range/Units 02:09 02:09 02:09 WBC 7.7 (3.8-10.6) k/uL RBC 4.53 (4.30-5.90) m/uL Hgb 12.4 L (13.0-17.5) gm/dL Hct 38.5 L (39.0-53.0) % MCV 85.1 (80.0-100.0) fL MCH 27.4 (25.0-35.0) pg MCHC 32.2 (31.0-37.0) g/dL RDW 15.2 (11.5-15.5) % Plt Count 255 (150-450) k/uL Neutrophils % 60 % Lymphocytes % 32 % Monocytes % 5 % Eosinophils % 2 % Basophils % 1 % Neutrophils # 4.6 (1.3-7.7) k/uL Lymphocytes # 2.5 (1.0-4.8) k/uL Monocytes # 0.4 (0-1.0) k/uL Eosinophils # 0.1 (0-0.7) k/uL Basophils # 0.0 (0-0.2) k/uL PT 10.4 (9.0-12.0) sec INR 1.0 (<1.2) APTT 22.5 (22.0-30.0) sec Sodium 139 (137-145) mmol/L Potassium 4.1 (3.5-5.1) mmol/L Chloride 108 H (98-107) mmol/L Carbon Dioxide 18 L (22-30) mmol/L Anion Gap 13 mmol/L BUN 17 (9-20) mg/dL Creatinine 1.20 (0.66-1.25) mg/dL Est GFR (MDRD) Af Amer >60 (>60 ml/min/1.73 sqM) Est GFR (MDRD) Non-Af >60 (>60 ml/min/1.73 sqM) Glucose 100 H (74-99) mg/dL Plasma Lactic Acid Krishan (0.7-2.0) mmol/L Calcium 8.4 (8.4-10.2) mg/dL Total Bilirubin 0.6 (0.2-1.3) mg/dL AST 19 (17-59) U/L ALT 44 (21-72) U/L Alkaline Phosphatase 84 (38-126) U/L Total Protein 5.5 L (6.3-8.2) g/dL Albumin 3.2 L (3.5-5.0) g/dL Serum Alcohol 49 mg/dL 04/14/17 Range/Units 02:09 WBC (3.8-10.6) k/uL RBC (4.30-5.90) m/uL Hgb (13.0-17.5) gm/dL Hct (39.0-53.0) % MCV (80.0-100.0) fL MCH (25.0-35.0) pg MCHC (31.0-37.0) g/dL RDW (11.5-15.5) % Plt Count (150-450) k/uL Neutrophils % % Lymphocytes % % Monocytes % % Eosinophils % % Basophils % % Neutrophils # (1.3-7.7) k/uL Lymphocytes # (1.0-4.8) k/uL Monocytes # (0-1.0) k/uL Eosinophils # (0-0.7) k/uL Basophils # (0-0.2) k/uL PT (9.0-12.0) sec INR (<1.2) APTT (22.0-30.0) sec Sodium (137-145) mmol/L Potassium (3.5-5.1) mmol/L Chloride (98-107) mmol/L Carbon Dioxide (22-30) mmol/L Anion Gap mmol/L BUN (9-20) mg/dL Creatinine (0.66-1.25) mg/dL Est GFR (MDRD) Af Amer (>60 ml/min/1.73 sqM) Est GFR (MDRD) Non-Af (>60 ml/min/1.73 sqM) Glucose (74-99) mg/dL Plasma Lactic Acid Krishan 2.2 H* (0.7-2.0) mmol/L Calcium (8.4-10.2) mg/dL Total Bilirubin (0.2-1.3) mg/dL AST (17-59) U/L ALT (21-72) U/L Alkaline Phosphatase (38-126) U/L Total Protein (6.3-8.2) g/dL Albumin (3.5-5.0) g/dL Serum Alcohol mg/dL Critical Care Time Critical Care Time: Yes Total Critical Care Time: 32 Disposition Clinical Impression: Pneumonia, Severe sepsis Disposition: ADMITTED IP TO THIS HOSP Referrals: Dave Richards MD [Primary Care Provider] - 1-2 days Decision Time: 03:28
[2017-04-14] MEDS: SODIUM CHLORIDE 0.9% 500 ML IV SCH ×2 (01:10→03:33)
--- NOTE | 2017-04-14 02:20 | XR ---
EXAM: XR Chest, 2 Views CLINICAL HISTORY: Reason: Fever TECHNIQUE: Frontal and lateral views of the chest. COMPARISON: Chest x-ray 04/10/2017. FINDINGS: Lungs: Minimal left basilar airspace disease. Pleural space: Unremarkable. No pneumothorax. Heart: Unremarkable. No cardiomegaly. Mediastinum: Unremarkable. Bones/joints: Unremarkable. Tubes, lines and devices: Port-A-Cath terminating at the cavoatrial junction. Upper abdomen: Left axillary and abdominal surgical clips. IMPRESSION: Minimal left basilar airspace disease.
[2017-04-14 02:23] LABS: Basophils % (A) 1 %; CH 27.3; CHCM 32.3; Eosinophils # (A) 0.1 k/uL (0-0.7); Eosinophils % (A) 2 %; HCT 38.5 % (39.0-53.0); HDW 2.13; HGB 12.4 gm/dL (13.0-17.5); Luc # (Auto) 0.13; Luc % (Auto) 2; Lymphocytes # (A) 2.5 k/uL (1.0-4.8); Lymphocytes % (A) 32 %; MCH 27.4 pg (25.0-35.0); MCHC 32.2 g/dL (31.0-37.0); MCV 85.1 fL (80.0-100.0); Mean Platelet Volume 7.2; Monocytes # (A) 0.4 k/uL (0-1.0); Monocytes % (A) 5 %; Neutrophils # (A) 4.6 k/uL (1.3-7.7); Neutrophils % (A) 60 %; RBC 4.53 m/uL (4.30-5.90); RDW 15.2 % (11.5-15.5); WBC 7.7 k/uL (3.8-10.6)
[2017-04-14 02:31] LABS: Partial Thromboplastin Time 22.5 sec (22.0-30.0); Prothrombin Time 10.4 sec (9.0-12.0)
[2017-04-14 02:35] LABS: ALT 44 U/L (21-72); AST 19 U/L (17-59); Alcohol 49 mg/dL; Alkaline Phosphatase 84 U/L (38-126); Anion Gap 13 mmol/L; Blood Urea Nitrogen 17 mg/dL (9-20); Calcium 8.4 mg/dL (8.4-10.2); Carbon Dioxide 18 mmol/L (22-30); Chloride 108 mmol/L (98-107); Glucose 100 mg/dL (74-99); Non-African American GFR(MDRD) >60 (>60 ml/min/1.73 sqM); Potassium 4.1 mmol/L (3.5-5.1); Sodium 139 mmol/L (137-145); Total Bilirubin 0.6 mg/dL (0.2-1.3); Total Protein 5.5 g/dL (6.3-8.2)
[2017-04-14 03:17] LABS: Creatine Kinase 60 U/L (55-170)
[2017-04-14] MEDS ORDERED: SODIUM CHLORIDE 0.9% 500 ML IV STA (03:26)
[2017-04-14] MEDS ORDERED: SODIUM CHLORIDE 0.9% 1,000 ML IV STA (03:26)
[2017-04-14] MEDS ORDERED: PNEUMONIA PROTOCOL UTILIZED 1 EACH MISC PO PRN (03:28)
[2017-04-14] MEDS ORDERED: AZTREONAM 2 GM in SODIUM CHLORIDE 0.9% 100 ML IVPB STA (03:28)
[2017-04-14] MEDS ORDERED: LEVOFLOXACIN 750MG-D5W PMX 750 MG in DEXTROSE/WATER 1 150ML.BAG IVPB STA (03:28)
[2017-04-14] MEDS ORDERED: IPRATROPIUM-ALBUTEROL 3 ML NEB INHALATION PRN (03:28)
[2017-04-14 03:30] LABS: Creatine Kinase MB 0.3 ng/mL (0.0-2.4); Troponin I <0.012 ng/mL (0.000-0.034)
[2017-04-14 03:58] LABS: Appearance,Urine Clear (Clear); Bilirubin,Urine Negative (Negative); Glucose,Urine (UA) Negative (Negative); Ketones,Urine Negative (Negative); Leukocyte Esterase,Urine Negative (Negative); Nitrite,Urine Negative (Negative); Protein,Urine Negative (Negative); Specific Gravity,Urine 1.017 (1.001-1.035); UA Billing (MACRO vs. MICRO) CHEM; Urobilinogen,Urine <2.0 mg/dL (<2.0)
[2017-04-14] MEDS: SODIUM CHLORIDE 0.9% 1,000 ML IV SCH ×3 (07:29→20:31)
[2017-04-14] MEDS: IPRATROPIUM-ALBUTEROL 3 ML NEB INHALATION SCH ×4 (08:22→20:18)
[2017-04-14] MEDS: AZTREONAM 2 GM in SODIUM CHLORIDE 0.9% 100 ML IVPB SCH ×2 (15:17→23:20)
[2017-04-14 23:01] VITALS: RESP 18
[2017-04-15] MEDS ORDERED: LEVOFLOXACIN 750MG-D5W PMX 750 MG in DEXTROSE/WATER 1 150ML.BAG IVPB SCH (05:00)
[2017-04-15] MEDS: SODIUM CHLORIDE 0.9% 1,000 ML IV SCH (07:54)
[2017-04-15] MEDS: AZTREONAM 2 GM in SODIUM CHLORIDE 0.9% 100 ML IVPB SCH (07:54)
[2017-04-15 07:56] VITALS: BP 96/69; TEMP 96.2
--- NOTE | 2017-04-15 08:04 | XR ---
EXAMINATION TYPE: XR chest 2V DATE OF EXAM: 04/15/2017 HISTORY: pneumonia. REFERENCE: Previous study dated 04/07/1717. FINDINGS: A MediPort remains in place via a right internal jugular approach. Its tip is cavoatrial ju nction. There has been a previous left axillary dissection. There is minimal scarring or atelectasis in the left midlung. Lungs otherwise clear. Pleural spaces a re clear. Heart size is upper limits of normal. IMPRESSION: MINIMAL SCARRING VERSUS ATELECTASIS, LEFT MIDLUNG.
[2017-04-15] MEDS: IPRATROPIUM-ALBUTEROL 3 ML NEB INHALATION SCH ×3 (08:08→11:19)
--- NOTE | 2017-04-15 08:45 | PN ---
CHIEF COMPLAINT: Difficulty breathing and low grade fever. HISTORY OF PRESENT ILLNESS: This is another admission of many for this 46 -year- old male who comes into the emergency room frequently. He has asthma and continues to smoke. He came in with shortness of breath, cough and a low grade temp of around 100. Lactic acid was 2.1. REVIEW OF SYSTEMS: He has had no hemoptysis, confusion, nausea and vomiting, etc. PAST MEDICAL HISTORY, FAMILY HISTORY, PERSONAL AND SOCIAL HISTORY: All otherwise unchanged and unremarkable. PHYSICAL EXAMINATION: Blood pressure is 141/90 with a pulse of 96, respiratory rate 38. Temperature 100.1. In general, he appeared to be in no acute distress. Skin color is normal. Skin is warm and dry. Lymph nodes not enlarged. Head, ears, eyes, nose, mouth and throat were normal and neck veins not distended. Thyroid not enlarged. The chest demonstrated decreased breath sounds with wheezes on inspiration and expiration. Occasional rales and rhonchi. Cardiac exam is normal. Abdomen soft and nontender. Extremities normal. Neurological intact. IMPRESSION: 1. Bronchopneumonia. 2. Bronchitis. 3. Exacerbation of chronic obstructive pulmonary disease. 4. Reactive airway disease. PLAN: 1. Bed rest. 2. IV fluids. 3. IV inhaled steroids. 4. Antibiotics. MTDD
[2017-04-15 11:22] VITALS: PULSE 80
[2017-04-15 12:09] LABS: Basophils % (A) 0 %; CH 27.2; CHCM 33.2; Eosinophils # (A) 0.1 k/uL (0-0.7); Eosinophils % (A) 2 %; HCT 38.8 % (39.0-53.0); HDW 2.18; HGB 13.1 gm/dL (13.0-17.5); Luc # (Auto) 0.14; Luc % (Auto) 2; Lymphocytes # (A) 1.9 k/uL (1.0-4.8); Lymphocytes % (A) 25 %; MCH 27.8 pg (25.0-35.0); MCHC 33.8 g/dL (31.0-37.0); MCV 82.4 fL (80.0-100.0); Mean Platelet Volume 7.1; Monocytes # (A) 0.3 k/uL (0-1.0); Monocytes % (A) 4 %; Neutrophils % (A) 67 %; RBC 4.71 m/uL (4.30-5.90); RDW 14.3 % (11.5-15.5); WBC 7.5 k/uL (3.8-10.6); WBC (Perox) 7.43
[2017-04-15 12:16] LABS: ALT 41 U/L (21-72); AST 12 U/L (17-59); Alkaline Phosphatase 81 U/L (38-126); Anion Gap 8 mmol/L; Blood Urea Nitrogen 10 mg/dL (9-20); Calcium 8.8 mg/dL (8.4-10.2); Carbon Dioxide 23 mmol/L (22-30); Chloride 107 mmol/L (98-107); Glucose 93 mg/dL (74-99); Non-African American GFR(MDRD) >60 (>60 ml/min/1.73 sqM); Potassium 4.1 mmol/L (3.5-5.1); Sodium 138 mmol/L (137-145); Total Bilirubin 0.8 mg/dL (0.2-1.3); Total Protein 5.6 g/dL (6.3-8.2)
--- NOTE | 2017-04-15 16:04 | PN ---
CHIEF COMPLAINT: Pneumonitis and reactive airway disease. HISTORY OF PRESENT ILLNESS: This gentleman continues to improve. He is afebrile. PHYSICAL EXAM: He still has wheezing on inspiration and expiration. There are rales at the bases. Cardiac exam is normal. The abdomen is soft. IMPRESSION: 1. Pneumonitis. 2. Exacerbation of chronic obstructive pulmonary disease. PLAN: Continue on the same program until he is able to be discharged. DANY
--- NOTE | 2017-04-17 10:49 | DS ---
CHIEF COMPLAINT: Difficulty breathing, fever and chills. HISTORY OF PRESENT ILLNESS AND PHYSICAL EXAM: The details of this marichuy history and physical can be found in the initial workup. LABORATORY STUDIES: While he was in the hospital, he had laboratory studies, the details of which can be found in the laboratory section of his chart. COURSE IN HOSPITAL: After admission he was placed on bed rest and started on intravenous fluids, updrafts and antibiotics. He was improving and doing well and then he suddenly signed out AGAINST MEDICAL ADVICE on the . He was given no discharge prescriptions, instructions, follow up appointment, etc. FINAL DIAGNOSES: 1. Exacerbation of chronic obstructive pulmonary disease. 2. Reactive airway disease. 3. Bronchopneumonia. OPERATIONS: None. CONSULTATIONS: None. He is improved. DANY
--- NOTE | 2017-04-20 08:48 | CDI ---
In responding to this query, please exercise your independent professional judgment. The [facility] Coding Staff and Clinical Documentation Specialists appreciate your assistance in clarifying documentation, maintaining compliance with coding guidelines, accurately documenting patients condition and capturing severity of illness. The fact that a question is asked does not imply that any particular answer is desired or expected. Communication forms are a method of clarifying documentation and are not made part of the Legal Health Record. Thank you in advance for your clarification. Last Revision, December 2016 Jonathan Cuello [address] [facility] [place] [address] Documentation Clarification Form Date: 04/20/2017 8:37:00 AM From: Kamini Ramirez Admit Date: 04/14/2017 3:28:00 AM Patient Name: Pérez Lopez Visit Number: [id number] Discharge Date: 04/15/17 Dr. Dave Richards Documentation of sepsis per ED physician History/Risk Factors: Clinical Indicators: WBC/Left Shift: 7.7/60 Lactic acid: 2.2 Blood cultures: negative Vitals signs on admission: GA-112, RR-28, T-99.7, BP- 129/65 Antibiotics: IV Azactam, Levaquin IV Bolus: sodium chloride 0.9% 500 ml IV Q35M total of 1000ml In your professional opinion, please clarify if these findings signify one of the following conditions, if known: Sepsis, ruled out SIRS, without underlying infectious process Sepsis Severe Sepsis Septic Shock Unable to determine Other, please specify SIRS Criteria: 2 or more of the following may indicate SIRS Temperature < 96.8F(36C) or > 101.0F (38C) Heart Rate > 90 bpm Respiratory Rate > 20 breaths/min or PaCO2 < 32 mmHg White Blood Cell Count > 12,000 or < 4,000 cells/mm3 or > 10% bands Lactate >2.0 mmol/L (>4.0 is equivalent to septic shock) Please document addendum n your discharge summary in order to capture severity of illness and risk of mortality. Include clinical findings that support your diagnosis. FYI: Press F11 to launch patient chart. If you have a question about this query, please contact Hermelinda Davidson, Statistical Consultant, Jonathan Cuello at [phone] betweeen 8am and 5pm. DANY
== END 2017-04-15 14:14 | disposition left against medical advice (07) | DRG 190 ==
LOC: EC 00:34 → 4MS4W 03:28
PROVIDERS: ADMIT Family Medicine; ATTEND Family Medicine
DX: J44.0 Chronic obstructive pulmonary disease with (acute) lower respiratory infection (principal); J18.0 Bronchopneumonia, unspecified organism; J44.1 Chronic obstructive pulmonary disease with (acute) exacerbation; F17.200 Nicotine dependence, unspecified, uncomplicated; I25.10 Atherosclerotic heart disease of native coronary artery without angina pectoris; K21.9 Gastro-esophageal reflux disease without esophagitis; I25.2 Old myocardial infarction; F20.9 Schizophrenia, unspecified; F31.9 Bipolar disorder, unspecified; F41.9 Anxiety disorder, unspecified; G89.4 Chronic pain syndrome; Z79.899 Other long term (current) drug therapy; Z85.830 Personal history of malignant neoplasm of bone; Z90.49 Acquired absence of other specified parts of digestive tract; Z95.5 Presence of coronary angioplasty implant and graft; Z86.718 Personal history of other venous thrombosis and embolism; Z95.828 Presence of other vascular implants and grafts; Z87.11 Personal history of peptic ulcer disease; Z82.5 Family history of asthma and other chronic lower respiratory diseases; Z88.8 Allergy status to other drugs, medicaments and biological substances; Z91.041 Radiographic dye allergy status; Z88.0 Allergy status to penicillin; Z91.013 Allergy to seafood
CPT/HCPCS: 36415; 71020; 80053; 80320; 81003; 82550; 82553; 83605; 84484; 85025; 85610; 85730; 87040; 87086; 93005; 94640; 94760

== ENCOUNTER 2017-04-22 17:30 | Inpatient (IN) | payer MEDICAID, OTHER ==
[2017-04-22] MEDS ORDERED: MAG HYDROX/AL HYDROX/SIMETH 30 ML CUP PO PRN (21:06)
[2017-04-22] MEDS ORDERED: ZIPRASIDONE 20 MG VIAL IM PRN (21:06)
[2017-04-22] MEDS ORDERED: MAGNESIUM HYDROXIDE 2,400 MG/10 ML CUP PO PRN (21:06)
[2017-04-22] MEDS ORDERED: ALBUTEROL NEBULIZED 2.5 MG/3 ML INHALATION PRN (21:34)
[2017-04-22] MEDS ORDERED: IPRATROPIUM-ALBUTEROL 3 ML NEB INHALATION PRN (21:34)
[2017-04-22] MEDS ORDERED: DOXYCYCLINE 50 MG CAP PO SCH (21:45)
[2017-04-22 22:02] LABS: Basophils % (A) 1 %; CHCM 33.6; Eosinophils # (A) 0.2 k/uL (0-0.7); Eosinophils % (A) 3 %; HCT 39.7 % (39.0-53.0); HDW 2.24; HGB 13.2 gm/dL (13.0-17.5); Luc # (Auto) 0.13; Luc % (Auto) 3; Lymphocytes # (A) 1.5 k/uL (1.0-4.8); Lymphocytes % (A) 27 %; MCH 27.8 pg (25.0-35.0); MCHC 33.3 g/dL (31.0-37.0); MCV 83.6 fL (80.0-100.0); Mean Platelet Volume 7.4; Monocytes # (A) 0.2 k/uL (0-1.0); Monocytes % (A) 4 %; Neutrophils # (A) 3.4 k/uL (1.3-7.7); Neutrophils % (A) 63 %; RBC 4.74 m/uL (4.30-5.90); RDW 15.8 % (11.5-15.5); WBC 5.3 k/uL (3.8-10.6)
[2017-04-22 22:10] LABS: Anion Gap 7 mmol/L; Blood Urea Nitrogen 12 mg/dL (9-20); Carbon Dioxide 26 mmol/L (22-30); Chloride 104 mmol/L (98-107); Glucose 201 mg/dL (74-99); Non-African American GFR(MDRD) >60 (>60 ml/min/1.73 sqM); Potassium 3.9 mmol/L (3.5-5.1); Sodium 137 mmol/L (137-145)
[2017-04-22] MEDS: IPRATROPIUM-ALBUTEROL 3 ML NEB INHALATION SCH (22:15)
[2017-04-23 00:29] VITALS: BMI 28.9
--- NOTE | 2017-04-23 01:36 | ED ---
Psych HPI - General Chief Complaint: Psychiatric Symptoms Stated Complaint: SUICIDAL THOUGHTS Source: patient Mode of arrival: ambulatory - History of Present Illness Initial Comments: 46 her old male with past medical history of depression and multiple suicidal attempts presented for evaluation of suicidal ideations with plan. He states that he has been feeling this way for the last month but acutely worse today. He states he started to develop a plan today to [place] [address] [place] however he called the crisis management unit and they picked him up and brought him to the ER. He states that he sees a [facility] worker and that he is supposed to be on medications however he has been neglecting them for some time. He has multiple previous inpatient psych admissions the most recently being to [address] in October. Previous attempts include laying in front of vehicles, shooting himself, and cutting his wrists among others. He states his depression stems from dissatisfaction with his living situation. He denies any other attempts at hurting himself today including ingesting any medications or alcohol. He denies any homicidal ideations. - Related Data Home Medications Medication Instructions Recorded Confirmed Ipratropium-Albuterol Nebulize 3 ml INHALATION RT-QID PRN 02/08/17 04/22/17 [Duoneb 0.5 mg-3 mg/3 ml Soln] Fluticasone Nasal [place] [Flonase 2 spr EA NOSTRIL DAILY PRN 02/15/17 04/22/17 Nasal [place]] Albuterol Sulfate [Proair Hfa] 1 - 2 puff INHALATION RT-Q4H PRN 03/07/17 Allergies Allergy/AdvReac Type Severity Reaction Status Date / Time dicyclomine HCl [From Bentyl] Allergy Severe Anaphylaxis Verified 04/22/17 21:25 Iodinated Contrast- Oral and Allergy Severe Rash/Hives Verified 04/22/17 21:25 IV Dye prednisone Allergy Severe Anaphylaxis Verified 04/22/17 21:25 shellfish derived [Shellfish] Allergy Severe Rash/Hives Verified 04/22/17 21:25 Penicillins Allergy Unknown Unknown Verified 04/22/17 21:25 Childhood steroids Allergy Severe Anaphylaxis Uncoded 04/22/17 21:25 Review of Systems ROS Statement: Those systems with pertinent positive or pertinent negative responses have been documented in the HPI. ROS Other: All systems not noted in ROS Statement are negative. Constitutional: Denies: fever, chills Eyes: Denies: eye pain, eye discharge ENT: Denies: ear pain, throat pain Respiratory: Denies: cough, dyspnea Cardiovascular: Denies: chest pain, palpitations Endocrine: Denies: fatigue, polydipsia Gastrointestinal: Denies: abdominal pain, nausea, vomiting Genitourinary: Denies: urgency, dysuria Musculoskeletal: Denies: back pain, arthralgia, myalgia Skin: Denies: rash, lesions Neurological: Denies: headache, weakness Psychiatric: Reports: depression, suicidal thoughts. 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 Past Anesthesia/Blood Transfusion Reactions: No Reported Reaction Date of Last Stent Placement:: 2002 Smoking Status: Current every day smoker - Past Family History Mother Family Medical History: Asthma Father Family Medical History: Liver Disease, Renal Disease Additional Family Medical History / Comment(s): RENAL DISEASE General Exam Limitations: no limitations General appearance: alert, in no apparent distress Head exam: Present: atraumatic, normocephalic, normal inspection Eye exam: Present: normal appearance, PERRL, EOMI. Absent: scleral icterus, conjunctival injection, periorbital swelling ENT exam: Present: normal exam, mucous membranes moist Neck exam: Present: normal inspection. Absent: tenderness, meningismus, lymphadenopathy Respiratory exam: Present: normal lung sounds bilaterally. Absent: respiratory distress, wheezes, rales, rhonchi, stridor Cardiovascular Exam: Present: regular rate, normal rhythm, normal heart sounds. Absent: systolic murmur, diastolic murmur, rubs, gallop, clicks GI/Abdominal exam: Present: soft, normal bowel sounds. Absent: distended, tenderness, guarding, rebound, rigid Rectal exam: Present: deferred Extremities exam: Present: normal inspection, full ROM, normal capillary refill. Absent: tenderness, pedal edema, joint swelling, calf tenderness Back exam: Present: normal inspection Neurological exam: Present: alert, oriented X3, CN II-XII intact Psychiatric exam: Present: depressed, suicidal ideation. Absent: agitated, manic, homicidal ideation Skin exam: Present: warm, dry, intact, normal color. Absent: rash Course Vital Signs 04/22/17 04/22/17 17:41 20:27 Temperature 98.3 F 97.9 F Pulse Rate 94 62 Respiratory 16 18 Rate Blood Pressure 123/61 125/66 O2 Sat by Pulse 98 99 Oximetry Medical Decision Making - Medical Decision Making 46-year-old Afro-[place]ian male with past medical history of depression and multiple suicidal attempts presented for evaluation of suicidal ideations with plan to jump off the [address] [place] [address]. On physical examination the patient is resting comfortably on the cot in no apparent distress. He is very respectful and answers all questions appropriately. He denies homicidal ideations. There are no other complaints and physical exam reveals no significant abnormalities. Labs are obtained for medical clearance for the H evaluation and with a negative BAT and urine drug screen he was cleared for psych evaluation. The behavioral health team came to see him and he was accepted for admission to this facility. - Lab Data Result diagrams: 04/22/17 21:46 04/22/17 21:46 Lab Results 04/22/17 Range/Units 18:23 Urine Opiates Screen Not Detected (NotDetected) Ur Oxycodone Screen Not Detected (NotDetected) Urine Methadone Screen Not Detected (NotDetected) Ur Propoxyphene Screen Not Detected (NotDetected) Ur Barbiturates Screen Not Detected (NotDetected) U Tricyclic Antidepress Not Detected (NotDetected) Ur Phencyclidine Scrn Not Detected (NotDetected) Ur Amphetamines Screen Not Detected (NotDetected) U Methamphetamines Scrn Not Detected (NotDetected) U Benzodiazepines Scrn Not Detected (NotDetected) Urine Cocaine Screen Not Detected (NotDetected) U Marijuana (THC) Screen Not Detected (NotDetected) Disposition Clinical Impression: Depression, Suicidal ideations, Suicide risk Disposition: ADMITTED IP TO THIS HOSP Time of Disposition: 01:36
[2017-04-23] MEDS: IPRATROPIUM-ALBUTEROL 3 ML NEB INHALATION SCH ×5 (04:59→21:06)
--- NOTE | 2017-04-23 06:46 | XR ---
EXAMINATION TYPE: XR chest 1V portable DATE OF EXAM: 04/22/2017 HISTORY: wheezing. REFERENCE: Previous study dated 04/15/2017. FINDINGS: There is a MediPort in place via a right internal jugular approach. Its tip is at the cavoa trial junction. The lungs are clear. Pleural spaces are clear. The heart is not enlarged. IMPRESSION: NO ACUTE INTRATHORACIC ABNORMALITY.
[2017-04-23] MEDS ORDERED: NICOTINE 14MG/24HR PATCH TRANSDERM SCH (09:00)
[2017-04-23] MEDS: FLUTICASONE 50MCG/SPRAY NASAL 16GM EA NOSTRIL PRN (09:11)
[2017-04-23 09:26] LABS: Basophils % (A) 1 %; CH 28.1; CHCM 33.4; Eosinophils # (A) 0.2 k/uL (0-0.7); Eosinophils % (A) 3 %; HCT 41.5 % (39.0-53.0); HDW 2.19; HGB 13.4 gm/dL (13.0-17.5); Luc # (Auto) 0.06; Luc % (Auto) 1; Lymphocytes # (A) 0.7 k/uL (1.0-4.8); Lymphocytes % (A) 12 %; MCH 27.2 pg (25.0-35.0); MCHC 32.3 g/dL (31.0-37.0); MCV 84.3 fL (80.0-100.0); Mean Platelet Volume 7.4; Monocytes # (A) 0.2 k/uL (0-1.0); Monocytes % (A) 3 %; Neutrophils # (A) 4.6 k/uL (1.3-7.7); Neutrophils % (A) 80 %; RBC 4.92 m/uL (4.30-5.90); RDW 15.8 % (11.5-15.5); WBC 5.8 k/uL (3.8-10.6); WBC (Perox) 5.71
[2017-04-23 09:36] LABS: ALT 28 U/L (21-72); AST 15 U/L (17-59); Alkaline Phosphatase 91 U/L (38-126); Anion Gap 8 mmol/L; Blood Urea Nitrogen 9 mg/dL (9-20); Calcium 9.1 mg/dL (8.4-10.2); Carbon Dioxide 25 mmol/L (22-30); Chloride 107 mmol/L (98-107); Glucose 165 mg/dL (74-99); Non-African American GFR(MDRD) >60 (>60 ml/min/1.73 sqM); Potassium 3.7 mmol/L (3.5-5.1); Sodium 140 mmol/L (137-145); Total Bilirubin 1.1 mg/dL (0.2-1.3); Total Protein 5.8 g/dL (6.3-8.2)
[2017-04-23] MEDS: guaiFENesin SYRUP 100MG/5ML 200 MG/10 ML CUP PO PRN ×2 (10:03→18:27)
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
[2017-04-23] MEDS: LORazepam 1 MG TAB PO PRN (17:27)
[2017-04-23] MEDS: OLANZapine 10 MG TAB PO SCH (20:49)
--- NOTE | 2017-04-23 21:30 | CONS ---
PSYCH CONSULT: CHIEF COMPLAINT: Major depression. HISTORY OF PRESENT ILLNESS: This is another of many admissions for this 46-year- old male. He is in and out of the hospital all the time with various complaints including reactive airway disease, COPD, asthma, depression and analgesic abuse. He apparently presented with depression and was admitted to the psych floor. REVIEW OF SYSTEMS: He denies headaches or neurological problems. He does have shortness of breath and wheezing with cough. He has had no fevers or chills. He has had no history of heart disease. He has had no abdominal pain, vomiting, diarrhea, jaundice, etc. PAST MEDICAL HISTORY, FAMILY HISTORY, PERSONAL AND SOCIAL HISTORY: All otherwise unremarkable or noncontributory or unchanged. PHYSICAL EXAMINATION: Blood pressure is 132/88 with a pulse of 74, respiratory rate 40. He is afebrile. In general, he appeared to be overweight and shortness of breath. He was wheezing. Head, ears, eyes, nose, mouth and throat were normal and neck veins not distended. The thyroid was not enlarged. Chest demonstrates wheezes with rales and rhonchi throughout. Prolonged expiratory phase. Cardiac exam demonstrates tachycardia and the abdomen soft protuberant. Neurological he is intact. IMPRESSION: 1. Major depression. 2. Reactive airway disease. 3. Chronic obstructive pulmonary disease. 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 5. Analgesic abuse. RECOMMENDATIONS: None. MTDD
[2017-04-24] MEDS: IPRATROPIUM-ALBUTEROL 3 ML NEB INHALATION SCH ×5 (08:27→21:17)
[2017-04-24] MEDS: guaiFENesin SYRUP 100MG/5ML 200 MG/10 ML CUP PO PRN ×2 (09:01→17:12)
--- NOTE | 2017-04-24 09:16 | P.PN ---
Progress Note - Text Interval History: Patient is a 46-year-old male who is seen today, he reports that he is no longer having auditory hallucinations and is not having any suicidal ideation. He reports continuing to feel depressed with little appetite. He has been staying in his room he states because he is sick. Patient states his coughing is better with the addition of a cough suppressant yesterday area patient reports he is sleeping well and had no other concerns at this time. Patient states he tolerated the Zyprexa well last evening. Mental Status: Appearance/Attitude: Patient was dressed in a hospital gown and was lying in his room but was easily awakened, makes good eye contact and was cooperative. Behavior: Patient displayed no psychomotor agitation or retardation. Speech/Language: Patient's speech is spontaneous, of normal volume and rhythm and he is coherent. Thought Process: Patient was goal-directed and there is no evidence of loose associations or flight of ideas. Thought Content: Patient reports that he is no longer hearing voices telling him to hurt himself, denies visual hallucinations and no delusions or paranoid ideation were elicited. Patient reports that he continues to feel sick and has a decreased appetite. Patient was not coughing as much during this interview but continues to wheeze when breathing. Suicidal/Homicidal Ideation: Patient denies any current suicidal or homicidal ideation and states he is no longer hearing voices telling him to hurt himself or to go jump off a bridge. Sensorium/Cognition: Patient is alert and oriented to person, place, and time and his memory is grossly intact. Mood/Affect: Patient's mood remains depressed and his affect is blunted. Insight/Judgement: Patient's insight and judgment are fair. Assessment: patient is no longer feeling suicidal and reports no longer hearing auditory hallucinations telling him to hurt himself but he remains isolative in his room and states he feels sick referring to his breathing. Patient remains depressed and states his appetite is poor. Patient's coughing has decreased with the use of a cough suppressant but he continues to have wheezing. Patient' s glucose is elevated however these were not fasting glucose. Plan: Patient will continue on Zyprexa 10 mg at bedtime to target his psychotic symptoms and will continue to evaluate the need for an antidepressant. Patient was encouraged to attend groups and activities. Patient continues to require hospitalization to stabilize his mood and treat his psychotic symptoms. Should patient continue to report difficulty with his breathing will reconsult medicine.
[2017-04-24] MEDS: OLANZapine 10 MG TAB PO SCH (21:00)
[2017-04-25] MEDS: IPRATROPIUM-ALBUTEROL 3 ML NEB INHALATION SCH ×5 (04:31→20:23)
--- NOTE | 2017-04-25 09:52 | P.PN ---
Progress Note - Text Interval history: The patient is found in his room he follows me to an interview room. He was admitted over the weekend for acute suicidal ideation with a specific plan of jumping off of a bridge. He reported that this occurred in the context of experiencing auditory hallucinations directing self- harm. The patient reported he wasn't sleeping or eating appropriately. He states that he has been able to sleep at night it's documented he slept 7 hours last evening. He reports appetite is stable. He only selectively attended group. He was seen by Dr. Palacios and she placed him on Zyprexa 10 mg at bedtime. The patient indicates that his mood is improved he's not having any suicidal thoughts. He reports he is experiencing no hallucinations at this time. Mental status exam: The patient is an -L[place] male presenting his stated age. He is dressed in hospital gown. In the hallway he ambulates very slowly with short steps. He does remain seated calmly in his chair in the interview room. He is noted to have significant wheezing but this did seem to clear after some coughing effort. He initiates no conversation he answers questions briefly. He demonstrates no agitated behavior he demonstrates no verbal or physical aggressiveness. He reports feeling safe he endorses no suicidal ideation at this time. He is endorsing no auditory or visual hallucinations insight and judgment limited. He is oriented to person place month and year. Affect remains blunted. Plan: The patient's will continue on the Zyprexa 10 mg at bedtime. He will likely be appropriate for discharge in the next 1-2 days. I will confer with the treatment team regarding his progress over the weekend. We will encourage his participation in the milieu. Vital signs reviewed. He has been seen by his primary care physician regarding his pulmonary issues. Chest x-ray was negative for any acute process.
[2017-04-25] MEDS: ACETAMINOPHEN TAB 325 MG TAB PO PRN ×2 (14:37→21:13)
[2017-04-25] MEDS: LORazepam 1 MG TAB PO PRN (19:01)
[2017-04-25] MEDS: FLUTICASONE 50MCG/SPRAY NASAL 16GM EA NOSTRIL PRN (19:04)
[2017-04-25] MEDS: guaiFENesin SYRUP 100MG/5ML 200 MG/10 ML CUP PO PRN (19:26)
[2017-04-25] MEDS: OLANZapine 10 MG TAB PO SCH (21:15)
[2017-04-25] MEDS ORDERED: IBUPROFEN 600 MG TAB PO PRN (21:45)
[2017-04-26 07:01] VITALS: BP 82/48; RESP 12; TEMP 97.8
[2017-04-26] MEDS: IPRATROPIUM-ALBUTEROL 3 ML NEB INHALATION SCH ×2 (10:03→10:04)
[2017-04-26 10:37] VITALS: PULSE 84
--- NOTE | 2017-04-26 11:15 | P.DS ---
Providers Date of admission: 04/22/17 20:17 Expected date of discharge: 04/26/17 Attending physician: Mathew Patel Consults: 04/22/17 21:06 Consult Physician Routine Consulting Provider: Dave Richards Consult Reason/Comments: health and physical Do you want consulting provider notified?: Yes, Notify in am 04/24/17 09:29 Consult Physician Routine Consulting Provider: Joe Huertas Consult Reason/Comments: COPD exacerbation, treatment recommendations Do you want consulting provider notified?: Yes, Notify in am Primary care physician: Dave Richards - Discharge Diagnosis(es) (1) Schizophrenia Current Visit: Yes Status: Acute Priority: High Hospital Course: Brief summary of admission note: This patient is a 46-year - Pakistani male who was admitted with acute suicidal thoughts. He reported thoughts of jumping off of a bridge. The patient also endorsed auditory hallucinations. He reported not eating well or sleeping well. He had been off of an antipsychotic medication for quite some time. For full details please refer to the psychiatric evaluation dated 04/23/2017. Summary of hospital course: The patient was admitted to the mental health unit voluntarily. He was initially evaluated by Dr. Palacios. That psychiatric evaluation note was reviewed. He was started on Zyprexa 10 mg at bedtime. The patient was agreeable to using Zyprexa. He did not wish to pursue any injectable antipsychotic medication. I assumed care of the patient beginning yesterday. He is known to me from prior admissions to the mental health unit. The patient reported a quick resolution of auditory hallucinations and suicidal thoughts. This is typical for him in the hospital as he is able to get several needs met while here. He was seen by his primary care physician Dr. Richards for routine history and physical exam. The patient demonstrated no agitated behavior he participated in meals. He selectively attended groups. He is reporting no side effects or expresses any concerns related to the Zyprexa. He was offered an opportunity to have a support meeting but he declined. He plans to reside with his roommates whom he stayed with prior to this admission. He verbalizes a willingness to attend outpatient mental health care with [facility]. Mental status exam: The patient is an -Pakistani male appearing his stated age. He is dressed in hospital attire. He is interviewed in his room today. Eye contact is appropriate speech is fluent. He typically does not initiate spontaneous speech in conversation but did provide brief answers to questions asked. He reports no suicidal or homicidal ideation intent or plan. He is endorsing no auditory or visual hallucinations. He reports feeling safe and endorses no paranoid or persecutory thinking. He demonstrates no verbal or physical aggressiveness. Insight and judgment appear to have sufficiently improved allowing him to be discharged. He demonstrates no tangential thinking loose associations or flight of ideas. There are no observed abnormal involuntary movements. Impressions 1. Schizophrenia, documented history of alcohol use disorder, documented history of intellectual disability 2. Limited social support 3. Medical comorbidities including coronary artery disease, COPD, history of bone cancer, knee pain Plan: The patient will be discharged mental health unit today to return to his prior residence with his roommate. He will be scheduled to follow up with community mental health social work will verify that appointment. He will continue on Zyprexa 10 mg at bedtime. He may require further titration of this medication. He has noted a resolution of suicidal thoughts as well as any symptoms of psychosis. There is no imminent safety risk he is appropriate for transition back to outpatient care. He is encouraged to follow up with his primary care physician. Patient Condition at Discharge: Stable Plan - Discharge Summary New Discharge Prescriptions: New Ibuprofen [Motrin] 600 mg PO TID PRN tab PRN Reason: pain OLANZapine [ZyPREXA] 10 mg PO HS #30 tab Continue Ipratropium-Albuterol Nebulize [Duoneb 0.5 mg-3 mg/3 ml Soln] 3 ml INHALATION RT-QID PRN PRN Reason: Shortness Of Breath Fluticasone Nasal [place] [Flonase Nasal [place]] 2 spr EA NOSTRIL DAILY PRN PRN Reason: Nasal Congestion Albuterol Sulfate [Proair Hfa] 1 - 2 puff INHALATION RT-Q4H PRN PRN Reason: Shortness Of Breath Discharge Medication List Ipratropium-Albuterol Nebulize [Duoneb 0.5 mg-3 mg/3 ml Soln] 3 ml INHALATION RT -QID PRN 02/08/17 [History] Fluticasone Nasal [place] [Flonase Nasal [place]] 2 spr EA NOSTRIL DAILY PRN [History] Albuterol Sulfate [Proair Hfa] 1 - 2 puff INHALATION RT-Q4H PRN 03/07/17 [ History] Ibuprofen [Motrin] 600 mg PO TID PRN tab 04/26/17 [Rx] OLANZapine [ZyPREXA] 10 mg PO HS #30 tab 04/26/17 [Rx] Follow up Appointment(s)/Referral(s): Dave Richards MD [Primary Care Provider] - 1 Week
[2017-04-26 11:52] LABS: Appearance,Urine Clear (Clear); Bilirubin,Urine Negative (Negative); Glucose,Urine (UA) Negative (Negative); Ketones,Urine Negative (Negative); Leukocyte Esterase,Urine Small (Negative); Nitrite,Urine Negative (Negative); PH, Urine 5.5 (5.0-8.0); Particle Count 1074; Protein,Urine Negative (Negative); Specific Gravity,Urine 1.018 (1.001-1.035); UA Billing (MACRO vs. MICRO) MICRO; Urobilinogen,Urine <2.0 mg/dL (<2.0); WBC,Urine 2 /hpf (0-5)
--- NOTE | 2017-04-26 13:55 | P.CNPUL ---
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 History of depression secondary to his living situation. He presented here on 2016 to the emergency room with suicidal ideations and plans to jump off the [facility] [facility]. He did contact the crisis intervention unit who had the patient brought to the emergency room for the same. Does admit being off his home medication for quite some time. In regards to his moderate persistent chronic bronchial asthma he utilizes DuoNeb inhalations at home as well as pro-air rescue inhaler. He is seen today in consultation with complaints of shortness of breath, cough and congestion. He has not been able to tolerate prednisone in the past secondary to ALLERGIC response. He also states he has not been utilizing his inhalers in the outpatient setting. Currently he denies any worsening shortness of breath. He does have a faint end expiratory wheeze but states he is back to his baseline. The plan is for discharge home. Spent afebrile. Hemodynamically stable. Maintaining good O2 saturations in the 90s on room air. His chest x-ray revealed no acute pulmonary process. No leukocytosis. Review of Systems 14 point review of system was conducted. All negative other than as mentioned in HPI. This admission be mainly that of depression. Past Medical History Past Medical History: Asthma, Coronary Artery Disease (CAD), Cancer, Chest Pain / Angina, COPD, Deep Vein Thrombosis (DVT), GERD/Reflux, Myocardial Infarction ( [place]), Pneumonia, Respiratory Disorder Additional Past Medical History / Comment(s): Other HX: Chronic bronchial asthma with frequent hospitalizations, bone cancer/osteosarcoma, 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 Past Anesthesia/Blood Transfusion Reactions: No Reported Reaction Date of Last Stent Placement:: 2002 Smoking Status: Current every day smoker - Past Family History Mother Family Medical History: Asthma Father Family Medical History: Liver Disease, Renal Disease Additional Family Medical History / Comment(s): RENAL DISEASE Medications and Allergies Home Medications Medication Instructions Recorded Confirmed Type Ipratropium-Albuterol Nebulize 3 ml INHALATION RT-QID PRN 02/08/17 04/22/17 History [Duoneb 0.5 mg-3 mg/3 ml Soln] Fluticasone Nasal [place] [Flonase 2 spr EA NOSTRIL DAILY PRN 02/15/17 04/22/17 History Nasal [place]] Albuterol Sulfate [Proair Hfa] 1 - 2 puff INHALATION RT-Q4H PRN 03/07/17 History Allergies Allergy/AdvReac Type Severity Reaction Status Date / Time dicyclomine HCl [From Bentyl] Allergy Severe Anaphylaxis Verified 04/22/17 21:25 Iodinated Contrast- Oral and Allergy Severe Rash/Hives Verified 04/22/17 21:25 IV Dye prednisone Allergy Severe Anaphylaxis Verified 04/22/17 21:25 shellfish derived [Shellfish] Allergy Severe Rash/Hives Verified 04/22/17 21:25 Penicillins Allergy Unknown Unknown Verified 04/22/17 21:25 Childhood steroids Allergy Severe Anaphylaxis Uncoded 04/22/17 21:25 Physical Exam Vitals: Vital Signs Temp Pulse Pulse Pulse Resp BP BP 04/26/17 10:00 84 04/26/17 09:50 88 04/26/17 07:00 97.8 F 63 12 82/48 04/25/17 20:34 84 16 04/25/17 20:23 84 16 04/25/17 18:58 67 16 117/57 04/25/17 17:01 90 04/25/17 16:49 84 04/25/17 14:11 88 04/25/17 13:50 88 GENERAL EXAM: Alert, active, comfortable in no apparent distress. HEAD: Normocephalic. EYES: Normal reaction of pupils, equal size. NOSE: Clear with pink turbinates. THROAT: No erythema or exudates. NECK: No masses, no JVD. CHEST: No chest wall deformity. LUNGS: Equal air entry with faint end expiratory wheeze bilaterally. Diminished. CVS: S1 and S2 normal with no audible mumurs, regular rhythm. ABDOMEN: No hepatosplenomegaly, normal bowel sounds, no guarding or rigidity. SPINE: No scoliosis or deformity SKIN: No rashes CENTRAL NERVOUS SYSTEM: No focal deficits, tone is normal in all 4 extremities. Extremities: There is no significant peripheral edema. No clubbing. Peripheral pulses are intact. Results - Laboratory Findings CBC and BMP: 04/23/17 09:05 04/23/17 09:05 Abnormal lab findings: Abnormal Labs 04/22/17 04/22/17 04/23/17 21:46 21:46 09:05 RDW 15.8 H 15.8 H Lymphocytes # 0.7 L Glucose 201 H AST Total Protein Albumin Ur Leukocyte Esterase 04/23/17 04/26/17 09:05 11:35 RDW Lymphocytes # Glucose 165 H AST 15 L Total Protein 5.8 L Albumin 3.4 L Ur Leukocyte Esterase Small H - Diagnostic Findings Chest x-ray: image reviewed (No acute pulmonary process) Assessment and Plan Plan: Impression: #1 Depression with suicidal ideations. #2 Previous history of suicide attempts 5. #3 Moderate, persistent chronic bronchial asthma currently inactive and stable. #4 History of medication noncompliance. 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 #6 History of coronary artery disease. #7 History of DVT, status post IVC filter placement. #8 Chronic pain syndrome. Plan: The patient's case was reviewed and discussed with Dr. Singleton. We will continue with his bronchodilators including duo nebs for his home nebulized machine be used up to 4 times a day along with pro-air HFA. The patient states he is ALLERGIC to oral prednisone and to Pulmicort as well. He is educated regarding the importance of medication compliance. He is also educated regarding the importance of follow-up in a pulmonary office. He may be seen by Dr. Charles who we are covering for this week. He would benefit from a full pulmonary function testing and recommendations for his maintenance medications. He verbalizes understanding and is agreeable to a follow-up appointment. He is encouraged to call sooner with any recurrence of symptoms or other questions or concerns. Time with Patient: Greater than 30
== END 2017-04-26 13:45 | disposition home or self-care (01) | DRG 885 ==
LOC: EC 17:30 → 3MHU 20:17
PROVIDERS: ADMIT Psychiatry & Neurology Psychiatry; ATTEND Psychiatry & Neurology Psychiatry
DX: F20.9 Schizophrenia, unspecified (principal); R45.851 Suicidal ideations; J44.1 Chronic obstructive pulmonary disease with (acute) exacerbation; I25.10 Atherosclerotic heart disease of native coronary artery without angina pectoris; F79 Unspecified intellectual disabilities; T43.596A Underdosing of other antipsychotics and neuroleptics, initial encounter; T43.4X6A Underdosing of butyrophenone and thiothixene neuroleptics, initial encounter; J45.40 Moderate persistent asthma, uncomplicated; G47.00 Insomnia, unspecified; F55.8 Abuse of other non-psychoactive substances; R00.0 Tachycardia, unspecified; E66.3 Overweight; G89.4 Chronic pain syndrome; F32.9 Major depressive disorder, single episode, unspecified; M25.569 Pain in unspecified knee; I25.2 Old myocardial infarction; K21.9 Gastro-esophageal reflux disease without esophagitis; F17.210 Nicotine dependence, cigarettes, uncomplicated; Z82.5 Family history of asthma and other chronic lower respiratory diseases; Z85.830 Personal history of malignant neoplasm of bone; Z91.5 Personal history of self-harm; Z95.5 Presence of coronary angioplasty implant and graft; Z86.718 Personal history of other venous thrombosis and embolism; Z87.11 Personal history of peptic ulcer disease; Z90.49 Acquired absence of other specified parts of digestive tract; Z88.8 Allergy status to other drugs, medicaments and biological substances; Z87.01 Personal history of pneumonia (recurrent); Z91.041 Radiographic dye allergy status; Z88.0 Allergy status to penicillin; Z91.013 Allergy to seafood; Z79.51 Long term (current) use of inhaled steroids; Z91.19 Patient's noncompliance with other medical treatment and regimen; Z91.14 Patient's other noncompliance with medication regimen; Z83.79 Family history of other diseases of the digestive system; Z84.1 Family history of disorders of kidney and ureter; Z90.79 Acquired absence of other genital organ(s); Z63.8 Other specified problems related to primary support group; Z72.89 Other problems related to lifestyle; Z86.2 Personal history of diseases of the blood and blood-forming organs and certain disorders involving the immune mechanism
CPT/HCPCS: 71010; 80048; 80053; 80306; 81001; 82075; 84443; 85025; 94640; 99285

== ENCOUNTER 2017-04-26 15:58 | Emergency (ER) | payer OTHER ==
[2017-04-26 16:23] VITALS: BP 105/57; PULSE 106; RESP 20; TEMP 98
--- NOTE | 2017-04-26 16:52 | XR ---
EXAMINATION TYPE: XR knee complete RT DATE OF EXAM: 04/26/2017 COMPARISON: NONE HISTORY: TECHNIQUE: Four views are submitted. FINDINGS: Joint spaces are preserved. Osseous structures are intact. No acute fracture seen. There is a mode rate suprapatellar bursal fluid collection. IMPRESSION: 1. No acute fracture or dislocation. Moderate suprapatellar bursal fluid collection. If there is con cern for internal derangement of the knee correlate with MRI.
--- NOTE | 2017-04-26 17:00 | ED ---
Lower Extremity Injury HPI - General Chief Complaint: Extremity Injury, Lower Stated Complaint: R knee pain Time Seen by Provider: 04/26/17 16:24 Source: patient, RN notes reviewed Mode of arrival: wheelchair Limitations: no limitations - History of Present Illness Initial Comments: 46-year-old male presents emergency Department chief complaint right knee pain. Patient states that he started on felt a pop and fell on the ground. Patient states she's had pain states is very unbearable ambulate. Patient states that the pain is out of the usual is never had any like this in the past to his knee. Patient said no right knee problems and right knee surgeries. Patient does not have a current orthopedic doctor. Denies any change in color but states it is swollen - Related Data Home Medications Medication Instructions Recorded Confirmed Ipratropium-Albuterol Nebulize 3 ml INHALATION RT-QID PRN 02/08/17 04/26/17 [Duoneb 0.5 mg-3 mg/3 ml Soln] Fluticasone Nasal [place] [Flonase 2 spr EA NOSTRIL DAILY PRN 02/15/17 04/26/17 Nasal [place]] Albuterol Sulfate [Proair Hfa] 1 - 2 puff INHALATION RT-Q4H PRN 03/07/17 Previous Rx's Medication Instructions Recorded Ibuprofen [Motrin] 600 mg PO TID PRN tab 04/26/17 OLANZapine [ZyPREXA] 10 mg PO HS #30 tab 04/26/17 traMADol HCl [Ultram] 50 mg PO Q6H PRN #20 tab 04/26/17 Allergies Allergy/AdvReac Type Severity Reaction Status Date / Time dicyclomine HCl [From Bentyl] Allergy Severe Anaphylaxis Verified 04/26/17 16:39 Iodinated Contrast- Oral and Allergy Severe Rash/Hives Verified 04/26/17 16:39 IV Dye prednisone Allergy Severe Anaphylaxis Verified 04/26/17 16:39 shellfish derived [Shellfish] Allergy Severe Rash/Hives Verified 04/26/17 16:39 Penicillins Allergy Unknown Unknown Verified 04/26/17 16:39 Childhood steroids Allergy Severe Anaphylaxis Uncoded 04/26/17 16:23 Review of Systems ROS Statement: Those systems with pertinent positive or pertinent negative responses have been documented in the HPI. ROS Other: All systems not noted in ROS Statement are negative. Past Medical History Past Medical History: Asthma, Coronary Artery Disease (CAD), Cancer, Chest Pain / Angina, COPD, Deep Vein Thrombosis (DVT), GERD/Reflux, Myocardial Infarction ( [place]), Pneumonia, Respiratory Disorder Additional Past Medical History / Comment(s): Other HX: Chronic bronchial asthma with frequent hospitalizations, bone cancer/osteosarcoma, 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 Past Anesthesia/Blood Transfusion Reactions: No Reported Reaction Date of Last Stent Placement:: 2002 Past Psychological History: Anxiety, Bipolar, Depression, Schizophrenia Smoking Status: Current every day smoker - Past Family History Mother Family Medical History: Asthma Father Family Medical History: Liver Disease, Renal Disease Additional Family Medical History / Comment(s): RENAL DISEASE General Exam Limitations: no limitations General appearance: alert, in no apparent distress Head exam: Present: atraumatic, normocephalic, normal inspection Respiratory exam: Present: normal lung sounds bilaterally. Absent: respiratory distress, wheezes, rales, rhonchi, stridor Cardiovascular Exam: Present: regular rate, normal rhythm, normal heart sounds. Absent: systolic murmur, diastolic murmur, rubs, gallop, clicks Extremities exam: Present: other (Right knee there is moderate tenderness on the medial aspect with suprapatellar swelling noted, no warmth no discoloration or so thigh tenderness) Course Vital Signs 04/26/17 16:21 Temperature 98.0 F Pulse Rate 106 H Respiratory 20 Rate Blood Pressure 105/57 O2 Sat by Pulse 99 Oximetry Medical Decision Making - Medical Decision Making 46 show male presented for right knee pain. Patient has suprapatellar effusion on x-ray. Patient does have pain with range of motion. There is concern for possible ligamentous injury. Patient was placed in knee immobilizer, follow-up with orthopedics return parameters were discussed. Disposition Clinical Impression: Knee effusion, right, Right knee sprain Disposition: HOME SELF-CARE Condition: Stable Instructions: Knee Sprain (ED) Additional Instructions: Please return to the Emergency Department if symptoms worsen or any other concerns. Prescriptions: traMADol HCl [Ultram] 50 mg PO Q6H PRN #20 tab PRN Reason: Pain Referrals: Dave Richards MD [Primary Care Provider] - 1-2 days Thuan Reyes DO [Doctor of Osteopathic Medicine] - 1-2 days Time of Disposition: 17:00
== END 2017-04-26 17:14 | disposition home or self-care (01) ==
LOC: EC 15:58
DX: S83.91XA Sprain of unspecified site of right knee, initial encounter (principal); M25.461 Effusion, right knee; F17.200 Nicotine dependence, unspecified, uncomplicated; Z91.041 Radiographic dye allergy status; Z91.013 Allergy to seafood; Z88.0 Allergy status to penicillin; Z88.8 Allergy status to other drugs, medicaments and biological substances; W19.XXXA Unspecified fall, initial encounter
CPT/HCPCS: 73562; 99283; L1830

== ENCOUNTER 2017-04-29 13:55 | Emergency (ER) | payer OTHER ==
[2017-04-29] MEDS ORDERED: diphenhydrAMINE 50 MG CAP PO STA (14:15)
[2017-04-29] MEDS ORDERED: LEVALBUTEROL NEB 1.25 MG/3 ML AMP INHALATION STA (14:15)
[2017-04-29] MEDS ORDERED: HYDROcodone/APAP 5-325MG 1 EACH TAB PO STA (14:15)
[2017-04-29] MEDS ORDERED: IBUPROFEN 800 MG TAB PO STA (14:15)
--- NOTE | 2017-04-29 14:17 | ED ---
General Adult HPI - General Chief complaint: Shortness of Breath Stated complaint: SOB Time Seen by Provider: 04/29/17 14:04 Source: patient, RN notes reviewed, old records reviewed Mode of arrival: ambulatory Limitations: no limitations - History of Present Illness Initial comments: This is a 46-year-old out of the ER for evaluation of his asthma acting up. Cough congestion. Episodic fevers. Patient has severe history of asthma, chronic medical issues. Aching coming in with cough congestion shortness of breath. He stated to be degenerative home with mild no improvement. Denies current smoking. No chest pain. - Related Data Home Medications Medication Instructions Recorded Confirmed Albuterol Inhaler [Ventolin Hfa 1 - 2 puff INHALATION RT-QID PRN 04/30/17 Inhaler] Albuterol Nebulized [Ventolin 2.5 mg INHALATION RT-QID PRN 04/30/17 04/30/17 Nebulized] Fluticasone Nasal [place] [Flonase 2 spr EA NOSTRIL DAILY PRN 04/30/17 04/30/17 Nasal [place]] Ibuprofen [Motrin] 600 mg PO TID PRN 04/30/17 04/30/17 OLANZapine [ZyPREXA] 10 mg PO HS 04/30/17 04/30/17 Allergies Allergy/AdvReac Type Severity Reaction Status Date / Time dicyclomine HCl [From Bentyl] Allergy Severe Anaphylaxis Verified 04/30/17 15:10 Iodinated Contrast- Oral and Allergy Severe Rash/Hives Verified 04/30/17 15:10 IV Dye prednisone Allergy Severe Anaphylaxis Verified 04/30/17 15:10 shellfish derived [Shellfish] Allergy Severe Rash/Hives Verified 04/30/17 15:10 Penicillins Allergy Unknown Unknown Verified 04/30/17 15:10 Childhood steroids Allergy Severe Anaphylaxis Uncoded 04/30/17 15:10 Review of Systems ROS Statement: Those systems with pertinent positive or pertinent negative responses have been documented in the HPI. ROS Other: All systems not noted in ROS Statement are negative. Past Medical History Past Medical History: Asthma, Coronary Artery Disease (CAD), Cancer, Chest Pain / Angina, COPD, Deep Vein Thrombosis (DVT), GERD/Reflux, Myocardial Infarction ( [place]), Pneumonia, Respiratory Disorder Additional Past Medical History / Comment(s): Other HX: Chronic bronchial asthma with frequent hospitalizations, bone cancer/osteosarcoma, 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 Past Anesthesia/Blood Transfusion Reactions: No Reported Reaction Date of Last Stent Placement:: 2002 Past Psychological History: Anxiety, Bipolar, Depression, Schizophrenia Smoking Status: Current every day smoker - Past Family History Mother Family Medical History: Asthma Father Family Medical History: Liver Disease, Renal Disease Additional Family Medical History / Comment(s): RENAL DISEASE General Exam Limitations: no limitations General appearance: alert, in no apparent distress, anxious Head exam: Present: atraumatic, normocephalic, normal inspection Eye exam: Present: normal appearance, PERRL, EOMI. Absent: scleral icterus, conjunctival injection, periorbital swelling ENT exam: Present: normal exam, mucous membranes moist Neck exam: Present: normal inspection. Absent: tenderness, meningismus, lymphadenopathy Respiratory exam: Present: normal lung sounds bilaterally, wheezes, accessory muscle use, decreased breath sounds, prolonged expiratory. Absent: respiratory distress, rales, rhonchi, stridor Cardiovascular Exam: Present: normal rhythm, tachycardia, normal heart sounds. Absent: systolic murmur, diastolic murmur, rubs, gallop, clicks GI/Abdominal exam: Present: soft, normal bowel sounds. Absent: distended, tenderness, guarding, rebound, rigid Extremities exam: Present: normal inspection, full ROM, normal capillary refill. Absent: tenderness, pedal edema, joint swelling, calf tenderness Back exam: Present: normal inspection Neurological exam: Present: alert, oriented X3, CN II-XII intact Psychiatric exam: Present: normal affect, normal mood Skin exam: Present: warm, dry, intact, normal color. Absent: rash Course Vital Signs 04/29/17 04/29/17 04/29/17 13:56 14:24 14:32 Temperature 97.6 F Pulse Rate 117 H 95 95 Respiratory 20 16 16 Rate Blood Pressure 107/58 O2 Sat by Pulse 96 Oximetry 04/29/17 15:29 Temperature 98.7 F Pulse Rate 87 Respiratory 18 Rate Blood Pressure 135/65 O2 Sat by Pulse 98 Oximetry - Reevaluation(s) Reevaluation #1: Symptoms resolved, patient is in no acute distress Medical Decision Making - Medical Decision Making 46-year-old VF reverse her shortness of breath, history shunts of breath on emergency room. Patient's symptoms resolved upon treatment here in the emergency room. Patient will be discharged home - Radiology Data Radiology results: report reviewed (Chest x-ray is negative for acute disease), image reviewed Disposition Clinical Impression: COPD (chronic obstructive pulmonary disease), Acute exacerbation of COPD with asthma Disposition: HOME SELF-CARE Condition: Good Instructions: Asthma (ED), Acute Bronchitis (ED), Bronchospasm (ED) Referrals: Dave Richards MD [Primary Care Provider] - 1-2 days
--- NOTE | 2017-04-29 14:35 | XR ---
EXAMINATION TYPE: XR chest 2V DATE OF EXAM: 04/29/2017 COMPARISON: Prior chest x-ray 04/22/2017 HISTORY: Shortness of breath and pain TECHNIQUE: Frontal and lateral views of the chest are obtained. FINDINGS: Right jugular central venous catheter is present with the distal tip near the cavoatrial j unction. No evident pneumothorax or pleural effusion. Surgical clips are present in the left axilla a s on prior. I question some bronchial wall thickening. Cardiomediastinal silhouette, pulmonary vascul arity and jimbo are stable accounting for differences in technique. IMPRESSION: Correlate for reactive airways disease, bronchitis, follow-up as indicated.
[2017-04-29] MEDS: predniSONE 20 MG TAB PO STA ×2 (14:38→14:40)
[2017-04-29 15:29] VITALS: BP 135/65; PULSE 87; RESP 18; TEMP 98.7
== END 2017-04-29 15:29 | disposition home or self-care (01) ==
LOC: EC 13:55
DX: J44.1 Chronic obstructive pulmonary disease with (acute) exacerbation (principal); F17.200 Nicotine dependence, unspecified, uncomplicated; Z88.0 Allergy status to penicillin; Z88.8 Allergy status to other drugs, medicaments and biological substances; Z91.013 Allergy to seafood; Z91.041 Radiographic dye allergy status
CPT/HCPCS: 71020; 94640; 99285

== ENCOUNTER 2017-04-30 14:57 | Inpatient (IN) | payer OTHER ==
[2017-04-30] MEDS ORDERED: IPRATROPIUM-ALBUTEROL 3 ML NEB INHALATION STA ×2 (15:24→16:50)
[2017-04-30] MEDS ORDERED: MAGNESIUM SULFATE-D5W PMX 1 GM in DEXTROSE/WATER 1 100ML.BAG IVPB STA (15:24)
[2017-04-30] MEDS ORDERED: SODIUM CHLORIDE 0.9% 1,000 ML IV STA (15:24)
--- NOTE | 2017-04-30 15:27 | ED ---
SOB HPI - General Chief Complaint: Shortness of Breath Stated Complaint: SOB Time Seen by Provider: 04/30/17 15:16 Source: patient, EMS, RN notes reviewed Mode of arrival: EMS Limitations: no limitations - History of Present Illness Initial Comments: This is a 46-year-old male with a history of COPD who states she's had shortness of breath for the past 2 days. He's had a dry cough no overt fevers chills or sweats he does complain some left-sided chest pain with deep breathing. He was seen here yesterday and discharged after improvement states he get worse last night he did take 2 treatments at home without any resolution. His other complaints at this time MD Complaint: shortness of breath, cough - Related Data Home Medications Medication Instructions Recorded Confirmed Albuterol Inhaler [Ventolin Hfa 1 - 2 puff INHALATION RT-QID PRN 04/30/17 Inhaler] Albuterol Nebulized [Ventolin 2.5 mg INHALATION RT-QID PRN 04/30/17 04/30/17 Nebulized] Allergies Allergy/AdvReac Type Severity Reaction Status Date / Time dicyclomine HCl [From Bentyl] Allergy Severe Anaphylaxis Verified 04/30/17 15:10 Iodinated Contrast- Oral and Allergy Severe Rash/Hives Verified 04/30/17 15:10 IV Dye prednisone Allergy Severe Anaphylaxis Verified 04/30/17 15:10 shellfish derived [Shellfish] Allergy Severe Rash/Hives Verified 04/30/17 15:10 Penicillins Allergy Unknown Unknown Verified 04/30/17 15:10 Childhood steroids Allergy Severe Anaphylaxis Uncoded 04/30/17 15:10 Review of Systems ROS Statement: Those systems with pertinent positive or pertinent negative responses have been documented in the HPI. ROS Other: All systems not noted in ROS Statement are negative. 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 Past Anesthesia/Blood Transfusion Reactions: No Reported Reaction Date of Last Stent Placement:: 2002 Past Psychological History: Anxiety, Bipolar, Depression, Schizophrenia Smoking Status: Current every day smoker Past Alcohol Use History: Occasional Past Drug Use History: None Reported - Past Family History Mother Family Medical History: Asthma Father Family Medical History: Liver Disease, Renal Disease Additional Family Medical History / Comment(s): RENAL DISEASE General Exam - General Exam Comments Initial Comments: This is a well-developed well-nourished awake alert oriented 3 male he does demonstrate audible wheezing Limitations: no limitations General appearance: alert, anxious Head exam: Present: atraumatic, normocephalic, normal inspection Eye exam: Present: normal appearance, PERRL, EOMI. Absent: scleral icterus, conjunctival injection, periorbital swelling ENT exam: Present: mucous membranes dry Neck exam: Present: normal inspection. Absent: tenderness, meningismus, lymphadenopathy Respiratory exam: Present: wheezes, accessory muscle use, decreased breath sounds Cardiovascular Exam: Present: normal rhythm, tachycardia GI/Abdominal exam: Present: soft, normal bowel sounds. Absent: distended, tenderness, guarding, rebound, rigid Extremities exam: Present: normal inspection, full ROM, normal capillary refill. Absent: tenderness, pedal edema, joint swelling, calf tenderness Back exam: Present: normal inspection Neurological exam: Present: alert, oriented X3, CN II-XII intact Psychiatric exam: Present: normal affect, normal mood Skin exam: Present: warm, dry, intact, normal color. Absent: rash Course Vital Signs 04/30/17 04/30/17 04/30/17 15:05 15:20 15:23 Temperature 100.0 F H 100.1 F H Pulse Rate 109 H 105 H Respiratory 20 22 22 Rate Blood Pressure 124/75 129/85 O2 Sat by Pulse 98 98 Oximetry 04/30/17 04/30/17 04/30/17 15:33 15:44 16:53 Temperature Pulse Rate 101 H 92 85 Respiratory Rate Blood Pressure O2 Sat by Pulse Oximetry 04/30/17 04/30/17 04/30/17 17:06 17:16 18:13 Temperature Pulse Rate 83 90 99 Respiratory 22 20 Rate Blood Pressure 134/76 137/79 O2 Sat by Pulse 98 99 Oximetry - Reevaluation(s) Reevaluation #1: 04/30/17 18:17 I did reevaluate patient several occasions he still maintains difficulty breathing with diffuse wheezing in spite of aggressive treatment. Reevaluation #2: 04/30/17 18:18 Patient does state he can take steroids if he was given IV Benadryl along with it. Medical Decision Making - Medical Decision Making I did discuss the findings with the patient reevaluation reveals continued wheezing and decreased breath sounds. Patient will be admitted I did discuss case with Dr. Richards. - Lab Data Result diagrams: 04/30/17 15:40 04/30/17 15:40 Lab Results 04/30/17 04/30/17 04/30/17 Range/Units 15:40 15:40 15:40 WBC 8.3 (3.8-10.6) k/uL RBC 4.90 (4.30-5.90) m/uL Hgb 13.7 (13.0-17.5) gm/dL Hct 39.8 (39.0-53.0) % MCV 81.2 (80.0-100.0) fL MCH 27.9 (25.0-35.0) pg MCHC 34.4 (31.0-37.0) g/dL RDW 14.0 (11.5-15.5) % Plt Count 338 (150-450) k/uL Neutrophils % 71 % Lymphocytes % 19 % Monocytes % 6 % Eosinophils % 2 % Basophils % 1 % Neutrophils # 5.9 (1.3-7.7) k/uL Lymphocytes # 1.6 (1.0-4.8) k/uL Monocytes # 0.5 (0-1.0) k/uL Eosinophils # 0.1 (0-0.7) k/uL Basophils # 0.0 (0-0.2) k/uL PT (9.0-12.0) sec INR (<1.2) APTT (22.0-30.0) sec Sodium 140 (137-145) mmol/L Potassium 4.2 (3.5-5.1) mmol/L Chloride 106 (98-107) mmol/L Carbon Dioxide 25 (22-30) mmol/L Anion Gap 9 mmol/L BUN 9 (9-20) mg/dL Creatinine 1.11 (0.66-1.25) mg/dL Est GFR (MDRD) Af Amer >60 (>60 ml/min/1.73 sqM) Est GFR (MDRD) Non-Af >60 (>60 ml/min/1.73 sqM) Glucose 85 (74-99) mg/dL Calcium 9.3 (8.4-10.2) mg/dL Magnesium 2.1 (1.6-2.3) mg/dL Total Bilirubin 1.2 (0.2-1.3) mg/dL AST 20 (17-59) U/L ALT 35 (21-72) U/L Alkaline Phosphatase 106 (38-126) U/L Total Creatine Kinase 74 (55-170) U/L CK-MB (CK-2) 0.3 (0.0-2.4) ng/mL CK-MB (CK-2) Rel Index 0.4 Troponin I <0.012 (0.000-0.034) ng/mL NT-Pro-B Natriuret Pep pg/mL Total Protein 6.4 (6.3-8.2) g/dL Albumin 3.6 (3.5-5.0) g/dL 04/30/17 04/30/17 Range/Units 15:40 15:40 WBC (3.8-10.6) k/uL RBC (4.30-5.90) m/uL Hgb (13.0-17.5) gm/dL Hct (39.0-53.0) % MCV (80.0-100.0) fL MCH (25.0-35.0) pg MCHC (31.0-37.0) g/dL RDW (11.5-15.5) % Plt Count (150-450) k/uL Neutrophils % % Lymphocytes % % Monocytes % % Eosinophils % % Basophils % % Neutrophils # (1.3-7.7) k/uL Lymphocytes # (1.0-4.8) k/uL Monocytes # (0-1.0) k/uL Eosinophils # (0-0.7) k/uL Basophils # (0-0.2) k/uL PT 10.6 (9.0-12.0) sec INR 1.0 (<1.2) APTT 20.5 L (22.0-30.0) sec Sodium (137-145) mmol/L Potassium (3.5-5.1) mmol/L Chloride (98-107) mmol/L Carbon Dioxide (22-30) mmol/L Anion Gap mmol/L BUN (9-20) mg/dL Creatinine (0.66-1.25) mg/dL Est GFR (MDRD) Af Amer (>60 ml/min/1.73 sqM) Est GFR (MDRD) Non-Af (>60 ml/min/1.73 sqM) Glucose (74-99) mg/dL Calcium (8.4-10.2) mg/dL Magnesium (1.6-2.3) mg/dL Total Bilirubin (0.2-1.3) mg/dL AST (17-59) U/L ALT (21-72) U/L Alkaline Phosphatase (38-126) U/L Total Creatine Kinase (55-170) U/L CK-MB (CK-2) (0.0-2.4) ng/mL CK-MB (CK-2) Rel Index Troponin I (0.000-0.034) ng/mL NT-Pro-B Natriuret Pep 59 pg/mL Total Protein (6.3-8.2) g/dL Albumin (3.5-5.0) g/dL - EKG Data -: EKG Interpreted by Me EKG shows normal: sinus rhythm (Sinus tachycardia with a rate of 105. We'll 140 QRS duration 68 QT since QTC of 312/412 evidence a right atrial enlargement no acute ST-T wave changes.) - Radiology Data Radiology results: report reviewed (I did review the imaging no definite acute findings hours increased bronchial markings.), image reviewed Critical Care Time Critical Care Time: Yes Critical Care Time: 31 minutes of critical care time which includes initial presentation with history physical labs x-rays reevaluation the patient response to therapy. Discussed with the patient and with the attending physician. Admission orders and documentation the above. Review of old charting that was available. Disposition Clinical Impression: Acute exacerbation of COPD with asthma, Adult respiratory distress syndrome, Failure of outpatient treatment Disposition: ADMITTED IP TO THIS HOSP Condition: Stable Referrals: Dave Richards MD [Primary Care Provider] - 1-2 days
[2017-04-30 16:18] LABS: Basophils % (A) 1 %; CHCM 33.4; Eosinophils # (A) 0.1 k/uL (0-0.7); Eosinophils % (A) 2 %; HCT 39.8 % (39.0-53.0); HDW 2.33; HGB 13.7 gm/dL (13.0-17.5); Luc # (Auto) 0.17; Luc % (Auto) 2; Lymphocytes # (A) 1.6 k/uL (1.0-4.8); Lymphocytes % (A) 19 %; MCH 27.9 pg (25.0-35.0); MCHC 34.4 g/dL (31.0-37.0); MCV 81.2 fL (80.0-100.0); Mean Platelet Volume 7.1; Monocytes # (A) 0.5 k/uL (0-1.0); Monocytes % (A) 6 %; Neutrophils # (A) 5.9 k/uL (1.3-7.7); Neutrophils % (A) 71 %; WBC 8.3 k/uL (3.8-10.6); WBC (Perox) 8.51
[2017-04-30 16:27] LABS: Creatine Kinase 74 U/L (55-170)
[2017-04-30 16:28] LABS: Prothrombin Time 10.6 sec (9.0-12.0)
[2017-04-30 16:29] LABS: ALT 35 U/L (21-72); AST 20 U/L (17-59); Alkaline Phosphatase 106 U/L (38-126); Anion Gap 9 mmol/L; Blood Urea Nitrogen 9 mg/dL (9-20); Calcium 9.3 mg/dL (8.4-10.2); Carbon Dioxide 25 mmol/L (22-30); Chloride 106 mmol/L (98-107); Glucose 85 mg/dL (74-99); Magnesium 2.1 mg/dL (1.6-2.3); Non-African American GFR(MDRD) >60 (>60 ml/min/1.73 sqM); Potassium 4.2 mmol/L (3.5-5.1); Sodium 140 mmol/L (137-145); Total Bilirubin 1.2 mg/dL (0.2-1.3); Total Protein 6.4 g/dL (6.3-8.2)
[2017-04-30 16:35] LABS: Partial Thromboplastin Time 20.5 sec (22.0-30.0)
--- NOTE | 2017-04-30 16:38 | XR ---
EXAMINATION TYPE: XR chest 2V DATE OF EXAM: 04/30/2017 COMPARISON: 04/29/2017 HISTORY: 46-year-old male with difficulty in breathing and shortness of breath TECHNIQUE: PA and lateral views FINDINGS: Heart is normal size. Aorta within normal limits. There is interstitial prominence and peribronchial cuffing present. No consolidation or pleural effusion. Right anterior chest wall injection port with catheter tip in the right atrium. Subtle nodularity in the right lower lung representing nipple shado w. Status post left scapular resection. IMPRESSION: 1. Interstitial prominence and peribronchial cuffing suggests bronchitis or chronic asthma. 2. Subtle nodularity lower right lung suspected nipple shadow. Recommend short interval follow-up wit h the placement of nipple markers. 3. Status post left scapular resection.
[2017-04-30 16:40] LABS: Creatine Kinase MB 0.3 ng/mL (0.0-2.4); Troponin I <0.012 ng/mL (0.000-0.034)
[2017-04-30] MEDS ORDERED: diphenhydrAMINE 50 MG/ML 1 ML VIAL IVP STA (16:50)
[2017-04-30] MEDS ORDERED: methylPREDNISolone SOD SUCCI 125 MG/2 ML VIAL IV STA (16:50)
[2017-04-30 19:55] LABS: Glucose,Whole Blood 204 mg/dL (75-99)
[2017-04-30 20:01] VITALS: BMI 30.9
[2017-04-30] MEDS: IPRATROPIUM-ALBUTEROL 3 ML NEB INHALATION SCH ×2 (20:51→23:38)
[2017-04-30] MEDS ORDERED: KETOROLAC 30 MG/ML 1 ML VIAL IM PRN (21:43)
[2017-04-30] MEDS: guaiFENesin SYRUP 100MG/5ML 200 MG/10 ML CUP PO PRN (22:45)
[2017-04-30] MEDS: LEVOFLOXACIN 500 MG TAB PO SCH (22:46)
[2017-04-30] MEDS: SODIUM CHLORIDE 0.9% 1,000 ML IV SCH (22:48)
[2017-04-30] MEDS: diphenhydrAMINE 50 MG/ML 1 ML VIAL IVP SCH (23:12)
[2017-04-30] MEDS: methylPREDNISolone SOD SUCCI 125 MG/2 ML VIAL IV SCH (23:13)
[2017-05-01] MEDS: IPRATROPIUM-ALBUTEROL 3 ML NEB INHALATION SCH ×6 (04:10→22:46)
[2017-05-01] MEDS: guaiFENesin SYRUP 100MG/5ML 200 MG/10 ML CUP PO PRN ×3 (05:36→18:06)
[2017-05-01] MEDS: diphenhydrAMINE 50 MG/ML 1 ML VIAL IVP SCH ×3 (05:37→17:19)
[2017-05-01] MEDS: methylPREDNISolone SOD SUCCI 125 MG/2 ML VIAL IV SCH ×3 (05:37→17:38)
[2017-05-01 07:22] LABS: Glucose,Whole Blood 167 mg/dL (75-99)
[2017-05-01] MEDS: INSULIN LISPRO (humaLOG) 300 UNIT/3 ML VIAL SQ SCH ×4 (07:46→22:14)
[2017-05-01 12:14] LABS: Glucose,Whole Blood 194 mg/dL (75-99)
[2017-05-01 16:17] LABS: Glucose,Whole Blood 130 mg/dL (75-99)
[2017-05-01] MEDS: ETODOLAC 400 MG TAB PO PRN (17:19)
[2017-05-01] MEDS: LEVOFLOXACIN 500 MG TAB PO SCH (17:40)
[2017-05-01] MEDS: SODIUM CHLORIDE 0.9% 1,000 ML IV SCH (17:40)
[2017-05-01 20:42] LABS: Glucose,Whole Blood 178 mg/dL (75-99)
[2017-05-01 20:47] LABS: Hemoglobin A1C 6.1 % (4.2-6.1)
[2017-05-01] MEDS: CALCIUM CARBONATE 500 MG CHEWABLE PO PRN (22:13)
[2017-05-02] MEDS: diphenhydrAMINE 50 MG/ML 1 ML VIAL IVP SCH ×5 (00:02→23:32)
[2017-05-02] MEDS: methylPREDNISolone SOD SUCCI 125 MG/2 ML VIAL IV SCH ×5 (00:02→23:35)
[2017-05-02] MEDS: ETODOLAC 400 MG TAB PO PRN ×3 (00:03→16:29)
[2017-05-02] MEDS: guaiFENesin SYRUP 100MG/5ML 200 MG/10 ML CUP PO PRN ×3 (00:03→16:28)
[2017-05-02] MEDS: IPRATROPIUM-ALBUTEROL 3 ML NEB INHALATION SCH ×5 (05:30→20:42)
[2017-05-02 06:59] LABS: Glucose,Whole Blood 172 mg/dL (75-99)
[2017-05-02] MEDS: INSULIN LISPRO (humaLOG) 300 UNIT/3 ML VIAL SQ SCH ×4 (07:42→21:03)
[2017-05-02] MEDS: CALCIUM CARBONATE 500 MG CHEWABLE PO PRN ×2 (09:27→17:50)
[2017-05-02 11:26] LABS: Glucose,Whole Blood 162 mg/dL (75-99)
[2017-05-02 16:39] LABS: Glucose,Whole Blood 127 mg/dL (75-99)
[2017-05-02] MEDS: SODIUM CHLORIDE 0.9% 1,000 ML IV SCH (17:51)
[2017-05-02] MEDS: LEVOFLOXACIN 500 MG TAB PO SCH (19:38)
--- NOTE | 2017-05-02 20:17 | HP ---
DATE OF ADMISSION: 04/30/2017 CHIEF COMPLAINT: Difficulty breathing. HISTORY OF PRESENT ILLNESS: This is another of many admissions for this 46-year- old male. He came to the emergency room once again with complaints of difficulty breathing and reactive airway disease. REVIEW OF SYSTEMS: He has had no fever, chills and he has had no neurological problems. He has had no hemoptysis. He has had no chest pain, no abdominal pain, vomiting, etc. PAST MEDICAL HISTORY, FAMILY HISTORY, PERSONAL AND SOCIAL HISTORY: All otherwise unremarkable or unchanged. PHYSICAL EXAMINATION: Blood pressure is 141/92 with a pulse of 88, respiratory rate 37. He is afebrile. In general, he appeared to be obese and short of breath. He had audible inspiratory and expiratory wheezing. Head, ears, eyes , nose, mouth and throat were normal. Chest demonstrates poor breath sounds. Wheezing on inspiration and expiration. Occasional rales and rhonchi. Cardiac exam demonstrated sinus tachycardia. The abdomen is protuberant and soft and nontender. There is no visceromegaly or masses. Bowel sounds present. Extremities normal. Neurological intact. IMPRESSION: 1. Exacerbation of reactive airway disease. 2. Chronic obstructive pulmonary disease. PLAN: 1. Bed rest. 2. IV and inhaled steroids. 3. Updrafts. ZAMZAMD
--- NOTE | 2017-05-02 20:20 | PN ---
DATE OF SERVICE: 05/01/2017 CHIEF COMPLAINT: Exacerbation of COPD. HISTORY OF PRESENT ILLNESS: This gentleman is doing just about the same. He is still wheezing and tight. PHYSICAL EXAMINATION: He is afebrile. Breath sounds are poor. There are rhonchi and rales scattered throughout and wheezing on inspiration and expiration. He has sinus tachycardia. IMPRESSION: Exacerbation of chronic obstructive pulmonary disease. PLAN: No change in program. DANY
--- NOTE | 2017-05-02 20:36 | PN ---
DATE OF SERVICE: 05/02/17 CHIEF COMPLAINT: Status asthmaticus. HISTORY OF PRESENT ILLNESS: This gentleman is doing fairly well although his breathing is not improved. PHYSICAL EXAMINATION: He has wheezing on both sides with prolonged expiratory phase associated with rales and rhonchi. Cardiac exam is normal. IMPRESSION: Exacerbation of chronic obstructive pulmonary disease. PLAN: Continue on current program and look for improvement in the next 24 hours. DANY
[2017-05-02 21:12] LABS: Glucose,Whole Blood 119 mg/dL (75-99)
[2017-05-03] MEDS: IPRATROPIUM-ALBUTEROL 3 ML NEB INHALATION SCH ×7 (00:15→23:08)
[2017-05-03] MEDS: diphenhydrAMINE 50 MG/ML 1 ML VIAL IVP SCH ×4 (05:37→23:51)
[2017-05-03] MEDS: methylPREDNISolone SOD SUCCI 125 MG/2 ML VIAL IV SCH ×4 (05:38→23:52)
[2017-05-03] MEDS: guaiFENesin SYRUP 100MG/5ML 200 MG/10 ML CUP PO PRN ×3 (06:11→19:14)
[2017-05-03] MEDS: CALCIUM CARBONATE 500 MG CHEWABLE PO PRN ×3 (06:11→19:13)
[2017-05-03] MEDS: ETODOLAC 400 MG TAB PO PRN ×2 (07:10→15:19)
[2017-05-03 07:13] LABS: Glucose,Whole Blood 135 mg/dL (75-99)
[2017-05-03] MEDS: INSULIN LISPRO (humaLOG) 300 UNIT/3 ML VIAL SQ SCH ×4 (07:57→20:58)
[2017-05-03 11:31] LABS: Glucose,Whole Blood 112 mg/dL (75-99)
--- NOTE | 2017-05-03 13:16 | P.CON ---
Consult Note - . Consult date: 05/03/17 Assessment/Plan:: Patient Name: Pérez Lopez Date of : 70 Patient Status: Inpatient Attending Provider: Dave Richards [facility] chief complaint shortness of breath, cough and wheezing started 3-4 days ago, has been persistent decided to come into the emergency department - General Chief Complaint: Shortness of Breath Stated Complaint: SOB Time Seen by Provider: 04/30/17 15:16 Source: patient, EMS, RN notes reviewed Mode of arrival: EMS Limitations: no limitations - History of Present Illness Initial Comments: This is a 46-year-old male with a history of severe COPD who states she's had shortness of breath for the past 4-5 days days. He's had a dry cough no overt fevers chills or sweats he does complain some left-sided chest pain with deep breathing. He was seen at the emergency department one day prior to admission discharged after improvement states he get worse last night he did take 2 treatments at home without any resolution. His other complaints at this time, since admission has been having issues associated with chest tightness and he, patient has chronic issues with pain medications primary service has been adjusting his pain meds Home Medications Medication Instructions Recorded Confirmed Albuterol Inhaler [Ventolin Hfa 1 - 2 puff INHALATION RT-QID PRN 04/30/17 Inhaler] Albuterol Nebulized [Ventolin 2.5 mg INHALATION RT-QID PRN 04/30/17 04/30/17 Nebulized] Allergies Allergy/AdvReac Type Severity Reaction Status Date / Time dicyclomine HCl [From Bentyl] Allergy Severe Anaphylaxis Verified 04/30/17 15:10 Iodinated Contrast- Oral and Allergy Severe Rash/Hives Verified 04/30/17 15:10 IV Dye prednisone Allergy Severe Anaphylaxis Verified 04/30/17 15:10 shellfish derived [Shellfish] Allergy Severe Rash/Hives Verified 04/30/17 15:10 Penicillins Allergy Unknown Unknown Verified 04/30/17 15:10 Childhood steroids Allergy Severe Anaphylaxis Uncoded 04/30/17 15:10 Review of Systems ROS Statement: Those systems with pertinent positive or pertinent negative responses have been documented in the HPI. ROS Other: All systems not noted in ROS Statement are negative. 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 Past Anesthesia/Blood Transfusion Reactions: No Reported Reaction Date of Last Stent Placement:: 2002 Past Psychological History: Anxiety, Bipolar, Depression, Schizophrenia Smoking Status: Current every day smoker Past Alcohol Use History: Occasional Past Drug Use History: None Reported - Past Family History Mother Family Medical History: Asthma Father Family Medical History: Liver Disease, Renal Disease Additional Family Medical History / Comment(s): RENAL DISEASE General Exam - General Exam Comments Initial Comments: This is a well-developed well-nourished awake alert oriented 3 male he does demonstrate audible wheezing Limitations: no limitations General appearance: alert, anxious Head exam: Present: atraumatic, normocephalic, normal inspection Eye exam: Present: normal appearance, PERRL, EOMI. Absent: scleral icterus, conjunctival injection, periorbital swelling ENT exam: Present: mucous membranes dry Neck exam: Present: normal inspection. Absent: tenderness, meningismus, lymphadenopathy Respiratory exam: Present: wheezes, accessory muscle use, decreased breath sounds Cardiovascular Exam: Present: normal rhythm, tachycardia GI/Abdominal exam: Present: soft, normal bowel sounds. Absent: distended, tenderness, guarding, rebound, rigid Extremities exam: Present: normal inspection, full ROM, normal capillary refill. Absent: tenderness, pedal edema, joint swelling, calf tenderness Back exam: Present: normal inspection Neurological exam: Present: alert, oriented X3, CN II-XII intact Psychiatric exam: Present: normal affect, normal mood Skin exam: Present: warm, dry, intact, normal color. Absent: rash Course Vital Signs 04/30/17 04/30/17 04/30/17 15:05 15:20 15:23 Temperature 100.0 F H 100.1 F H Pulse Rate 109 H 105 H Respiratory 20 22 22 Rate Blood Pressure 124/75 129/85 O2 Sat by Pulse 98 98 Oximetry 04/30/17 04/30/17 04/30/17 15:33 15:44 16:53 Temperature Pulse Rate 101 H 92 85 Respiratory Rate Blood Pressure O2 Sat by Pulse Oximetry 04/30/17 04/30/17 04/30/17 17:06 17:16 18:13 Temperature Pulse Rate 83 90 99 Respiratory 22 20 Rate Blood Pressure 134/76 137/79 O2 Sat by Pulse 98 99 Oximetry Most recent vitals include on room air saturation is 91% respiratory rate in the teens heart rate 68, blood pressure 119/64 - Lab Data Result diagrams: 04/30/17 15:40 04/30/17 15:40 Lab Results 04/30/17 04/30/17 04/30/17 Range/Units 15:40 15:40 15:40 WBC 8.3 (3.8-10.6) k/uL RBC 4.90 (4.30-5.90) m/uL Hgb 13.7 (13.0-17.5) gm/dL Hct 39.8 (39.0-53.0) % MCV 81.2 (80.0-100.0) fL MCH 27.9 (25.0-35.0) pg MCHC 34.4 (31.0-37.0) g/dL RDW 14.0 (11.5-15.5) % Plt Count 338 (150-450) k/uL Neutrophils % 71 % Lymphocytes % 19 % Monocytes % 6 % Eosinophils % 2 % Basophils % 1 % Neutrophils # 5.9 (1.3-7.7) k/uL Lymphocytes # 1.6 (1.0-4.8) k/uL Monocytes # 0.5 (0-1.0) k/uL Eosinophils # 0.1 (0-0.7) k/uL Basophils # 0.0 (0-0.2) k/uL PT (9.0-12.0) sec INR (<1.2) APTT (22.0-30.0) sec Sodium 140 (137-145) mmol/L Potassium 4.2 (3.5-5.1) mmol/L Chloride 106 (98-107) mmol/L Carbon Dioxide 25 (22-30) mmol/L Anion Gap 9 mmol/L BUN 9 (9-20) mg/dL Creatinine 1.11 (0.66-1.25) mg/dL Est GFR (MDRD) Af Amer >60 (>60 ml/min/1.73 sqM) Est GFR (MDRD) Non-Af >60 (>60 ml/min/1.73 sqM) Glucose 85 (74-99) mg/dL Calcium 9.3 (8.4-10.2) mg/dL Magnesium 2.1 (1.6-2.3) mg/dL Total Bilirubin 1.2 (0.2-1.3) mg/dL AST 20 (17-59) U/L ALT 35 (21-72) U/L Alkaline Phosphatase 106 (38-126) U/L Total Creatine Kinase 74 (55-170) U/L CK-MB (CK-2) 0.3 (0.0-2.4) ng/mL CK-MB (CK-2) Rel Index 0.4 Troponin I <0.012 (0.000-0.034) ng/mL NT-Pro-B Natriuret Pep pg/mL Total Protein 6.4 (6.3-8.2) g/dL Albumin 3.6 (3.5-5.0) g/dL 04/30/17 04/30/17 Range/Units 15:40 15:40 WBC (3.8-10.6) k/uL RBC (4.30-5.90) m/uL Hgb (13.0-17.5) gm/dL Hct (39.0-53.0) % MCV (80.0-100.0) fL MCH (25.0-35.0) pg MCHC (31.0-37.0) g/dL RDW (11.5-15.5) % Plt Count (150-450) k/uL Neutrophils % % Lymphocytes % % Monocytes % % Eosinophils % % Basophils % % Neutrophils # (1.3-7.7) k/uL Lymphocytes # (1.0-4.8) k/uL Monocytes # (0-1.0) k/uL Eosinophils # (0-0.7) k/uL Basophils # (0-0.2) k/uL PT 10.6 (9.0-12.0) sec INR 1.0 (<1.2) APTT 20.5 L (22.0-30.0) sec Sodium (137-145) mmol/L Potassium (3.5-5.1) mmol/L Chloride (98-107) mmol/L Carbon Dioxide (22-30) mmol/L Anion Gap mmol/L BUN (9-20) mg/dL Creatinine (0.66-1.25) mg/dL Est GFR (MDRD) Af Amer (>60 ml/min/1.73 sqM) Est GFR (MDRD) Non-Af (>60 ml/min/1.73 sqM) Glucose (74-99) mg/dL Calcium (8.4-10.2) mg/dL Magnesium (1.6-2.3) mg/dL Total Bilirubin (0.2-1.3) mg/dL AST (17-59) U/L ALT (21-72) U/L Alkaline Phosphatase (38-126) U/L Total Creatine Kinase (55-170) U/L CK-MB (CK-2) (0.0-2.4) ng/mL CK-MB (CK-2) Rel Index Troponin I (0.000-0.034) ng/mL NT-Pro-B Natriuret Pep 59 pg/mL Total Protein (6.3-8.2) g/dL Albumin (3.5-5.0) g/dL - EKG Data EKG shows normal: sinus rhythm (Sinus tachycardia with a rate of 105. We'll 140 QRS duration 68 QT since QTC of 312/412 evidence a right atrial enlargement no acute ST-T wave changes.) - Radiology Data Radiology results: report reviewed, image reviewed, bilateral interstitial prominence was seen along with peribronchial thickening suggestive of bronchopneumonia note is made above nipple shadow Clinical Impression: Acute exacerbation of COPD with asthma, Adult respiratory distress syndrome, Failure of outpatient treatment Bilateral bronchopneumonia History of sarcoma Severe COPD emphysema and chronic persistent asthma of severe category Abnormal chest x-ray with a nodular appearance likely nipple shadow will repeat chest x-ray PN lateral view Overall plan is to continue and maintain patient on breathing treatments IV steroids and antibiotics will follow clinical course closely repeat chest x- ray. Pain management as per primary service
[2017-05-03 17:16] LABS: Glucose,Whole Blood 180 mg/dL (75-99)
[2017-05-03] MEDS: SODIUM CHLORIDE 0.9% 1,000 ML IV SCH (17:48)
[2017-05-03] MEDS: LEVOFLOXACIN 500 MG TAB PO SCH (19:13)
[2017-05-03 20:45] LABS: Glucose,Whole Blood 172 mg/dL (75-99)
[2017-05-04] MEDS: IPRATROPIUM-ALBUTEROL 3 ML NEB INHALATION SCH ×6 (03:41→23:25)
[2017-05-04] MEDS: diphenhydrAMINE 50 MG/ML 1 ML VIAL IVP SCH ×3 (06:07→17:41)
[2017-05-04] MEDS: methylPREDNISolone SOD SUCCI 125 MG/2 ML VIAL IV SCH ×3 (06:07→17:53)
[2017-05-04] MEDS: guaiFENesin SYRUP 100MG/5ML 200 MG/10 ML CUP PO PRN ×3 (06:07→17:41)
[2017-05-04] MEDS: CALCIUM CARBONATE 500 MG CHEWABLE PO PRN ×3 (06:30→17:41)
[2017-05-04 07:41] LABS: Glucose,Whole Blood 127 mg/dL (75-99)
[2017-05-04] MEDS: INSULIN LISPRO (humaLOG) 300 UNIT/3 ML VIAL SQ SCH ×4 (07:42→20:56)
[2017-05-04] MEDS: ETODOLAC 400 MG TAB PO PRN (09:30)
[2017-05-04 12:02] LABS: Glucose,Whole Blood 151 mg/dL (75-99)
--- NOTE | 2017-05-04 12:02 | P.PN ---
Subjective Interval history: This is a 46-year-old male with known severe COPD who came into the emergency room on 04/30/2017 with complaints of shortness of breath that had progressed over the last for 5 days the patient stated he was doing breathing treatments at home which were not helping. Today he is seen and examined and evaluated resting up in bed on the fifth floor. Patient has been not using oxygen today, stated his oxygen saturations have been above 90% on room air. He states he does have an occasional dry cough. Denies any sputum production today. Patient states that times he does feel his lungs are tight and wheezy. Objective - Vital Signs Vital signs: Vital Signs Temp 98.2 F 05/04/17 07:00 Pulse 71 05/04/17 11:15 Resp 18 05/04/17 07:12 BP 126/75 05/04/17 07:00 Pulse Ox 93 L 05/04/17 07:00 Intake & Output 05/03/17 05/04/17 05/04/17 18:59 06:59 18:59 Intake Total 820 80 240 Output Total 450 450 Balance 370 80 -210 Weight 81.647 kg 81.647 kg Intake: IV 80 Sodium Chloride 0.9% 1, 80 000 ml @ 20 mls/hr IV . Q24H PAULINO Rx#:[id number] Intake, IV Titration 140 Amount Sodium Chloride 0.9% 1, 140 000 ml @ 20 mls/hr IV . Q24H PAULINO Rx#:[id number] Oral 680 240 Output: Urine 450 450 Other: # Voids 1 1 1 - Exam GENERAL EXAM: Alert, active, comfortable in no apparent distress. HEAD: Normocephalic. EYES: Normal reaction of pupils, equal size. NOSE: Clear with pink turbinates. THROAT: No erythema or exudates. NECK: No masses, no JVD. CHEST: No chest wall deformity. LUNGS: Equal air entry with a wheezes scattered throughout. Bases diminished. CVS: S1 and S2 normal with no audible mumurs, regular rhythm. ABDOMEN: No hepatosplenomegaly, normal bowel sounds, no guarding or rigidity. EXTREMITIES: No edema noted, pedal pulses palpable. SKIN: No rashes CENTRAL NERVOUS SYSTEM: No focal deficits, tone is normal in all 4 extremities. - Labs CBC & Chem 7: 04/30/17 15:40 04/30/17 15:40 Labs: Abnormal Lab Results - Last 24 Hours (Table) 05/03/17 05/03/17 05/04/17 Range/Units 17:14 20:41 07:35 POC Glucose (mg/dL) 180 H 172 H 127 H (75-99) mg/dL Assessment and Plan Plan: Assessment Acute exacerbation of COPD Adult respiratory distress syndrome Failure of outpatient treatment Bilateral bronchial pneumonia History of sarcoma Severe COPD, emphysema Severe chronic persistent asthma Plan Medications have been reviewed and will be continued as ordered. Initiate and encourage incentive spirometer. Repeat chest x-ray tomorrow. Continue with pulmonary hygiene, coughing and deep breathing exercises, and supportive care. Supplemental oxygen to maintain oxygen saturations of 92% or better. Obtain sputum culture. Continue nebulizer treatments. GI and DVT prophylaxis. We will continue to monitor labs/results and adjust treatment as necessary. Further recommendations pending. I performed an examination of the patient and discussed their management with the nurse practitioner. I have reviewed the nurse practitioner's note and agree with the documented findings and plan of care.
[2017-05-04] MEDS: SODIUM CHLORIDE 0.9% 1,000 ML IV SCH (14:59)
[2017-05-04 17:32] LABS: Glucose,Whole Blood 188 mg/dL (75-99)
[2017-05-04 20:00] LABS: Glucose,Whole Blood 170 mg/dL (75-99)
[2017-05-04] MEDS: LEVOFLOXACIN 500 MG TAB PO SCH (20:55)
--- NOTE | 2017-05-04 22:40 | PN ---
DATE OF SERVICE: 05/03/2017 CHIEF COMPLAINT: Exacerbation of COPD. HISTORY OF PRESENT ILLNESS: This gentleman is still wheezing and is not significantly improved. PHYSICAL EXAM: He still has inspiratory and expiratory wheezing and sinus tachycardia. IMPRESSION: Exacerbation of chronic obstructive pulmonary disease. PLAN: Continue with steroids and updrafts. DANY
--- NOTE | 2017-05-04 22:51 | PN ---
DATE OF SERVICE: 05/04/2017 CHIEF COMPLAINT: Exacerbation of COPD. HISTORY OF PRESENT ILLNESS: This gentleman is still wheezing a great deal. He has not had any chest pain. His temperature has been normal. PHYSICAL EXAM: He continues to have bilateral wheezing on inspiration and expiration with a prolonged expiratory phase. He has sinus tachycardia. IMPRESSION: Exacerbation of chronic obstructive pulmonary disease. PLAN: Continue with current treatment plan. DANY
[2017-05-05] MEDS: diphenhydrAMINE 50 MG/ML 1 ML VIAL IVP SCH ×5 (00:29→23:13)
[2017-05-05] MEDS: methylPREDNISolone SOD SUCCI 125 MG/2 ML VIAL IV SCH ×5 (00:29→23:13)
[2017-05-05] MEDS: guaiFENesin SYRUP 100MG/5ML 200 MG/10 ML CUP PO PRN ×2 (00:30→06:14)
[2017-05-05] MEDS: IPRATROPIUM-ALBUTEROL 3 ML NEB INHALATION SCH ×5 (03:28→21:34)
[2017-05-05] MEDS: CALCIUM CARBONATE 500 MG CHEWABLE PO PRN ×2 (06:41→12:19)
[2017-05-05 06:55] LABS: Glucose,Whole Blood 109 mg/dL (75-99)
[2017-05-05] MEDS: INSULIN LISPRO (humaLOG) 300 UNIT/3 ML VIAL SQ SCH ×4 (07:35→21:04)
--- NOTE | 2017-05-05 07:41 | PN ---
CHIEF COMPLAINT: Exacerbation of COPD. HISTORY OF PRESENT ILLNESS: This gentleman is still wheezing a great deal. He has not had any chest pain. Temperature has been normal. PHYSICAL EXAM: He continues to have bilateral wheezing on inspiration and expiration with a prolonged expiratory phase. He has a sinus tachycardia. IMPRESSION: Exacerbation of chronic obstructive pulmonary disease. PLAN: Continue with current treatment plan. DANY
--- NOTE | 2017-05-05 07:54 | XR ---
EXAMINATION TYPE: XR chest 2V DATE OF EXAM: 05/05/2017 COMPARISON: Prior chest x-ray 04/30/2017 HISTORY: Shortness of breath TECHNIQUE: Frontal and lateral views of the chest are obtained. FINDINGS: There is no focal air space opacity or pneumothorax seen. Some thickening of the major fis sure suspected on the right. The cardiac silhouette size is within normal limits. Injection port is s table. There is mild prominence of interstitium. The osseous structures are stable, post left scapul ar resection. IMPRESSION: No significant interval change. There may be some minimal pleural fluid. Interstitial ch anges.
[2017-05-05 11:33] LABS: Glucose,Whole Blood 140 mg/dL (75-99)
[2017-05-05] MEDS ORDERED: IPRATROPIUM-ALBUTEROL 3 ML NEB INHALATION PRN (11:51)
--- NOTE | 2017-05-05 11:52 | P.PN ---
Subjective Interval history: 05/04/17- This is a 46-year-old male with known severe COPD who came into the emergency room on 04/30/2017 with complaints of shortness of breath that had progressed over the last for 5 days the patient stated he was doing breathing treatments at home which were not helping. Today he is seen and examined and evaluated resting up in bed on the fifth floor. Patient has been not using oxygen today, stated his oxygen saturations have been above 90% on room air. He states he does have an occasional dry cough. Denies any sputum production today. Patient states that times he does feel his lungs are tight and wheezy. 05/05/17 patient is being seen in evaluated and examined today on rounds. Patient states he feels significantly more weak today than yesterday. He continues to have shortness of breath with exertion. Currently his on 2 LPM supplemental oxygen via nasal cannula. Continues to have occasional dry cough. Chest x-ray from this morning showed no significant anterior will change. There may be some minimal pleural fluid. Patient states he feels more tight today with his breathing. He is afebrile, no further complaints. Objective - Vital Signs Vital signs: Vital Signs Temp 97.7 F 05/05/17 07:00 Pulse 72 05/05/17 11:29 Resp 16 05/05/17 07:00 BP 129/84 05/05/17 07:00 Pulse Ox 97 05/05/17 07:00 Intake & Output 05/04/17 05/05/17 05/05/17 18:59 06:59 18:59 Intake Total 830 360 Output Total 900 450 Balance -70 360 -450 Weight 81.647 kg 81.647 kg Intake: IV 140 240 Sodium Chloride 0.9% 1, 140 240 000 ml @ 20 mls/hr IV . Q24H PAULINO Rx#:[id number] Oral 690 120 Output: Urine 900 450 Other: Voiding Method Toilet # Voids 1 1 - Exam GENERAL EXAM: Alert, active, comfortable in no apparent distress. HEAD: Normocephalic. EYES: Normal reaction of pupils, equal size. NOSE: Clear with pink turbinates. THROAT: No erythema or exudates. NECK: No masses, no JVD. CHEST: No chest wall deformity. LUNGS: Equal air entry with a wheezes scattered throughout. Bases diminished. CVS: S1 and S2 normal with no audible mumurs, regular rhythm. ABDOMEN: No hepatosplenomegaly, normal bowel sounds, no guarding or rigidity. EXTREMITIES: No edema noted, pedal pulses palpable. SKIN: No rashes CENTRAL NERVOUS SYSTEM: No focal deficits, tone is normal in all 4 extremities. - Labs CBC & Chem 7: 04/30/17 15:40 04/30/17 15:40 Labs: Abnormal Lab Results - Last 24 Hours (Table) 05/04/17 05/04/17 05/04/17 Range/Units 11:51 17:12 19:59 POC Glucose (mg/dL) 151 H 188 H 170 H (75-99) mg/dL 05/05/17 05/05/17 Range/Units 06:53 11:31 POC Glucose (mg/dL) 109 H 140 H (75-99) mg/dL Assessment and Plan Plan: Assessment Acute exacerbation of COPD Adult respiratory distress syndrome Failure of outpatient treatment Bilateral bronchial pneumonia History of sarcoma Severe COPD, emphysema Severe chronic persistent asthma Plan Medications have been reviewed and will be continued as ordered. We will add budesonide to his current nebulizer treatments. Continue steroids at the same dose and can possibly decrease starting tomorrow. Initiate and encourage incentive spirometer. Repeat chest x-ray tomorrow. Continue with pulmonary hygiene, coughing and deep breathing exercises, and supportive care. Supplemental oxygen to maintain oxygen saturations of 92% or better. Obtain sputum culture. Continue nebulizer treatments. GI and DVT prophylaxis. We will continue to monitor labs/results and adjust treatment as necessary. Further recommendations pending. I performed an examination of the patient and discussed their management with the nurse practitioner. I have reviewed the nurse practitioner's note and agree with the documented findings and plan of care.
[2017-05-05] MEDS: SODIUM CHLORIDE 0.9% 1,000 ML IV SCH (15:06)
[2017-05-05 16:56] LABS: Glucose,Whole Blood 153 mg/dL (75-99)
[2017-05-05] MEDS: LEVOFLOXACIN 500 MG TAB PO SCH (20:28)
[2017-05-05 20:39] LABS: Glucose,Whole Blood 196 mg/dL (75-99)
[2017-05-05] MEDS: BUDESONIDE 0.5 MG/2 ML NEBU INHALATION SCH (21:34)
[2017-05-05] MEDS: ETODOLAC 400 MG TAB PO PRN (23:14)
[2017-05-06] MEDS: IPRATROPIUM-ALBUTEROL 3 ML NEB INHALATION SCH ×6 (00:27→19:59)
[2017-05-06] MEDS: methylPREDNISolone SOD SUCCI 125 MG/2 ML VIAL IV SCH ×3 (05:57→18:20)
[2017-05-06] MEDS: diphenhydrAMINE 50 MG/ML 1 ML VIAL IVP SCH ×3 (05:57→18:21)
[2017-05-06] MEDS: BUDESONIDE 0.5 MG/2 ML NEBU INHALATION SCH ×2 (07:23→19:59)
[2017-05-06 07:40] LABS: Glucose,Whole Blood 113 mg/dL (75-99)
[2017-05-06] MEDS: INSULIN LISPRO (humaLOG) 300 UNIT/3 ML VIAL SQ SCH ×4 (08:14→21:21)
[2017-05-06 12:03] LABS: Glucose,Whole Blood 119 mg/dL (75-99)
[2017-05-06] MEDS: guaiFENesin SYRUP 100MG/5ML 200 MG/10 ML CUP PO PRN (12:42)
[2017-05-06] MEDS: CALCIUM CARBONATE 500 MG CHEWABLE PO PRN (15:04)
--- NOTE | 2017-05-06 15:54 | P.PN ---
Subjective Principal diagnosis: Interval history: 05/04/17- This is a 46-year-old male with known severe COPD who came into the emergency room on 04/30/2017 with complaints of shortness of breath that had progressed over the last for 5 days the patient stated he was doing breathing treatments at home which were not helping. Today he is seen and examined and evaluated resting up in bed on the fifth floor. Patient has been not using oxygen today, stated his oxygen saturations have been above 90% on room air. He states he does have an occasional dry cough. Denies any sputum production today. Patient states that times he does feel his lungs are tight and wheezy. 05/05/17 patient is being seen in evaluated and examined today on rounds. Patient states he feels significantly more weak today than yesterday. He continues to have shortness of breath with exertion. Currently his on 2 LPM supplemental oxygen via nasal cannula. Continues to have occasional dry cough. Chest x-ray from this morning showed no significant anterior will change. There may be some minimal pleural fluid. Patient states he feels more tight today with his breathing. He is afebrile, no further complaints. Patient seen examined during the rounds clinically his shortness of breath and wheezing has improved his chest x-ray from yesterday is reviewed and remains on steroids breathing treatments tightness in the chest and soreness has improved as well Objective - Vital Signs Vital signs: Vital Signs Temp 98.2 F 05/06/17 07:00 Pulse 70 05/06/17 11:43 Resp 14 05/06/17 11:28 BP 116/67 05/06/17 07:00 Pulse Ox 95 05/06/17 07:00 Intake & Output 05/05/17 05/06/17 05/06/17 18:59 06:59 18:59 Intake Total 1090 400 Output Total 900 Balance 190 400 Weight 81.647 kg 81.647 kg Intake: IV 240 160 Sodium Chloride 0.9% 1, 240 160 000 ml @ 20 mls/hr IV . Q24H PAULINO Rx#:[id number] Oral 850 240 Output: Urine 900 Other: Voiding Method Toilet Toilet Toilet # Voids 2 2 - Exam GENERAL EXAM: Alert, active, comfortable in no apparent distress. HEAD: Normocephalic. EYES: Normal reaction of pupils, equal size. NOSE: Clear with pink turbinates. THROAT: No erythema or exudates. NECK: No masses, no JVD. CHEST: No chest wall deformity. LUNGS: Equal air entry with a wheezes scattered throughout. Bases diminished. CVS: S1 and S2 normal with no audible mumurs, regular rhythm. ABDOMEN: No hepatosplenomegaly, normal bowel sounds, no guarding or rigidity. EXTREMITIES: No edema noted, pedal pulses palpable. SKIN: No rashes CENTRAL NERVOUS SYSTEM: No focal deficits, tone is normal in all 4 extremities - Labs CBC & Chem 7: 04/30/17 15:40 04/30/17 15:40 Labs: Abnormal Lab Results - Last 24 Hours (Table) 05/05/17 05/05/17 05/06/17 Range/Units 16:55 20:38 07:31 POC Glucose (mg/dL) 153 H 196 H 113 H (75-99) mg/dL 05/06/17 Range/Units 11:59 POC Glucose (mg/dL) 119 H (75-99) mg/dL Assessment and Plan Plan: Acute exacerbation of COPD and acute asthma exacerbation, with baseline severe COPD and severe degree of chronic persistent asthma Adult respiratory distress syndrome Failure of outpatient treatment Bilateral bronchial pneumonia History of sarcoma Severe COPD, emphysema Severe chronic persistent asthma Plan Medications have been reviewed and will be continued as ordered. We will add budesonide to his current nebulizer treatments. Continue steroids at the same dose and can possibly decrease starting tomorrow. Initiate and encourage incentive spirometer. Repeat chest x-ray tomorrow. Continue with pulmonary hygiene, coughing and deep breathing exercises, and supportive care. Supplemental oxygen to maintain oxygen saturations of 92% or better. Obtain sputum culture. Continue nebulizer treatments. GI and DVT prophylaxis. We will continue to monitor labs/results and adjust treatment as necessary. Further recommendations pending. Will monitor rubs of closely likely will be discharged remained stable next 24 hours Time with Patient: Greater than 30
[2017-05-06] MEDS: ETODOLAC 400 MG TAB PO PRN (16:10)
[2017-05-06 17:44] LABS: Glucose,Whole Blood 207 mg/dL (75-99)
[2017-05-06] MEDS: LEVOFLOXACIN 500 MG TAB PO SCH (19:59)
[2017-05-06 20:14] LABS: Glucose,Whole Blood 230 mg/dL (75-99)
[2017-05-07] MEDS: methylPREDNISolone SOD SUCCI 125 MG/2 ML VIAL IV SCH ×2 (00:36→06:30)
[2017-05-07] MEDS: diphenhydrAMINE 50 MG/ML 1 ML VIAL IVP SCH ×4 (00:38→15:58)
[2017-05-07] MEDS: CALCIUM CARBONATE 500 MG CHEWABLE PO PRN ×2 (00:41→16:00)
[2017-05-07] MEDS: ETODOLAC 400 MG TAB PO PRN ×2 (00:42→16:58)
[2017-05-07] MEDS: SODIUM CHLORIDE 0.9% 1,000 ML IV SCH ×2 (06:26→15:56)
[2017-05-07 06:57] LABS: Basophils # (A) 0.2 k/uL (0-0.2); Basophils % (A) 1 %; CHCM 32.9; Eosinophils # (A) 0.1 k/uL (0-0.7); Eosinophils % (A) 0 %; HCT 41.9 % (39.0-53.0); HDW 2.25; Luc # (Auto) 0.18; Luc % (Auto) 1; Lymphocytes # (A) 1.1 k/uL (1.0-4.8); Lymphocytes % (A) 3 %; MCH 27.5 pg (25.0-35.0); MCHC 33.5 g/dL (31.0-37.0); MCV 82.3 fL (80.0-100.0); Mean Platelet Volume 7.1; Monocytes % (A) 3 %; Neutrophils # (A) 30.7 k/uL (1.3-7.7); Neutrophils % (A) 92 %; RBC 5.09 m/uL (4.30-5.90); RDW 14.1 % (11.5-15.5); WBC (Perox) 33.45
[2017-05-07 07:04] LABS: ALT 160 U/L (21-72); AST 62 U/L (17-59); Alkaline Phosphatase 71 U/L (38-126); Anion Gap 5 mmol/L; Blood Urea Nitrogen 23 mg/dL (9-20); Calcium 8.6 mg/dL (8.4-10.2); Carbon Dioxide 32 mmol/L (22-30); Chloride 105 mmol/L (98-107); Glucose 111 mg/dL (74-99); Non-African American GFR(MDRD) >60 (>60 ml/min/1.73 sqM); Potassium 4.5 mmol/L (3.5-5.1); Sodium 142 mmol/L (137-145); Total Bilirubin 0.3 mg/dL (0.2-1.3); Total Protein 5.2 g/dL (6.3-8.2)
[2017-05-07 07:05] LABS: WBC 33.4 k/uL (3.8-10.6)
[2017-05-07] MEDS: IPRATROPIUM-ALBUTEROL 3 ML NEB INHALATION SCH ×7 (07:30→23:12)
[2017-05-07] MEDS: BUDESONIDE 0.5 MG/2 ML NEBU INHALATION SCH ×2 (07:31→19:38)
[2017-05-07 07:56] LABS: Glucose,Whole Blood 111 mg/dL (75-99)
[2017-05-07] MEDS: INSULIN LISPRO (humaLOG) 300 UNIT/3 ML VIAL SQ SCH ×4 (08:25→19:59)
[2017-05-07 11:26] LABS: Glucose,Whole Blood 146 mg/dL (75-99)
--- NOTE | 2017-05-07 11:52 | P.PN ---
Subjective Interval history: 05/04/17- This is a 46-year-old male with known severe COPD who came into the emergency room on 04/30/2017 with complaints of shortness of breath that had progressed over the last for 5 days the patient stated he was doing breathing treatments at home which were not helping. Today he is seen and examined and evaluated resting up in bed on the fifth floor. Patient has been not using oxygen today, stated his oxygen saturations have been above 90% on room air. He states he does have an occasional dry cough. Denies any sputum production today. Patient states that times he does feel his lungs are tight and wheezy. 05/05/17 patient is being seen in evaluated and examined today on rounds. Patient states he feels significantly more weak today than yesterday. He continues to have shortness of breath with exertion. Currently his on 2 LPM supplemental oxygen via nasal cannula. Continues to have occasional dry cough. Chest x-ray from this morning showed no significant anterior will change. There may be some minimal pleural fluid. Patient states he feels more tight today with his breathing. He is afebrile, no further complaints. 05/06/17 Patient seen examined during the rounds clinically his shortness of breath and wheezing has improved his chest x-ray from yesterday is reviewed and remains on steroids breathing treatments tightness in the chest and soreness has improved as well 05/07/17- patient is being seen examined and evaluated today on rounds. He continues to have some shortness of breath on and off which is his baseline. All labs and reports have been reviewed. He was noted to have a critical white blood cell count of 33.1, no fevers or other complaints. This could very possibly be steroid induced, we will decrease his steroids and recheck his WBCs tomorrow. Upon examination he currently is using 2 L of supplemental oxygen via nasal cannula which he uses at home as well. Objective - Vital Signs Vital signs: Vital Signs Temp 98.1 F 05/07/17 07:00 Pulse 88 05/07/17 07:44 Resp 18 05/07/17 07:00 BP 148/71 05/07/17 07:00 Pulse Ox 95 05/07/17 07:00 Intake & Output 05/06/17 05/07/17 05/07/17 18:59 06:59 18:59 Intake Total 560 Balance 560 Weight 81.647 kg Intake: IV 160 Sodium Chloride 0.9% 1, 160 000 ml @ 20 mls/hr IV . Q24H [facility] Rx#:[id number] Intake, IV Titration 160 Amount Sodium Chloride 0.9% 1, 160 000 ml @ 20 mls/hr IV . Q24H [facility] Rx#:[id number] Oral 240 Other: Voiding Method Toilet Toilet Toilet # Voids 2 2 - Exam GENERAL EXAM: Alert, active, comfortable in no apparent distress. HEAD: Normocephalic. EYES: Normal reaction of pupils, equal size. NOSE: Clear with pink turbinates. THROAT: No erythema or exudates. NECK: No masses, no JVD. CHEST: No chest wall deformity. LUNGS: Equal air entry with a wheezes scattered throughout. Bases diminished. CVS: S1 and S2 normal with no audible mumurs, regular rhythm. ABDOMEN: No hepatosplenomegaly, normal bowel sounds, no guarding or rigidity. EXTREMITIES: No edema noted, pedal pulses palpable. SKIN: No rashes CENTRAL NERVOUS SYSTEM: No focal deficits, tone is normal in all 4 extremities. - Labs CBC & Chem 7: 05/07/17 06:35 05/07/17 06:35 Labs: Abnormal Lab Results - Last 24 Hours (Table) 05/06/17 05/06/17 05/06/17 Range/Units 11:59 17:39 20:12 WBC (3.8-10.6) k/uL Neutrophils # (1.3-7.7) k/uL Carbon Dioxide (22-30) mmol/L BUN (9-20) mg/dL Glucose (74-99) mg/dL POC Glucose (mg/dL) 119 H 207 H 230 H (75-99) mg/dL AST (17-59) U/L ALT (21-72) U/L Total Protein (6.3-8.2) g/dL Albumin (3.5-5.0) g/dL 05/07/17 05/07/17 05/07/17 Range/Units 06:35 06:35 07:19 WBC 33.4 H* (3.8-10.6) k/uL Neutrophils # 30.7 H (1.3-7.7) k/uL Carbon Dioxide 32 H (22-30) mmol/L BUN 23 H (9-20) mg/dL Glucose 111 H (74-99) mg/dL POC Glucose (mg/dL) 111 H (75-99) mg/dL AST 62 H (17-59) U/L ALT 160 H (21-72) U/L Total Protein 5.2 L (6.3-8.2) g/dL Albumin 2.8 L (3.5-5.0) g/dL 05/07/17 Range/Units 11:22 WBC (3.8-10.6) k/uL Neutrophils # (1.3-7.7) k/uL Carbon Dioxide (22-30) mmol/L BUN (9-20) mg/dL Glucose (74-99) mg/dL POC Glucose (mg/dL) 146 H (75-99) mg/dL AST (17-59) U/L ALT (21-72) U/L Total Protein (6.3-8.2) g/dL Albumin (3.5-5.0) g/dL Assessment and Plan Plan: Assessment Acute exacerbation of COPD Adult respiratory distress syndrome Failure of outpatient treatment Bilateral bronchial pneumonia History of sarcoma Severe COPD, emphysema Severe chronic persistent asthma Plan Medications have been reviewed and will be continued as ordered. We will decrease his steroids and recheck his labs tomorrow. Continue with budesonide to his current nebulizer treatments. Continue steroids at the same dose and can possibly decrease starting tomorrow. Initiate and encourage incentive spirometer. Continue with pulmonary hygiene, coughing and deep breathing exercises, and supportive care. Supplemental oxygen to maintain oxygen saturations of 92% or better. Obtain sputum culture. Continue nebulizer treatments. GI and DVT prophylaxis. We will continue to monitor labs/results and adjust treatment as necessary. Further recommendations pending. I performed an examination of the patient and discussed their management with the nurse practitioner. I have reviewed the nurse practitioner's note and agree with the documented findings and plan of care.
[2017-05-07] MEDS: methylPREDNISolone SOD SUCCI 40 MG/ML 1 ML VIAL IV SCH (15:58)
[2017-05-07 17:12] LABS: Glucose,Whole Blood 106 mg/dL (75-99)
[2017-05-07] MEDS: LEVOFLOXACIN 500 MG TAB PO SCH (19:26)
[2017-05-07 19:47] LABS: Glucose,Whole Blood 172 mg/dL (75-99)
[2017-05-08] MEDS: methylPREDNISolone SOD SUCCI 40 MG/ML 1 ML VIAL IV SCH ×3 (00:32→19:58)
[2017-05-08] MEDS: diphenhydrAMINE 50 MG/ML 1 ML VIAL IVP SCH ×4 (00:33→19:57)
[2017-05-08] MEDS: IPRATROPIUM-ALBUTEROL 3 ML NEB INHALATION SCH ×6 (06:03→23:32)
[2017-05-08 06:25] LABS: ALT 165 U/L (21-72); AST 52 U/L (17-59); Alkaline Phosphatase 72 U/L (38-126); Anion Gap 7 mmol/L; Blood Urea Nitrogen 26 mg/dL (9-20); Calcium 8.5 mg/dL (8.4-10.2); Carbon Dioxide 30 mmol/L (22-30); Chloride 103 mmol/L (98-107); Glucose 112 mg/dL (74-99); Non-African American GFR(MDRD) >60 (>60 ml/min/1.73 sqM); Potassium 4.7 mmol/L (3.5-5.1); Sodium 140 mmol/L (137-145); Total Bilirubin 0.3 mg/dL (0.2-1.3); Total Protein 5.2 g/dL (6.3-8.2)
[2017-05-08 06:38] LABS: CH 27.1; CHCM 32.8; HCT 41.8 % (39.0-53.0); HGB 13.8 gm/dL (13.0-17.5); MCH 27.3 pg (25.0-35.0); MCHC 32.9 g/dL (31.0-37.0); MCV 82.8 fL (80.0-100.0); Mean Platelet Volume 7.5; RBC 5.05 m/uL (4.30-5.90); RDW 14.4 % (11.5-15.5); WBC 32.1 k/uL (3.8-10.6); WBC (Perox) 33.89
[2017-05-08 07:01] LABS: Add Differential Manual Differential
[2017-05-08 07:02] LABS: Manual Review Performed; Nucleated Red Blood Cells 0 /100 WBC (0-0); Total Cells Counted 100
[2017-05-08] MEDS: BUDESONIDE 0.5 MG/2 ML NEBU INHALATION SCH ×2 (07:40→20:28)
[2017-05-08 08:05] LABS: Glucose,Whole Blood 106 mg/dL (75-99)
[2017-05-08] MEDS: INSULIN LISPRO (humaLOG) 300 UNIT/3 ML VIAL SQ SCH ×4 (09:00→19:58)
[2017-05-08 11:49] LABS: Glucose,Whole Blood 139 mg/dL (75-99)
--- NOTE | 2017-05-08 12:10 | P.PN ---
Subjective Interval history: 05/04/17- This is a 46-year-old male with known severe COPD who came into the emergency room on 04/30/2017 with complaints of shortness of breath that had progressed over the last for 5 days the patient stated he was doing breathing treatments at home which were not helping. Today he is seen and examined and evaluated resting up in bed on the fifth floor. Patient has been not using oxygen today, stated his oxygen saturations have been above 90% on room air. He states he does have an occasional dry cough. Denies any sputum production today. Patient states that times he does feel his lungs are tight and wheezy. 05/05/17 patient is being seen in evaluated and examined today on rounds. Patient states he feels significantly more weak today than yesterday. He continues to have shortness of breath with exertion. Currently his on 2 LPM supplemental oxygen via nasal cannula. Continues to have occasional dry cough. Chest x-ray from this morning showed no significant anterior will change. There may be some minimal pleural fluid. Patient states he feels more tight today with his breathing. He is afebrile, no further complaints. 05/06/17 Patient seen examined during the rounds clinically his shortness of breath and wheezing has improved his chest x-ray from yesterday is reviewed and remains on steroids breathing treatments tightness in the chest and soreness has improved as well 05/07/17- patient is being seen examined and evaluated today on rounds. He continues to have some shortness of breath on and off which is his baseline. All labs and reports have been reviewed. He was noted to have a critical white blood cell count of 33.1, no fevers or other complaints. This could very possibly be steroid induced, we will decrease his steroids and recheck his WBCs tomorrow. Upon examination he currently is using 2 L of supplemental oxygen via nasal cannula which he uses at home as well. 05/08/17- she has been seen examined and evaluated today on rounds. Patient's white blood cell count noted to be 32.1 today not much improvement after decreasing his steroids last few days. We will start empiric antibiotics at this time. All other labs and reports have also been reviewed. Upon examination patient's resting up in bed on supplemental oxygen he states he still feels significantly weak and not well, he feels he is not at his baseline yet. He is afebrile no overnight events. Objective - Vital Signs Vital signs: Vital Signs Temp 98.1 F 05/08/17 07:00 Pulse 83 05/08/17 11:38 Resp 18 05/08/17 07:00 BP 137/85 05/08/17 07:00 Pulse Ox 95 05/08/17 07:00 Intake & Output 05/07/17 05/08/17 05/08/17 18:59 06:59 18:59 Intake Total 560 Balance 560 Intake: IV 320 Sodium Chloride 0.9% 1, 320 000 ml @ 20 mls/hr IV . Q24H [facility] Rx#:[id number] Oral 240 Other: Voiding Method Toilet Toilet Toilet # Voids 3 2 - Exam GENERAL EXAM: Alert, active, comfortable in no apparent distress. HEAD: Normocephalic. EYES: Normal reaction of pupils, equal size. NOSE: Clear with pink turbinates. THROAT: No erythema or exudates. NECK: No masses, no JVD. CHEST: No chest wall deformity. LUNGS: Equal air entry with a wheezes scattered throughout. Bases diminished. CVS: S1 and S2 normal with no audible mumurs, regular rhythm. ABDOMEN: No hepatosplenomegaly, normal bowel sounds, no guarding or rigidity. EXTREMITIES: No edema noted, pedal pulses palpable. SKIN: No rashes CENTRAL NERVOUS SYSTEM: No focal deficits, tone is normal in all 4 extremities. - Labs CBC & Chem 7: 05/08/17 06:08 05/08/17 06:08 Labs: Abnormal Lab Results - Last 24 Hours (Table) 05/07/17 05/07/17 05/08/17 Range/Units 17:10 19:45 06:08 WBC 32.1 H* (3.8-10.6) k/uL Neutrophils # (Manual) 29.85 H (1.3-7.7) k/uL BUN (9-20) mg/dL Glucose (74-99) mg/dL POC Glucose (mg/dL) 106 H 172 H (75-99) mg/dL ALT (21-72) U/L Total Protein (6.3-8.2) g/dL Albumin (3.5-5.0) g/dL 05/08/17 05/08/17 05/08/17 Range/Units 06:08 07:08 11:18 WBC (3.8-10.6) k/uL Neutrophils # (Manual) (1.3-7.7) k/uL BUN 26 H (9-20) mg/dL Glucose 112 H (74-99) mg/dL POC Glucose (mg/dL) 106 H 139 H (75-99) mg/dL ALT 165 H (21-72) U/L Total Protein 5.2 L (6.3-8.2) g/dL Albumin 2.8 L (3.5-5.0) g/dL Assessment and Plan Plan: Assessment Acute exacerbation of COPD Adult respiratory distress syndrome Failure of outpatient treatment Bilateral bronchial pneumonia History of sarcoma Severe COPD, emphysema Severe chronic persistent asthma Acute on chronic hypoxic respiratory failure Plan Medications have been reviewed and will be continued as ordered. We will further decrease his steroids and recheck his labs tomorrow. Add empiric Levaquin for leukocytosis. Chest x-ray to be completed in the morning. Continue with budesonide to his current nebulizer treatments. Initiate and encourage incentive spirometer. Continue with pulmonary hygiene, coughing and deep breathing exercises, and supportive care. Supplemental oxygen to maintain oxygen saturations of 92% or better. Obtain sputum culture. Continue nebulizer treatments. GI and DVT prophylaxis. We will continue to monitor labs/ results and adjust treatment as necessary. Further recommendations pending. I performed an examination of the patient and discussed their management with the nurse practitioner. I have reviewed the nurse practitioner's note and agree with the documented findings and plan of care.
[2017-05-08] MEDS: ETODOLAC 400 MG TAB PO PRN (13:43)
[2017-05-08 17:39] LABS: Glucose,Whole Blood 94 mg/dL (75-99)
[2017-05-08] MEDS: SODIUM CHLORIDE 0.9% 1,000 ML IV SCH (18:23)
[2017-05-08 19:51] LABS: Glucose,Whole Blood 140 mg/dL (75-99)
[2017-05-08] MEDS ORDERED: LEVOFLOXACIN 500MG-D5W PMX 500 MG in DEXTROSE/WATER 1 100ML.BAG IVPB SCH (20:00)
[2017-05-08] MEDS: CALCIUM CARBONATE 500 MG CHEWABLE PO PRN (20:17)
[2017-05-08 21:08] VITALS: RESP 16
[2017-05-09 06:26] LABS: Basophils # (A) 0.4 k/uL (0-0.2); Basophils % (A) 1 %; CH 27.9; CHCM 33.2; Eosinophils # (A) 0.1 k/uL (0-0.7); Eosinophils % (A) 0 %; HCT 43.9 % (39.0-53.0); HDW 2.17; HGB 14.3 gm/dL (13.0-17.5); Luc # (Auto) 0.16; Luc % (Auto) 1; Lymphocytes # (A) 1.2 k/uL (1.0-4.8); Lymphocytes % (A) 4 %; MCH 27.4 pg (25.0-35.0); MCHC 32.5 g/dL (31.0-37.0); MCV 84.2 fL (80.0-100.0); Mean Platelet Volume 7.6; Monocytes # (A) 0.9 k/uL (0-1.0); Monocytes % (A) 3 %; Neutrophils # (A) 29.2 k/uL (1.3-7.7); Neutrophils % (A) 92 %; RBC 5.21 m/uL (4.30-5.90); RDW 15.5 % (11.5-15.5); WBC (Perox) 32.62
[2017-05-09 06:28] LABS: WBC 31.9 k/uL (3.8-10.6)
[2017-05-09 06:37] LABS: ALT 198 U/L (21-72); AST 55 U/L (17-59); Alkaline Phosphatase 73 U/L (38-126); Anion Gap 8 mmol/L; Blood Urea Nitrogen 29 mg/dL (9-20); Calcium 8.8 mg/dL (8.4-10.2); Carbon Dioxide 32 mmol/L (22-30); Chloride 99 mmol/L (98-107); Glucose 96 mg/dL (74-99); Non-African American GFR(MDRD) >60 (>60 ml/min/1.73 sqM); Potassium 4.8 mmol/L (3.5-5.1); Sodium 139 mmol/L (137-145); Total Bilirubin 0.4 mg/dL (0.2-1.3); Total Protein 5.5 g/dL (6.3-8.2)
[2017-05-09 06:52] LABS: Glucose,Whole Blood 97 mg/dL (75-99)
[2017-05-09] MEDS: IPRATROPIUM-ALBUTEROL 3 ML NEB INHALATION SCH ×3 (07:17→12:02)
[2017-05-09] MEDS: BUDESONIDE 0.5 MG/2 ML NEBU INHALATION SCH (07:18)
[2017-05-09] MEDS: INSULIN LISPRO (humaLOG) 300 UNIT/3 ML VIAL SQ SCH ×2 (07:35→12:42)
[2017-05-09 07:38] VITALS: BP 117/62; TEMP 98
[2017-05-09] MEDS: diphenhydrAMINE 50 MG/ML 1 ML VIAL IVP SCH (08:41)
[2017-05-09] MEDS: methylPREDNISolone SOD SUCCI 40 MG/ML 1 ML VIAL IV SCH (08:42)
--- NOTE | 2017-05-09 09:05 | XR ---
EXAMINATION TYPE: XR chest 2V DATE OF EXAM: 05/09/2017 COMPARISON: Prior chest x-ray 05/05/2017 HISTORY: Shortness of breath, asthma TECHNIQUE: Frontal and lateral views of the chest are obtained. FINDINGS: Some thickening present along the major and minor fissure. No evident pneumothorax. Right- sided Port-A-Cath is stable. Cardiac mediastinal silhouette, pulmonary vascularity and jimbo not signi ficantly changed. Patient is post left scapular resection. Bandlike area of increased density present in the lingula. IMPRESSION: Thickening of the fissures may be due to pleural fluid. There may be some basilar atelec tasis.
[2017-05-09] MEDS: ETODOLAC 400 MG TAB PO PRN (09:15)
--- NOTE | 2017-05-09 11:17 | P.PN ---
Subjective Interval history: 05/04/17- This is a 46-year-old male with known severe COPD who came into the emergency room on 04/30/2017 with complaints of shortness of breath that had progressed over the last for 5 days the patient stated he was doing breathing treatments at home which were not helping. Today he is seen and examined and evaluated resting up in bed on the fifth floor. Patient has been not using oxygen today, stated his oxygen saturations have been above 90% on room air. He states he does have an occasional dry cough. Denies any sputum production today. Patient states that times he does feel his lungs are tight and wheezy. 05/05/17 patient is being seen in evaluated and examined today on rounds. Patient states he feels significantly more weak today than yesterday. He continues to have shortness of breath with exertion. Currently his on 2 LPM supplemental oxygen via nasal cannula. Continues to have occasional dry cough. Chest x-ray from this morning showed no significant anterior will change. There may be some minimal pleural fluid. Patient states he feels more tight today with his breathing. He is afebrile, no further complaints. 05/06/17 Patient seen examined during the rounds clinically his shortness of breath and wheezing has improved his chest x-ray from yesterday is reviewed and remains on steroids breathing treatments tightness in the chest and soreness has improved as well 05/07/17- patient is being seen examined and evaluated today on rounds. He continues to have some shortness of breath on and off which is his baseline. All labs and reports have been reviewed. He was noted to have a critical white blood cell count of 33.1, no fevers or other complaints. This could very possibly be steroid induced, we will decrease his steroids and recheck his WBCs tomorrow. Upon examination he currently is using 2 L of supplemental oxygen via nasal cannula which he uses at home as well. 05/08/17- she has been seen examined and evaluated today on rounds. Patient's white blood cell count noted to be 32.1 today not much improvement after decreasing his steroids last few days. We will start empiric antibiotics at this time. All other labs and reports have also been reviewed. Upon examination patient's resting up in bed on supplemental oxygen he states he still feels significantly weak and not well, he feels he is not at his baseline yet. He is afebrile no overnight events. 05/09/17- patient is being seen examined and evaluated today on rounds. Patient' s white blood cell count noted to be 31.9. His steroids were again decreased yesterday. Continues on empiric antibiotics. He did have a chest x-ray this morning which did reveal thickening of the fissures and may be due to pleural fluid. There may be some basilar atelectasis. Patient's states his breathing seems somewhat stable today. Continues to have shortness of breath with exertion, however less severe today. Patient is known to be a slow recovery. Objective - Vital Signs Vital signs: Vital Signs Temp 98 F 05/09/17 07:00 Pulse 66 05/09/17 07:36 Resp 16 05/09/17 07:00 BP 117/62 05/09/17 07:00 Pulse Ox 96 05/09/17 07:21 Intake & Output 05/08/17 05/09/17 05/09/17 18:59 06:59 18:59 Intake Total 310 Balance 310 Intake: IV 210 Sodium Chloride 0.9% 1, 210 000 ml @ 20 mls/hr IV . Q24H [facility] Rx#:[id number] Intake, IV Titration 100 Amount Levofloxacin 500Mg-D5w 100 Pmx 500 mg In Dextrose/ Water 1 100ml.bag @ 100 mls/hr IVPB Q24H [facility] Rx#: [id number] Other: Voiding Method Toilet Toilet Toilet # Voids 3 1 - Exam GENERAL EXAM: Alert, active, comfortable in no apparent distress. HEAD: Normocephalic. EYES: Normal reaction of pupils, equal size. NOSE: Clear with pink turbinates. THROAT: No erythema or exudates. NECK: No masses, no JVD. CHEST: No chest wall deformity. LUNGS: Equal air entry with a wheezes scattered throughout. Bases diminished. CVS: S1 and S2 normal with no audible mumurs, regular rhythm. ABDOMEN: No hepatosplenomegaly, normal bowel sounds, no guarding or rigidity. EXTREMITIES: No edema noted, pedal pulses palpable. SKIN: No rashes CENTRAL NERVOUS SYSTEM: No focal deficits, tone is normal in all 4 extremities. - Labs CBC & Chem 7: 05/09/17 06:10 05/09/17 06:10 Labs: Abnormal Lab Results - Last 24 Hours (Table) 05/08/17 05/08/17 05/09/17 Range/Units 11:18 19:50 06:10 WBC 31.9 H* (3.8-10.6) k/uL Neutrophils # 29.2 H (1.3-7.7) k/uL Basophils # 0.4 H (0-0.2) k/uL Carbon Dioxide (22-30) mmol/L BUN (9-20) mg/dL POC Glucose (mg/dL) 139 H 140 H (75-99) mg/dL ALT (21-72) U/L Total Protein (6.3-8.2) g/dL Albumin (3.5-5.0) g/dL 05/09/17 Range/Units 06:10 WBC (3.8-10.6) k/uL Neutrophils # (1.3-7.7) k/uL Basophils # (0-0.2) k/uL Carbon Dioxide 32 H (22-30) mmol/L BUN 29 H (9-20) mg/dL POC Glucose (mg/dL) (75-99) mg/dL ALT 198 H (21-72) U/L Total Protein 5.5 L (6.3-8.2) g/dL Albumin 3.0 L (3.5-5.0) g/dL Assessment and Plan Plan: Assessment Acute exacerbation of COPD Adult respiratory distress syndrome Failure of outpatient treatment Bilateral bronchial pneumonia History of sarcoma Severe COPD, emphysema Severe chronic persistent asthma Acute on chronic hypoxic respiratory failure Plan Medications have been reviewed and will be continued as ordered. We will further decrease his steroids and recheck his labs tomorrow. empiric Levaquin for leukocytosis. Chest x-ray to be completed in the morning. Continue with budesonide to his current nebulizer treatments. Initiate and encourage incentive spirometer. Continue with pulmonary hygiene, coughing and deep breathing exercises, and supportive care. Supplemental oxygen to maintain oxygen saturations of 92% or better. Obtain sputum culture. Continue nebulizer treatments. GI and DVT prophylaxis. We will continue to monitor labs/ results and adjust treatment as necessary. Further recommendations pending. I performed an examination of the patient and discussed their management with the nurse practitioner. I have reviewed the nurse practitioner's note and agree with the documented findings and plan of care.
[2017-05-09 11:25] LABS: Glucose,Whole Blood 98 mg/dL (75-99)
[2017-05-09 12:19] VITALS: PULSE 68
--- NOTE | 2017-05-09 12:51 | DS ---
CHIEF COMPLAINT: Exacerbation of chronic obstructive pulmonary disease. HISTORY OF PRESENT ILLNESS/PHYSICAL EXAMINATION: Details of this marichuy history and physical examination can be found in the initial workup. LABORATORY STUDIES: While he was in the hospital, he had laboratory studies, the details of which can be found in the laboratory section of her chart. HOSPITAL COURSE: After admission, he was placed on bed rest, started on intravenous fluids and IV steroids as well as updraft steroids. His bronchospasms started to wax and wane as it usually does. We found he was clearing up and relatively clear compared to his usual state and it was felt that he could go home on the twenty first. He will go home on ( ) diet and will be on updrafts with Atrovent and Albuterol q.i.d., Medrol dose shae, ( ) 10 mg q.h.s. and he will be seen in the office in one day. FINAL DIAGNOSES: 1. Exacerbation of chronic obstructive pulmonary disease. 2. Reactive airway disease. 3. Schizophrenia. 4. Nicotine abuse. OPERATIONS: None. CONSULTATIONS: None. He was counseled in smoking cessation. He is improved. DANY
[2017-05-10] MEDS ORDERED: LEVOFLOXACIN 500 MG TAB PO SCH (20:00)
== END 2017-05-09 13:40 | disposition home or self-care (01) | DRG 190 ==
LOC: EC 14:57 → 5MS5E 18:19
PROVIDERS: ADMIT Family Medicine; ATTEND Family Medicine
DX: J44.1 Chronic obstructive pulmonary disease with (acute) exacerbation (principal); J18.0 Bronchopneumonia, unspecified organism; J96.21 Acute and chronic respiratory failure with hypoxia; J45.51 Severe persistent asthma with (acute) exacerbation; F20.9 Schizophrenia, unspecified; K21.9 Gastro-esophageal reflux disease without esophagitis; J44.0 Chronic obstructive pulmonary disease with (acute) lower respiratory infection; T38.0X5A Adverse effect of glucocorticoids and synthetic analogues, initial encounter; I25.2 Old myocardial infarction; G89.4 Chronic pain syndrome; I25.10 Atherosclerotic heart disease of native coronary artery without angina pectoris; D72.829 Elevated white blood cell count, unspecified; F41.9 Anxiety disorder, unspecified; F32.9 Major depressive disorder, single episode, unspecified; R53.1 Weakness; E66.9 Obesity, unspecified; R00.0 Tachycardia, unspecified; F17.200 Nicotine dependence, unspecified, uncomplicated; Z88.8 Allergy status to other drugs, medicaments and biological substances; Z87.01 Personal history of pneumonia (recurrent); Z87.11 Personal history of peptic ulcer disease; Z82.5 Family history of asthma and other chronic lower respiratory diseases; Z86.718 Personal history of other venous thrombosis and embolism; Z91.041 Radiographic dye allergy status; Z71.6 Tobacco abuse counseling; Z71.3 Dietary counseling and surveillance; Z88.0 Allergy status to penicillin; Z91.013 Allergy to seafood; Z90.49 Acquired absence of other specified parts of digestive tract; Z90.79 Acquired absence of other genital organ(s); Z85.830 Personal history of malignant neoplasm of bone; Z95.5 Presence of coronary angioplasty implant and graft; Z84.1 Family history of disorders of kidney and ureter; Z83.79 Family history of other diseases of the digestive system; Z79.899 Other long term (current) drug therapy; Z86.2 Personal history of diseases of the blood and blood-forming organs and certain disorders involving the immune mechanism; Z95.828 Presence of other vascular implants and grafts
CPT/HCPCS: 36415; 71020; 80053; 82550; 82553; 83036; 83735; 83880; 84484; 85025; 85610; 85730; 93005; 94640; 94760; 96361; 96374; 96375; 99291

== ENCOUNTER 2017-05-17 16:49 | Inpatient (IN) | payer OTHER ==
[2017-05-17] MEDS ORDERED: LEVOFLOXACIN 750MG-D5W PMX 750 MG in DEXTROSE/WATER 1 150ML.BAG IVPB STA (18:53)
[2017-05-17] MEDS ORDERED: SODIUM CHLORIDE 0.9% 1,000 ML IV STA ×2 (18:53)
[2017-05-17] MEDS ORDERED: methylPREDNISolone SOD SUCCI 125 MG/2 ML VIAL IV STA (18:53)
[2017-05-17] MEDS ORDERED: IPRATROPIUM-ALBUTEROL 3 ML NEB INHALATION STA ×2 (18:53→20:23)
[2017-05-17] MEDS ORDERED: diphenhydrAMINE 50 MG/ML 1 ML VIAL IVP STA (18:54)
[2017-05-17] MEDS ORDERED: ACETAMINOPHEN TAB 500 MG TAB PO STA (18:59)
[2017-05-17] MEDS ORDERED: KETOROLAC 30 MG/ML 1 ML VIAL IVP STA (18:59)
--- NOTE | 2017-05-17 18:59 | ED ---
SOB HPI - General Chief Complaint: Shortness of Breath Stated Complaint: JULIETTE Time Seen by Provider: 05/17/17 18:48 Source: patient Mode of arrival: ambulatory Limitations: no limitations - History of Present Illness Initial Comments: This 46-year-old Afro-[place] male presents with a complaint of some shortness of breath. It is been present over the last 2 days. He's had a cough which is been nonproductive in nature. He tried 3 albuterol breathing treatments prior to arrival without any relief. He's had occasional chest tightness. He's felt feverish at home as well. He has a long history of COPD as well as asthma. He denies any leg pain or swelling or history of DVT or PE. No other complaints or modifying factors. - Related Data Home Medications Medication Instructions Recorded Confirmed Albuterol Inhaler [Ventolin Hfa 1 - 2 puff INHALATION RT-QID PRN 04/30/17 Inhaler] OLANZapine [ZyPREXA] 10 mg PO HS 04/30/17 05/17/17 Albuterol Nebulized [Ventolin 2.5 mg INHALATION RT-QID PRN 05/17/17 05/17/17 Nebulized] Allergies Allergy/AdvReac Type Severity Reaction Status Date / Time dicyclomine HCl [From Bentyl] Allergy Severe Anaphylaxis Verified 04/30/17 15:10 Iodinated Contrast- Oral and Allergy Severe Rash/Hives Verified 04/30/17 15:10 IV Dye prednisone Allergy Severe Anaphylaxis Verified 04/30/17 15:10 shellfish derived [Shellfish] Allergy Severe Rash/Hives Verified 04/30/17 15:10 Penicillins Allergy Unknown Unknown Verified 04/30/17 15:10 Childhood steroids Allergy Severe Anaphylaxis Uncoded 04/30/17 15:10 Review of Systems ROS Statement: Those systems with pertinent positive or pertinent negative responses have been documented in the HPI. ROS Other: All systems not noted in ROS Statement are negative. 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 Past Anesthesia/Blood Transfusion Reactions: No Reported Reaction Date of Last Stent Placement:: 2002 Past Psychological History: Anxiety, Bipolar, Depression, Schizophrenia Smoking Status: Current every day smoker Past Alcohol Use History: None Reported Past Drug Use History: None Reported - Past Family History Mother Family Medical History: Asthma Father Family Medical History: Liver Disease, Renal Disease Additional Family Medical History / Comment(s): RENAL DISEASE General Exam - General Exam Comments Initial Comments: GENERAL: The patient is well nourished and well hydrated. VITAL SIGNS: Heart rate, blood pressure, respiratory rate reviewed as recorded in nurse's notes. EYES: Pupils are round and reactive. Extraocular movements are intact. No conjunctival / lid redness or swelling. ENT: No external evidence of injury, swelling, or ecchymosis. Airway is patent. Throat is clear. NECK: Nontender. No swelling or evidence of injury. No subcutaneous emphysema. Trachea is midline. No thyroid mass. HEART: Regular rate and rhythm. Good peripheral pulses. LUNGS/CHEST: Wheezing is noted to bilateral chest. No ecchymosis, subcutaneous emphysema, or tenderness. ABDOMEN: Abdomen soft without tenderness. No palpable masses or organomegaly. No peritoneal signs. No abdominal wall swelling or ecchymosis. EXTREMITIES: No extremity tenderness. Normal muscle tone and function. No thoracolumbar tenderness. NEUROLOGIC: Sensation is grossly intact. Cranial nerve exam reveals face is symmetrical, tongue is midline, speech is clear. SKIN: No abrasions or ecchymosis is noted. No induration or masses noted. PSYCHIATRIC: Alert and oriented. Appropriate behavior and judgment. Limitations: no limitations Course Vital Signs 05/17/17 05/17/17 05/17/17 17:11 19:15 19:23 Temperature 101 F H Pulse Rate 116 H 116 H 114 H Respiratory 24 Rate Blood Pressure 136/60 O2 Sat by Pulse 98 Oximetry 05/17/17 05/17/17 05/17/17 19:29 20:34 20:36 Temperature Pulse Rate 112 H 96 95 Respiratory 28 H Rate Blood Pressure 107/68 O2 Sat by Pulse 100 Oximetry 05/17/17 20:41 Temperature Pulse Rate 90 Respiratory Rate Blood Pressure O2 Sat by Pulse Oximetry Medical Decision Making - Medical Decision Making The patient is seen and examined. An IV is established and he is hydrated. He receives IV Solu-Medrol which she's had in the past without any problems. He just states that he needs Benadryl when he receives it due to his ALLERGIES. He also receives 50 mg of Benadryl IV. He receives a double DuoNeb breathing treatment as well as some Levaquin. The EKG shows a normal sinus rhythm at a rate of [address]-T wave changes noted. The MA interval is 144, QRS duration is 72 and the QTc interval is 432. Chest x-ray does not show any acute processes. Laboratory is fairly unremarkable. Overall, it is felt as though he likely does have an exacerbation of his asthma as well as COPD with a bronchitis. He received a total of 4 breathing treatments and is still having significant wheezing and tachypnea. Is felt as though he would require admission for further inpatient treatment. He is agreeable. Case will be discussed with internal medicine. - Lab Data Result diagrams: 05/17/17 19:00 05/17/17 19:00 Lab Results 05/17/17 05/17/17 05/17/17 Range/Units 19:00 19:00 19:00 WBC 8.1 (3.8-10.6) k/uL RBC 4.96 (4.30-5.90) m/uL Hgb 13.7 (13.0-17.5) gm/dL Hct 40.3 (39.0-53.0) % MCV 81.3 (80.0-100.0) fL MCH 27.7 (25.0-35.0) pg MCHC 34.1 (31.0-37.0) g/dL RDW 15.3 (11.5-15.5) % Plt Count 195 (150-450) k/uL Neutrophils % 60 % Lymphocytes % 31 % Monocytes % 5 % Eosinophils % 2 % Basophils % 0 % Neutrophils # 4.9 (1.3-7.7) k/uL Lymphocytes # 2.5 (1.0-4.8) k/uL Monocytes # 0.4 (0-1.0) k/uL Eosinophils # 0.2 (0-0.7) k/uL Basophils # 0.0 (0-0.2) k/uL PT (9.0-12.0) sec INR (<1.2) APTT (22.0-30.0) sec Sodium 138 (137-145) mmol/L Potassium 4.4 (3.5-5.1) mmol/L Chloride 107 (98-107) mmol/L Carbon Dioxide 23 (22-30) mmol/L Anion Gap 8 mmol/L BUN 16 (9-20) mg/dL Creatinine 0.90 (0.66-1.25) mg/dL Est GFR (MDRD) Af Amer >60 (>60 ml/min/1.73 sqM) Est GFR (MDRD) Non-Af >60 (>60 ml/min/1.73 sqM) Glucose 86 (74-99) mg/dL Plasma Lactic Acid Krishan (0.7-2.0) mmol/L Calcium 8.6 (8.4-10.2) mg/dL Total Bilirubin 0.5 (0.2-1.3) mg/dL AST 37 (17-59) U/L ALT 94 H (21-72) U/L Alkaline Phosphatase 91 (38-126) U/L Total Creatine Kinase 38 L (55-170) U/L CK-MB (CK-2) 0.5 (0.0-2.4) ng/mL CK-MB (CK-2) Rel Index 1.3 Troponin I <0.012 (0.000-0.034) ng/mL Total Protein 6.0 L (6.3-8.2) g/dL Albumin 3.4 L (3.5-5.0) g/dL 05/17/17 05/17/17 Range/Units 19:00 19:00 WBC (3.8-10.6) k/uL RBC (4.30-5.90) m/uL Hgb (13.0-17.5) gm/dL Hct (39.0-53.0) % MCV (80.0-100.0) fL MCH (25.0-35.0) pg MCHC (31.0-37.0) g/dL RDW (11.5-15.5) % Plt Count (150-450) k/uL Neutrophils % % Lymphocytes % % Monocytes % % Eosinophils % % Basophils % % Neutrophils # (1.3-7.7) k/uL Lymphocytes # (1.0-4.8) k/uL Monocytes # (0-1.0) k/uL Eosinophils # (0-0.7) k/uL Basophils # (0-0.2) k/uL PT 10.1 (9.0-12.0) sec INR 1.0 (<1.2) APTT 24.3 (22.0-30.0) sec Sodium (137-145) mmol/L Potassium (3.5-5.1) mmol/L Chloride (98-107) mmol/L Carbon Dioxide (22-30) mmol/L Anion Gap mmol/L BUN (9-20) mg/dL Creatinine (0.66-1.25) mg/dL Est GFR (MDRD) Af Amer (>60 ml/min/1.73 sqM) Est GFR (MDRD) Non-Af (>60 ml/min/1.73 sqM) Glucose (74-99) mg/dL Plasma Lactic Acid Krishan 1.0 (0.7-2.0) mmol/L Calcium (8.4-10.2) mg/dL Total Bilirubin (0.2-1.3) mg/dL AST (17-59) U/L ALT (21-72) U/L Alkaline Phosphatase (38-126) U/L Total Creatine Kinase (55-170) U/L CK-MB (CK-2) (0.0-2.4) ng/mL CK-MB (CK-2) Rel Index Troponin I (0.000-0.034) ng/mL Total Protein (6.3-8.2) g/dL Albumin (3.5-5.0) g/dL Disposition Clinical Impression: Asthma exacerbation, COPD exacerbation, Fever, Bronchitis, Tobacco abuse Disposition: ADMITTED IP TO THIS [facility] Condition: Fair Time of Disposition: 20:50 Decision Date: 05/17/17 Decision Time: 20:51
[2017-05-17 19:23] LABS: Basophils % (A) 0 %; CH 26.8; Eosinophils # (A) 0.2 k/uL (0-0.7); Eosinophils % (A) 2 %; HCT 40.3 % (39.0-53.0); HDW 2.26; HGB 13.7 gm/dL (13.0-17.5); Luc # (Auto) 0.18; Luc % (Auto) 2; Lymphocytes # (A) 2.5 k/uL (1.0-4.8); Lymphocytes % (A) 31 %; MCH 27.7 pg (25.0-35.0); MCHC 34.1 g/dL (31.0-37.0); MCV 81.3 fL (80.0-100.0); Mean Platelet Volume 7.2; Monocytes # (A) 0.4 k/uL (0-1.0); Monocytes % (A) 5 %; Neutrophils # (A) 4.9 k/uL (1.3-7.7); Neutrophils % (A) 60 %; RBC 4.96 m/uL (4.30-5.90); RDW 15.3 % (11.5-15.5); WBC 8.1 k/uL (3.8-10.6); WBC (Perox) 8.46
[2017-05-17 19:35] LABS: Partial Thromboplastin Time 24.3 sec (22.0-30.0); Prothrombin Time 10.1 sec (9.0-12.0)
[2017-05-17 19:36] LABS: ALT 94 U/L (21-72); AST 37 U/L (17-59); Alkaline Phosphatase 91 U/L (38-126); Anion Gap 8 mmol/L; Blood Urea Nitrogen 16 mg/dL (9-20); Calcium 8.6 mg/dL (8.4-10.2); Carbon Dioxide 23 mmol/L (22-30); Chloride 107 mmol/L (98-107); Glucose 86 mg/dL (74-99); Non-African American GFR(MDRD) >60 (>60 ml/min/1.73 sqM); Potassium 4.4 mmol/L (3.5-5.1); Sodium 138 mmol/L (137-145); Total Bilirubin 0.5 mg/dL (0.2-1.3)
[2017-05-17 19:46] LABS: Creatine Kinase 38 U/L (55-170)
--- NOTE | 2017-05-17 19:51 | XR ---
EXAMINATION TYPE: XR chest 2V DATE OF EXAM: 05/17/2017 COMPARISON: 05/09/2017 HISTORY: Short of breath and cough TECHNIQUE: Frontal and lateral views of the chest are obtained. FINDINGS: Heart and mediastinum are normal. Lungs are clear. Costophrenic angles are clear. There is a right-sided central venous catheter with the tip in the superior vena cava. There are clips at the left axilla. Bony thorax is intact. IMPRESSION: No active cardiopulmonary disease. There is clearing of the fluid in the fissures compar ed to old exam.
[2017-05-17 19:58] LABS: Creatine Kinase MB 0.5 ng/mL (0.0-2.4); Troponin I <0.012 ng/mL (0.000-0.034)
[2017-05-17] MEDS ORDERED: MORPHINE SULFATE 4 MG/ML SYRINGE IV STA (20:51)
[2017-05-17] MEDS: MAGNESIUM SULFATE-D5W PMX 1 GM in DEXTROSE/WATER 1 100ML.BAG IVPB SCH (21:03)
[2017-05-17] MEDS ORDERED: ALBUTEROL NEBULIZED 2.5 MG/3 ML INHALATION PRN (21:05)
[2017-05-17 22:20] VITALS: BMI 31.4
[2017-05-18] MEDS: MAGNESIUM SULFATE-D5W PMX 1 GM in DEXTROSE/WATER 1 100ML.BAG IVPB SCH (00:52)
[2017-05-18] MEDS: methylPREDNISolone SOD SUCCI 125 MG/2 ML VIAL IV SCH ×5 (00:53→23:39)
[2017-05-18] MEDS: diphenhydrAMINE 50 MG/ML 1 ML VIAL IVP SCH ×5 (00:53→23:39)
[2017-05-18] MEDS: NICOTINE 21MG/24HR PATCH TRANSDERM SCH ×2 (00:54→08:37)
[2017-05-18] MEDS: MORPHINE SULFATE 2 MG/ML SYRINGE IVP PRN ×3 (01:11→09:25)
[2017-05-18] MEDS: IPRATROPIUM-ALBUTEROL 3 ML NEB INHALATION PRN ×4 (07:13→19:25)
[2017-05-18] MEDS ORDERED: BUDESONIDE 0.5 MG/2 ML NEBU INHALATION SCH (08:00)
[2017-05-18] MEDS: ENOXAPARIN 40 MG/0.4 ML SYRINGE SQ SCH (08:41)
--- NOTE | 2017-05-18 10:04 | P.CNPUL ---
History of Present Illness Consult date: 05/18/17 Requesting physician: Dave Richards Reason for consult: dyspnea Chief complaint: Shortness of breath History of present illness: This is a 46-year-old male patient being seen examined and evaluated today after admission to the hospital. This patient was admitted 05/17/2017 for acute exacerbation of COPD and acute exacerbation of chronic persistent asthma, bronchitis with fever of 101. The patient is supposed to utilize home oxygen 2 L via nasal cannula. The patient states he lives in a alf, and the alf does not allow him to have oxygen therefore he turned the oxygen back into the [place]. Patient states he does have a nebulizer machine at the alf and that he did use it prior to coming into the emergency room without relief. The patient was recently admitted to the hospital from 04/30/2017 to 2016. The patient is well-known to our services and is known to be noncompliant with his medical regime. The patient continues to smoke despite poor lung function. Smoking cessation has been discussed at length as well. Upon examination the patient's resting up in bed on 2 L of supplemental oxygen via nasal cannula. He states he does get short of breath with any exertion and/ or activity. Patient states he also has a dry cough. Chest x-ray was reviewed and does not show any acute processes, there is clearing of the fluid in the fissures compared to previous exam. Review of Systems 14 point review of systems was completed and is negative unless noted above in the HPI. 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 Past Anesthesia/Blood Transfusion Reactions: No Reported Reaction Date of Last Stent Placement:: 2002 Past Psychological History: Anxiety, Bipolar, Depression, Schizophrenia Additional Psychological History / Comment(s): . Smoking Status: Current every day smoker Past Alcohol Use History: None Reported Additional Past Alcohol Use History / Comment(s): STATES DRINKS OCC Past Drug Use History: None Reported Additional Drug Use History / Comment(s): "NONE SINCE 2014" - Past Family History Mother Family Medical History: Asthma Father Family Medical History: Liver Disease, Renal Disease Additional Family Medical History / Comment(s): RENAL DISEASE Medications and Allergies Home Medications Medication Instructions Recorded Confirmed Type Albuterol Inhaler [Ventolin Hfa 1 - 2 puff INHALATION RT-QID PRN 04/30/17 History Inhaler] OLANZapine [ZyPREXA] 10 mg PO HS 04/30/17 05/17/17 History Albuterol Nebulized [Ventolin 2.5 mg INHALATION RT-QID PRN 05/17/17 05/17/17 History Nebulized] Allergies Allergy/AdvReac Type Severity Reaction Status Date / Time dicyclomine HCl [From Bentyl] Allergy Severe Anaphylaxis Verified 04/30/17 15:10 Iodinated Contrast- Oral and Allergy Severe Rash/Hives Verified 04/30/17 15:10 IV Dye prednisone Allergy Severe Anaphylaxis Verified 04/30/17 15:10 shellfish derived [Shellfish] Allergy Severe Rash/Hives Verified 04/30/17 15:10 Penicillins Allergy Unknown Unknown Verified 04/30/17 15:10 Childhood steroids Allergy Severe Anaphylaxis Uncoded 04/30/17 15:10 Physical Exam Vitals: Vital Signs Temp Pulse Pulse Resp BP BP Pulse Ox 05/18/17 08:00 18 05/18/17 07:30 72 05/18/17 07:13 72 05/18/17 07:00 98.1 F 74 18 138/77 98 05/18/17 00:00 102 H 18 05/17/17 21:52 97.6 F 102 H 18 114/65 97 05/17/17 21:43 100 20 125/65 95 05/17/17 20:53 98 05/17/17 20:41 90 05/17/17 20:36 95 28 H 107/68 100 05/17/17 20:34 96 05/17/17 19:29 112 H 05/17/17 19:23 114 H 05/17/17 19:15 116 H 05/17/17 17:11 101 F H 116 H 24 136/60 98 Intake and Output 05/17/17 05/18/17 05/18/17 22:59 06:59 14:59 Intake Total 700 450 400 Output Total 250 900 Balance 450 -450 400 Intake: Intake, IV Titration 300 Amount Sodium Chloride 0.9% 1, 300 000 ml @ 100 mls/hr IV . Q10H STA Rx#:[id number] Oral 400 450 400 Output: Urine 250 900 Other: # Voids 1 3 Weight 83 kg 83 kg GENERAL EXAM: Alert, active, comfortable in no apparent distress. HEAD: Normocephalic. EYES: Normal reaction of pupils, equal size. NOSE: Clear with pink turbinates. THROAT: No erythema or exudates. NECK: No masses, no JVD. CHEST: No chest wall deformity. LUNGS: Poor air entry is present with some expiratory wheezing scattered throughout. Bases diminished. CVS: S1 and S2 normal with no audible mumurs, regular rhythm. ABDOMEN: No hepatosplenomegaly, normal bowel sounds, no guarding or rigidity. EXTREMITIES: No edema noted, pedal pulses palpable. SKIN: No rashes CENTRAL NERVOUS SYSTEM: No focal deficits, tone is normal in all 4 extremities. Results - Laboratory Findings CBC and BMP: 05/17/17 19:00 05/17/17 19:00 PT/INR, D-dimer PT 10.1 sec (9.0-12.0) 05/17/17 19:00 INR 1.0 (<1.2) 05/17/17 19:00 Abnormal lab findings: Abnormal Labs 05/17/17 05/17/17 19:00 19:00 ALT 94 H Total Creatine Kinase 38 L Total Protein 6.0 L Albumin 3.4 L - Diagnostic Findings Chest x-ray: report reviewed, image reviewed Assessment and Plan Plan: Assessment Adult respiratory distress syndrome Acute exacerbation of COPD Acute exacerbation of chronic persistent severe asthma Acute on chronic hypoxic respiratory failure Chronic bronchitis with fever History of sarcoma Plan Medications have been reviewed and will be continued as ordered. Continue with empiric Levaquin as well as IV steroids. Blood cultures pending, obtain sputum culture. Continue with pulmonary hygiene, coughing and deep breathing exercises , and supportive care. Supplemental oxygen to maintain oxygen saturations of 92 % or better. Continue nebulizer treatments. We will increase his budesonide dose to 1 mg twice a day. GI and DVT prophylaxis. We will continue to monitor labs/results and adjust treatment as necessary. Further recommendations pending. I performed an examination of the patient and discussed their management with the nurse practitioner. I have reviewed the nurse practitioner's note and agree with the documented findings and plan of care.
[2017-05-18] MEDS: PANTOPRAZOLE 40 MG TABLET PO SCH (12:30)
[2017-05-18] MEDS: BUDESONIDE 1 MG/2 ML NEBU INHALATION SCH (19:25)
[2017-05-18] MEDS: OLANZapine 10 MG TAB PO SCH (20:30)
[2017-05-19] MEDS: diphenhydrAMINE 50 MG/ML 1 ML VIAL IVP SCH ×4 (05:26→23:48)
[2017-05-19] MEDS: methylPREDNISolone SOD SUCCI 125 MG/2 ML VIAL IV SCH ×4 (05:26→23:48)
[2017-05-19] MEDS: IPRATROPIUM-ALBUTEROL 3 ML NEB INHALATION PRN ×4 (07:03→19:11)
[2017-05-19] MEDS: BUDESONIDE 1 MG/2 ML NEBU INHALATION SCH ×2 (07:05→19:11)
--- NOTE | 2017-05-19 08:57 | HP ---
HISTORY AND PHYSICAL DATE OF ADMISSION: 05/17/2017 CHIEF COMPLAINT: Difficulty breathing with fever. HISTORY OF PRESENT ILLNESS: This is another admission for this 46-year-old, male, who was in and out of the hospitals lately every 1-2 weeks. He is in the emergency room frequently. He does not come to the office for followup. He continues to smoke. REVIEW OF SYSTEMS: He denies any headache, change in vision, hearing, hemoptysis, heart disease, palpitations, syncope, orthopnea, PND, abdominal pain, vomiting, diarrhea, melena, jaundice, urinary symptoms, etc. Past medical history, family history and personal and social histories are all otherwise unremarkable and unchanged. It is not known if he is using any medications or not. He is apparently staying in a fci and they will not let him use oxygen or take some of his medications there, for some reason. He continued to smoke a pack of cigarettes a day. He is very noncompliant. ALLERGIES: He is allergic to PENICILLIN and when he gets steroids he uses Benadryl and at which point, he is able to tolerate steroids without any difficulty. PHYSICAL EXAM: Blood pressure is 110/60 with a pulse of 102, respirations of 50 and temperature 101. GENERAL; He appeared to be short of breath and acutely ill. Skin was hot and dry. Head, ears, eyes, nose, mouth and throat were normal. The chest demonstrated poor breath sounds throughout with rhonchi and wheezing being heard scattered throughout. There are occasional rales at the bases. He had prolonged inspiratory and expiratory phase. Cardiac exam demonstrates sinus tachycardia. No murmurs. Abdomen is slightly protuberant, soft, nontender. EXTREMITIES: Normal. Neurologically, he is intact. He is admitted to the hospital with the DIAGNOSES: 1. Exacerbation of chronic obstructive pulmonary disease. 2. Status asthmaticus. 3. Probable bronchitis. PLAN: 1. Bed rest. 2. IV fluids. 3. Steroids. 4. Updrafts. 5. Antibiotics. 6. Pulmonology consult. MMODL / IJN: [id number] /
--- NOTE | 2017-05-19 09:11 | PN ---
PROGRESS NOTE Date of Service: DATE OF SERVICE: 05/18/2017 CHIEF COMPLAINT: Difficulty breathing. HISTORY OF PRESENT ILLNESS: This gentleman is still very tight and wheezy and acutely short of breath. PHYSICAL EXAM: Breath sounds are poor with wheezes, rales, rhonchi throughout. Cardiac exam still demonstrates tachycardia. Abdomen is soft. He is not vomiting. IMPRESSION: 1. Status asthmaticus. 2. Exacerbation of chronic obstructive pulmonary disease. PLAN: Continue on current program. MMODL / IJN: [id number] /
[2017-05-19] MEDS: PANTOPRAZOLE 40 MG TABLET PO SCH (09:12)
[2017-05-19] MEDS: ENOXAPARIN 40 MG/0.4 ML SYRINGE SQ SCH (09:13)
--- NOTE | 2017-05-19 11:14 | P.PN ---
Subjective 05/18/17- This is a 46-year-old male patient being seen examined and evaluated today after admission to the hospital. This patient was admitted 05/17/2017 for acute exacerbation of COPD and acute exacerbation of chronic persistent asthma, bronchitis with fever of 101. The patient is supposed to utilize home oxygen 2 L via nasal cannula. The patient states he lives in a [facility], and the penitentiary does not allow him to have oxygen therefore he turned the oxygen back into the [employer]. Patient states he does have a nebulizer machine at the penitentiary and that he did use it prior to coming into the emergency room without relief. The patient was recently admitted to the hospital from 2016 to 05/09/2017. The patient is well-known to our services and is known to be noncompliant with his medical regime. The patient continues to smoke despite poor lung function. Smoking cessation has been discussed at length as well. Upon examination the patient's resting up in bed on 2 L of supplemental oxygen via nasal cannula. He states he does get short of breath with any exertion and/or activity. Patient states he also has a dry cough. Chest x-ray was reviewed and does not show any acute processes, there is clearing of the fluid in the fissures compared to previous exam. 05/19/17- patient has been seen examined and evaluated today. Upon examination the patient's resting up in bed on 2 L of supplemental oxygen via nasal cannula. He continues to have shortness of breath with exertion and activity. Continues to have a dry cough as well. According to the patient he stated he did try to ambulate in the hallway yesterday evening and he became dizzy and very short of breath so he had to sit down. Currently he is afebrile, no further complaints at this time. Patient expresses concerns that he lives in a homeless penitentiary and they do not rule out oxygen tanks and social work is currently looking into this information. Objective - Vital Signs Vital signs: Vital Signs Temp 97.9 F 05/19/17 07:00 Pulse 73 05/19/17 07:18 Resp 16 05/19/17 07:18 BP 115/57 05/19/17 07:00 Pulse Ox 96 05/19/17 07:05 Intake & Output 05/18/17 05/19/17 05/19/17 18:59 06:59 18:59 Intake Total 1800 800 Balance 1800 800 Intake: Intake, IV Titration 800 400 Amount Sodium Chloride 0.9% 1, 800 400 000 ml @ 100 mls/hr IV . Q10H STA Rx#:[id number] Oral 1000 400 Other: # Voids 3 2 - Exam GENERAL EXAM: Alert, active, comfortable in no apparent distress. HEAD: Normocephalic. EYES: Normal reaction of pupils, equal size. NOSE: Clear with pink turbinates. THROAT: No erythema or exudates. NECK: No masses, no JVD. CHEST: No chest wall deformity. LUNGS: Poor air entry is present with some expiratory wheezing scattered throughout. Bases diminished. CVS: S1 and S2 normal with no audible mumurs, regular rhythm. ABDOMEN: No hepatosplenomegaly, normal bowel sounds, no guarding or rigidity. Slightly distended, soft EXTREMITIES: No edema noted, pedal pulses palpable. SKIN: No rashes CENTRAL NERVOUS SYSTEM: No focal deficits, tone is normal in all 4 extremities. - Labs CBC & Chem 7: 05/17/17 19:00 05/17/17 19:00 Labs: Microbiology - Last 24 Hours (Table) 05/17/17 19:00 Blood Culture - Preliminary Blood No Growth after 24 hours Assessment and Plan Plan: Assessment Adult respiratory distress syndrome Acute exacerbation of COPD Acute exacerbation of chronic persistent severe asthma Acute on chronic hypoxic respiratory failure Chronic bronchitis with fever History of sarcoma Plan Medications have been reviewed and will be continued as ordered. Continue with empiric Levaquin as well as IV steroids. Blood cultures pending, obtain sputum culture. Continue with pulmonary hygiene, coughing and deep breathing exercises , and supportive care. Supplemental oxygen to maintain oxygen saturations of 92 % or better. Continue nebulizer treatments. We will increase his budesonide dose to 1 mg twice a day. GI and DVT prophylaxis. We will continue to monitor labs/results and adjust treatment as necessary. Further recommendations pending. I performed an examination of the patient and discussed their management with the nurse practitioner. I have reviewed the nurse practitioner's note and agree with the documented findings and plan of care.
[2017-05-19] MEDS: NICOTINE 21MG/24HR PATCH TRANSDERM SCH (11:35)
[2017-05-19] MEDS: ACETAMINOPHEN TAB 325 MG TAB PO PRN (18:57)
[2017-05-19] MEDS: OLANZapine 10 MG TAB PO SCH (20:18)
[2017-05-20] MEDS: diphenhydrAMINE 50 MG/ML 1 ML VIAL IVP SCH ×3 (05:49→17:35)
[2017-05-20] MEDS: methylPREDNISolone SOD SUCCI 125 MG/2 ML VIAL IV SCH ×3 (05:49→17:36)
[2017-05-20] MEDS: IPRATROPIUM-ALBUTEROL 3 ML NEB INHALATION PRN ×4 (07:22→19:13)
[2017-05-20] MEDS: BUDESONIDE 1 MG/2 ML NEBU INHALATION SCH ×2 (07:22→19:13)
[2017-05-20] MEDS: ENOXAPARIN 40 MG/0.4 ML SYRINGE SQ SCH (08:07)
[2017-05-20] MEDS: NICOTINE 21MG/24HR PATCH TRANSDERM SCH (08:07)
[2017-05-20] MEDS: PANTOPRAZOLE 40 MG TABLET PO SCH (08:07)
--- NOTE | 2017-05-20 09:12 | PN ---
PROGRESS NOTE Date of Service: DATE OF SERVICE: 05/19/2017. CHIEF COMPLAINT: Exacerbation of COPD and status asthmaticus. HISTORY OF PRESENT ILLNESS: This gentleman is doing a bit better. Chest is starting to clear. He was seen by pulmonology and there are no recommended changes in his program at this time. PHYSICAL EXAMINATION: He is complaining of feeling dizzy. Carotids are normal. His cardiac exam is normal. The chest demonstrates better breath sounds and less wheezing with fewer rhonchi and rales. Cardiac exam is normal. Abdomen is soft, nontender. IMPRESSION: 1. Exacerbation of chronic obstructive pulmonary disease. 2. Bronchitis. 3. Reactive airway disease. 4. History of CA of the left scapula. PLAN: Continue on current program. He can be given Tylenol extra-strength 2 t.i.d. p.r.n. ANIKA / RAZA: [id number] /
--- NOTE | 2017-05-20 17:08 | P.PN ---
Subjective Date of service 05/20/2017. Progress note being dictated for Dr. Durand. Interval history: This is a 46-year-old gentleman admitted with acute COPD exacerbation with bronchitis. Maintained on nebulized bronchodilators, Levaquin and systemic steroids. Remains wheezy, nonproductive cough. Lightheadedness with exertion. Maintaining O2 sats of 98% on 2 L nasal cannula. Preliminary blood cultures negative.Afebrile. Denies chest pain, palpitations or increasing shortness of breath. Objective - Vital Signs Vital signs: Vital Signs Temp 97.9 F 05/20/17 07:00 Pulse 76 05/20/17 11:05 Resp 16 05/20/17 08:00 BP 133/78 05/20/17 07:00 Pulse Ox 96 05/20/17 07:00 Intake & Output 05/19/17 05/20/17 05/20/17 18:59 06:59 18:59 Intake Total 800 Balance 800 Intake: Oral 800 Other: Voiding Method Toilet # Voids 2 1 - Exam PHYSICAL EXAM: VITAL SIGNS: []As above GENERAL: Sitting up in bed, no acute distress. HEENT: Conjunctivae normal. eyes normal. NECK: No JVD. No thyroid enlargement. No LNs CARDIOVASCULAR: S1, S2 muffled. No murmur RESPIRATION: Breath sounds diminished in the bases. Expiratory wheezing with coarse rhonchi, no crackles ABDOMEN: Soft, nontender . No guarding. no masses palpable. No ascites, No hepatosplenomegaly.Bowel sounds heard. LEGS: No edema. no swelling PSYCHIATRY: Alert and oriented 3, mood and affect normal. NERVOUS SYSTEM: Cranial N 2-12 grossly normal. Moves all 4 limbs. Diffuse weakness No focal deficits. No sensory deficit. Skin: no ulcer no rash Joints: No active swelling. No inflammation. Lymphatic system. No LN neck axilla or groin. - Labs CBC & Chem 7: 05/17/17 19:00 05/17/17 19:00 Labs: Microbiology - Last 24 Hours (Table) 05/17/17 19:00 Blood Culture - Preliminary Blood No Growth after 48 hours Assessment and Plan Plan: 1. Acute COPD exacerbation with tracheobronchitis 2. Acute on Chronic persistent severe asthma 3. Acute hypoxic respiratory failure Plan: Continue on current medication regime ,monitoring and symptomatic treatment. Maintain nebulized bronchodilators, steroids and antibiotics. Increase ambulation as tolerated. Follow closely with pulmonary. Further recommendations to follow. The impression and plan of care has been dictated as directed. : I performed a H&P examination of this patient and discussed the same with the dictator. I agree with the dictator's note. Any additional findings/opinions/ etc. will be noted.
--- NOTE | 2017-05-20 18:10 | P.PN ---
Subjective 05/18/17- This is a 46-year-old male patient being seen examined and evaluated today after admission to the hospital. This patient was admitted 05/17/2017 for acute exacerbation of COPD and acute exacerbation of chronic persistent asthma, bronchitis with fever of 101. The patient is supposed to utilize home oxygen 2 L via nasal cannula. The patient [place] [facility], and [place] [facility] [place] oxygen therefore he turned the oxygen back into the [employer]. Patient states he does have a nebulizer machine at the [place] [facility] and that he did use it prior to coming into the emergency room without relief. The patient was recently admitted to the hospital from 2016 to 05/09/2017. The patient is well-known to our services and is known to be noncompliant with his medical regime. The patient continues to smoke despite poor lung function. Smoking cessation has been discussed at length as well. Upon examination the patient's resting up in bed on 2 L of supplemental oxygen via nasal cannula. He states he does get short of breath with any exertion and/or activity. Patient states he also has a dry cough. Chest x-ray was reviewed and does not show any acute processes, there is clearing of the fluid in the fissures compared to previous exam. 05/19/17- patient has been seen examined and evaluated today. Upon examination the patient's resting up in bed on 2 L of supplemental oxygen via nasal cannula. He continues to have shortness of breath with exertion and activity. Continues to have a dry cough as well. According to the patient he stated he did try to ambulate in the hallway yesterday evening and he became dizzy and very short of breath so he had to sit down. Currently he is afebrile, no further complaints at this time. Patient expresses concerns that he lives in a [place] [facility] and they do not rule out oxygen tanks and social work is currently looking into this information. The patient is seen again today 05/20/2017 in follow-up. We are covering for Dr. Charles. He is seen on the regular medical floor. He is resting quite comfortably in bed. He is not utilizing any oxygen at this time. He states he is breathing easier today as compared to yesterday. He is maintaining O2 saturations in the high 90s. His been afebrile. Hemodynamically stable. Blood cultures reveal no growth to date. His chest x-ray did not reveal any acute pulmonary process. Objective - Vital Signs Vital signs: Vital Signs Temp 98 F 05/20/17 15:30 Pulse 66 05/20/17 16:00 Resp 16 05/20/17 16:00 BP 142/58 05/20/17 15:30 Pulse Ox 98 05/20/17 15:43 Intake & Output 05/19/17 05/20/17 05/20/17 18:59 06:59 18:59 Intake Total 800 1080 Balance 800 1080 Intake: Oral 800 1080 Other: Voiding Method Toilet # Voids 2 1 3 - Exam GENERAL EXAM: Alert, active, comfortable in no apparent distress. HEAD: Normocephalic. EYES: Normal reaction of pupils, equal size. NOSE: Clear with pink turbinates. THROAT: No erythema or exudates. NECK: No masses, no JVD. CHEST: No chest wall deformity. LUNGS: Equal air entry with faint end expiratory wheeze. Diminished. CVS: S1 and S2 normal with no audible murmurs, regular rhythm. ABDOMEN: No hepatosplenomegaly, normal bowel sounds, no guarding or rigidity. SPINE: No scoliosis or deformity SKIN: No rashes CENTRAL NERVOUS SYSTEM: No focal deficits, tone is normal in all 4 extremities. Extremities: There is no significant peripheral edema. No clubbing. Peripheral pulses are intact. - Labs CBC & Chem 7: 05/17/17 19:00 05/17/17 19:00 Labs: Microbiology - Last 24 Hours (Table) 05/17/17 19:00 Blood Culture - Preliminary Blood No Growth after 48 hours Assessment and Plan Plan: Impression: #1 Acute exacerbation chronic obstructive pulmonary disease. #2 Acute exacerbation of chronic persistent asthma. #3 Acute on chronic hypoxic respiratory failure secondary to above. #4 Chronic and ongoing tobacco dependence. #5 History of sarcoma. #6 History of depression with suicidal ideations. #7 History of bipolar disorder. Plan: The patient was seen and evaluated by Dr. Singleton. He is currently stable from the pulmonary standpoint. We'll continue with his current medications. He is again educated regarding the importance of complete smoking cessation. He is educated again regarding the importance of medication and outpatient follow-up compliance. We will increase his activity as tolerated. We'll continue to follow.
[2017-05-20] MEDS: ACETAMINOPHEN TAB 325 MG TAB PO PRN (19:39)
[2017-05-20] MEDS: OLANZapine 10 MG TAB PO SCH (20:59)
[2017-05-21] MEDS: methylPREDNISolone SOD SUCCI 125 MG/2 ML VIAL IV SCH ×3 (00:53→12:04)
[2017-05-21] MEDS: diphenhydrAMINE 50 MG/ML 1 ML VIAL IVP SCH ×5 (00:53→23:05)
[2017-05-21 06:17] LABS: Basophils % (A) 0 %; CH 26.5; CHCM 32.7; Eosinophils # (A) 0.1 k/uL (0-0.7); Eosinophils % (A) 0 %; HCT 37.6 % (39.0-53.0); HDW 2.26; HGB 12.7 gm/dL (13.0-17.5); Luc # (Auto) 0.07; Luc % (Auto) 0; Lymphocytes # (A) 0.6 k/uL (1.0-4.8); Lymphocytes % (A) 4 %; MCH 27.4 pg (25.0-35.0); MCHC 33.8 g/dL (31.0-37.0); MCV 81.1 fL (80.0-100.0); Monocytes # (A) 0.5 k/uL (0-1.0); Monocytes % (A) 3 %; Neutrophils # (A) 15.2 k/uL (1.3-7.7); Neutrophils % (A) 93 %; RBC 4.64 m/uL (4.30-5.90); RDW 15.5 % (11.5-15.5); WBC 16.4 k/uL (3.8-10.6); WBC (Perox) 17.18
[2017-05-21 06:28] LABS: Anion Gap 6 mmol/L; Blood Urea Nitrogen 20 mg/dL (9-20); Calcium 9.1 mg/dL (8.4-10.2); Carbon Dioxide 31 mmol/L (22-30); Chloride 105 mmol/L (98-107); Glucose 143 mg/dL (74-99); Non-African American GFR(MDRD) >60 (>60 ml/min/1.73 sqM); Potassium 4.5 mmol/L (3.5-5.1); Sodium 142 mmol/L (137-145)
[2017-05-21] MEDS: PANTOPRAZOLE 40 MG TABLET PO SCH (07:41)
[2017-05-21] MEDS: ENOXAPARIN 40 MG/0.4 ML SYRINGE SQ SCH (07:41)
[2017-05-21] MEDS: NICOTINE 21MG/24HR PATCH TRANSDERM SCH (07:42)
[2017-05-21] MEDS: ACETAMINOPHEN TAB 325 MG TAB PO PRN ×2 (07:44→16:56)
[2017-05-21] MEDS: BUDESONIDE 1 MG/2 ML NEBU INHALATION SCH ×2 (09:14→21:49)
--- NOTE | 2017-05-21 12:40 | P.PN ---
Subjective 05/18/17- This is a 46-year-old male patient being seen examined and evaluated today after admission to the hospital. This patient was admitted 05/17/2017 for acute exacerbation of COPD and acute exacerbation of chronic persistent asthma, bronchitis with fever of 101. The patient is supposed to utilize home oxygen 2 L via nasal cannula. The patient states he lives in a skilled nursing, and the skilled nursing does not allow him to have oxygen therefore he turned the oxygen back into the [employer] company. Patient states he does have a nebulizer machine at the skilled nursing and that he did use it prior to coming into the emergency room without relief. The patient was recently admitted to the hospital from 2016 to 05/09/2017. The patient is well-known to our services and is known to be noncompliant with his medical regime. The patient continues to smoke despite poor lung function. Smoking cessation has been discussed at length as well. Upon examination the patient's resting up in bed on 2 L of supplemental oxygen via nasal cannula. He states he does get short of breath with any exertion and/or activity. Patient states he also has a dry cough. Chest x-ray was reviewed and does not show any acute processes, there is clearing of the fluid in the fissures compared to previous exam. 05/19/17- patient has been seen examined and evaluated today. Upon examination the patient's resting up in bed on 2 L of supplemental oxygen via nasal cannula. He continues to have shortness of breath with exertion and activity. Continues to have a dry cough as well. According to the patient he stated he did try to ambulate in the hallway yesterday evening and he became dizzy and very short of breath so he had to sit down. Currently he is afebrile, no further complaints at this time. Patient expresses concerns that he lives in a homeless skilled nursing and they do not rule out oxygen tanks and social work is currently looking into this information. The patient is seen again today 05/20/2017 in follow-up. We are covering for Dr. Charles. He is seen on the regular medical floor. He is resting quite comfortably in bed. He is not utilizing any oxygen at this time. He states he is breathing easier today as compared to yesterday. He is maintaining O2 saturations in the high 90s. His been afebrile. Hemodynamically stable. Blood cultures reveal no growth to date. His chest x-ray did not reveal any acute pulmonary process. The patient is seen again today 05/21/2017 in follow-up on the regular medical floor. We are covering for Dr. Charles today. The patient is awake and alert in no acute distress. He denies any worsening shortness of breath, cough or congestion. He does state he gets dyspneic on minimal exertion. He is maintaining O2 saturations in the 90s on room air. His been afebrile. Hemodynamically stable. He remains on bronchodilators, Pulmicort, IV Solu- Medrol. Objective - Vital Signs Vital signs: Vital Signs Temp 98.0 F 05/21/17 07:00 Pulse 96 05/21/17 07:00 Resp 18 05/21/17 07:00 BP 108/62 05/21/17 07:00 Pulse Ox 95 05/21/17 09:14 Intake & Output 05/20/17 05/21/17 05/21/17 18:59 06:59 18:59 Intake Total 1080 Balance 1080 Intake: Oral 1080 Other: Voiding Method Toilet Toilet # Voids 3 1 - Exam GENERAL EXAM: Alert, active, comfortable in no apparent distress. HEAD: Normocephalic. EYES: Normal reaction of pupils, equal size. NOSE: Clear with pink turbinates. THROAT: No erythema or exudates. NECK: No masses, no JVD. CHEST: No chest wall deformity. LUNGS: Equal air entry with faint end expiratory wheeze. Diminished. CVS: S1 and S2 normal with no audible murmurs, regular rhythm. ABDOMEN: No hepatosplenomegaly, normal bowel sounds, no guarding or rigidity. SPINE: No scoliosis or deformity SKIN: No rashes CENTRAL NERVOUS SYSTEM: No focal deficits, tone is normal in all 4 extremities. Extremities: There is no significant peripheral edema. No clubbing. Peripheral pulses are intact. - Labs CBC & Chem 7: 05/21/17 06:04 05/21/17 06:04 Labs: Abnormal Lab Results - Last 24 Hours (Table) 05/21/17 05/21/17 Range/Units 06:04 06:04 WBC 16.4 H (3.8-10.6) k/uL Hgb 12.7 L (13.0-17.5) gm/dL Hct 37.6 L (39.0-53.0) % Neutrophils # 15.2 H (1.3-7.7) k/uL Lymphocytes # 0.6 L (1.0-4.8) k/uL Carbon Dioxide 31 H (22-30) mmol/L Glucose 143 H (74-99) mg/dL Microbiology - Last 24 Hours (Table) 05/17/17 19:00 Blood Culture - Preliminary Blood No Growth after 72 hours Assessment and Plan Plan: Impression: #1 Acute exacerbation chronic obstructive pulmonary disease. #2 Acute exacerbation of chronic persistent asthma. #3 Acute on chronic hypoxic respiratory failure secondary to above. #4 Chronic and ongoing tobacco dependence. #5 History of sarcoma. #6 History of depression with suicidal ideations. #7 History of bipolar disorder. Plan: The patient was seen and evaluated by Dr. Singleton. He is currently stable from the pulmonary standpoint. He'll be switched from IV Solu-Medrol to prednisone. Evaluate for home oxygen needs. He is again educated regarding the importance of complete smoking cessation. He is educated again regarding the importance of medication and outpatient follow-up compliance. We will increase his activity as tolerated.
[2017-05-21] MEDS: predniSONE 20 MG TAB PO SCH (16:55)
[2017-05-21] MEDS: OLANZapine 10 MG TAB PO SCH (20:02)
[2017-05-22] MEDS: diphenhydrAMINE 50 MG/ML 1 ML VIAL IVP SCH ×2 (06:20→20:51)
[2017-05-22] MEDS: PANTOPRAZOLE 40 MG TABLET PO SCH (07:57)
[2017-05-22] MEDS: ENOXAPARIN 40 MG/0.4 ML SYRINGE SQ SCH (07:59)
[2017-05-22] MEDS: NICOTINE 21MG/24HR PATCH TRANSDERM SCH (07:59)
[2017-05-22] MEDS: predniSONE 20 MG TAB PO SCH (07:59)
[2017-05-22] MEDS: BUDESONIDE 1 MG/2 ML NEBU INHALATION SCH ×2 (08:03→18:55)
[2017-05-22] MEDS: IPRATROPIUM-ALBUTEROL 3 ML NEB INHALATION PRN ×3 (08:03→18:56)
--- NOTE | 2017-05-22 12:30 | PN ---
PROGRESS NOTE DATE OF SERVICE: 05/21/2017 I am covering for Dr. Richards. HISTORY: This 46-year-old gentleman with the past medical history of multiple medical was admitted with COPD acute exacerbation. Patient being closely monitored. Patient still has significant wheezing. IV steroids have been given at 60 IV q.6h. No chest pain. No palpitations. No fever. EXAM: Alert and oriented x3. Pulse 82, blood pressure 110/60, respirations 16, temperature 99.1, pulse ox 94% on room air. HEENT: Conjunctivae normal. Oral mucosa moist. NECK: No JVD. No carotid bruit. No lymph node enlargement. CARDIOVASCULAR: Normal S1/S2. No S3, no S4. RESPIRATORY: Diminished breath sounds especially at the bases. Bilateral scattered rhonchi. Expiratory wheezing also present. ABDOMEN: Soft, nontender. LEGS: No edema. NEURO: No focal deficits. LABS: WBC 16.4, hemoglobin 12.7. ASSESSMENT: 1. Chronic obstructive pulmonary disease acute exacerbation, acute tracheobronchitis. 2. Acute on chronic persistent severe asthma. 3. Acute hypoxic respiratory failure. RECOMMENDATIONS AND DISCUSSION: Recommend to continue current medication, continue to monitor continue symptomatic treatment. Continue bronchodilators, continue IV steroids. Follow with pulmonary. Guarded prognosis because of the multiple complex medical issues. Further recommendations to follow. MMODL / IJN: [id number] /
--- NOTE | 2017-05-22 16:02 | P.PN ---
Subjective 05/18/17- This is a 46-year-old male patient being seen examined and evaluated today after admission to the hospital. This patient was admitted 05/17/2017 for acute exacerbation of COPD and acute exacerbation of chronic persistent asthma, bronchitis with fever of 101. The patient is supposed to utilize home oxygen 2 L via nasal cannula. The patient states he lives in a senior care, and the senior care does not allow him to have oxygen therefore he turned the oxygen back into the [employer] company. Patient states he does have a nebulizer machine at the senior care and that he did use it prior to coming into the emergency room without relief. The patient was recently admitted to the hospital from 2016 to 05/09/2017. The patient is well-known to our services and is known to be noncompliant with his medical regime. The patient continues to smoke despite poor lung function. Smoking cessation has been discussed at length as well. Upon examination the patient's resting up in bed on 2 L of supplemental oxygen via nasal cannula. He states he does get short of breath with any exertion and/or activity. Patient states he also has a dry cough. Chest x-ray was reviewed and does not show any acute processes, there is clearing of the fluid in the fissures compared to previous exam. 05/19/17- patient has been seen examined and evaluated today. Upon examination the patient's resting up in bed on 2 L of supplemental oxygen via nasal cannula. He continues to have shortness of breath with exertion and activity. Continues to have a dry cough as well. According to the patient he stated he did try to ambulate in the hallway yesterday evening and he became dizzy and very short of breath so he had to sit down. Currently he is afebrile, no further complaints at this time. Patient expresses concerns that he lives in a homeless senior care and they do not rule out oxygen tanks and social work is currently looking into this information. The patient is seen again today 05/20/2017 in follow-up. We are covering for Dr. Charles. He is seen on the regular medical floor. He is resting quite comfortably in bed. He is not utilizing any oxygen at this time. He states he is breathing easier today as compared to yesterday. He is maintaining O2 saturations in the high 90s. His been afebrile. Hemodynamically stable. Blood cultures reveal no growth to date. His chest x-ray did not reveal any acute pulmonary process. The patient is seen again today 05/21/2017 in follow-up on the regular medical floor. We are covering for Dr. Charles today. The patient is awake and alert in no acute distress. He denies any worsening shortness of breath, cough or congestion. He does state he gets dyspneic on minimal exertion. He is maintaining O2 saturations in the 90s on room air. His been afebrile. Hemodynamically stable. He remains on bronchodilators, Pulmicort, IV Solu- Medrol. On 05/22/2017 the patient has no new complaints. He is still on IV Solu- Medrol. Still being treated for an acute asthma exacerbation. Short of breath with activity. Still has some congested cough. No chest pain. No change in mental status. No other complaints otherwise. Objective - Vital Signs Vital signs: Vital Signs Temp 98.0 F 05/22/17 07:00 Pulse 84 05/22/17 11:48 Resp 18 05/22/17 08:00 BP 114/61 05/22/17 07:00 Pulse Ox 97 05/22/17 07:00 Intake & Output 05/21/17 05/22/17 05/22/17 18:59 06:59 18:59 Intake Total 780 Balance 780 Weight 83 kg Intake: Oral 780 Other: Voiding Method Toilet Toilet Toilet # Voids 1 0 2 - Exam GENERAL EXAM: Alert, active, comfortable in no apparent distress. HEAD: Normocephalic. EYES: Normal reaction of pupils, equal size. NOSE: Clear with pink turbinates. THROAT: No erythema or exudates. NECK: No masses, no JVD. CHEST: No chest wall deformity. LUNGS: Equal air entry with faint end expiratory wheeze. Diminished. CVS: S1 and S2 normal with no audible murmurs, regular rhythm. ABDOMEN: No hepatosplenomegaly, normal bowel sounds, no guarding or rigidity. SPINE: No scoliosis or deformity SKIN: No rashes CENTRAL NERVOUS SYSTEM: No focal deficits, tone is normal in all 4 extremities. Extremities: There is no significant peripheral edema. No clubbing. Peripheral pulses are intact. - Labs CBC & Chem 7: 05/21/17 06:04 05/21/17 06:04 Labs: Microbiology - Last 24 Hours (Table) 05/17/17 19:00 Blood Culture - Preliminary Blood No Growth after 96 hours Assessment and Plan Plan: Impression: #1 Acute exacerbation chronic obstructive pulmonary disease. #2 Acute exacerbation of chronic persistent asthma. #3 Acute on chronic hypoxic respiratory failure secondary to above. #4 Chronic and ongoing tobacco dependence. #5 History of sarcoma. #6 History of depression with suicidal ideations. #7 History of bipolar disorder. Plan Continue same treatment. We'll follow. No changes in his medication. Continued IV Solu-Medrol.
[2017-05-22] MEDS: OLANZapine 10 MG TAB PO SCH (20:51)
[2017-05-22] MEDS: methylPREDNISolone SOD SUCCI 40 MG/ML 1 ML VIAL IV SCH (20:51)
[2017-05-23] MEDS: NICOTINE 21MG/24HR PATCH TRANSDERM SCH (08:13)
[2017-05-23] MEDS: ENOXAPARIN 40 MG/0.4 ML SYRINGE SQ SCH (08:13)
[2017-05-23] MEDS: PANTOPRAZOLE 40 MG TABLET PO SCH (08:13)
[2017-05-23] MEDS: diphenhydrAMINE 50 MG/ML 1 ML VIAL IVP SCH ×2 (08:14→20:20)
[2017-05-23] MEDS: methylPREDNISolone SOD SUCCI 40 MG/ML 1 ML VIAL IV SCH ×2 (08:14→20:20)
[2017-05-23] MEDS: BUDESONIDE 1 MG/2 ML NEBU INHALATION SCH ×2 (08:43→19:56)
--- NOTE | 2017-05-23 10:10 | PN ---
PROGRESS NOTE I am covering for Dr. Richards. DATE OF SERVICE: 05/22/2017 This 46-year-old gentleman who was admitted with chronic obstructive pulmonary disease acute exacerbation also had persistent asthma. No chest pain, no palpitations, no fever. EXAM: Alert and oriented x3. Pulse is 84, blood pressure is 114/61, respiration 18, temperature 98 degrees, pulse ox is 93% on 2-L. HEENT: Conjunctivae normal. NECK: No jugular venous distention. CARDIOVASCULAR: S1, S2. RESPIRATIONS: Breath sounds diminished at the bases. Bilateral scattered rhonchi and expiratory wheezing and crackles. ABDOMEN: Soft. Nontender. LEGS: No edema. NERVOUS SYSTEM: No focal deficits. LABORATORY DATA: WBC 16.4. ASSESSMENT: 1. Chronic obstructive pulmonary disease acute exacerbation with acute purulent tracheobronchitis. 2. Acute persistent severe asthma. 3. Acute hypoxic respiratory failure. RECOMMENDATIONS AND DISCUSSION: I recommend to continue current medications, continue symptomatic treatment. Continue with steroids. Continue to closely follow with Dr. Singleton. Dr. Richards to follow. Prognosis guarded. MMODL / IJN: [id number] /
--- NOTE | 2017-05-23 14:49 | P.PN ---
Subjective 05/18/17- This is a 46-year-old male patient being seen examined and evaluated today after admission to the hospital. This patient was admitted 05/17/2017 for acute exacerbation of COPD and acute exacerbation of chronic persistent asthma, bronchitis with fever of 101. The patient is supposed to utilize home oxygen 2 L via nasal cannula. The patient states he lives in a half-way, and the half-way does not allow him to have oxygen therefore he turned the oxygen back into the [employer]. Patient states he does have a nebulizer machine at the half-way and that he did use it prior to coming into the emergency room without relief. The patient was recently admitted to the hospital from 2016 to 05/09/2017. The patient is well-known to our services and is known to be noncompliant with his medical regime. The patient continues to smoke despite poor lung function. Smoking cessation has been discussed at length as well. Upon examination the patient's resting up in bed on 2 L of supplemental oxygen via nasal cannula. He states he does get short of breath with any exertion and/or activity. Patient states he also has a dry cough. Chest x-ray was reviewed and does not show any acute processes, there is clearing of the fluid in the fissures compared to previous exam. 05/19/17- patient has been seen examined and evaluated today. Upon examination the patient's resting up in bed on 2 L of supplemental oxygen via nasal cannula. He continues to have shortness of breath with exertion and activity. Continues to have a dry cough as well. According to the patient he stated he did try to ambulate in the hallway yesterday evening and he became dizzy and very short of breath so he had to sit down. Currently he is afebrile, no further complaints at this time. Patient expresses concerns that he lives in a homeless half-way and they do not rule out oxygen tanks and social work is currently looking into this information. The patient is seen again today 05/20/2017 in follow-up. We are covering for Dr. Charles. He is seen on the regular medical floor. He is resting quite comfortably in bed. He is not utilizing any oxygen at this time. He states he is breathing easier today as compared to yesterday. He is maintaining O2 saturations in the high 90s. His been afebrile. Hemodynamically stable. Blood cultures reveal no growth to date. His chest x-ray did not reveal any acute pulmonary process. The patient is seen again today 05/21/2017 in follow-up on the regular medical floor. We are covering for Dr. Charles today. The patient is awake and alert in no acute distress. He denies any worsening shortness of breath, cough or congestion. He does state he gets dyspneic on minimal exertion. He is maintaining O2 saturations in the 90s on room air. His been afebrile. Hemodynamically stable. He remains on bronchodilators, Pulmicort, IV Solu- Medrol. On 05/22/2017 the patient has no new complaints. He is still on IV Solu- Medrol. Still being treated for an acute asthma exacerbation. Short of breath with activity. Still has some congested cough. No chest pain. No change in mental status. No other complaints otherwise. On 05/23/2017 I'm still covering for Dr. Charles regarding this patient. His condition remains stable. He is slightly improving. He still on IV Solu- Medrol. Cough has subsided. No new complaints. Objective - Vital Signs Vital signs: Vital Signs Temp 98.0 F 05/23/17 07:00 Pulse 62 05/23/17 08:00 Resp 18 05/23/17 08:00 BP 115/59 05/23/17 07:00 Pulse Ox 95 05/23/17 07:00 Intake & Output 05/22/17 05/23/17 05/23/17 18:59 06:59 18:59 Intake Total 896 307 1902 Balance 420 692 5500 Intake: Oral 454 140 3990 Other: Voiding Method Toilet Toilet Toilet # Voids 2 1 3 - Exam GENERAL EXAM: Alert, active, comfortable in no apparent distress. HEAD: Normocephalic. EYES: Normal reaction of pupils, equal size. NOSE: Clear with pink turbinates. THROAT: No erythema or exudates. NECK: No masses, no JVD. CHEST: No chest wall deformity. LUNGS: Equal air entry with faint end expiratory wheeze. Diminished. CVS: S1 and S2 normal with no audible murmurs, regular rhythm. ABDOMEN: No hepatosplenomegaly, normal bowel sounds, no guarding or rigidity. SPINE: No scoliosis or deformity SKIN: No rashes CENTRAL NERVOUS SYSTEM: No focal deficits, tone is normal in all 4 extremities. Extremities: There is no significant peripheral edema. No clubbing. Peripheral pulses are intact. - Labs CBC & Chem 7: 05/21/17 06:04 05/21/17 06:04 Labs: Microbiology - Last 24 Hours (Table) 05/17/17 19:00 Blood Culture - Preliminary Blood No Growth after 120 hours Assessment and Plan Plan: Impression: #1 Acute exacerbation chronic obstructive pulmonary disease, approving slowly #2 Acute exacerbation of chronic persistent asthma. #3 Acute on chronic hypoxic respiratory failure secondary to above. #4 Chronic and ongoing tobacco dependence. #5 History of sarcoma. #6 History of depression with suicidal ideations. #7 History of bipolar disorder. Plan Continue same treatment. We'll follow. No changes in his medication. Continued IV Solu-Medrol. We'll transfer to the care of Dr. Charles in a.m.
[2017-05-23] MEDS: IPRATROPIUM-ALBUTEROL 3 ML NEB INHALATION SCH (19:56)
[2017-05-23] MEDS: OLANZapine 10 MG TAB PO SCH (20:20)
[2017-05-24] MEDS: BUDESONIDE 1 MG/2 ML NEBU INHALATION SCH ×2 (07:07→18:56)
[2017-05-24] MEDS: IPRATROPIUM-ALBUTEROL 3 ML NEB INHALATION SCH ×4 (07:07→18:56)
[2017-05-24 07:55] LABS: Basophils % (A) 0 %; CH 26.9; Eosinophils # (A) 0.1 k/uL (0-0.7); Eosinophils % (A) 1 %; HCT 40.9 % (39.0-53.0); HDW 2.21; HGB 13.6 gm/dL (13.0-17.5); Luc # (Auto) 0.11; Luc % (Auto) 1; Lymphocytes # (A) 1.3 k/uL (1.0-4.8); Lymphocytes % (A) 7 %; MCH 27.2 pg (25.0-35.0); MCHC 33.3 g/dL (31.0-37.0); MCV 81.7 fL (80.0-100.0); Mean Platelet Volume 7.7; Monocytes # (A) 0.5 k/uL (0-1.0); Monocytes % (A) 3 %; Neutrophils % (A) 89 %; RDW 15.6 % (11.5-15.5); WBC (Perox) 19.77
--- NOTE | 2017-05-24 07:56 | PN ---
PROGRESS NOTE DATE OF SERVICE: 05/23/2017 I am covering for Dr. Richards. This 46-year-old gentleman who was admitted with COPD exacerbation is improving significantly. Patient still has some wheezing. No chest pain. No palpitations. No fever at this time. PHYSICAL EXAM: Alert, oriented x3. Pulse 92, blood pressure 104/50, respiration 18, temperature 98.6, pulse ox 97% on 2 L. HEENT: Conjunctivae normal. NECK: No jugular venous distention. CARDIOVASCULAR: S1, S2 RESPIRATORY: Breath sounds diminished in the bases. A few scattered rhonchi and crackles. Expiratory wheezing also present. ABDOMEN: Soft, nontender. LEGS: No edema. NERVOUS SYSTEM: No focal deficits. LAB STUDIES: Not available today. Yesterday's labs reviewed. ASSESSMENT: 1. Chronic obstructive pulmonary disease acute exacerbation with acute tracheobronchitis. 2. Acute persistent severe asthma. 3. Acute hypoxic respiratory failure. RECOMMENDATIONS AND DISCUSSION I recommend to continue current medications, continue symptomatic treatment. Will recommend repeat labs and the patient is on a prednisone 40 mg IV twice daily which is a tapered dose. Will continue with current medications. Guarded prognosis. Further recommendations to follow. Dr. Richards will follow. MMODL / IJN: [id number] /
[2017-05-24 08:15] LABS: Anion Gap 7 mmol/L; Blood Urea Nitrogen 26 mg/dL (9-20); Calcium 8.9 mg/dL (8.4-10.2); Carbon Dioxide 29 mmol/L (22-30); Chloride 102 mmol/L (98-107); Glucose 111 mg/dL (74-99); Non-African American GFR(MDRD) >60 (>60 ml/min/1.73 sqM); Potassium 4.9 mmol/L (3.5-5.1); Sodium 138 mmol/L (137-145)
[2017-05-24] MEDS: methylPREDNISolone SOD SUCCI 40 MG/ML 1 ML VIAL IV SCH ×2 (08:32→20:12)
[2017-05-24] MEDS: PANTOPRAZOLE 40 MG TABLET PO SCH (08:33)
[2017-05-24] MEDS: NICOTINE 21MG/24HR PATCH TRANSDERM SCH (08:33)
[2017-05-24] MEDS: ENOXAPARIN 40 MG/0.4 ML SYRINGE SQ SCH (08:33)
[2017-05-24] MEDS: diphenhydrAMINE 50 MG/ML 1 ML VIAL IVP SCH ×2 (08:42→20:12)
[2017-05-24] MEDS: ACETAMINOPHEN TAB 325 MG TAB PO PRN (15:50)
--- NOTE | 2017-05-24 16:52 | P.PN ---
Subjective Principal diagnosis: Acute asthma exacerbation 05/24/2017 Patient seen and evaluated examined during the rounds respiratory status slightly better cough congestion is better tolerating breathing treatments well, remains on IV steroids which is slowly being tapered continue breathing treatments, patient continued to have issues associated with chronic pain for which primary service is adjusting the pain medications patient has been consult about smoking cessation and nicotine patch has been applied Objective - Vital Signs Vital signs: Vital Signs Temp 98.5 F 05/24/17 15:00 Pulse 80 05/24/17 15:50 Resp 16 05/24/17 15:50 BP 116/66 05/24/17 15:00 Pulse Ox 97 05/24/17 15:00 Intake & Output 05/23/17 05/24/17 05/24/17 18:59 06:59 18:59 Intake Total 1320 1180 240 Output Total 600 Balance 720 1180 240 Weight 83 kg Intake: Oral 1320 1180 240 Output: Urine 600 Other: Voiding Method Toilet Toilet Toilet # Voids 3 2 2 - Exam GENERAL EXAM: Alert, active, comfortable in no apparent distress. HEAD: Normocephalic. EYES: Normal reaction of pupils, equal size. NOSE: Clear with pink turbinates. THROAT: No erythema or exudates. NECK: No masses, no JVD. CHEST: No chest wall deformity. LUNGS: Equal air entry with faint end expiratory wheeze. Diminished. CVS: S1 and S2 normal with no audible murmurs, regular rhythm. ABDOMEN: No hepatosplenomegaly, normal bowel sounds, no guarding or rigidity. SPINE: No scoliosis or deformity SKIN: No rashes CENTRAL NERVOUS SYSTEM: No focal deficits, tone is normal in all 4 extremities. Extremities: There is no significant peripheral edema. No clubbing. Peripheral pulses are in - Labs CBC & Chem 7: 05/24/17 07:20 05/24/17 07:20 Labs: Abnormal Lab Results - Last 24 Hours (Table) 05/24/17 05/24/17 Range/Units 07:20 07:20 WBC 18.0 H (3.8-10.6) k/uL RDW 15.6 H (11.5-15.5) % Neutrophils # 16.0 H (1.3-7.7) k/uL BUN 26 H (9-20) mg/dL Glucose 111 H (74-99) mg/dL Microbiology - Last 24 Hours (Table) 05/17/17 19:00 Blood Culture - Final Blood No Growth after 144 hours Assessment and Plan Plan: #1 Acute exacerbation chronic obstructive pulmonary disease, approving slowly #2 Acute exacerbation of chronic persistent asthma. #3 Acute on chronic hypoxic respiratory failure secondary to above. #4 Chronic and ongoing tobacco dependence. #5 History of sarcoma. #6 History of depression with suicidal ideations. #7 History of bipolar disorder. Plan We'll continue current supportive care hopefully next 24 hours with cheesy IV steroids oral prednisone and possible discharge in next 24-48 hours Time with Patient: Greater than 30
[2017-05-24] MEDS: OLANZapine 10 MG TAB PO SCH (20:11)
[2017-05-25 07:06] VITALS: BP 110/77; TEMP 97.3
[2017-05-25] MEDS: BUDESONIDE 1 MG/2 ML NEBU INHALATION SCH (07:11)
[2017-05-25] MEDS: IPRATROPIUM-ALBUTEROL 3 ML NEB INHALATION SCH ×2 (07:11→11:33)
[2017-05-25] MEDS: PANTOPRAZOLE 40 MG TABLET PO SCH (07:13)
[2017-05-25] MEDS: NICOTINE 21MG/24HR PATCH TRANSDERM SCH (09:54)
[2017-05-25] MEDS: diphenhydrAMINE 50 MG/ML 1 ML VIAL IVP SCH ×2 (09:55→10:29)
[2017-05-25] MEDS: ENOXAPARIN 40 MG/0.4 ML SYRINGE SQ SCH (10:01)
[2017-05-25] MEDS: methylPREDNISolone SOD SUCCI 40 MG/ML 1 ML VIAL IV SCH (10:28)
--- NOTE | 2017-05-25 10:49 | P.PN ---
Subjective 05/18/17- This is a 46-year-old male patient being seen examined and evaluated today after admission to the hospital. This patient was admitted 05/17/2017 for acute exacerbation of COPD and acute exacerbation of chronic persistent asthma, bronchitis with fever of 101. The patient is supposed to utilize home oxygen 2 L via nasal cannula. The patient states he lives in a long term, and the long term does not allow him to have oxygen therefore he turned the oxygen back into the [employer] company. Patient states he does have a nebulizer machine at the long term and that he did use it prior to coming into the emergency room without relief. The patient was recently admitted to the hospital from 2016 to 05/09/2017. The patient is well-known to our services and is known to be noncompliant with his medical regime. The patient continues to smoke despite poor lung function. Smoking cessation has been discussed at length as well. Upon examination the patient's resting up in bed on 2 L of supplemental oxygen via nasal cannula. He states he does get short of breath with any exertion and/or activity. Patient states he also has a dry cough. Chest x-ray was reviewed and does not show any acute processes, there is clearing of the fluid in the fissures compared to previous exam. 05/19/17- patient has been seen examined and evaluated today. Upon examination the patient's resting up in bed on 2 L of supplemental oxygen via nasal cannula. He continues to have shortness of breath with exertion and activity. Continues to have a dry cough as well. According to the patient he stated he did try to ambulate in the hallway yesterday evening and he became dizzy and very short of breath so he had to sit down. Currently he is afebrile, no further complaints at this time. Patient expresses concerns that he lives in a homeless long term and they do not rule out oxygen tanks and social work is currently looking into this information. 05/20/17-05/23/[address] Londono notes as he was on for coverage 05/24/2017 Patient seen and evaluated examined during the rounds respiratory status slightly better cough congestion is better tolerating breathing treatments well, remains on IV steroids which is slowly being tapered continue breathing treatments, patient continued to have issues associated with chronic pain for which primary service is adjusting the pain medications patient has been consult about smoking cessation and nicotine patch has been applied 05/25/17- patient being seen examined and evaluated today on rounds. Patient is up ambulating in the hallway frequently today. He refuses to take oral prednisone, states he is ALLERGIC and he can only have IV Solu-Medrol. Patient' s Solu-Medrol is being decreased to 40 mg daily. Discharge planning is underway. Patient does not have a primary care physician therefore his follow- up appointments will be with the [facility] which has already been scheduled. Objective - Vital Signs Vital signs: Vital Signs Temp 97.3 F L 05/25/17 06:45 Pulse 80 05/25/17 08:00 Resp 16 05/25/17 08:00 BP 110/77 05/25/17 06:45 Pulse Ox 99 05/25/17 07:15 Intake & Output 05/24/17 05/25/17 05/25/17 18:59 06:59 18:59 Intake Total 240 Output Total 600 600 Balance 240 -600 -600 Weight 83 kg 83 kg Intake: Oral 240 Output: Urine 600 600 Other: Voiding Method Toilet Toilet Toilet # Voids 2 1 1 - Exam GENERAL EXAM: Alert, active, comfortable in no apparent distress. HEAD: Normocephalic. EYES: Normal reaction of pupils, equal size. NOSE: Clear with pink turbinates. THROAT: No erythema or exudates. NECK: No masses, no JVD. CHEST: No chest wall deformity. LUNGS: Poor air entry is present with some expiratory wheezing scattered throughout. Bases diminished. CVS: S1 and S2 normal with no audible mumurs, regular rhythm. ABDOMEN: No hepatosplenomegaly, normal bowel sounds, no guarding or rigidity. Slightly distended, soft EXTREMITIES: No edema noted, pedal pulses palpable. SKIN: No rashes CENTRAL NERVOUS SYSTEM: No focal deficits, tone is normal in all 4 extremities. - Labs CBC & Chem 7: 05/24/17 07:20 05/24/17 07:20 Assessment and Plan Plan: Assessment Adult respiratory distress syndrome Acute exacerbation of COPD Acute exacerbation of chronic persistent severe asthma Acute on chronic hypoxic respiratory failure Chronic bronchitis with fever History of sarcoma Plan could be considered for possible discharge in the next 24 hours. Patient refuses to take oral prednisone in the outpatient doing, states he is ALLERGIC to it. Medications have been reviewed and will be continued as ordered. Continue with empiric Levaquin as well as IV steroids. Steroids and Benadryl have been decreased. Blood cultures pending, obtain sputum culture. Continue with pulmonary hygiene, coughing and deep breathing exercises, and supportive care. Supplemental oxygen to maintain oxygen saturations of 92% or better. Continue nebulizer treatments. We will increase his budesonide dose to 1 mg twice a day. GI and DVT prophylaxis. We will continue to monitor labs/results and adjust treatment as necessary. Further recommendations pending. I performed an examination of the patient and discussed their management with the nurse practitioner. I have reviewed the nurse practitioner's note and agree with the documented findings and plan of care.
[2017-05-25 13:58] VITALS: PULSE 94; RESP 18
[2017-05-26] MEDS ORDERED: diphenhydrAMINE 50 MG/ML 1 ML VIAL IVP SCH (09:00)
[2017-05-26] MEDS ORDERED: methylPREDNISolone SOD SUCCI 40 MG/ML 1 ML VIAL IV SCH (09:00)
== END 2017-05-25 14:15 | disposition home or self-care (01) | DRG 190 ==
LOC: EC 16:49 → 5MS5E 21:05
PROVIDERS: ADMIT Family Medicine; ATTEND Family Medicine
DX: J44.0 Chronic obstructive pulmonary disease with (acute) lower respiratory infection (principal); J96.21 Acute and chronic respiratory failure with hypoxia; J45.52 Severe persistent asthma with status asthmaticus; F20.9 Schizophrenia, unspecified; K21.9 Gastro-esophageal reflux disease without esophagitis; J20.9 Acute bronchitis, unspecified; J44.1 Chronic obstructive pulmonary disease with (acute) exacerbation; F17.200 Nicotine dependence, unspecified, uncomplicated; G89.4 Chronic pain syndrome; I25.10 Atherosclerotic heart disease of native coronary artery without angina pectoris; I25.2 Old myocardial infarction; F32.9 Major depressive disorder, single episode, unspecified; F41.9 Anxiety disorder, unspecified; Z85.830 Personal history of malignant neoplasm of bone; Z91.19 Patient's noncompliance with other medical treatment and regimen; Z88.0 Allergy status to penicillin; Z88.8 Allergy status to other drugs, medicaments and biological substances; Z91.041 Radiographic dye allergy status
CPT/HCPCS: 36415; 71020; 80048; 80053; 82550; 82553; 83605; 84484; 85025; 85610; 85730; 87040; 93005; 94640; 94644; 94645; 94760; 96365; 96366; 96367; 96375; 99285

== ENCOUNTER 2017-05-29 13:59 | Emergency (ER) | payer OTHER ==
[2017-05-29] MEDS ORDERED: methylPREDNISolone SOD SUCCI 125 MG/2 ML VIAL IV STA (14:44)
[2017-05-29] MEDS ORDERED: IPRATROPIUM-ALBUTEROL 3 ML NEB INHALATION STA (14:44)
--- NOTE | 2017-05-29 14:44 | ED ---
General Adult HPI - General Chief complaint: Chest Pain Stated complaint: Chest Pain Time Seen by Provider: 05/29/17 14:00 Source: patient, RN notes reviewed Mode of arrival: ambulatory Limitations: no limitations - History of Present Illness Initial comments: This is a 46-year-old male with a past medical history significant for coronary artery disease and COPD. Patient comes in today because he states he is having difficulty breathing and is taken to breathing treatments at home and they have not helped him. Patient states he has had chest pain that sharp in nature and it only occurs was taking a deep breath. Patient denies any chest pain while breathing normal. Patient denies any fever chills or cough. Patient denies any palpitations. Patient denies any headache patient denies numbness weakness. Patient denies abdominal pain patient denies nausea vomiting diarrhea. - Related Data Previous Rx's Medication Instructions Recorded Albuterol Inhaler [Ventolin Hfa 1 - 2 puff INHALATION RT-QID PRN 05/25/17 Inhaler] #1 inhaler Albuterol Nebulized [Ventolin 2.5 mg INHALATION RT-QID PRN #120 05/25/17 Nebulized] each Ipratropium-Albuterol Nebulize 3 ml INHALATION RT-QID #120 neb 05/25/17 [Duoneb 0.5 mg-3 mg/3 ml Soln] OLANZapine [ZyPREXA] 10 mg PO HS #30 tab 05/25/17 Allergies Allergy/AdvReac Type Severity Reaction Status Date / Time dicyclomine HCl [From Bentyl] Allergy Severe Anaphylaxis Verified 05/29/17 14:30 Iodinated Contrast- Oral and Allergy Severe Rash/Hives Verified 05/29/17 14:30 IV Dye prednisone Allergy Severe Anaphylaxis Verified 05/29/17 14:30 shellfish derived [Shellfish] Allergy Severe Rash/Hives Verified 05/29/17 14:30 Penicillins Allergy Unknown Unknown Verified 05/29/17 14:30 Childhood steroids Allergy Severe Anaphylaxis Uncoded 05/29/17 14:03 Review of Systems ROS Statement: Those systems with pertinent positive or pertinent negative responses have been documented in the HPI. ROS Other: All systems not noted in ROS Statement are negative. 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 Past Anesthesia/Blood Transfusion Reactions: No Reported Reaction Date of Last Stent Placement:: 2002 Past Psychological History: Anxiety, Bipolar, Depression, Schizophrenia Smoking Status: Current every day smoker Past Alcohol Use History: None Reported Past Drug Use History: None Reported - Past Family History Mother Family Medical History: Asthma Father Family Medical History: Liver Disease, Renal Disease Additional Family Medical History / Comment(s): RENAL DISEASE General Exam - General Exam Comments Initial Comments: GENERAL: Patient is well-developed and well-nourished. Patient is nontoxic and well- hydrated and is in mild distress. ENT: Neck is soft and supple. No significant lymphadenopathy is noted. Oropharynx is clear. Moist mucous membranes. Neck has full range of motion without eliciting any pain. EYES: The sclera were anicteric and conjunctiva were pink and moist. Extraocular movements were intact and pupils were equal round and reactive to light. Eyelids were unremarkable. PULMONARY: Expiratory wheezing CARDIOVASCULAR: There is a regular rate and rhythm without any murmurs gallops or rubs. ABDOMEN: Soft and nontender with normal bowel sounds. No palpable organomegaly was noted. There is no palpable pulsatile mass. SKIN: Skin is clear with no lesions or rashes and otherwise unremarkable. NEUROLOGIC: Patient is alert and oriented x3. Cranial nerves II through XII are grossly intact. Motor and sensory are also intact. Normal speech, volume and content. Symmetrical smile. MUSCULOSKELETAL: Normal extremities with adequate strength and full range of motion. No lower extremity swelling or edema. No calf tenderness. LYMPHATICS: No significant lymphadenopathy is noted PSYCHIATRIC: Normal psychiatric evaluation. Normal interpersonal interactions appears functionally intact in deals appropriately with others. No signs of depression. No signs of anxiety. Limitations: no limitations Course Vital Signs 05/29/17 05/29/17 05/29/17 14:02 14:12 14:57 Temperature 98.6 F Pulse Rate 118 H 98 Respiratory 20 22 Rate Blood Pressure 123/70 O2 Sat by Pulse 97 Oximetry 05/29/17 05/29/17 15:09 15:23 Temperature Pulse Rate 97 96 Respiratory 16 Rate Blood Pressure 117/70 O2 Sat by Pulse 98 Oximetry Medical Decision Making - Medical Decision Making EKG shows sinus tachycardia 112 bpm IL interval 126 QRS 72 QT interval 308 QTC is 420. Patient's EKG shows no ST segment elevation or depression or T-wave abdomen is noted Patient's chest x-ray shows no acute abnormality. I went back and reevaluate the patient patient comfortably watching TV oxygenating 96% on room air. Patient states he only is having chest pain if he takes a deep breath. - Lab Data Result diagrams: 05/29/17 14:26 05/29/17 14:26 Lab Results 05/29/17 05/29/17 05/29/17 Range/Units 14:26 14:26 14:26 WBC 11.9 H (3.8-10.6) k/uL RBC 5.08 (4.30-5.90) m/uL Hgb 13.8 (13.0-17.5) gm/dL Hct 41.7 (39.0-53.0) % MCV 82.0 (80.0-100.0) fL MCH 27.1 (25.0-35.0) pg MCHC 33.0 (31.0-37.0) g/dL RDW 16.5 H (11.5-15.5) % Plt Count 272 (150-450) k/uL Neutrophils % 71 % Lymphocytes % 21 % Monocytes % 5 % Eosinophils % 2 % Basophils % 0 % Neutrophils # 8.4 H (1.3-7.7) k/uL Lymphocytes # 2.4 (1.0-4.8) k/uL Monocytes # 0.6 (0-1.0) k/uL Eosinophils # 0.3 (0-0.7) k/uL Basophils # 0.0 (0-0.2) k/uL Anisocytosis Slight PT (9.0-12.0) sec INR (<1.2) APTT (22.0-30.0) sec Sodium 137 (137-145) mmol/L Potassium 4.5 (3.5-5.1) mmol/L Chloride 102 (98-107) mmol/L Carbon Dioxide 29 (22-30) mmol/L Anion Gap 6 mmol/L BUN 17 (9-20) mg/dL Creatinine 0.85 (0.66-1.25) mg/dL Est GFR (MDRD) Af Amer >60 (>60 ml/min/1.73 sqM) Est GFR (MDRD) Non-Af >60 (>60 ml/min/1.73 sqM) Glucose 117 H (74-99) mg/dL Calcium 8.9 (8.4-10.2) mg/dL Magnesium 2.1 (1.6-2.3) mg/dL Total Bilirubin 0.5 (0.2-1.3) mg/dL AST 30 (17-59) U/L ALT 259 H (21-72) U/L Alkaline Phosphatase 111 (38-126) U/L Total Creatine Kinase 35 L (55-170) U/L CK-MB (CK-2) 0.9 (0.0-2.4) ng/mL CK-MB (CK-2) Rel Index 2.6 Troponin I <0.012 (0.000-0.034) ng/mL Total Protein 5.8 L (6.3-8.2) g/dL Albumin 3.2 L (3.5-5.0) g/dL 05/29/17 Range/Units 14:26 WBC (3.8-10.6) k/uL RBC (4.30-5.90) m/uL Hgb (13.0-17.5) gm/dL Hct (39.0-53.0) % MCV (80.0-100.0) fL MCH (25.0-35.0) pg MCHC (31.0-37.0) g/dL RDW (11.5-15.5) % Plt Count (150-450) k/uL Neutrophils % % Lymphocytes % % Monocytes % % Eosinophils % % Basophils % % Neutrophils # (1.3-7.7) k/uL Lymphocytes # (1.0-4.8) k/uL Monocytes # (0-1.0) k/uL Eosinophils # (0-0.7) k/uL Basophils # (0-0.2) k/uL Anisocytosis PT 9.9 (9.0-12.0) sec INR 1.0 (<1.2) APTT 21.9 L (22.0-30.0) sec Sodium (137-145) mmol/L Potassium (3.5-5.1) mmol/L Chloride (98-107) mmol/L Carbon Dioxide (22-30) mmol/L Anion Gap mmol/L BUN (9-20) mg/dL Creatinine (0.66-1.25) mg/dL Est GFR (MDRD) Af Amer (>60 ml/min/1.73 sqM) Est GFR (MDRD) Non-Af (>60 ml/min/1.73 sqM) Glucose (74-99) mg/dL Calcium (8.4-10.2) mg/dL Magnesium (1.6-2.3) mg/dL Total Bilirubin (0.2-1.3) mg/dL AST (17-59) U/L ALT (21-72) U/L Alkaline Phosphatase (38-126) U/L Total Creatine Kinase (55-170) U/L CK-MB (CK-2) (0.0-2.4) ng/mL CK-MB (CK-2) Rel Index Troponin I (0.000-0.034) ng/mL Total Protein (6.3-8.2) g/dL Albumin (3.5-5.0) g/dL Disposition Clinical Impression: COPD exacerbation Disposition: HOME SELF-CARE Condition: Good Instructions: COPD (Chronic Obstructive Pulmonary Disease) (ED) Referrals: Barbie Puentes MD [STAFF PHYSICIAN] - 1-2 days Time of Disposition: 15:55
[2017-05-29 14:47] LABS: Anisocytosis Slight; Basophils % (A) 0 %; CH 27.4; CHCM 33.6; Eosinophils # (A) 0.3 k/uL (0-0.7); Eosinophils % (A) 2 %; HCT 41.7 % (39.0-53.0); HDW 2.29; HGB 13.8 gm/dL (13.0-17.5); Luc # (Auto) 0.14; Luc % (Auto) 1; Lymphocytes # (A) 2.4 k/uL (1.0-4.8); Lymphocytes % (A) 21 %; MCH 27.1 pg (25.0-35.0); Mean Platelet Volume 6.9; Monocytes # (A) 0.6 k/uL (0-1.0); Monocytes % (A) 5 %; Neutrophils # (A) 8.4 k/uL (1.3-7.7); Neutrophils % (A) 71 %; RBC 5.08 m/uL (4.30-5.90); RDW 16.5 % (11.5-15.5); WBC 11.9 k/uL (3.8-10.6); WBC (Perox) 12.22
--- NOTE | 2017-05-29 14:49 | XR ---
EXAMINATION TYPE: XR chest 2V DATE OF EXAM: 05/29/2017 COMPARISON: 05/17/2017 HISTORY: 46-year-old male with chest pain and shortness of breath TECHNIQUE: PA and lateral views FINDINGS: Heart is upper limits of normal in size. Aorta within normal limits. Mild interstitial prominence ti ears largely chronic. Nodular density at the right base suspected nipple shadow. No consolidation or pleural effusion. Some peribronchial cuffing is noted. Surgical clips near the left shoulder with lindsey or scapular resection. Right anterior chest wall injection port with catheter tip in the upper right atrium. IMPRESSION: 1. Some interstitial changes which appear largely chronic. Correlate for possible bronchitis or uncon trolled asthma. 2. Short interval follow-up recommended with the use of nipple markers for the nodular density at the right base. A nipple shadow is suspected. 3. Postsurgical changes at the left shoulder and scapula.
[2017-05-29 14:53] LABS: ALT 259 U/L (21-72); AST 30 U/L (17-59); Alkaline Phosphatase 111 U/L (38-126); Anion Gap 6 mmol/L; Blood Urea Nitrogen 17 mg/dL (9-20); Calcium 8.9 mg/dL (8.4-10.2); Carbon Dioxide 29 mmol/L (22-30); Chloride 102 mmol/L (98-107); Glucose 117 mg/dL (74-99); Magnesium 2.1 mg/dL (1.6-2.3); Non-African American GFR(MDRD) >60 (>60 ml/min/1.73 sqM); Potassium 4.5 mmol/L (3.5-5.1); Sodium 137 mmol/L (137-145); Total Bilirubin 0.5 mg/dL (0.2-1.3); Total Protein 5.8 g/dL (6.3-8.2)
[2017-05-29 14:58] LABS: Partial Thromboplastin Time 21.9 sec (22.0-30.0); Prothrombin Time 9.9 sec (9.0-12.0)
[2017-05-29 15:02] LABS: Creatine Kinase 35 U/L (55-170)
[2017-05-29 15:16] LABS: Creatine Kinase MB 0.9 ng/mL (0.0-2.4); Troponin I <0.012 ng/mL (0.000-0.034)
[2017-05-29 15:26] VITALS: BP 117/70
[2017-05-29] MEDS ORDERED: diphenhydrAMINE 50 MG CAP PO STA (15:27)
[2017-05-29 16:10] VITALS: PULSE 87; RESP 18; TEMP 98.4
== END 2017-05-29 16:09 | disposition home or self-care (01) ==
LOC: EC 13:59
DX: J44.1 Chronic obstructive pulmonary disease with (acute) exacerbation (principal); R00.0 Tachycardia, unspecified; I25.10 Atherosclerotic heart disease of native coronary artery without angina pectoris; I25.2 Old myocardial infarction; F17.200 Nicotine dependence, unspecified, uncomplicated; Z85.830 Personal history of malignant neoplasm of bone; Z95.5 Presence of coronary angioplasty implant and graft; Z88.0 Allergy status to penicillin; Z91.041 Radiographic dye allergy status; Z91.013 Allergy to seafood; Z88.8 Allergy status to other drugs, medicaments and biological substances
CPT/HCPCS: 36415; 94640; 93005; 80053; 82550; 82553; 83735; 84484; 85025; 85610; 85730; 71020; 99285; 96374; J2930

== ENCOUNTER 2017-05-31 15:27 | Emergency (ER) | payer OTHER ==
--- NOTE | 2017-05-31 17:22 | ED ---
Abdominal Pain HPI - General Chief Complaint: Abdominal Pain Stated Complaint: abdominal pain Time Seen by Provider: 05/31/17 17:01 Source: patient Mode of arrival: ambulatory Limitations: no limitations - History of Present Illness Initial Comments: 46 year-old male patient comes to emergency department today for complaints of generalized abdominal pain and distention. Patient states he has had sharp generalized abdominal pain for the last week. Patient states about 3 days ago he noticed his abdomen began to swell. Patient states that today his abdomen is very large, tight, and the pain is worsening. Patient denies any nausea or vomiting. Denies any constipation or diarrhea. Denies any dark, bloody, or black stools. He denies any difficulty with eating or drinking. Patient denies ever having symptoms similar to this in the past. Patient has had a cholecystectomy, but denies any other abdominal surgeries. Patient denies any recent fever, chills, shortness breath, chest pain, abdominal pain, back pain, numbness, tingling, weakness, hematuria, headache, visual changes, or any other complaints. - Related Data Previous Rx's Medication Instructions Recorded Albuterol Inhaler [Ventolin Hfa 1 - 2 puff INHALATION RT-QID PRN 05/25/17 Inhaler] #1 inhaler Albuterol Nebulized [Ventolin 2.5 mg INHALATION RT-QID PRN #120 05/25/17 Nebulized] each Ipratropium-Albuterol Nebulize 3 ml INHALATION RT-QID #120 neb 05/25/17 [Duoneb 0.5 mg-3 mg/3 ml Soln] OLANZapine [ZyPREXA] 10 mg PO HS #30 tab 05/25/17 Allergies Allergy/AdvReac Type Severity Reaction Status Date / Time dicyclomine HCl [From Bentyl] Allergy Severe Anaphylaxis Verified 05/31/17 17:07 Iodinated Contrast- Oral and Allergy Severe Rash/Hives Verified 05/31/17 17:07 IV Dye prednisone Allergy Severe Anaphylaxis Verified 05/31/17 17:07 shellfish derived [Shellfish] Allergy Severe Rash/Hives Verified 05/31/17 17:07 Penicillins Allergy Unknown Unknown Verified 05/31/17 17:07 Childhood steroids Allergy Severe Anaphylaxis Uncoded 05/31/17 15:32 Review of Systems ROS Statement: Those systems with pertinent positive or pertinent negative responses have been documented in the HPI. ROS Other: All systems not noted in ROS Statement are negative. 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 Past Anesthesia/Blood Transfusion Reactions: No Reported Reaction Date of Last Stent Placement:: 2002 Past Psychological History: Anxiety, Bipolar, Depression, Schizophrenia Smoking Status: Current every day smoker Past Alcohol Use History: None Reported Past Drug Use History: None Reported - Past Family History Mother Family Medical History: Asthma Father Family Medical History: Liver Disease, Renal Disease Additional Family Medical History / Comment(s): RENAL DISEASE General Exam Limitations: no limitations General appearance: alert, in no apparent distress Eye exam: Present: normal appearance, PERRL, EOMI. Absent: scleral icterus, conjunctival injection, periorbital swelling ENT exam: Present: normal exam, normal oropharynx, mucous membranes moist Neck exam: Present: normal inspection. Absent: tenderness, meningismus, lymphadenopathy Respiratory exam: Present: wheezes (Expiratory wheezes all posterior lung hays ). Absent: normal lung sounds bilaterally, respiratory distress, rales, rhonchi , stridor Cardiovascular Exam: Present: regular rate, normal rhythm, normal heart sounds. Absent: systolic murmur, diastolic murmur, rubs, gallop, clicks GI/Abdominal exam: Present: distended, normal bowel sounds, other (Large distended abdomen. Tympany throughout all quadrants with percussion.). Absent: soft, tenderness, guarding, rebound, rigid Back exam: Present: normal inspection. Absent: CVA tenderness (R), CVA tenderness (L) Neurological exam: Present: alert, oriented X3, CN II-XII intact Psychiatric exam: Present: normal affect, normal mood Skin exam: Present: warm, dry, intact, normal color. Absent: rash Course Vital Signs 05/31/17 05/31/17 05/31/17 15:31 18:00 19:16 Temperature 98.4 F Pulse Rate 108 H 57 L 93 Respiratory 20 18 16 Rate Blood Pressure 115/53 106/68 129/79 O2 Sat by Pulse 98 99 98 Oximetry Medical Decision Making - Medical Decision Making 46-year-old male patient presented to emergency department today for evaluation of abdominal pain and distention. Lab work was performed and showed no acute processes. This was negative. CT of the abdomen and pelvis without contrast was obtained as patient does have an iodine ALLERGY and is ALLERGIC to site Medrol. CT of the abdomen and pelvis was in normal, showed no acute intra- abdominal processes. Would like to note that patient was offered non-narcotic pain medications however states they do not work for him and refused at this time. Patient will be discharged to follow-up with his primary care physician for a recheck in 1-2 days. He is instructed to return here immediately for any new, worsening, or concerning symptoms. Patient verbalizes understanding and agreed to this plan. - Lab Data Result diagrams: 05/31/17 18:03 05/31/17 18:03 Lab Results 05/31/17 05/31/17 05/31/17 Range/Units 17:37 18:03 18:03 WBC 12.6 H (3.8-10.6) k/uL RBC 4.80 (4.30-5.90) m/uL Hgb 13.1 (13.0-17.5) gm/dL Hct 39.3 (39.0-53.0) % MCV 81.9 (80.0-100.0) fL MCH 27.3 (25.0-35.0) pg MCHC 33.3 (31.0-37.0) g/dL RDW 17.8 H (11.5-15.5) % Plt Count 282 (150-450) k/uL Neutrophils % 67 % Lymphocytes % 23 % Monocytes % 7 % Eosinophils % 1 % Basophils % 1 % Neutrophils # 8.4 H (1.3-7.7) k/uL Lymphocytes # 2.9 (1.0-4.8) k/uL Monocytes # 0.9 (0-1.0) k/uL Eosinophils # 0.2 (0-0.7) k/uL Basophils # 0.1 (0-0.2) k/uL Anisocytosis Slight Sodium 142 (137-145) mmol/L Potassium 4.1 (3.5-5.1) mmol/L Chloride 105 (98-107) mmol/L Carbon Dioxide 30 (22-30) mmol/L Anion Gap 7 mmol/L BUN 17 (9-20) mg/dL Creatinine 0.94 (0.66-1.25) mg/dL Est GFR (MDRD) Af Amer >60 (>60 ml/min/1.73 sqM) Est GFR (MDRD) Non-Af >60 (>60 ml/min/1.73 sqM) Glucose 92 (74-99) mg/dL Calcium 9.0 (8.4-10.2) mg/dL Total Bilirubin 0.3 (0.2-1.3) mg/dL AST 36 (17-59) U/L ALT 179 H (21-72) U/L Alkaline Phosphatase 103 (38-126) U/L Total Protein 6.1 L (6.3-8.2) g/dL Albumin 3.4 L (3.5-5.0) g/dL Amylase 44 (30-110) U/L Lipase 63 (23-300) U/L Urine Color Yellow Urine Appearance Clear (Clear) Urine pH 5.5 (5.0-8.0) Ur Specific [place] 1.013 (1.001-1.035) Urine Protein Negative (Negative) Urine Glucose (UA) Negative (Negative) Urine Ketones Negative (Negative) Urine Blood Negative (Negative) Urine Nitrite Negative (Negative) Urine Bilirubin Negative (Negative) Urine Urobilinogen <2.0 (<2.0) mg/dL Ur Leukocyte Esterase Negative (Negative) - Radiology Data Radiology results: report reviewed, image reviewed CT of the abdomen and pelvis without contrast was obtained and showed that the lung bases are clear consolidation. There is no pleural effusion. There is a small hiatal hernia. There are clips from cholecystectomy. Bowel ducts are not dilated. Liver shows no focal deficits defect. Spleen and pancreas appear normal. Inferior vena cava filter is noted. There is no adrenal masses. Kidneys have normal size and contour. There is no hydronephrosis. Appendix appears normal. There is no retroperitoneal adenopathy. There is no ascites. Bladder distention smoothly. I see no pelvic mass. I see no bony destructive process. Impression by Dr. Morales shows small hiatal hernia. No sign of acute abdomen and pelvis. No adverse change compared to old exam. Normal appendix. Disposition Clinical Impression: Abdominal pain Disposition: HOME SELF-CARE Condition: Good Instructions: Abdominal Pain (ED) Additional Instructions: Follow-up with her primary care provider for recheck in 1-2 days. Return immediately for any new, worsening, or concerning symptoms. Referrals: Jessi Covarrubias MD [Primary Care Provider] - 1-2 days Time of Disposition: 19:47
[2017-05-31 17:45] LABS: Appearance,Urine Clear (Clear); Bilirubin,Urine Negative (Negative); Glucose,Urine (UA) Negative (Negative); Ketones,Urine Negative (Negative); Leukocyte Esterase,Urine Negative (Negative); Nitrite,Urine Negative (Negative); PH, Urine 5.5 (5.0-8.0); Protein,Urine Negative (Negative); Specific Gravity,Urine 1.013 (1.001-1.035); UA Billing (MACRO vs. MICRO) CHEM; Urobilinogen,Urine <2.0 mg/dL (<2.0)
--- NOTE | 2017-05-31 17:55 | XR ---
EXAMINATION TYPE: XR KUB DATE OF EXAM: 05/31/2017 COMPARISON: 02/08/2017 HISTORY: Pain TECHNIQUE: 2 views FINDINGS: There are clips from cholecystectomy. There is no sign of intestinal obstruction or pneumop eritoneum. Fecal pattern is normal. There is no evidence of a mass. Vena cava filter is noted. IMPRESSION: Nonacute abdomen. No change.
[2017-05-31 18:27] LABS: ALT 179 U/L (21-72); AST 36 U/L (17-59); Alkaline Phosphatase 103 U/L (38-126); Amylase 44 U/L (30-110); Anion Gap 7 mmol/L; Blood Urea Nitrogen 17 mg/dL (9-20); Carbon Dioxide 30 mmol/L (22-30); Chloride 105 mmol/L (98-107); Glucose 92 mg/dL (74-99); Non-African American GFR(MDRD) >60 (>60 ml/min/1.73 sqM); Potassium 4.1 mmol/L (3.5-5.1); Sodium 142 mmol/L (137-145); Total Bilirubin 0.3 mg/dL (0.2-1.3); Total Protein 6.1 g/dL (6.3-8.2)
[2017-05-31 18:29] LABS: Anisocytosis Slight; Basophils # (A) 0.1 k/uL (0-0.2); Basophils % (A) 1 %; CH 28.1; CHCM 34.5; Eosinophils # (A) 0.2 k/uL (0-0.7); Eosinophils % (A) 1 %; HCT 39.3 % (39.0-53.0); HDW 2.42; HGB 13.1 gm/dL (13.0-17.5); Luc # (Auto) 0.22; Luc % (Auto) 2; Lymphocytes # (A) 2.9 k/uL (1.0-4.8); Lymphocytes % (A) 23 %; MCH 27.3 pg (25.0-35.0); MCHC 33.3 g/dL (31.0-37.0); MCV 81.9 fL (80.0-100.0); Mean Platelet Volume 7.5; Monocytes # (A) 0.9 k/uL (0-1.0); Monocytes % (A) 7 %; Neutrophils # (A) 8.4 k/uL (1.3-7.7); Neutrophils % (A) 67 %; RDW 17.8 % (11.5-15.5); WBC 12.6 k/uL (3.8-10.6); WBC (Perox) 12.36
[2017-05-31] MEDS ORDERED: FAMOTIDINE 20 MG/2 ML VIAL IV STA (18:37)
[2017-05-31] MEDS ORDERED: RX INFO: IV CONTRAST WAS GIVEN 1 EACH MISC MISCELLANE PRN (18:37)
[2017-05-31] MEDS ORDERED: diphenhydrAMINE 50 MG/ML 1 ML VIAL IVP ONE (18:37)
[2017-05-31 19:17] VITALS: BP 129/79; PULSE 93; RESP 16
--- NOTE | 2017-05-31 19:42 | CT ---
EXAMINATION TYPE: CT abdomen pelvis wo con DATE OF EXAM: 05/31/2017 COMPARISON: 10/26/2015 HISTORY: Abdominal pain with distention x3 days. CT DLP: 804 mGycm Automated exposure control for dose reduction was used. TECHNIQUE: Helical acquisition of images was performed from the lung bases through the pelvis. FINDINGS: Lung bases are clear of consolidation. There is no pleural effusion. There is a small hiatal hernia. There are clips from cholecystectomy. Bile ducts are not dilated. Liver shows no focal defect. Spleen and pancreas appear normal. Inferior vena cava filter is noted. There is no adrenal mass. Kidneys have normal size and contour. There is no hydronephrosis. Appendix appears normal. There is no retroperitoneal adenopathy. There is no ascites. Bladder distends smoothl y. I see no pelvic mass. I see no bony destructive process. Bladder distends smoothly. IMPRESSION: SMALL HIATAL HERNIA. NO SIGN OF ACUTE ABDOMEN AND PELVIS. NO ADVERSE CHANGE COMPARED TO OLD EXAM. NOR MAL APPENDIX.
[2017-05-31 20:05] VITALS: TEMP 98
== END 2017-05-31 20:05 | disposition home or self-care (01) ==
LOC: EC 15:27
DX: R10.84 Generalized abdominal pain (principal); R14.0 Abdominal distension (gaseous); K44.9 Diaphragmatic hernia without obstruction or gangrene; R06.2 Wheezing; N32.89 Other specified disorders of bladder; Z88.0 Allergy status to penicillin; Z88.8 Allergy status to other drugs, medicaments and biological substances; Z91.013 Allergy to seafood; Z91.041 Radiographic dye allergy status; Z91.048 Other nonmedicinal substance allergy status; Z85.830 Personal history of malignant neoplasm of bone; Z90.49 Acquired absence of other specified parts of digestive tract; Z95.828 Presence of other vascular implants and grafts; Z82.5 Family history of asthma and other chronic lower respiratory diseases; Z84.1 Family history of disorders of kidney and ureter; Z83.79 Family history of other diseases of the digestive system; Z98.890 Other specified postprocedural states
CPT/HCPCS: 36415; 74000; 74176; 80053; 81003; 82150; 83690; 85025; 99284

== ENCOUNTER 2017-06-04 22:36 | Observation (INO) | payer OTHER ==
[2017-06-04] MEDS ORDERED: diphenhydrAMINE 50 MG CAP PO STA (23:00)
[2017-06-04] MEDS ORDERED: HYDROmorphone 2 MG/ML 1 ML SYRINGE IM STA (23:00)
[2017-06-04] MEDS ORDERED: IPRATROPIUM 0.5 MG/2.5 ML NEBU INHALATION STA (23:00)
[2017-06-04] MEDS ORDERED: LEVALBUTEROL NEB 1.25 MG/3 ML AMP INHALATION STA (23:00)
[2017-06-04] MEDS ORDERED: LORazepam 1 MG TAB PO STA (23:00)
--- NOTE | 2017-06-04 23:06 | ED ---
General Adult HPI - General Chief complaint: Shortness of Breath Stated complaint: sob Time Seen by Provider: 06/04/17 22:44 Source: patient, RN notes reviewed, old records reviewed Mode of arrival: wheelchair Limitations: no limitations - History of Present Illness Initial comments: This is a 46-year-old male ER for evaluation of shortness of breath cough congestion chest pain. Patient has no history of similar rashes. Patient's well-known to this hospital emergency department. Patient didn't [employer] last night, denies any recent smoking. 50 doing. She was at home with no help. No fevers, increased cough or congestion - Related Data Previous Rx's Medication Instructions Recorded Albuterol Inhaler [Ventolin Hfa 1 - 2 puff INHALATION RT-QID PRN 05/25/17 Inhaler] #1 inhaler Albuterol Nebulized [Ventolin 2.5 mg INHALATION RT-QID PRN #120 05/25/17 Nebulized] each Ipratropium-Albuterol Nebulize 3 ml INHALATION RT-QID #120 neb 05/25/17 [Duoneb 0.5 mg-3 mg/3 ml Soln] OLANZapine [ZyPREXA] 10 mg PO HS #30 tab 05/25/17 Allergies Allergy/AdvReac Type Severity Reaction Status Date / Time dicyclomine HCl [From Bentyl] Allergy Severe Anaphylaxis Verified 06/04/17 22:43 Iodinated Contrast- Oral and Allergy Severe Rash/Hives Verified 06/04/17 22:43 IV Dye prednisone Allergy Severe Anaphylaxis Verified 06/04/17 22:43 shellfish derived [Shellfish] Allergy Severe Rash/Hives Verified 06/04/17 22:43 Penicillins Allergy Unknown Unknown Verified 06/04/17 22:43 Childhood steroids Allergy Severe Anaphylaxis Uncoded 06/04/17 22:43 Review of Systems ROS Statement: Those systems with pertinent positive or pertinent negative responses have been documented in the HPI. ROS Other: All systems not noted in ROS Statement are negative. 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 Past Anesthesia/Blood Transfusion Reactions: No Reported Reaction Date of Last Stent Placement:: 2002 Past Psychological History: Anxiety, Bipolar, Depression, Schizophrenia Smoking Status: Current every day smoker Past Alcohol Use History: None Reported Past Drug Use History: None Reported - Past Family History Mother Family Medical History: Asthma Father Family Medical History: Liver Disease, Renal Disease Additional Family Medical History / Comment(s): RENAL DISEASE General Exam Limitations: no limitations General appearance: alert, in no apparent distress Head exam: Present: atraumatic, normocephalic, normal inspection Eye exam: Present: normal appearance, PERRL, EOMI. Absent: scleral icterus, conjunctival injection, periorbital swelling ENT exam: Present: normal exam, mucous membranes moist Neck exam: Present: normal inspection. Absent: tenderness, meningismus, lymphadenopathy Respiratory exam: Present: normal lung sounds bilaterally. Absent: respiratory distress, wheezes, rales, rhonchi, stridor Cardiovascular Exam: Present: normal rhythm, tachycardia, normal heart sounds. Absent: systolic murmur, diastolic murmur, rubs, gallop, clicks GI/Abdominal exam: Present: soft, normal bowel sounds. Absent: distended, tenderness, guarding, rebound, rigid Extremities exam: Present: normal inspection, full ROM, normal capillary refill. Absent: tenderness, pedal edema, joint swelling, calf tenderness Back exam: Present: normal inspection Neurological exam: Present: alert, oriented X3, CN II-XII intact Psychiatric exam: Present: normal affect, normal mood Skin exam: Present: warm, dry, intact, normal color. Absent: rash Course Vital Signs 06/04/17 06/04/17 06/04/17 22:41 23:09 23:24 Temperature 99.6 F Pulse Rate 109 H 109 H 101 H Respiratory 32 H Rate Blood Pressure 114/67 O2 Sat by Pulse 96 Oximetry 06/05/17 00:01 Temperature 98.4 F Pulse Rate 102 H Respiratory 22 Rate Blood Pressure 116/64 O2 Sat by Pulse 97 Oximetry - Reevaluation(s) Reevaluation #1: 06/05/17 00:42 Patient denies any improvement after initial prolonged breathing treatment EKG Findings - EKG Comments: EKG Findings:: EKG shows sinus rhythm rate of 105, MT 134, QRS 70, QTC 428 Medical Decision Making - Medical Decision Making 46 male to the ED for evaluation of chest pain. At this point patient denies any improvement in breathing, patient be admitted for observation,. She was steroids IV resuscitation - Radiology Data Radiology results: report reviewed (Chest x-ray is negative for acute disease), image reviewed Disposition Clinical Impression: Asthma with status asthmaticus Disposition: ADMITTED IP TO THIS HOSP Condition: Fair Referrals: Jessi Covarrubias MD [Primary Care Provider] - 1-2 days
--- NOTE | 2017-06-04 23:26 | XR ---
EXAM: XR Chest, 1 View CLINICAL HISTORY: Reason: Pain TECHNIQUE: Frontal view of the chest. COMPARISON: 05/17/17 FINDINGS: Lungs: Unremarkable. No consolidation. Pleural space: Unremarkable. No pneumothorax. Heart: Unremarkable. No cardiomegaly. Mediastinum: Unremarkable. Bones/joints: Stable postoperative changes noted in the left axilla. The left scapula is absent. Other findings: Stable right chest Mediport. IMPRESSION: No acute findings.
[2017-06-05] MEDS ORDERED: methylPREDNISolone SOD SUCCI 125 MG/2 ML VIAL IV STA (00:36)
[2017-06-05] MEDS ORDERED: IPRATROPIUM-ALBUTEROL 3 ML NEB INHALATION STA (00:36)
[2017-06-05] MEDS ORDERED: SODIUM CHLORIDE 0.9% 1,000 ML IV STA (00:36)
[2017-06-05 01:20] LABS: Anisocytosis Slight; Basophils # (A) 0.1 k/uL (0-0.2); Basophils % (A) 1 %; Eosinophils # (A) 0.2 k/uL (0-0.7); Eosinophils % (A) 2 %; HCT 40.6 % (39.0-53.0); HDW 2.38; HGB 13.5 gm/dL (13.0-17.5); Luc # (Auto) 0.17; Luc % (Auto) 2; Lymphocytes # (A) 2.5 k/uL (1.0-4.8); Lymphocytes % (A) 29 %; MCH 27.6 pg (25.0-35.0); MCHC 33.3 g/dL (31.0-37.0); MCV 82.9 fL (80.0-100.0); Mean Platelet Volume 7.1; Monocytes # (A) 0.5 k/uL (0-1.0); Monocytes % (A) 5 %; Neutrophils # (A) 5.2 k/uL (1.3-7.7); Neutrophils % (A) 61 %; RDW 18.1 % (11.5-15.5); WBC 8.6 k/uL (3.8-10.6); WBC (Perox) 9.44
[2017-06-05 01:33] LABS: ALT 88 U/L (21-72); AST 62 U/L (17-59); Alkaline Phosphatase 112 U/L (38-126); Anion Gap 12 mmol/L; Blood Urea Nitrogen 10 mg/dL (9-20); Carbon Dioxide 20 mmol/L (22-30); Chloride 108 mmol/L (98-107); Glucose 106 mg/dL (74-99); Magnesium 2.1 mg/dL (1.6-2.3); Non-African American GFR(MDRD) >60 (>60 ml/min/1.73 sqM); Potassium 4.3 mmol/L (3.5-5.1); Sodium 140 mmol/L (137-145); Total Bilirubin 0.7 mg/dL (0.2-1.3); Total Protein 6.3 g/dL (6.3-8.2)
[2017-06-05 01:44] LABS: Creatine Kinase 49 U/L (55-170)
[2017-06-05 01:57] LABS: Creatine Kinase MB 0.5 ng/mL (0.0-2.4); Troponin I <0.012 ng/mL (0.000-0.034)
[2017-06-05] MEDS: SODIUM CHLORIDE 0.9% 1,000 ML IV SCH ×2 (02:45→10:39)
[2017-06-05] MEDS ORDERED: IPRATROPIUM-ALBUTEROL 3 ML NEB INHALATION PRN (03:06)
[2017-06-05 05:40] VITALS: BMI 30.9
[2017-06-05] MEDS: methylPREDNISolone SOD SUCCI 125 MG/2 ML VIAL IV SCH ×4 (06:06→23:40)
[2017-06-05] MEDS: diphenhydrAMINE 50 MG/ML 1 ML VIAL IVP SCH ×4 (06:06→23:39)
[2017-06-05] MEDS: IPRATROPIUM-ALBUTEROL 3 ML NEB INHALATION SCH ×4 (08:26→19:06)
--- NOTE | 2017-06-05 21:34 | P.HPIM ---
History of Present Illness H&P Date: 06/05/17 Chief Complaint: Difficulty breathing Patient is a 46 old male with a known history of asthma/COPD with multiple admissions with similar complaints and no complaints, coronary artery disease with history of stent placement came to the hospital with complains of worsening short of breath and wheezing. For the past 2 days. Patient denied any cough or sputum production. Denied any fever or chills. Patient was admitted to the hospital with similar complaints several times during this year. Review of Systems CONSTITUTIONAL: No fever, no malaise, no fatigue. HEENT: No recent visual problems or hearing problems. Denied any sore throat. CARDIOVASCULAR: No chest pain, orthopnea, PND, no palpitations, no syncope. PULMONARY: , Cough and congestion and wheezing. no hemoptysis. GASTROINTESTINAL: No diarrhea, no nausea, no vomiting, no abdominal pain. Normoactive bowel sounds. NEUROLOGICAL: No headaches, no weakness, no numbness. HEMATOLOGICAL: Denies any bleeding or petechiae. GENITOURINARY: Denies any burning micturition, frequency, or urgency. MUSCULOSKELETAL/RHEUMATOLOGICAL: Denies any joint pain, swelling, or any muscle pain. ENDOCRINE: Denies any polyuria or polydipsia. The rest of the 14-point review of systems is negative. 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 Past Anesthesia/Blood Transfusion Reactions: No Reported Reaction Date of Last Stent Placement:: 2002 Past Psychological History: Anxiety, Bipolar, Depression, Schizophrenia Additional Psychological History / Comment(s): . Smoking Status: Current every day smoker Past Alcohol Use History: None Reported Additional Past Alcohol Use History / Comment(s): STATES DRINKS OCC Past Drug Use History: None Reported Additional Drug Use History / Comment(s): "NONE SINCE 2014" - Past Family History Mother Family Medical History: Asthma Father Family Medical History: Liver Disease, Renal Disease Additional Family Medical History / Comment(s): RENAL DISEASE Medications and Allergies Home Medications Medication Instructions Recorded Confirmed Type Albuterol Inhaler [Ventolin Hfa 1 - 2 puff INHALATION RT-QID PRN 05/25/17 Rx Inhaler] #1 inhaler Albuterol Nebulized [Ventolin 2.5 mg INHALATION RT-QID PRN #120 05/25/17 Rx Nebulized] each Ipratropium-Albuterol Nebulize 3 ml INHALATION RT-QID #120 neb 05/25/17 Rx [Duoneb 0.5 mg-3 mg/3 ml Soln] OLANZapine [ZyPREXA] 10 mg PO HS #30 tab 05/25/17 06/05/17 Rx Allergies Allergy/AdvReac Type Severity Reaction Status Date / Time dicyclomine HCl [From Bentyl] Allergy Severe Anaphylaxis Verified 06/05/17 08:58 Iodinated Contrast- Oral and Allergy Severe Rash/Hives Verified 06/05/17 08:58 IV Dye prednisone Allergy Severe Anaphylaxis Verified 06/05/17 08:58 shellfish derived [Shellfish] Allergy Severe Rash/Hives Verified 06/05/17 08:58 Penicillins Allergy Unknown Unknown Verified 06/05/17 08:58 Childhood steroids Allergy Severe Anaphylaxis Uncoded 06/04/17 22:43 Physical Exam Vitals: Vital Signs Temp Pulse Pulse Resp BP BP Pulse Ox 06/05/17 11:53 97 06/05/17 11:42 96 06/05/17 08:36 98 06/05/17 08:26 97 97 06/05/17 08:00 105 H 18 06/05/17 07:00 97.6 F 105 H 18 133/74 96 06/05/17 02:30 97.8 F 94 17 127/81 96 06/05/17 02:03 97.8 F 94 20 152/70 100 06/05/17 01:17 98 06/05/17 00:58 95 06/05/17 00:01 98.4 F 102 H 22 116/64 97 06/04/17 23:24 101 H 06/04/17 23:09 109 H 06/04/17 22:41 99.6 F 109 H 32 H 114/67 96 Intake and Output 06/04/17 06/05/17 06/05/17 22:59 06:59 14:59 Intake Total 640 Balance 640 Intake: Intake, IV Titration 400 Amount Sodium Chloride 0.9% 1, 400 000 ml @ 100 mls/hr IV . Q10H PAULINO Rx#:[id number] Oral 240 Other: # Voids 1 Weight 81.647 kg 81.647 kg PHYSICAL EXAMINATION: Patient is lying in the bed comfortably, no acute distress, awake alert and oriented.. HEENT: Normocephalic. Neck is supple. Pupils reactive. Nostrils clear. Oral cavity is moist. Ears reveal no drainage. Neck reveals no JVD, carotid bruits, or thyromegaly. CHEST EXAMINATION: Trachea is central. Symmetrical expansion. Bilateral diffuse wheezing positive no crackles. Rhonchi positive as well CARDIAC: Normal S1, S2 with no gallops. No murmurs ABDOMEN: Soft. Bowel sounds normal. No organomegaly. No abdominal bruits. Extremities reveal no edema. No clubbing or cyanosis Neurologically awake, alert, oriented x3 with well-coordinated movements. Skin: no rash or skin lesions Musculoskeletal: no joint swelling or deformity. Results CBC & Chem 7: 06/05/17 01:15 06/05/17 01:15 Labs: Abnormal Lab Results - Last 24 Hours (Table) 06/05/17 06/05/17 06/05/17 Range/Units 01:15 01:15 01:15 RDW 18.1 H (11.5-15.5) % Chloride 108 H (98-107) mmol/L Carbon Dioxide 20 L (22-30) mmol/L Glucose 106 H (74-99) mg/dL AST 62 H (17-59) U/L ALT 88 H (21-72) U/L Total Creatine Kinase 49 L (55-170) U/L Thrombosis Risk Factor Assmnt - Choose All That Apply Any of the Below Risk Factors Present?: Yes Each Factor Represents 1 point: Age 41-60 years, Obesity (BMI >25) Thrombosis Risk Factor Assessment Total Risk Factor Score: 2 Thrombosis Risk Factor Assessment Level: Low Risk Assessment and Plan Plan: Acute COPD/asthma examination Noncompliance with medications History of substance abuse Nicotine addiction 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 We will continue the current management and further recommendations based on the clinical course. Smoking cessation was counseled Time with Patient: Greater than 30
[2017-06-06] MEDS ORDERED: CALCIUM CARBONATE 500 MG CHEWABLE PO PRN (00:37)
[2017-06-06] MEDS: SODIUM CHLORIDE 0.9% 1,000 ML IV SCH ×2 (05:05→12:25)
[2017-06-06] MEDS: methylPREDNISolone SOD SUCCI 125 MG/2 ML VIAL IV SCH ×2 (05:53→12:09)
[2017-06-06] MEDS: diphenhydrAMINE 50 MG/ML 1 ML VIAL IVP SCH ×2 (05:53→12:10)
[2017-06-06 07:38] VITALS: BP 157/89; RESP 18; TEMP 97.4
[2017-06-06] MEDS: IPRATROPIUM-ALBUTEROL 3 ML NEB INHALATION SCH ×2 (07:43→11:27)
[2017-06-06 11:38] VITALS: PULSE 77
[2017-06-06] MEDS ORDERED: traMADol 50 MG TAB PO PRN (12:27)
--- NOTE | 2017-06-06 13:16 | P.DS ---
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 Patient denied any cough or sputum production. Denied any fever or chills. Chest x-ray nonacute. Patient was admitted to the hospital with similar complaints several times during this year. Treated with nebulized bronchodilators, IV steroids with significant clinical improvement. Patient is being discharged home in a stable condition with guarded prognosis. The impression and plan of care has been dictated as directed as a scribe. : I performed a H&P examination of this patient and discussed the same with the dictator. I agree with the dictator's note. Any additional findings/opinions/ etc. will be noted. Patient Condition at Discharge: Stable Plan - Discharge Summary New Discharge Prescriptions: New predniSONE 10 mg PO DIRECTED #30 tab traMADol HCL [Ultram] 50 mg PO TID PRN #10 tab PRN Reason: Pain Continue Ipratropium-Albuterol Nebulize [Duoneb 0.5 mg-3 mg/3 ml Soln] 3 ml INHALATION RT-QID #120 neb Albuterol Inhaler [Ventolin Hfa Inhaler] 1 - 2 puff INHALATION RT-QID PRN #1 inhaler PRN Reason: Shortness Of Breath Albuterol Nebulized [Ventolin Nebulized] 2.5 mg INHALATION RT-QID PRN #120 each PRN Reason: Shortness Of Breath OLANZapine [ZyPREXA] 10 mg PO HS #30 tab Discharge Medication List Albuterol Inhaler [Ventolin Hfa Inhaler] 1 - 2 puff INHALATION RT-QID PRN #1 inhaler 05/25/17 [Rx] Albuterol Nebulized [Ventolin Nebulized] 2.5 mg INHALATION RT-QID PRN #120 each 05/25/17 [Rx] Ipratropium-Albuterol Nebulize [Duoneb 0.5 mg-3 mg/3 ml Soln] 3 ml INHALATION RT -QID #120 neb 05/25/17 [Rx] OLANZapine [ZyPREXA] 10 mg PO HS #30 tab 05/25/17 [Rx] predniSONE 10 mg PO DIRECTED #30 tab 06/06/17 [Rx] traMADol HCL [Ultram] 50 mg PO TID PRN #10 tab 06/06/17 [Rx] Follow up Appointment(s)/Referral(s): Jessi Covarrubias MD [Primary Care Provider] - 3 Days
[2017-06-06] MEDS ORDERED: methylPREDNISolone SOD SUCCI 40 MG/ML 1 ML VIAL IV SCH (16:00)
== END 2017-06-06 15:35 | disposition home or self-care (01) ==
LOC: EC 22:36 → 5MS5E 06-05 00:36
PROVIDERS: ADMIT Hospitalist; ATTEND Hospitalist
DX: J44.1 Chronic obstructive pulmonary disease with (acute) exacerbation (principal); Z91.14 Patient's other noncompliance with medication regimen; F17.200 Nicotine dependence, unspecified, uncomplicated; Z85.830 Personal history of malignant neoplasm of bone; I25.10 Atherosclerotic heart disease of native coronary artery without angina pectoris; K21.9 Gastro-esophageal reflux disease without esophagitis; G89.4 Chronic pain syndrome; D50.9 Iron deficiency anemia, unspecified; F41.9 Anxiety disorder, unspecified; F20.9 Schizophrenia, unspecified; F31.9 Bipolar disorder, unspecified; Z87.11 Personal history of peptic ulcer disease; Z86.718 Personal history of other venous thrombosis and embolism; Z87.01 Personal history of pneumonia (recurrent); I25.2 Old myocardial infarction; Z79.899 Other long term (current) drug therapy; Z88.8 Allergy status to other drugs, medicaments and biological substances; Z91.041 Radiographic dye allergy status; Z88.0 Allergy status to penicillin; Z91.013 Allergy to seafood; Z95.5 Presence of coronary angioplasty implant and graft
CPT/HCPCS: 99285; 96372 ×2; 96374 ×2; 96361 ×4; 96376 ×2; 96375 ×2; 36415; 94640 ×5; 94760 ×2; 93005; 83880; 80053; 82550; 82553; 83735; 84484; 85025; 71010; G0378 ×2; J1170; J1200 ×2; J2930 ×2; J1642

== ENCOUNTER → 2017-06-10 | Outpatient (CLI) | payer OTHER ==
[2017-06-10 14:01] LABS: Anisocytosis Slight; Basophils % (A) 0 %; CH 27.3; CHCM 32.6; Eosinophils # (A) 0.1 k/uL (0-0.7); Eosinophils % (A) 1 %; HCT 39.4 % (39.0-53.0); HDW 2.33; HGB 12.8 gm/dL (13.0-17.5); Luc % (Auto) 1; Lymphocytes # (A) 1.6 k/uL (1.0-4.8); Lymphocytes % (A) 19 %; MCH 27.4 pg (25.0-35.0); MCHC 32.6 g/dL (31.0-37.0); MCV 84.1 fL (80.0-100.0); Mean Platelet Volume 7.3; Monocytes # (A) 0.3 k/uL (0-1.0); Monocytes % (A) 4 %; Neutrophils # (A) 5.9 k/uL (1.3-7.7); Neutrophils % (A) 74 %; RBC 4.69 m/uL (4.30-5.90); RDW 16.7 % (11.5-15.5); WBC (Perox) 8.36
[2017-06-10 17:34] LABS: ALT 46 U/L (21-72); AST 17 U/L (17-59); Alkaline Phosphatase 105 U/L (38-126); Anion Gap 4 mmol/L; Blood Urea Nitrogen 10 mg/dL (9-20); Calcium 8.9 mg/dL (8.4-10.2); Carbon Dioxide 27 mmol/L (22-30); Chloride 105 mmol/L (98-107); Cholesterol 164 mg/dL (<200); Glucose 94 mg/dL (74-99); HDL Cholesterol 65 mg/dL (40-60); Non-African American GFR(MDRD) >60 (>60 ml/min/1.73 sqM); Potassium 3.7 mmol/L (3.5-5.1); Sodium 136 mmol/L (137-145); Total Bilirubin 1.1 mg/dL (0.2-1.3); Total Protein 5.7 g/dL (6.3-8.2)
[2017-06-10 18:06] LABS: Prostate Specific Antigen 1.16 ng/mL (0.00-4.00)
[2017-06-10 18:25] LABS: Vitamin B12 632 pg/mL (239-931)
[2017-06-11 11:46] LABS: Hemoglobin A1C 6.8 % (4.2-6.1)
== END | disposition home or self-care (01) ==
LOC: LABWHC1 13:18
PROVIDERS: ATTEND Physician Assistant Medical
DX: F10.20 Alcohol dependence, uncomplicated (principal); Z85.830 Personal history of malignant neoplasm of bone; Z79.899 Other long term (current) drug therapy
CPT/HCPCS: 36415; 80053; 80061; 80074; 82306; 82607; 83036; 83735; 84153; 84439; 84443; 85025; 87390

== ENCOUNTER 2017-07-05 13:12 | Observation (INO) | payer OTHER ==
[2017-07-05] MEDS ORDERED: methylPREDNISolone SOD SUCCI 125 MG/2 ML VIAL IV STA (13:30)
[2017-07-05] MEDS ORDERED: IPRATROPIUM 0.5 MG/2.5 ML NEBU INHALATION STA (13:30)
[2017-07-05] MEDS ORDERED: ALBUTEROL NEBULIZED 2.5 MG/3 ML INHALATION STA (13:30)
--- NOTE | 2017-07-05 13:36 | ED ---
General Adult HPI - General Chief complaint: Shortness of Breath Stated complaint: JULIETTE/Chest pain Time Seen by Provider: 07/05/17 13:20 Source: patient, RN notes reviewed Mode of arrival: wheelchair Limitations: no limitations - History of Present Illness Initial comments: 46 yo male with known history of COPD on home oxygen presents for evaluation of dyspnea. 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 Patient was recently discharged with COPD exacerbation. Patient also complains of fever, worsening cough which is productive. He also complains of central chest pain. He does have history of CAD status post stenting. Denies lower extremity swelling. Denies calf tenderness. - Related Data Home Medications Medication Instructions Recorded Confirmed Albuterol Nebulized [Ventolin 2.5 mg INHALATION RT-QID 06/25/17 07/05/17 Nebulized] Cholecalciferol [Vitamin D3] 5,000 unit PO DAILY 06/25/17 07/05/17 Ipratropium Nebulized [Atrovent 0.5 mg INHALATION RT-QID 06/25/17 07/05/17 Nebulized] Montelukast [Singulair] 10 mg PO HS 06/25/17 07/05/17 methylPREDNISolone Dose Pack See Taper PO DIRECTED 07/05/17 07/05/17 [Medrol Dose Pack] Previous Rx's Medication Instructions Recorded Albuterol Inhaler [Ventolin Hfa 1 - 2 puff INHALATION RT-QID PRN 05/25/17 Inhaler] #1 inhaler OLANZapine [ZyPREXA] 10 mg PO HS #30 tab 05/25/17 Escitalopram [Lexapro] 5 mg PO DAILY #30 tab 07/01/17 Famotidine [Pepcid] 20 mg PO BID #60 tab 07/01/17 Levofloxacin [Levaquin] 750 mg PO Q24H #5 tab 07/01/17 Allergies Allergy/AdvReac Type Severity Reaction Status Date / Time dicyclomine HCl [From Bentyl] Allergy Severe Anaphylaxis Verified 07/05/17 14:31 Iodinated Contrast- Oral and Allergy Severe Rash/Hives Verified 07/05/17 14:31 IV Dye prednisone Allergy Severe Anaphylaxis Verified 07/05/17 14:31 shellfish derived [Shellfish] Allergy Severe Rash/Hives Verified 07/05/17 14:31 Penicillins Allergy Unknown Unknown Verified 07/05/17 14:31 Childhood steroids Allergy Severe Anaphylaxis Uncoded 07/05/17 13:13 Review of Systems ROS Statement: Those systems with pertinent positive or pertinent negative responses have been documented in the HPI. ROS Other: All systems not noted in ROS Statement are negative. 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 Past Anesthesia/Blood Transfusion Reactions: No Reported Reaction Date of Last Stent Placement:: 2002 Past Psychological History: Anxiety, Bipolar, Depression, Schizophrenia Smoking Status: Current every day smoker Past Alcohol Use History: None Reported Past Drug Use History: None Reported - Past Family History Mother Family Medical History: Asthma Father Family Medical History: Liver Disease, Renal Disease Additional Family Medical History / Comment(s): RENAL DISEASE General Exam Limitations: no limitations General appearance: alert, in distress Head exam: Present: atraumatic, normocephalic Eye exam: Present: normal appearance, PERRL ENT exam: Present: normal exam Neck exam: Present: normal inspection Respiratory exam: Present: respiratory distress, wheezes, accessory muscle use, prolonged expiratory, other (Good air entry) Cardiovascular Exam: Present: normal rhythm, tachycardia GI/Abdominal exam: Present: soft. Absent: distended, tenderness Extremities exam: Present: normal inspection, normal capillary refill. Absent: pedal edema, calf tenderness Neurological exam: Present: alert, oriented X3 Psychiatric exam: Present: normal affect, normal mood Skin exam: Present: warm, dry, intact. Absent: cyanosis, diaphoretic Course Vital Signs 07/05/17 07/05/17 07/05/17 13:14 14:16 14:30 Temperature 100.2 F H Pulse Rate 125 H 98 96 Respiratory 24 Rate Blood Pressure 135/64 O2 Sat by Pulse 98 Oximetry 07/05/17 07/05/17 07/05/17 15:00 15:17 16:00 Temperature Pulse Rate 100 108 H 108 H Respiratory 18 Rate Blood Pressure 121/64 O2 Sat by Pulse 98 Oximetry 07/05/17 16:40 Temperature Pulse Rate 108 H Respiratory 18 Rate Blood Pressure 124/69 O2 Sat by Pulse 97 Oximetry EKG Findings - EKG Comments: EKG Findings:: EKG shows sinus tachycardia, ventricular rate 104, RI interval 124, QRS duration 72, QTC 418, no ST segment elevation or depression Medical Decision Making - Medical Decision Making 46 yo male presenting for cough dyspnea and chest pain. 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 Sent to the ER for evaluation. On examination patient has poor Wheeze, tachypnea, accessory muscle use. Patient does have good air entry. Chest x-ray shows concern for early basilar infiltrate bilaterally. Blood cell count is 10.1 which is normal. Patient does have low-grade temperature in the emergency department. After initial treatment patient remains quite tachypneic. He will be admitted for continued treatment. He'll be started on broad-spectrum antibiotics for healthcare associated pneumonia. Diagnosis: COPD exacerbation, healthcare associated pneumonia - Lab Data Result diagrams: 07/05/17 15:37 07/05/17 15:37 Lab Results 07/05/17 07/05/17 07/05/17 Range/Units 15:37 15:37 15:37 WBC 10.1 (3.8-10.6) k/uL RBC 4.93 (4.30-5.90) m/uL Hgb 13.9 (13.0-17.5) gm/dL Hct 42.3 (39.0-53.0) % MCV 85.8 (80.0-100.0) fL MCH 28.2 (25.0-35.0) pg MCHC 32.8 (31.0-37.0) g/dL RDW 15.9 H (11.5-15.5) % Plt Count 219 (150-450) k/uL Neutrophils % 77 % Lymphocytes % 18 % Monocytes % 3 % Eosinophils % 0 % Basophils % 0 % Neutrophils # 7.8 H (1.3-7.7) k/uL Lymphocytes # 1.8 (1.0-4.8) k/uL Monocytes # 0.3 (0-1.0) k/uL Eosinophils # 0.0 (0-0.7) k/uL Basophils # 0.0 (0-0.2) k/uL PT 9.9 (9.0-12.0) sec INR 1.0 (<1.2) APTT 21.4 L (22.0-30.0) sec Sodium 142 (137-145) mmol/L Potassium 3.8 (3.5-5.1) mmol/L Chloride 107 (98-107) mmol/L Carbon Dioxide 27 (22-30) mmol/L Anion Gap 8 mmol/L BUN 13 (9-20) mg/dL Creatinine 0.91 (0.66-1.25) mg/dL Est GFR (MDRD) Af Amer >60 (>60 ml/min/1.73 sqM) Est GFR (MDRD) Non-Af >60 (>60 ml/min/1.73 sqM) Glucose 105 H (74-99) mg/dL Calcium 8.9 (8.4-10.2) mg/dL Magnesium 2.2 (1.6-2.3) mg/dL Total Bilirubin 0.7 (0.2-1.3) mg/dL AST 17 (17-59) U/L ALT 67 (21-72) U/L Alkaline Phosphatase 108 (38-126) U/L Total Creatine Kinase (55-170) U/L CK-MB (CK-2) (0.0-2.4) ng/mL CK-MB (CK-2) Rel Index Troponin I (0.000-0.034) ng/mL NT-Pro-B Natriuret Pep pg/mL Total Protein 6.1 L (6.3-8.2) g/dL Albumin 3.5 (3.5-5.0) g/dL 07/05/17 07/05/17 Range/Units 15:37 15:37 WBC (3.8-10.6) k/uL RBC (4.30-5.90) m/uL Hgb (13.0-17.5) gm/dL Hct (39.0-53.0) % MCV (80.0-100.0) fL MCH (25.0-35.0) pg MCHC (31.0-37.0) g/dL RDW (11.5-15.5) % Plt Count (150-450) k/uL Neutrophils % % Lymphocytes % % Monocytes % % Eosinophils % % Basophils % % Neutrophils # (1.3-7.7) k/uL Lymphocytes # (1.0-4.8) k/uL Monocytes # (0-1.0) k/uL Eosinophils # (0-0.7) k/uL Basophils # (0-0.2) k/uL PT (9.0-12.0) sec INR (<1.2) APTT (22.0-30.0) sec Sodium (137-145) mmol/L Potassium (3.5-5.1) mmol/L Chloride (98-107) mmol/L Carbon Dioxide (22-30) mmol/L Anion Gap mmol/L BUN (9-20) mg/dL Creatinine (0.66-1.25) mg/dL Est GFR (MDRD) Af Amer (>60 ml/min/1.73 sqM) Est GFR (MDRD) Non-Af (>60 ml/min/1.73 sqM) Glucose (74-99) mg/dL Calcium (8.4-10.2) mg/dL Magnesium (1.6-2.3) mg/dL Total Bilirubin (0.2-1.3) mg/dL AST (17-59) U/L ALT (21-72) U/L Alkaline Phosphatase (38-126) U/L Total Creatine Kinase 31 L (55-170) U/L CK-MB (CK-2) 0.8 (0.0-2.4) ng/mL CK-MB (CK-2) Rel Index 2.6 Troponin I <0.012 (0.000-0.034) ng/mL NT-Pro-B Natriuret Pep 63 pg/mL Total Protein (6.3-8.2) g/dL Albumin (3.5-5.0) g/dL Disposition Clinical Impression: COPD (chronic obstructive pulmonary disease), Healthcare-associated pneumonia Disposition: ADMITTED IP TO THIS HOSP Condition: Stable Referrals: Jessi Covarrubias MD [Primary Care Provider] - 1-2 days Decision to Admit Reason: Admit from EC Decision Date: 07/05/17 Decision Time: 16:53
--- NOTE | 2017-07-05 14:13 | XR ---
EXAMINATION TYPE: XR chest 2V DATE OF EXAM: 07/05/2017 COMPARISON: 06/30/2017 TECHNIQUE: PA and lateral views submitted. HISTORY: Shortness of breath FINDINGS: No pneumothorax. Subsegmental changes at both lung bases. Surgical clips in the abdomen. Suggestion o f IVC filter. Surgical clips in the left axilla. Mediport catheter seen with the tip overlying the ca voatrial junction. Pleural-based thickening noted with a tiny amount of thickening or fluid within th e minor fissure. Vague nodularity in the right upper lobe. IMPRESSION: 1. Basilar subsegmental atelectasis or early infiltrate. Correlate clinically mild thickening or tiny of fluid in the minor fissure.
[2017-07-05] MEDS ORDERED: diphenhydrAMINE 50 MG/ML 1 ML VIAL IVP STA (14:18)
[2017-07-05 15:52] LABS: Basophils % (A) 0 %; CH 27.9; CHCM 32.7; Eosinophils % (A) 0 %; HCT 42.3 % (39.0-53.0); HDW 2.35; HGB 13.9 gm/dL (13.0-17.5); Luc # (Auto) 0.16; Luc % (Auto) 2; Lymphocytes # (A) 1.8 k/uL (1.0-4.8); Lymphocytes % (A) 18 %; MCH 28.2 pg (25.0-35.0); MCHC 32.8 g/dL (31.0-37.0); MCV 85.8 fL (80.0-100.0); Mean Platelet Volume 6.7; Monocytes # (A) 0.3 k/uL (0-1.0); Monocytes % (A) 3 %; Neutrophils # (A) 7.8 k/uL (1.3-7.7); Neutrophils % (A) 77 %; RBC 4.93 m/uL (4.30-5.90); RDW 15.9 % (11.5-15.5); WBC 10.1 k/uL (3.8-10.6); WBC (Perox) 9.73
[2017-07-05 16:01] LABS: Prothrombin Time 9.9 sec (9.0-12.0)
[2017-07-05 16:09] LABS: Partial Thromboplastin Time 21.4 sec (22.0-30.0)
[2017-07-05 16:11] LABS: ALT 67 U/L (21-72); AST 17 U/L (17-59); Alkaline Phosphatase 108 U/L (38-126); Anion Gap 8 mmol/L; Blood Urea Nitrogen 13 mg/dL (9-20); Calcium 8.9 mg/dL (8.4-10.2); Carbon Dioxide 27 mmol/L (22-30); Chloride 107 mmol/L (98-107); Glucose 105 mg/dL (74-99); Magnesium 2.2 mg/dL (1.6-2.3); Non-African American GFR(MDRD) >60 (>60 ml/min/1.73 sqM); Potassium 3.8 mmol/L (3.5-5.1); Sodium 142 mmol/L (137-145); Total Bilirubin 0.7 mg/dL (0.2-1.3); Total Protein 6.1 g/dL (6.3-8.2)
[2017-07-05 16:17] LABS: Creatine Kinase 31 U/L (55-170)
[2017-07-05 16:30] LABS: Creatine Kinase MB 0.8 ng/mL (0.0-2.4); Troponin I <0.012 ng/mL (0.000-0.034)
[2017-07-05] MEDS ORDERED: CEFEPIME 2 GM in SODIUM CHLORIDE 0.9% 50 ML IVPB STA (16:48)
[2017-07-05] MEDS ORDERED: VANCOMYCIN IV PER PHARMACY 1 EACH MISC MISCELLANE PRN (16:48)
[2017-07-05] MEDS ORDERED: IPRATROPIUM-ALBUTEROL 3 ML NEB INHALATION PRN (16:56)
[2017-07-05] MEDS: VANCOMYCIN 1,500 MG in SODIUM CHLORIDE 0.9% 250 ML IVPB SCH (18:09)
[2017-07-05] MEDS: ALBUTEROL NEBULIZED 2.5 MG/3 ML INHALATION SCH ×2 (19:42→23:19)
[2017-07-05] MEDS: HYDROcodone/APAP 5-325MG 1 EACH TAB PO PRN (20:02)
[2017-07-05] MEDS ORDERED: OLANZapine 10 MG TAB PO SCH (21:00)
[2017-07-05] MEDS ORDERED: MONTELUKAST 10 MG TAB PO SCH (21:00)
[2017-07-05 21:09] LABS: Hemoglobin A1C 6.8 % (4.2-6.1)
[2017-07-05] MEDS: FAMOTIDINE 20 MG TAB PO SCH (21:30)
[2017-07-05] MEDS: INSULIN LISPRO (humaLOG) 300 UNIT/3 ML VIAL SQ SCH (21:32)
[2017-07-05 21:57] LABS: Glucose,Whole Blood 281 mg/dL (75-99)
--- NOTE | 2017-07-05 22:35 | P.HPIM ---
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 Patient was recently discharged with COPD exacerbation. Patient also complains of fever, worsening cough which is productive. He also complains of central chest pain. He does have history of CAD status post stenting. Denies lower extremity swelling. Denies calf tenderness. Chest x-ray showed bibasilar subsegmental atelectasis versus infiltrate. Patient was started on antibiotics for HCAP Review of Systems Constitutional: Patient subjective fevers and chills at home . No generalized weakness or weight loss. Abdomen: Patient denied nausea vomiting and diarrhea and abdominal pain. Cardiovascular: Patient does have some chest discomfort and shortness of breath. No orthopnea. no palpitations. Respiratory: Shortness of breath. Cough with whitish sputum production. Neurologic: Patient denied any numbness or tingling headache. Musculoskeletal: Patient denies any complaints of joint swelling or deformity. Skin: Negative Psychiatric: Negative Endocrine: No heat or cold intolerance. No recent weight gain. Genitourinary: No dysuria or hematuria. 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 Past Anesthesia/Blood Transfusion Reactions: No Reported Reaction Date of Last Stent Placement:: 2002 Smoking Status: Current every day smoker - Past Family History Mother Family Medical History: Asthma Father Family Medical History: Liver Disease, Renal Disease Additional Family Medical History / Comment(s): RENAL DISEASE Medications and Allergies Home Medications Medication Instructions Recorded Confirmed Type Albuterol Inhaler [Ventolin Hfa 1 - 2 puff INHALATION RT-QID PRN 05/25/17 Rx Inhaler] #1 inhaler OLANZapine [ZyPREXA] 10 mg PO HS #30 tab 05/25/17 07/05/17 Rx Albuterol Nebulized [Ventolin 2.5 mg INHALATION RT-QID 06/25/17 07/05/17 History Nebulized] Cholecalciferol [Vitamin D3] 5,000 unit PO DAILY 06/25/17 07/05/17 History Ipratropium Nebulized [Atrovent 0.5 mg INHALATION RT-QID 06/25/17 07/05/17 History Nebulized] Montelukast [Singulair] 10 mg PO HS 06/25/17 07/05/17 History Escitalopram [Lexapro] 5 mg PO DAILY #30 tab 07/01/17 07/05/17 Rx Famotidine [Pepcid] 20 mg PO BID #60 tab 07/01/17 07/05/17 Rx Levofloxacin [Levaquin] 750 mg PO Q24H #5 tab 07/01/17 07/05/17 Rx methylPREDNISolone Dose Pack See Taper PO DIRECTED 07/05/17 07/05/17 History [Medrol Dose Pack] Allergies Allergy/AdvReac Type Severity Reaction Status Date / Time dicyclomine HCl [From Bentyl] Allergy Severe Anaphylaxis Verified 07/05/17 14:31 Iodinated Contrast- Oral and Allergy Severe Rash/Hives Verified 07/05/17 14:31 IV Dye prednisone Allergy Severe Anaphylaxis Verified 07/05/17 14:31 shellfish derived [Shellfish] Allergy Severe Rash/Hives Verified 07/05/17 14:31 Penicillins Allergy Unknown Unknown Verified 07/05/17 14:31 Childhood steroids Allergy Severe Anaphylaxis Uncoded 07/05/17 13:13 Physical Exam Vitals: Vital Signs Temp Pulse Resp BP Pulse Ox 07/05/17 19:55 104 H 07/05/17 19:44 105 H 07/05/17 17:33 98 17 135/76 98 07/05/17 17:11 108 H 07/05/17 16:59 110 H 07/05/17 16:40 108 H 18 124/69 97 07/05/17 16:00 108 H 18 121/64 98 07/05/17 15:17 108 H 07/05/17 15:00 100 07/05/17 14:30 96 07/05/17 14:16 98 07/05/17 13:14 100.2 F H 125 H 24 135/64 98 Intake and Output 07/05/17 07/05/17 07/05/17 06:59 14:59 22:59 Intake Total 200 Balance 200 Intake: Oral 200 Other: # Voids 0 Weight 81.647 kg Patient Weight 07/06/17 06:59 Weight 81.647 kg PHYSICAL EXAMINATION: Patient is lying in the bed comfortably, no acute distress, awake alert and oriented.. HEENT: Normocephalic. Neck is supple. Pupils reactive. Nostrils clear. Oral cavity is moist. Ears reveal no drainage. Neck reveals no JVD, carotid bruits, or thyromegaly. CHEST EXAMINATION: Trachea is central. Symmetrical expansion. Bilateral diffuse wheezing and rhonchi positive CARDIAC: Normal S1, S2 with no gallops. No murmurs ABDOMEN: Soft. Bowel sounds normal. No organomegaly. No abdominal bruits. Extremities: 1+ edema. No clubbing or cyanosis Neurologically awake, alert, oriented x3 with well-coordinated movements. No focal deficits noted Skin: No rash or skin lesions. Psychiatric: coOperative. Nonsuicidal. Musculoskeletal: No joint swelling or deformity. Normal range of motion. Results CBC & Chem 7: 07/05/17 15:37 07/05/17 15:37 Labs: Abnormal Lab Results - Last 24 Hours (Table) 07/05/17 07/05/17 07/05/17 Range/Units 15:37 15:37 15:37 RDW 15.9 H (11.5-15.5) % Neutrophils # 7.8 H (1.3-7.7) k/uL APTT 21.4 L (22.0-30.0) sec Glucose 105 H (74-99) mg/dL POC Glucose (mg/dL) (75-99) mg/dL Hemoglobin A1c (4.2-6.1) % Total Creatine Kinase (55-170) U/L Total Protein 6.1 L (6.3-8.2) g/dL 07/05/17 07/05/17 07/05/17 Range/Units 15:37 15:37 21:24 RDW (11.5-15.5) % Neutrophils # (1.3-7.7) k/uL APTT (22.0-30.0) sec Glucose (74-99) mg/dL POC Glucose (mg/dL) 281 H (75-99) mg/dL Hemoglobin A1c 6.8 H (4.2-6.1) % Total Creatine Kinase 31 L (55-170) U/L Total Protein (6.3-8.2) g/dL Thrombosis Risk Factor Assmnt - DVT/VTE Prophylaxis DVT/VTE Prophylaxis: Pharmacologic Prophylaxis ordered Assessment and Plan Assessment: #1 shortness of breath due to acute COPD exacerbation and possible HCAP #2 acute COPD exacerbation #3 bibasilar atelectasis versus infiltrate. Possible pneumonia- HCAP due to recent admissions #4 history of multiple admissions with COPD/asthma examination #5 hypertension #6 history of coronary artery disease status post stent placement #7 history of osteosarcoma with partial scapula resection #8 anxiety #9 chronic hypoxic respiratory failure due to COPD on home oxygen Plan: Patient will be continued on IV steroids and breathing treatments along with antibiotics in the form of vancomycin and cefepime. Follow blood cultures and continue to monitor the patient. Patient has multiple medical admissions with similar complaints. Pulmonary has been consulted. Further recommendations based on the clinical course. Prognosis is guarded.
[2017-07-06] MEDS: diphenhydrAMINE 50 MG/ML 1 ML VIAL IVP PRN ×2 (00:30→06:57)
[2017-07-06] MEDS: methylPREDNISolone SOD SUCCI 125 MG/2 ML VIAL IV SCH ×3 (00:31→11:54)
[2017-07-06] MEDS: CEFEPIME 2 GM in SODIUM CHLORIDE 0.9% 50 ML IVPB SCH ×2 (00:31→07:59)
[2017-07-06] MEDS: HEPARIN SODIUM,PORCINE 5,000 UNIT/ML 1 ML VIAL SQ SCH ×2 (00:34→07:59)
[2017-07-06] MEDS: ALBUTEROL NEBULIZED 2.5 MG/3 ML INHALATION SCH ×2 (05:21→08:55)
[2017-07-06 06:08] LABS: Glucose,Whole Blood 204 mg/dL (75-99)
[2017-07-06] MEDS: VANCOMYCIN 1,500 MG in SODIUM CHLORIDE 0.9% 250 ML IVPB SCH (06:57)
[2017-07-06 06:58] LABS: Anion Gap 9 mmol/L; Calcium 8.9 mg/dL (8.4-10.2); Carbon Dioxide 22 mmol/L (22-30); Chloride 107 mmol/L (98-107); Glucose 217 mg/dL (74-99); Non-African American GFR(MDRD) >60 (>60 ml/min/1.73 sqM); Sodium 138 mmol/L (137-145)
[2017-07-06] MEDS: HYDROcodone/APAP 5-325MG 1 EACH TAB PO PRN ×2 (06:59→10:32)
[2017-07-06] MEDS: INSULIN LISPRO (humaLOG) 300 UNIT/3 ML VIAL SQ SCH ×2 (07:01→13:19)
[2017-07-06 07:03] LABS: Potassium 5.7 mmol/L (3.5-5.1)
[2017-07-06 07:04] LABS: Blood Urea Nitrogen 15 mg/dL (9-20)
[2017-07-06] MEDS: FAMOTIDINE 20 MG TAB PO SCH (07:59)
[2017-07-06 08:46] VITALS: RESP 18
[2017-07-06] MEDS ORDERED: ALBUTEROL NEBULIZED 2.5 MG/3 ML INHALATION PRN (09:05)
[2017-07-06 11:06] VITALS: PULSE 98
[2017-07-06 11:07] VITALS: BP 98/70; TEMP 98.9
--- NOTE | 2017-07-06 11:51 | P.CNPUL ---
History of Present Illness Consult date: 07/06/17 Reason for consult: dyspnea, cough, asthma Chief complaint: Shortness of breath History of present illness: This is a 46-year-old gentleman who presented emergency department complaining of shortness of breath and chest tightness. The patient was seen in my office yesterday. He stated at the time he wasn't feeling "great." The patient states that within an hour of leaving our office he began to have fevers, chills, worsening shortness of breath. He came to the emergency department and was found to have bibasilar atelectasis versus infiltrate. The patient did have a fever of 100.2. The patient was recently admitted and discharged on July 01, 2017. He has had multiple hospitalizations and readmissions. He states he does use his nebulizer at home. He states he is allergic to inhaled corticosteroids. At her office visit we discussed starting Xolair. The patient was also started on duo nebs. 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 Past Anesthesia/Blood Transfusion Reactions: No Reported Reaction Date of Last Stent Placement:: 2002 Smoking Status: Current every day smoker - Past Family History Mother Family Medical History: Asthma Father Family Medical History: Liver Disease, Renal Disease Additional Family Medical History / Comment(s): RENAL DISEASE Medications and Allergies Home Medications Medication Instructions Recorded Confirmed Type Albuterol Inhaler [Ventolin Hfa 1 - 2 puff INHALATION RT-QID PRN 09/06/17 10/17/ 17 Rx Inhaler] #1 inhaler OLANZapine [ZyPREXA] 10 mg PO HS #30 tab 05/25/17 07/05/17 Rx Albuterol Nebulized [Ventolin 2.5 mg INHALATION RT-QID 06/25/17 07/05/17 History Nebulized] Cholecalciferol [Vitamin D3] 5,000 unit PO DAILY 06/25/17 07/05/17 History Ipratropium Nebulized [Atrovent 0.5 mg INHALATION RT-QID 06/25/17 07/05/17 History Nebulized] Montelukast [Singulair] 10 mg PO HS 06/25/17 07/05/17 History Escitalopram [Lexapro] 5 mg PO DAILY #30 tab 07/01/17 07/05/17 Rx Famotidine [Pepcid] 20 mg PO BID #60 tab 07/01/17 07/05/17 Rx Levofloxacin [Levaquin] 750 mg PO Q24H #5 tab 07/01/17 07/05/17 Rx methylPREDNISolone Dose Pack See Taper PO DIRECTED 07/05/17 07/05/17 History [Medrol Dose Pack] Allergies Allergy/AdvReac Type Severity Reaction Status Date / Time dicyclomine HCl [From Bentyl] Allergy Severe Anaphylaxis Verified 07/05/17 14:31 Iodinated Contrast- Oral and Allergy Severe Rash/Hives Verified 07/05/17 14:31 IV Dye prednisone Allergy Severe Anaphylaxis Verified 07/05/17 14:31 shellfish derived [Shellfish] Allergy Severe Rash/Hives Verified 07/05/17 14:31 Penicillins Allergy Unknown Unknown Verified 07/05/17 14:31 Childhood steroids Allergy Severe Anaphylaxis Uncoded 07/05/17 13:13 Physical Exam Osteopathic Statement: *. No significant issues noted on an osteopathic structural exam other than those noted in the History and Physical/Consult. Vitals: Vital Signs Temp Pulse Pulse Resp BP BP Pulse Ox 07/06/17 11:06 98.9 F 98 18 98/70 98 07/06/17 11:05 98 18 07/06/17 09:09 84 07/06/17 08:55 80 07/06/17 08:00 98.8 F 98 18 104/66 98 07/06/17 04:00 97.9 F 67 17 97/56 100 07/06/17 00:00 91 17 07/05/17 23:54 98.1 F 91 17 129/67 97 07/05/17 23:31 89 07/05/17 23:20 90 07/05/17 20:00 17 07/05/17 19:55 104 H 07/05/17 19:44 105 H 07/05/17 17:33 98 17 135/76 98 07/05/17 17:11 108 H 07/05/17 16:59 110 H 07/05/17 16:40 108 H 18 124/69 97 07/05/17 16:00 108 H 18 121/64 98 07/05/17 15:17 108 H 07/05/17 15:00 100 07/05/17 14:30 96 07/05/17 14:16 98 07/05/17 13:14 100.2 F H 125 H 24 135/64 98 Intake and Output 07/05/17 07/06/17 07/06/17 22:59 06:59 14:59 Intake Total 200 530 536 Output Total 400 Balance 200 530 136 Intake: IV 50 50 Cefepime 2 gm In Sodium 50 50 Chloride 0.9% 50 ml @ 100 mls/hr IVPB Q8HR PAULINO Rx# :[id number] Intake, IV Titration 250 Amount Vancomycin 1,500 mg In 250 Sodium Chloride 0.9% 250 ml @ 125 mls/hr IVPB BID@ 0600,1800 PAULINO Rx#: [id number] Oral 200 480 236 Output: Urine 400 Other: Voiding Method Toilet Toilet Toilet # Voids 0 3 1 Weight 77.6 kg Gen.: Patient is alert and oriented 3, no acute distress Cardiovascular: Regular rate and rhythm, S1/S2 Lungs: Diffuse bilateral expiratory wheezing Abdomen: Soft nontender nondistended positive bowel sounds Extremity: No edema Results - Laboratory Findings CBC and BMP: 07/05/17 15:37 07/06/17 07:43 PT/INR, D-dimer PT 9.9 sec (9.0-12.0) 07/05/17 15:37 INR 1.0 (<1.2) 07/05/17 15:37 Abnormal lab findings: Abnormal Labs 07/05/17 07/05/17 07/05/17 15:37 15:37 15:37 RDW 15.9 H Neutrophils # 7.8 H APTT 21.4 L Potassium Glucose 105 H POC Glucose (mg/dL) Hemoglobin A1c Total Creatine Kinase Total Protein 6.1 L 07/05/17 07/05/17 07/05/17 15:37 15:37 21:24 RDW Neutrophils # APTT Potassium Glucose POC Glucose (mg/dL) 281 H Hemoglobin A1c 6.8 H Total Creatine Kinase 31 L Total Protein 07/06/17 07/06/17 05:53 06:06 RDW Neutrophils # APTT Potassium 5.7 H Glucose 217 H POC Glucose (mg/dL) 204 H Hemoglobin A1c Total Creatine Kinase Total Protein - Diagnostic Findings Chest x-ray: report reviewed, image reviewed Assessment and Plan Plan: Acute on chronic hypoxic respiratory failure Acute exacerbation of asthma, severe persistent By basilar atelectasis versus infiltrate Possible healthcare acquired pneumonia 3 out of 4 SIRS Hyperglycemia Chronic pain Acute exacerbation of COPD History of DVT Peptic ulcer disease Coronary artery disease History of tobacco abuse O2 to maintain saturation greater than or equal to 90% Bronchodilators Perforomist IV Solu-Medrol Antibiotics: Cefepime and vancomycin The patient states he is allergic to inhaled steroids Sputum culture Check Influenza Follow chest x-ray until cleared Oliulair Patient has been offered Xolair which can be done as an outpatient GI and DVT prophylaxis Incentive spirometry and pulmonary hygiene Thank you for this consultation we'll continue to follow along
[2017-07-06] MEDS ORDERED: IPRATROPIUM-ALBUTEROL 3 ML NEB INHALATION SCH (12:00)
[2017-07-06 12:09] LABS: Glucose,Whole Blood 159 mg/dL (75-99)
--- NOTE | 2017-07-06 15:41 | P.CNPUL ---
History of Present Illness Consult date: 07/06/17 Reason for consult: dyspnea, cough, asthma, COPD Chief complaint: Shortness of breath and wheezing History of present illness: Mr. Lopez is a 46-year-old male well-known to me with history of chronic hypoxic restrictive failure on home oxygen as well as history of chronic persistent asthma and COPD patient also has a history of chronic pain syndrome history of recurrent admission related to multiple issues and problems including pain. 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 Patient was recently discharged with COPD exacerbation. Patient also complains of fever, worsening cough which is productive. He also complains of central chest pain. He does have history of CAD status post stenting. Denies lower extremity swelling. Denies calf tenderness. 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 Past Anesthesia/Blood Transfusion Reactions: No Reported Reaction Date of Last Stent Placement:: 2002 Smoking Status: Current every day smoker - Past Family History Mother Family Medical History: Asthma Father Family Medical History: Liver Disease, Renal Disease Additional Family Medical History / Comment(s): RENAL DISEASE Medications and Allergies Home Medications Medication Instructions Recorded Confirmed Type Albuterol Inhaler [Ventolin Hfa 1 - 2 puff INHALATION RT-QID PRN 05/25/17 Rx Inhaler] #1 inhaler OLANZapine [ZyPREXA] 10 mg PO HS #30 tab 05/25/17 07/05/17 Rx Albuterol Nebulized [Ventolin 2.5 mg INHALATION RT-QID 06/25/17 07/05/17 History Nebulized] Cholecalciferol [Vitamin D3] 5,000 unit PO DAILY 06/25/17 07/05/17 History Ipratropium Nebulized [Atrovent 0.5 mg INHALATION RT-QID 06/25/17 07/05/17 History Nebulized] Montelukast [Singulair] 10 mg PO HS 06/25/17 07/05/17 History Escitalopram [Lexapro] 5 mg PO DAILY #30 tab 07/01/17 07/05/17 Rx Famotidine [Pepcid] 20 mg PO BID #60 tab 07/01/17 07/05/17 Rx Levofloxacin [Levaquin] 750 mg PO Q24H #5 tab 07/06/17 07/05/17 Rx methylPREDNISolone Dose Pack See Taper PO DIRECTED #0 07/06/17 07/05/17 Rx [Medrol Dose Pack] Allergies Allergy/AdvReac Type Severity Reaction Status Date / Time dicyclomine HCl [From Bentyl] Allergy Severe Anaphylaxis Verified 07/05/17 14:31 Iodinated Contrast- Oral and Allergy Severe Rash/Hives Verified 07/05/17 14:31 IV Dye prednisone Allergy Severe Anaphylaxis Verified 07/05/17 14:31 shellfish derived [Shellfish] Allergy Severe Rash/Hives Verified 07/05/17 14:31 Penicillins Allergy Unknown Unknown Verified 07/05/17 14:31 Childhood steroids Allergy Severe Anaphylaxis Uncoded 07/05/17 13:13 Physical Exam Vitals: Vital Signs Temp Pulse Pulse Resp BP BP Pulse Ox 07/06/17 11:06 98.9 F 98 18 98/70 98 07/06/17 11:05 98 18 07/06/17 09:09 84 07/06/17 08:55 80 07/06/17 08:00 98.8 F 98 18 104/66 98 07/06/17 04:00 97.9 F 67 17 97/56 100 07/06/17 00:00 91 17 07/05/17 23:54 98.1 F 91 17 129/67 97 07/05/17 23:31 89 07/05/17 23:20 90 07/05/17 20:00 17 07/05/17 19:55 104 H 07/05/17 19:44 105 H 07/05/17 17:33 98 17 135/76 98 07/05/17 17:11 108 H 07/05/17 16:59 110 H 07/05/17 16:40 108 H 18 124/69 97 07/05/17 16:00 108 H 18 121/64 98 Intake and Output 07/06/17 07/06/17 07/06/17 06:59 14:59 22:59 Intake Total 530 536 Output Total 400 Balance 530 136 Intake: IV 50 50 Cefepime 2 gm In Sodium 50 50 Chloride 0.9% 50 ml @ 100 mls/hr IVPB Q8HR [facility] Rx# :[id number] Intake, IV Titration 250 Amount Vancomycin 1,500 mg In 250 Sodium Chloride 0.9% 250 ml @ 125 mls/hr IVPB BID@ 0600,1800 PAULINO Rx#: [id number] Oral 480 236 Output: Urine 400 Other: Voiding Method Toilet Toilet # Voids 3 1 Weight 77.6 kg - Constitutional General appearance: average body habitus, cooperative, disheveled - EENT Eyes: EOMI, PERRLA, scleral icterus, normal appearance Ears: bilateral: normal - Neck Neck: normal ROM Carotids: bilateral: upstroke normal Thyroid: bilateral: normal size - Respiratory Respiratory: bilateral: diminished, rhonchi, wheezing, prolonged expiration, prolonged inspiration, negative: CTA, dullness, rales - Cardiovascular Rhythm: regular Heart sounds: normal: S1, S2 - Gastrointestinal General gastrointestinal: normal bowel sounds, soft - Neurologic Neurologic: CNII-XII intact - Musculoskeletal Musculoskeletal: gait normal, generalized weakness, strength equal bilaterally - Psychiatric Psychiatric: A&O x's 3, appropriate affect, intact judgment & insight Results - Laboratory Findings CBC and BMP: 07/05/17 15:37 07/06/17 07:43 PT/INR, D-dimer PT 9.9 sec (9.0-12.0) 07/05/17 15:37 INR 1.0 (<1.2) 07/05/17 15:37 Abnormal lab findings: Abnormal Labs 07/05/17 07/05/17 07/05/17 15:37 15:37 15:37 RDW 15.9 H Neutrophils # 7.8 H APTT 21.4 L Potassium Glucose 105 H POC Glucose (mg/dL) Hemoglobin A1c Total Creatine Kinase Total Protein 6.1 L 07/05/17 07/05/17 07/05/17 15:37 15:37 21:24 RDW Neutrophils # APTT Potassium Glucose POC Glucose (mg/dL) 281 H Hemoglobin A1c 6.8 H Total Creatine Kinase 31 L Total Protein 07/06/17 07/06/17 07/06/17 05:53 06:06 11:52 RDW Neutrophils # APTT Potassium 5.7 H Glucose 217 H POC Glucose (mg/dL) 204 H 159 H Hemoglobin A1c Total Creatine Kinase Total Protein Assessment and Plan Assessment: Acute asthma exacerbation Tracheobronchitis BI basilar atelectasis versus infiltrate Chronic pain syndrome with history of osteosarcoma Coronary artery disease and history of stent placement Would recommend to continue on IV steroids breathing treatment and pelvic antibiotics continue supportive care and continue deep breathing exercises will defer pain management to the primary service there are issues associated with noncompliance are present we'll monitor observe for now if patient remains stable can be discharged home with follow-up in outpatient setting Time with Patient: Greater than 30
--- NOTE | 2017-07-07 00:56 | P.DS ---
Providers Date of admission: 07/05/17 16:43 Expected date of discharge: 07/06/17 Attending physician: Ronnie Mullins Consults: 07/05/17 16:43 Consult Physician Routine Consulting Provider: Ady Candelaria Consult Reason/Comments: COPD exacerbation, Healthcare associated pneumonia Do you want consulting provider notified?: Yes, Notify in am 07/06/17 09:23 Consult Physician Routine Consulting Provider: Sachin Charles Consult Reason/Comments: COPD Do you want consulting provider notified?: Yes Primary care physician: Jessi Covarrubias Hospital Course: Discharge diagnosis #1 shortness of breath due to acute COPD exacerbation and possible HCAP #2 acute COPD exacerbation with tracheobronchitis pearlescent #3 bibasilar atelectasis versus infiltrate. 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 Patient was seen at his er tech office due to short of breath and wheezing, sent to ER in for evaluation. Patient was recently discharged with COPD exacerbation. Patient also complains of fever, worsening cough which is productive. He also complains of central chest pain. He does have history of CAD status post stenting. Denies lower extremity swelling. Denies calf tenderness. Chest x-ray showed bibasilar subsegmental atelectasis versus infiltrate. Patient was started on antibiotics Patient was continued on IV steroids and breathing treatments along with antibiotics in the form of vancomycin and cefepime. Patient has multiple medical admissions with similar complaints. Pulmonary has been consulted. Patient did improve clinically. Patient is lying in the bed comfortably without much wheezing at this time. Patient is stable to be discharged home and continue with breathing treatments and antibiotic course and follow with pulmonary clinic. Patient does use home oxygen Patient intentionally wheezes and complaints of severe short of breath. Note: Patient does have pain medication abuse. Narcotic pain medications including [place] should be avoided during next admissions. Tylenol or Motrin for pain management. Patient does not have true ALLERGY to methylprednisolone oral prednisone. IV Benadryl should be discouraged. Discharge physical examination was done Patient Condition at Discharge: Stable Plan - Discharge Summary New Discharge Prescriptions: Continue Albuterol Inhaler [Ventolin Hfa Inhaler] 1 - 2 puff INHALATION RT-QID PRN #1 inhaler PRN Reason: Shortness Of Breath OLANZapine [ZyPREXA] 10 mg PO HS #30 tab Montelukast [Singulair] 10 mg PO HS Ipratropium Nebulized [Atrovent Nebulized] 0.5 mg INHALATION RT-QID Cholecalciferol [Vitamin D3] 5,000 unit PO DAILY Albuterol Nebulized [Ventolin Nebulized] 2.5 mg INHALATION RT-QID Escitalopram [Lexapro] 5 mg PO DAILY #30 tab Famotidine [Pepcid] 20 mg PO BID #60 tab Levofloxacin [Levaquin] 750 mg PO Q24H #5 tab methylPREDNISolone Dose Pack [Medrol Dose Pack] See Taper PO DIRECTED #0 Discharge Medication List Albuterol Inhaler [Ventolin Hfa Inhaler] 1 - 2 puff INHALATION RT-QID PRN #1 inhaler 05/25/17 [Rx] OLANZapine [ZyPREXA] 10 mg PO HS #30 tab 05/25/17 [Rx] Albuterol Nebulized [Ventolin Nebulized] 2.5 mg INHALATION RT-QID 06/25/17 [ History] Cholecalciferol [Vitamin D3] 5,000 unit PO DAILY 06/25/17 [History] Ipratropium Nebulized [Atrovent Nebulized] 0.5 mg INHALATION RT-QID 06/25/17 [ History] Montelukast [Singulair] 10 mg PO HS 06/25/17 [History] Escitalopram [Lexapro] 5 mg PO DAILY #30 tab 07/01/17 [Rx] Famotidine [Pepcid] 20 mg PO BID #60 tab 07/01/17 [Rx] Levofloxacin [Levaquin] 750 mg PO Q24H #5 tab 07/06/17 [Rx] methylPREDNISolone Dose Pack [Medrol Dose Pack] See Taper PO DIRECTED #0 [Rx] Follow up Appointment(s)/Referral(s): Jessi Covarrubias MD [Primary Care Provider] - 07/13/17 11:15 am ([facility] [phone] Tuesday ) Sachin Charles MD [STAFF PHYSICIAN] - 1 Week (Not open on Wednesdays. Please call to schedule appointment tomorrow.) Ambulatory/Diagnostic Orders: Complete Blood Count w/diff [LAB.AMB] Time Frame: 3 Days, Location: Determined By Patient Patient Instructions/Handouts: COPD (Chronic Obstructive Pulmonary Disease) (DC ) Discharge Disposition: HOME SELF-CARE
[2017-07-08] MEDS ORDERED: VANCOMYCIN TROUGH DUE 1 EACH MISC MISCELLANE ONE (05:00)
== END 2017-07-06 16:33 | disposition home or self-care (01) ==
LOC: EC 13:12 → 6SEL 16:43 → INTOOBSV 16:43
PROVIDERS: ADMIT Internal Medicine; ATTEND Internal Medicine
DX: J44.1 Chronic obstructive pulmonary disease with (acute) exacerbation (principal); J45.51 Severe persistent asthma with (acute) exacerbation; J96.11 Chronic respiratory failure with hypoxia; Z99.81 Dependence on supplemental oxygen; K21.9 Gastro-esophageal reflux disease without esophagitis; Z85.830 Personal history of malignant neoplasm of bone; F17.200 Nicotine dependence, unspecified, uncomplicated; G89.4 Chronic pain syndrome; I10 Essential (primary) hypertension; I25.10 Atherosclerotic heart disease of native coronary artery without angina pectoris; I25.2 Old myocardial infarction; Z79.899 Other long term (current) drug therapy; Z82.5 Family history of asthma and other chronic lower respiratory diseases; Z86.718 Personal history of other venous thrombosis and embolism; Z87.11 Personal history of peptic ulcer disease; Z91.14 Patient's other noncompliance with medication regimen; Z95.5 Presence of coronary angioplasty implant and graft; F11.10 Opioid abuse, uncomplicated; R73.9 Hyperglycemia, unspecified; Z90.79 Acquired absence of other genital organ(s); Z88.8 Allergy status to other drugs, medicaments and biological substances; Z91.041 Radiographic dye allergy status; Z88.0 Allergy status to penicillin; Z91.013 Allergy to seafood
CPT/HCPCS: 99285 ×2; 96365 ×2; 96375 ×3; 96376; 96366 ×2; 96367; 96372; 36415; 94640 ×2; 94644; 93005; 83880; 80053; 80048; 83036; 82550; 82553; 83735; 84132; 84484; 85025; 85610; 85730; 87040; 71020; G0378 ×2; J3370 ×2; J1200 ×2; J1644; J2930 ×2; J0692 ×2

== ENCOUNTER 2017-07-11 19:04 | Emergency (ER) | payer OTHER ==
[2017-07-11] MEDS ORDERED: SODIUM CHLORIDE 0.9% 1,000 ML IV STA (20:08)
[2017-07-11] MEDS ORDERED: ALBUTEROL NEBULIZED 2.5 MG/3 ML INHALATION STA ×2 (20:08→20:34)
[2017-07-11] MEDS ORDERED: IPRATROPIUM 0.5 MG/2.5 ML NEBU INHALATION STA (20:08)
[2017-07-11] MEDS ORDERED: SODIUM CHLORIDE 0.9% 500 ML IV STA (20:08)
[2017-07-11] MEDS ORDERED: DEXAMETHASONE SOD PHOSPHATE 10 MG/ML 1 ML VIAL IV STA (20:09)
--- NOTE | 2017-07-11 20:13 | ED ---
General Adult HPI - General Chief complaint: Chest Pain Stated complaint: chest pain, skylar Time Seen by Provider: 07/11/17 19:59 Source: patient, RN notes reviewed, old records reviewed Mode of arrival: wheelchair Limitations: no limitations - History of Present Illness Initial comments: 46 yo male with history of COPD on home oxygen presents for evaluation of worsening cough and dyspnea, and central chest pain. Pain is worse with cough. Dull aching, patient does admit to having central chest pressure as well. Patient's cough is mildly productive. Denies fever or chills. No nausea vomiting. No radiating chest pain. - Related Data Home Medications Medication Instructions Recorded Confirmed Albuterol Nebulized [Ventolin 2.5 mg INHALATION RT-QID 06/25/17 07/11/17 Nebulized] Cholecalciferol [Vitamin D3] 5,000 unit PO DAILY 06/25/17 07/11/17 Ipratropium Nebulized [Atrovent 0.5 mg INHALATION RT-QID 06/25/17 07/11/17 Nebulized] Montelukast [Singulair] 10 mg PO HS 06/25/17 07/11/17 Previous Rx's Medication Instructions Recorded Albuterol Inhaler [Ventolin Hfa 1 - 2 puff INHALATION RT-QID PRN 05/25/17 Inhaler] #1 inhaler OLANZapine [ZyPREXA] 10 mg PO HS #30 tab 05/25/17 Escitalopram [Lexapro] 5 mg PO DAILY #30 tab 07/01/17 Famotidine [Pepcid] 20 mg PO BID #60 tab 07/01/17 Levofloxacin [Levaquin] 750 mg PO Q24H #5 tab 07/06/17 Allergies Allergy/AdvReac Type Severity Reaction Status Date / Time dicyclomine HCl [From Bentyl] Allergy Severe Anaphylaxis Verified 07/11/17 20:33 Iodinated Contrast- Oral and Allergy Severe Rash/Hives Verified 07/11/17 20:33 IV Dye prednisone Allergy Severe Anaphylaxis Verified 07/11/17 20:33 shellfish derived [Shellfish] Allergy Severe Rash/Hives Verified 07/11/17 20:33 Penicillins Allergy Unknown Unknown Verified 07/11/17 20:33 Childhood steroids Allergy Severe Anaphylaxis Uncoded 07/11/17 19:57 Review of Systems ROS Statement: Those systems with pertinent positive or pertinent negative responses have been documented in the HPI. ROS Other: All systems not noted in ROS Statement are negative. 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 Past Anesthesia/Blood Transfusion Reactions: No Reported Reaction Date of Last Stent Placement:: 2002 Past Psychological History: Anxiety, Bipolar, Depression, Schizophrenia Smoking Status: Current every day smoker - Past Family History Mother Family Medical History: Asthma Father Family Medical History: Liver Disease, Renal Disease Additional Family Medical History / Comment(s): RENAL DISEASE General Exam Limitations: no limitations General appearance: alert, in no apparent distress Head exam: Present: atraumatic, normocephalic Eye exam: Present: normal appearance, PERRL ENT exam: Present: normal exam Neck exam: Present: normal inspection. Absent: tenderness, meningismus Respiratory exam: Present: wheezes, prolonged expiratory ( good Overall air entry) Cardiovascular Exam: Present: normal rhythm, tachycardia GI/Abdominal exam: Present: soft. Absent: distended, tenderness Extremities exam: Present: normal inspection, normal capillary refill. Absent: pedal edema Neurological exam: Present: alert, oriented X3, CN II-XII intact. Absent: motor sensory deficit Psychiatric exam: Present: normal affect, normal mood Skin exam: Present: warm, dry, intact. Absent: cyanosis, diaphoretic Course Vital Signs 07/11/17 07/11/17 07/11/17 19:54 21:08 21:15 Temperature 100.2 F H Pulse Rate 115 H 100 100 Respiratory 20 20 Rate Blood Pressure 125/69 126/70 O2 Sat by Pulse 99 97 Oximetry 07/11/17 21:33 Temperature Pulse Rate 100 Respiratory Rate Blood Pressure O2 Sat by Pulse Oximetry EKG Findings - EKG Comments: EKG Findings:: EKG shows sinus tachycardia, ventricular rate 110, para 128, QRS duration 74, QTC 443, no ST segment elevation or depression, no T-wave abnormality Medical Decision Making - Medical Decision Making 46 male history of COPD on home oxygen. Presents for evaluation of cough and dyspnea. Patient is given Robinul, Atrovent, and steroids. He does have good air entry, patient has extremely wheeze, this is felt to be forced. Patient's oxygen saturation remained stable. Chest x-ray shows no focal pneumonia. Hemoglobin stable 12 4, white blood cell count 8.6. Troponin is negative. EKG nonischemic. On reevaluation, patient is resting comfortably, no need for increased supplemental oxygen. Patient will continue his Levaquin and steroids at home. He will follow-up with his primary care physician. - Lab Data Result diagrams: 07/11/17 21:43 07/11/17 21:43 Lab Results 07/11/17 07/11/17 07/11/17 Range/Units 21:43 21:43 21:43 WBC 8.6 (3.8-10.6) k/uL RBC 4.40 (4.30-5.90) m/uL Hgb 12.4 L (13.0-17.5) gm/dL Hct 37.6 L (39.0-53.0) % MCV 85.4 (80.0-100.0) fL MCH 28.2 (25.0-35.0) pg MCHC 33.0 (31.0-37.0) g/dL RDW 17.5 H (11.5-15.5) % Plt Count 202 (150-450) k/uL Neutrophils % 68 % Lymphocytes % 25 % Monocytes % 5 % Eosinophils % 1 % Basophils % 0 % Neutrophils # 5.9 (1.3-7.7) k/uL Lymphocytes # 2.1 (1.0-4.8) k/uL Monocytes # 0.4 (0-1.0) k/uL Eosinophils # 0.1 (0-0.7) k/uL Basophils # 0.0 (0-0.2) k/uL Anisocytosis Slight PT 10.0 (9.0-12.0) sec INR 1.0 (<1.2) APTT 21.6 L (22.0-30.0) sec Sodium 139 (137-145) mmol/L Potassium 3.8 (3.5-5.1) mmol/L Chloride 108 H (98-107) mmol/L Carbon Dioxide 25 (22-30) mmol/L Anion Gap 6 mmol/L BUN 9 (9-20) mg/dL Creatinine 0.90 (0.66-1.25) mg/dL Est GFR (MDRD) Af Amer >60 (>60 ml/min/1.73 sqM) Est GFR (MDRD) Non-Af >60 (>60 ml/min/1.73 sqM) Glucose 88 (74-99) mg/dL Calcium 8.7 (8.4-10.2) mg/dL Magnesium 2.0 (1.6-2.3) mg/dL Total Bilirubin 0.4 (0.2-1.3) mg/dL AST 16 L (17-59) U/L ALT 50 (21-72) U/L Alkaline Phosphatase 96 (38-126) U/L Total Creatine Kinase (55-170) U/L CK-MB (CK-2) (0.0-2.4) ng/mL CK-MB (CK-2) Rel Index Troponin I (0.000-0.034) ng/mL NT-Pro-B Natriuret Pep pg/mL Total Protein 5.5 L (6.3-8.2) g/dL Albumin 3.0 L (3.5-5.0) g/dL 07/11/17 07/11/17 Range/Units 21:43 21:43 WBC (3.8-10.6) k/uL RBC (4.30-5.90) m/uL Hgb (13.0-17.5) gm/dL Hct (39.0-53.0) % MCV (80.0-100.0) fL MCH (25.0-35.0) pg MCHC (31.0-37.0) g/dL RDW (11.5-15.5) % Plt Count (150-450) k/uL Neutrophils % % Lymphocytes % % Monocytes % % Eosinophils % % Basophils % % Neutrophils # (1.3-7.7) k/uL Lymphocytes # (1.0-4.8) k/uL Monocytes # (0-1.0) k/uL Eosinophils # (0-0.7) k/uL Basophils # (0-0.2) k/uL Anisocytosis PT (9.0-12.0) sec INR (<1.2) APTT (22.0-30.0) sec Sodium (137-145) mmol/L Potassium (3.5-5.1) mmol/L Chloride (98-107) mmol/L Carbon Dioxide (22-30) mmol/L Anion Gap mmol/L BUN (9-20) mg/dL Creatinine (0.66-1.25) mg/dL Est GFR (MDRD) Af Amer (>60 ml/min/1.73 sqM) Est GFR (MDRD) Non-Af (>60 ml/min/1.73 sqM) Glucose (74-99) mg/dL Calcium (8.4-10.2) mg/dL Magnesium (1.6-2.3) mg/dL Total Bilirubin (0.2-1.3) mg/dL AST (17-59) U/L ALT (21-72) U/L Alkaline Phosphatase (38-126) U/L Total Creatine Kinase 31 L (55-170) U/L CK-MB (CK-2) 0.7 (0.0-2.4) ng/mL CK-MB (CK-2) Rel Index 2.3 Troponin I <0.012 (0.000-0.034) ng/mL NT-Pro-B Natriuret Pep 63 pg/mL Total Protein (6.3-8.2) g/dL Albumin (3.5-5.0) g/dL Disposition Clinical Impression: COPD (chronic obstructive pulmonary disease) Disposition: HOME SELF-CARE Condition: Good Instructions: COPD (Chronic Obstructive Pulmonary Disease) (ED) Referrals: Jessi Covarrubias MD [Primary Care Provider] - 1-2 days Time of Disposition: 23:27
[2017-07-11] MEDS ORDERED: IPRATROPIUM-ALBUTEROL 3 ML NEB INHALATION STA (20:33)
--- NOTE | 2017-07-11 21:00 | XR ---
EXAMINATION TYPE: XR chest 2V DATE OF EXAM: 07/11/2017 COMPARISON: 07/05/2017 HISTORY: Chest pain TECHNIQUE: Frontal and lateral views of the chest are obtained. FINDINGS: There is no heart failure nor confluent pneumonic infiltrate. Costophrenic angles are cyndee r. Bony thorax is intact. There are chest leads. There is right central venous catheter with tip in t he right atrium. There are clips over the left shoulder. IMPRESSION: No active cardiopulmonary disease. No change.
[2017-07-11] MEDS ORDERED: diphenhydrAMINE 25 MG CAP PO STA (21:09)
[2017-07-11 22:09] LABS: Anisocytosis Slight; Basophils % (A) 0 %; CH 28.6; CHCM 33.7; Eosinophils # (A) 0.1 k/uL (0-0.7); Eosinophils % (A) 1 %; HCT 37.6 % (39.0-53.0); HDW 2.39; HGB 12.4 gm/dL (13.0-17.5); Luc # (Auto) 0.08; Luc % (Auto) 1; Lymphocytes # (A) 2.1 k/uL (1.0-4.8); Lymphocytes % (A) 25 %; MCH 28.2 pg (25.0-35.0); MCV 85.4 fL (80.0-100.0); Mean Platelet Volume 7.4; Monocytes # (A) 0.4 k/uL (0-1.0); Monocytes % (A) 5 %; Neutrophils # (A) 5.9 k/uL (1.3-7.7); Neutrophils % (A) 68 %; RDW 17.5 % (11.5-15.5); WBC 8.6 k/uL (3.8-10.6); WBC (Perox) 9.56
[2017-07-11 22:31] LABS: ALT 50 U/L (21-72); AST 16 U/L (17-59); Alkaline Phosphatase 96 U/L (38-126); Anion Gap 6 mmol/L; Blood Urea Nitrogen 9 mg/dL (9-20); Calcium 8.7 mg/dL (8.4-10.2); Carbon Dioxide 25 mmol/L (22-30); Chloride 108 mmol/L (98-107); Glucose 88 mg/dL (74-99); Non-African American GFR(MDRD) >60 (>60 ml/min/1.73 sqM); Potassium 3.8 mmol/L (3.5-5.1); Sodium 139 mmol/L (137-145); Total Bilirubin 0.4 mg/dL (0.2-1.3); Total Protein 5.5 g/dL (6.3-8.2)
[2017-07-11 22:35] LABS: Creatine Kinase 31 U/L (55-170)
[2017-07-11 22:48] LABS: Creatine Kinase MB 0.7 ng/mL (0.0-2.4); Troponin I <0.012 ng/mL (0.000-0.034)
[2017-07-11 22:53] LABS: Partial Thromboplastin Time 21.6 sec (22.0-30.0)
[2017-07-11 23:46] VITALS: BP 132/79; PULSE 72; RESP 18; TEMP 98.5
== END 2017-07-11 23:45 | disposition home or self-care (01) ==
LOC: EC 19:04
DX: J44.9 Chronic obstructive pulmonary disease, unspecified (principal); F17.200 Nicotine dependence, unspecified, uncomplicated; Z86.718 Personal history of other venous thrombosis and embolism; Z85.830 Personal history of malignant neoplasm of bone; Z95.5 Presence of coronary angioplasty implant and graft; Z87.01 Personal history of pneumonia (recurrent); Z79.899 Other long term (current) drug therapy; Z88.0 Allergy status to penicillin; Z88.8 Allergy status to other drugs, medicaments and biological substances; Z91.013 Allergy to seafood; Z91.041 Radiographic dye allergy status
CPT/HCPCS: 36415; 71020; 80053; 82550; 82553; 83735; 83880; 84484; 85025; 85610; 85730; 93005; 94640; 96360; 96361; 99285